=== PATIENT | male | born 1940 | race Caucasian/White ===

== ENCOUNTER 2017-03-09 16:02 | Observation (INO) | payer MEDICARE, BC ==
[2017-03-09] MEDS ORDERED: Aspirin 81 MG Tab.Chew PO ONE (16:15)
[2017-03-09] MEDS ORDERED: Sodium Chloride 0.9% 10 ML Syringe FLUSH PRN ×2 (16:15→19:09)
[2017-03-09] MEDS ORDERED: Nitroglycerin 0.4 MG Tab.SL SL PRN ×2 (16:15→19:09)
[2017-03-09] MEDS ORDERED: Ondansetron 4 MG/2 ML SDV IVPUSH ONE (16:17)
[2017-03-09] MEDS ORDERED: Morphine 4 MG/ML Syringe IVPUSH ONE (16:17)
--- NOTE | 2017-03-09 16:22 | EDM.PDOC ---
ED HISTORY OF PRESENT ILLNESS - General Chief Complaint: Chest Pain Stated Complaint: CHEST PAINS Time Seen by Provider: 03/09/17 16:11 Source: Reports: Patient, Family, RN notes reviewed History Limitations: Reports: No limitations - History of Present Illness INITIAL COMMENTS - FREE TEXT/NARRATIVE: 76-year-old gentleman presents emergency department day complaint of chest pain he states the chest pain has been going on for 2 days it has progressively gotten worse does describe shortness of breath no nausea no diaphoresis does have a past medical history of hypertension dyslipidemia no confirmed history of coronary artery disease, recently has been ill with diarrhea over the last week - Related Data Allergies/ADRs: Allergies Allergy/AdvReac Type Severity Reaction Status Date / Time No Known Allergies Allergy Verified 07/16/15 10:45 Home Meds: Home Meds Lisinopril 20 mg PO DAILY 11/22/13 [History] Metoprolol Succinate 75 mg PO DAILY 11/22/13 [History] Past Medical History Cardiovascular History: Reports: High cholesterol, Hypertension Gastrointestinal History: Reports: Gastritis - Past Surgical History Other HEENT Surgeries/Procedures: Glacoma Social & Family History - Tobacco Use Smoking Status *Q: Former Smoker Years of Tobacco use: 15 Used Tobacco, but Quit: Yes Month Tobacco Last Used: April Second Hand Smoke Exposure: No - Alcohol Use Days Per Week of Alcohol Use: 0 - Recreational Drug Use Recreational Drug Use: No ED ROS GENERAL - Review of Systems Review Of Systems: See Below Constitutional: Reports: weakness HEENT: Reports: No symptoms Respiratory: Reports: Shortness of Breath Cardiovascular: Reports: Chest pain, Dyspnea on exertion GI/Abdominal: Reports: Abdominal pain, Diarrhea : Reports: no symptoms Musculoskeletal: Reports: no symptoms Skin: Reports: no symptoms Neurological: Reports: No Symptoms ED EXAM, GENERAL - Physical Exam Exam: See Below Free Text/Narrative:: General: Elderly male moderate discomfort, alert and oriented x3 HEENT: head is atraumatic normocephalic, eyes pupils equal round reactive to light, sclera clear no conjunctivitis appreciated. Ears tympanic membranes clear and singh landmarks and light reflex are present bilaterally canals are clear. Nose no septal deviation, nares are clear, no blood present. Mouth mucosa is moist and pink no erythema or exudate noted in soft palate, tongue is midline uvula is midline, dentures in place. Neck: Supple no thyromegaly no tracheal deviation. Nodes: Cervical nodes subclavicular nodes nontender no palpable lymphadenopathy noted. Lungs: clear to auscultation bilaterally with symmetrical respirations, no adventitious noise appreciated. CV: Regular rate and rhythm S1 and S2 appreciated no murmurs rubs or gallops noted. Chest wall is tender to palpation in epigastric region but above the xiphoid Abdomen: Soft, nontender, no palpable masses or organomegaly appreciated, no distention no guarding bowel sounds are present,. Neuro: Cranial nerves II through XII grossly intact Skin: Warm and dry, intact Extremities: No lower extremity edema appreciated, Course - Vital Signs Last Recorded V/S: Last Vital Signs Temp 97.6 F 03/09/17 16:08 Pulse 62 03/09/17 16:47 Resp 18 03/09/17 16:47 BP 91/69 03/09/17 16:47 Pulse Ox 94 L 03/09/17 16:47 - Orders/Labs/Meds Orders: Active Orders 24 hr Category Date Time Status Cardiac Monitoring [RC] .As Directed Care 03/09/17 16:15 Active EKG Documentation Completion [RC] ASDIRECTED Care 03/09/17 16:16 Active Peripheral IV Care [RC] . DIRECTED Care 03/09/17 16:16 Active Chest 1V Frontal [CR] Stat Exams 03/09/17 16:16 Taken Nitroglycerin [Nitrostat] Med 03/09/17 16:15 Active 0.4 mg SL Q5M PRN Sodium Chloride 0.9% [Saline Flush] Med 03/09/17 16:15 Active 10 ml FLUSH ASDIRECTED PRN Peripheral IV Insertion Adult [OM.PC] Stat Oth 03/09/17 16:15 Ordered Saline Lock Insert [OM.PC] Stat Oth 03/09/17 16:15 Ordered EKG 12 Lead [EK] Stat Ther 03/09/17 16:16 Ordered Medication Orders Nitroglycerin (Nitrostat) 0.4 mg SL Q5M PRN PRN Reason: Chest Pain Stop: 03/10/17 16:16 Last Admin: 03/09/17 16:23 Dose: 0.4 mg Sodium Chloride (Saline Flush) 10 ml FLUSH ASDIRECTED PRN PRN Reason: Keep Vein Open Last Admin: 03/09/17 16:24 Dose: 10 ml Labs: Laboratory Tests 03/09/17 03/09/17 03/09/17 Range/Units 16:25 16:25 16:25 WBC 10.0 (4.5-11.0) K/uL RBC 4.66 (4.30-5.90) M/uL Hgb 14.6 (12.0-15.0) g/dL Hct 42.8 (40.0-54.0) % MCV 92 (80-98) fL MCH 31 (27-31) pg MCHC 34 (32-36) % Plt Count 217 (150-400) K/uL Neut % (Auto) 45 (36-66) % Lymph % (Auto) 42 (24-44) % [place] % (Auto) 9 H (2-6) % Eos % (Auto) 4 (2-4) % Baso % (Auto) 1 (0-1) % PT 11.0 (9.5-12.0) sec INR 1.04 (0.80-1.20) APTT 26.6 L (27.0-36.0) sec Sodium 140 (140-148) mmol/L Potassium 3.9 (3.6-5.2) mmol/L Chloride 103 (100-108) mmol/L Carbon Dioxide 27 (21-32) mmol/L Anion Gap 9.7 (5.0-14.0) mmol/L BUN 22 H D (7-18) mg/dL Creatinine 1.0 (0.8-1.3) mg/dL Est Cr Clr Drug Dosing 67.90 mL/min Estimated GFR (MDRD) > 60 (>60) Glucose 97 (74-106) mg/dL Lactic Acid (0.4-2.0) mmol/L Calcium 8.8 (8.5-10.1) mg/dL Total Bilirubin 0.8 (0.2-1.0) mg/dL AST 43 H (15-37) U/L ALT 71 D (12-78) U/L Alkaline Phosphatase 52 (46-116) U/L Troponin I < 0.017 (0.000-0.056) ng/mL Total Protein 7.1 (6.4-8.2) g/dL Albumin 3.8 (3.4-5.0) g/dL Globulin 3.3 (2.3-3.5) g/dL Albumin/Globulin Ratio 1.2 (1.2-2.2) Lipase 89 (73-393) U/L 03/09/17 Range/Units 16:25 WBC (4.5-11.0) K/uL RBC (4.30-5.90) M/uL Hgb (12.0-15.0) g/dL Hct (40.0-54.0) % MCV (80-98) fL MCH (27-31) pg MCHC (32-36) % Plt Count (150-400) K/uL Neut % (Auto) (36-66) % Lymph % (Auto) (24-44) % [place] % (Auto) (2-6) % Eos % (Auto) (2-4) % Baso % (Auto) (0-1) % PT (9.5-12.0) sec INR (0.80-1.20) APTT (27.0-36.0) sec Sodium (140-148) mmol/L Potassium (3.6-5.2) mmol/L Chloride (100-108) mmol/L Carbon Dioxide (21-32) mmol/L Anion Gap (5.0-14.0) mmol/L BUN (7-18) mg/dL Creatinine (0.8-1.3) mg/dL Est Cr Clr Drug Dosing mL/min Estimated GFR (MDRD) (>60) Glucose (74-106) mg/dL Lactic Acid 2.0 (0.4-2.0) mmol/L Calcium (8.5-10.1) mg/dL Total Bilirubin (0.2-1.0) mg/dL AST (15-37) U/L ALT (12-78) U/L Alkaline Phosphatase (46-116) U/L Troponin I (0.000-0.056) ng/mL Total Protein (6.4-8.2) g/dL Albumin (3.4-5.0) g/dL Globulin (2.3-3.5) g/dL Albumin/Globulin Ratio (1.2-2.2) Lipase (73-393) U/L Meds: Medications Generic Name Dose Route Start Last Admin Trade Name Freq PRN Reason Stop Dose Admin Nitroglycerin 0.4 mg 03/09/17 16:15 04/17/17 16:23 Nitrostat SL 03/10/17 16:16 0.4 mg Q5M PRN Administration Chest Pain Sodium Chloride 10 ml 03/09/17 16:15 03/09/17 16:24 Saline Flush FLUSH 10 ml ASDIRECTED PRN Administration Keep Vein Open Discontinued Medications Generic Name Dose Route Start Last Admin Trade Name Freq PRN Reason Stop Dose Admin Aspirin 324 mg 03/09/17 16:15 03/09/17 16:22 Aspirin PO 03/09/17 16:16 324 mg ONETIME ONE Administration Morphine Sulfate 4 mg 03/09/17 16:17 03/09/17 16:32 Morphine IVPUSH 03/09/17 16:18 4 mg ONETIME ONE Administration Ondansetron HCl 4 mg 03/09/17 16:17 03/09/17 16:31 Zofran IVPUSH 03/09/17 16:18 4 mg ONETIME ONE Administration Departure - Departure Time of Disposition: 17:15 Disposition: Admitted As Inpatient 65 Condition: good Clinical Impression: Chest pain Qualifiers: Chest pain type: other chest pain Qualified Code(s): R07.89 - Other chest pain ; R07.8 - Other chest pain Forms: ED Department Discharge - My Orders Last 24 Hours: My Active Orders 03/09/17 16:15 Cardiac Monitoring [RC] .As Directed Nitroglycerin [Nitrostat] 0.4 mg SL Q5M PRN Sodium Chloride 0.9% [Saline Flush] 10 ml FLUSH ASDIRECTED PRN Peripheral IV Insertion Adult [OM.PC] Stat Saline Lock Insert [OM.PC] Stat 03/09/17 16:16 EKG Documentation Completion [RC] ASDIRECTED Peripheral IV Care [RC] . DIRECTED Chest 1V Frontal [CR] Stat EKG 12 Lead [EK] Stat - Assessment/Plan Last 24 Hours: My Active Orders 03/09/17 16:15 Cardiac Monitoring [RC] .As Directed Nitroglycerin [Nitrostat] 0.4 mg SL Q5M PRN Sodium Chloride 0.9% [Saline Flush] 10 ml FLUSH ASDIRECTED PRN Peripheral IV Insertion Adult [OM.PC] Stat Saline Lock Insert [OM.PC] Stat 03/09/17 16:16 EKG Documentation Completion [RC] ASDIRECTED Peripheral IV Care [RC] . DIRECTED Chest 1V Frontal [CR] Stat EKG 12 Lead [EK] Stat Plan: Assessment Acuity = acute Site and laterality = chest pain complicated patient with known history of hypertension, dyslipidemia, coronary artery disease mild to moderate 3 vessel disease catheterization in 2009 Etiology = unclear etiology Manifestations = pain and dyspnea Location of injury = home Lab values = CBC, CMP, troponin negative EKG does show an ST elevation in lead 3 only, chest x-ray I did review films myself I cannot appreciate any acute process, the official read from radiology is pending, LAYNE score of 2 heart score of 5 Plan Discussed case with hospitalist nuisance wildlife control operator he agreed to come and evaluate the patient ED for admission Patient was in agreement with the plan all questions were answered, they were instructed to return to the emergency department or call for worsening symptoms. This note was dictated using [employer] voice recognition software please call with any questions.
--- NOTE | 2017-03-09 18:30 | PCM.HP ---
H&P History of Present Illness - General Date of Service: 03/09/17 Admit Problem/Dx: Admission Diagnosis/Problem Admission Diagnosis/Problem Chest pain Source of Information: Patient, Family, Old records, Provider, RN notes reviewed History Limitations: Reports: No limitations - History of Present Illness Initial Comments - Free Text/Narative: This patient is a 76-year-old gentleman who was admitted to observation status through the emergency department for further evaluation and management of chest pain. Over the past few weeks he has noted symptoms of chest pain that seemed to follow eating and will last an hour or 2. Yesterday he experienced some diarrhea and had some cramping lower abdominal pain. When he woke this morning and especially after eating noted central chest pressure described as moderate in nature. The pain did not radiate and there were no associated symptoms. Because the pain was continuous he presented to the emergency department for further evaluation. Initial EKG shows no acute ST segment changes and his initial troponin level is within normal range. He received 2 mg of IV morphine and his pain has resolved. Chest Pain Score (Numeric/FACES): 0 - Related Data Allergies/Adverse Reactions: Allergies Allergy/AdvReac Type Severity Reaction Status Date / Time No Known Allergies Allergy Verified 07/16/15 10:45 Home Medications: Home Meds Lisinopril 20 mg PO DAILY 11/22/13 [History] Metoprolol Succinate 75 mg PO DAILY 11/22/13 [History] Past Medical History HEENT History: Reports: Glaucoma Cardiovascular History: Reports: High cholesterol, Hypertension Respiratory History: Reports: Sleep apnea Gastrointestinal History: Reports: Gastritis Genitourinary History: Reports: Prostate disorder Musculoskeletal History: Reports: Arthritis, Back pain, chronic Psychiatric History: Reports: Other (see below) Other Psychiatric History: past 6 months anger problems Endocrine/Metabolic History: Reports: Obesity/BMI 30+ - Infectious Disease History Infectious Disease History: Reports: Chicken pox, Measles, Mumps - Past Surgical History Other HEENT Surgeries/Procedures: Glacoma Social & Family History - Tobacco Use Smoking Status *Q: Former Smoker Years of Tobacco use: 15 Used Tobacco, but Quit: Yes Month Tobacco Last Used: April Second Hand Smoke Exposure: No - Caffeine Use Caffeine Use: Reports: Coffee Caffeine Use Comment: occ - Alcohol Use Days Per Week of Alcohol Use: 0 - Recreational Drug Use Recreational Drug Use: No H&P Review of Systems - Review of Systems: Review Of Systems: See Below General: Denies: fever, chills, weakness, fatigue, diaphoresis HEENT: Reports: no symptoms Pulmonary: Reports: No Symptoms Cardiovascular: Reports: chest pain. Denies: palpitations, dyspnea on exertion , orthopnea, PND, edema, lightheadedness, syncope Gastrointestinal: Reports: No symptoms Genitourinary: Reports: no symptoms Musculoskeletal: Reports: no symptoms Skin: Reports: no symptoms Psychiatric: Reports: no symptoms Neurological: Reports: No Symptoms Hematologic/Lymphatic: Reports: no symptoms Immunologic: Reports: no symptoms Exam - Exam Exam: See Below - Vital Signs Vital Signs: Last Vital Signs Temp 97.6 F 03/09/17 16:08 Pulse 62 03/09/17 16:47 Resp 18 03/09/17 16:47 BP 91/69 03/09/17 16:47 Pulse Ox 94 L 03/09/17 16:47 Weight: 261 lb - Exam Quality Assessment: supplemental oxygen General: alert, oriented, cooperative HEENT: Conjunctiva clear, Hearing intact, Mucosa moist & pink, Nares patent, Normal nasal septum, Posterior pharynx clear, Pupils equal, Pupils reactive Neck: supple, trachea midline, 2 Lungs: Clear to auscultation, Normal respiratory effort Cardiovascular: regular rate, regular rhythm, normal S1, normal S2. No: systolic murmur, diastolic murmur Abdomen: normal bowel sounds, soft Back Exam: normal inspection, full range of motion, NT Extremities: 3, normal inspection, 10 Skin: warm, dry, intact Neurological: cranial nerves intact, strength equal bilateral, normal speech, normal tone, sensation intact. No: focal deficit Neuro Extensive - Mental Status: alert, oriented x3, normal mood/affect, normal cognition, memory intact - Patient Data Lab Results last 24 hrs: Laboratory Results - last 24 hr 03/09/17 03/09/17 03/09/17 Range/Units 16:25 16:25 16:25 WBC 10.0 (4.5-11.0) K/uL RBC 4.66 (4.30-5.90) M/uL Hgb 14.6 (12.0-15.0) g/dL Hct 42.8 (40.0-54.0) % MCV 92 (80-98) fL MCH 31 (27-31) pg MCHC 34 (32-36) % Plt Count 217 (150-400) K/uL Neut % (Auto) 45 (36-66) % Lymph % (Auto) 42 (24-44) % [place] % (Auto) 9 H (2-6) % Eos % (Auto) 4 (2-4) % Baso % (Auto) 1 (0-1) % PT 11.0 (9.5-12.0) sec INR 1.04 (0.80-1.20) APTT 26.6 L (27.0-36.0) sec Sodium 140 (140-148) mmol/L Potassium 3.9 (3.6-5.2) mmol/L Chloride 103 (100-108) mmol/L Carbon Dioxide 27 (21-32) mmol/L Anion Gap 9.7 (5.0-14.0) mmol/L BUN 22 H D (7-18) mg/dL Creatinine 1.0 (0.8-1.3) mg/dL Est Cr Clr Drug Dosing 67.90 mL/min Estimated GFR (MDRD) > 60 (>60) Glucose 97 (74-106) mg/dL Lactic Acid (0.4-2.0) mmol/L Calcium 8.8 (8.5-10.1) mg/dL Total Bilirubin 0.8 (0.2-1.0) mg/dL AST 43 H (15-37) U/L ALT 71 D (12-78) U/L Alkaline Phosphatase 52 (46-116) U/L Troponin I < 0.017 (0.000-0.056) ng/mL Total Protein 7.1 (6.4-8.2) g/dL Albumin 3.8 (3.4-5.0) g/dL Globulin 3.3 (2.3-3.5) g/dL Albumin/Globulin Ratio 1.2 (1.2-2.2) Lipase 89 (73-393) U/L 03/09/ Range/Units 16:25 WBC (4.5-11.0) K/uL RBC (4.30-5.90) M/uL Hgb (12.0-15.0) g/dL Hct (40.0-54.0) % MCV (80-98) fL MCH (27-31) pg MCHC (32-36) % Plt Count (150-400) K/uL Neut % (Auto) (36-66) % Lymph % (Auto) (24-44) % [place] % (Auto) (2-6) % Eos % (Auto) (2-4) % Baso % (Auto) (0-1) % PT (9.5-12.0) sec INR (0.80-1.20) APTT (27.0-36.0) sec Sodium (140-148) mmol/L Potassium (3.6-5.2) mmol/L Chloride (100-108) mmol/L Carbon Dioxide (21-32) mmol/L Anion Gap (5.0-14.0) mmol/L BUN (7-18) mg/dL Creatinine (0.8-1.3) mg/dL Est Cr Clr Drug Dosing mL/min Estimated GFR (MDRD) (>60) Glucose (74-106) mg/dL Lactic Acid 2.0 (0.4-2.0) mmol/L Calcium (8.5-10.1) mg/dL Total Bilirubin (0.2-1.0) mg/dL AST (15-37) U/L ALT (12-78) U/L Alkaline Phosphatase (46-116) U/L Troponin I (0.000-0.056) ng/mL Total Protein (6.4-8.2) g/dL Albumin (3.4-5.0) g/dL Globulin (2.3-3.5) g/dL Albumin/Globulin Ratio (1.2-2.2) Lipase (73-393) U/L Result Diagrams: 03/09/17 16:25 03/09/17 16:25 *Q Meaningful Use (ADM) - VTE *Q VTE Criteria *Q: - VTE Risk Assess *Q Each Risk Factor Represents 1 Point: Obesity (BMI greater than 30) Total Score 1 Point Risk Factors: 1 Each Risk Factor Represents 2 Points: None Total Score 2 Point Risk Factors: 0 Each Risk Factor Represents 3 Points: Age 75 Years or Greater Total Score 3 Point Risk Factors: 3 Each Risk Factor Represents 5 Points: None Total Score 5 Point Risk Factors: 0 Venous Thromboembolism Risk Factor Score *Q: 4 - Stroke *Q Stroke Criteria *Q: - AMI *Q AMI Criteria *Q: Problem List Initiated/Reviewed/Updated: Yes Orders Last 24hrs: Active Orders 24 hr Category Date Time Status Patient Status Manage Transfer [TRANSFER] Routine ADT 03/09/17 18:17 Ordered Cardiac Monitoring [RC] .As Directed Care 03/09/17 16:15 Active Cardiac Monitoring [RC] .As Directed Care 03/09/17 18:17 Ordered EKG Documentation Completion [RC] ASDIRECTED Care 03/09/17 16:16 Active Peripheral IV Care [RC] . DIRECTED Care 03/09/17 16:16 Active Chest 1V Frontal [CR] Stat Exams 03/09/17 16:16 Taken Nitroglycerin [Nitrostat] Med 03/09/17 16:15 Active 0.4 mg SL Q5M PRN Sodium Chloride 0.9% [Saline Flush] Med 03/09/17 16:15 Active 10 ml FLUSH ASDIRECTED PRN Peripheral IV Insertion Adult [OM.PC] Stat Oth 03/09/17 16:15 Ordered Saline Lock Insert [OM.PC] Stat Oth 03/09/17 16:15 Ordered Resuscitation Status Routine Resus Stat 03/09/17 18:19 Ordered EKG 12 Lead [EK] Stat Ther 03/09/17 16:16 Ordered Medication Orders Nitroglycerin (Nitrostat) 0.4 mg SL Q5M PRN PRN Reason: Chest Pain Stop: 03/10/17 16:16 Last Admin: 03/09/17 16:23 Dose: 0.4 mg Sodium Chloride (Saline Flush) 10 ml FLUSH ASDIRECTED PRN PRN Reason: Keep Vein Open Last Admin: 03/09/17 16:24 Dose: 10 ml Assessment/Plan Comment:: ASSESSMENT AND PLAN CHEST PAIN-occurring in this 76-year-old gentleman, previous angiogram 7 years ago showed mild to moderate coronary artery disease. He has experienced symptoms over the past few weeks that became significantly worse today. By his description these symptoms seem to be more likely ulcer disease or reflux. He does have risk factors for coronary artery disease including family history, hypertension, and hypercholesterolemia. -Observation admission -Serial troponin levels -If stable in a.m. plan to schedule for outpatient Cardiolite study -Protonix 40 mg IV every 12 hours HYPERTENSION -Continue outpatient medical regimen HYPERCHOLESTEROLEMIA -Discuss with patient at the time of discharge concerning resuming statin therapy HISTORY OF ESOPHAGEAL REFLUX MAINTENANCE ISSUES -DVT prophylaxis; Lovenox 40 mg subcutaneous daily -GI prophylaxis; Protonix as above -Aragon catheter; not indicated -Nutrition; regular diet -Nicotinic dependence; not required CODE STATUS-FULL CODE ADMISSION STATUS-this patient will be admitted to observation status, expect no more than a one night hospital stay for evaluation and management of problems as outlined above. DISPOSITION-anticipate discharge to home after the hospital stay. PRIMARY CARE PROVIDER-
[2017-03-09] MEDS ORDERED: Ondansetron 4 MG/2 ML SDV IV PRN (19:09)
[2017-03-09] MEDS ORDERED: Morphine 2 MG/ML Syringe IVPUSH PRN (19:09)
[2017-03-09] MEDS ORDERED: Acetaminophen 325 MG Tab PO PRN (19:09)
[2017-03-09] MEDS ORDERED: oxyCODONE 5 MG Tab PO PRN (19:09)
[2017-03-09] MEDS: Pantoprazole 40 MG Vial IV SCH (19:53)
[2017-03-09] MEDS ORDERED: Enoxaparin 40 MG/0.4 ML Syringe SUBCUT SCH (20:00)
[2017-03-10] MEDS ORDERED: Aluminum Hydroxide/Magnesium Hydroxide/Simethicone Susp 30 ML Cup PO PRN (00:59)
[2017-03-10] MEDS ORDERED: Lisinopril 20 MG Tab PO SCH (09:00)
[2017-03-10] MEDS ORDERED: Aspirin 81 MG Tab.Chew PO SCH (09:00)
[2017-03-10 09:28] VITALS: BP 127/62
[2017-03-10] MEDS ORDERED: Metoprolol Succinate 50 MG Tab.ER PO SCH (09:30)
[2017-03-10] MEDS: Pantoprazole 40 MG Vial IV SCH (09:53)
--- NOTE | 2017-03-10 10:49 | CR ---
Mild cardiomegaly. Pulmonary vasculature within normal limits. No focal consolidation.
--- NOTE | 2017-03-10 10:58 | PCM.DCSUM1 ---
Discharge Summary - Hospital Course Brief History: Mr. Mandujano is a 76-year-old gentleman who was admitted through the emergency department to observation status for further evaluation and management of chest pain. - Discharge Data Discharge Date: 03/10/17 Discharge Disposition: Home, Self-Care 01 Condition: Fair - Discharge Diagnosis/Problem(s) (1) Esophageal reflux SNOMED Code(s): 196516868 ICD Code: K21.9 - GASTRO-ESOPHAGEAL REFLUX DISEASE WITHOUT ESOPHAGITIS Status: Acute Current Visit: Yes (2) Reflux esophagitis SNOMED Code(s): 384913572 ICD Code: K21.0 - GASTRO-ESOPHAGEAL REFLUX DISEASE WITH ESOPHAGITIS Status : Acute Current Visit: Yes (3) Chest pain SNOMED Code(s): 79989727 ICD Code: R07.9 - CHEST PAIN, UNSPECIFIED Status: Acute Current Visit: Yes Qualifiers: Chest pain type: other chest pain Qualified Code(s): R07.89 - Other chest pain; R07.8 - Other chest pain - Patient Summary/Data Hospital Course: Mr. Mandujano is a 76-year-old gentleman who developed persistent chest pain on the day of admission. Pain was described as a pressure sensation in the central chest, pain was of moderate intensity and did not radiate. He's had similar pain over the past several weeks it usually seems to follow eating. He does have a past history of esophageal reflux and had stopped taking his proton pump inhibitor several months ago. Initial EKG and troponin level in the emergency department were unremarkable showing no evidence of acute ischemia or infarct. Serial troponin levels were obtained after admission and remained normal. He was started on Protonix 40 mg IV every 12 hours at the time of admission, by the following morning was already feeling somewhat improved with significant decrease in his previous chest pain. Outpatient exercise Cardiolite study will be scheduled for tomorrow March 11. Followup appointment will be scheduled with Dr. Hanna within one week. He will be discharged home on protonic 40 mg twice daily for 2 weeks, then once daily thereafter. Activity will be as tolerated and he will resume his usual diet. - Patient Instructions Diet: Usual Diet as Tolerated Activity: As Tolerated Other/Special Instructions: Please schedule an exercise Cardiolite study for March 11. Please schedule followup appointment with Dr. Hanna within one week. - Discharge Plan Prescriptions/Med Rec: Alum Hydrox/Mag Hydrox/Simeth [Maalox Advanced] 30 ml PO Q2H PRN #355 ml PRN Reason: Chest Pain Pantoprazole Sodium [Protonix] 40 mg PO BID #30 tablet. Home Medications: Home Meds Lisinopril 20 mg PO DAILY 11/22/13 [History] Metoprolol Succinate 75 mg PO DAILY 11/22/13 [History] Alum Hydrox/Mag Hydrox/Simeth [Maalox Advanced] 30 ml PO Q2H PRN #355 ml [Rx] Pantoprazole Sodium [Protonix] 40 mg PO BID #30 tablet. 03/10/17 [Rx] Referrals: Marcial Hanna MD [Physician] - - Patient Data Vitals - Most Recent: Last Vital Signs Temp 96.8 F 03/10/17 08:00 Pulse 68 03/10/17 09:53 Resp 12 03/10/17 09:27 BP 127/62 03/10/17 09:58 Pulse Ox 98 03/10/17 09:27 Weight - Most Recent: 261 lb I&O - Last 24 hours: Intake & Output 03/09/17 03/10/17 03/10/17 22:59 06:59 14:59 Intake Total 240 480 Balance 240 480 Lab Results - Last 24 hrs: Laboratory Results - last 24 hr 03/09/17 03/10/17 Range/Units 21:58 05:00 Troponin I < 0.017 < 0.017 (0.000-0.056) ng/mL Med Orders - Current: Current Medications Acetaminophen (Tylenol) 650 mg PO Q4H PRN PRN Reason: Pain (Mild 1-3)/fever Al Hydroxide/Mg Hydroxide (Mag-Al Plus) 30 ml PO Q4H PRN PRN Reason: Dyspepsia Last Admin: 03/10/17 01:08 Dose: 30 ml Aspirin (Aspirin) 81 mg PO DAILY [facility] [place] Last Admin: 03/10/17 09:53 Dose: 81 mg Enoxaparin Sodium (Lovenox) 40 mg SUBCUT DAILY@1999 [facility] [place] Last Admin: 03/09/17 19:54 Dose: 40 mg Lisinopril (Prinivil) 20 mg PO DAILY [facility] [place] Last Admin: 03/10/17 09:58 Dose: 20 mg Metoprolol Succinate 50 mg/ (Metoprolol Succinate 25 mg) 75 mg PO DAILY [facility] [place] Last Admin: 03/10/17 09:53 Dose: 75 mg Morphine Sulfate (Morphine) 2 mg IVPUSH Q30M PRN PRN Reason: Pain (severe 7-10) Nitroglycerin (Nitrostat) 0.4 mg SL Q5M PRN PRN Reason: Chest Pain Ondansetron HCl (Zofran) 4 mg IV Q4H PRN PRN Reason: Nausea/Vomiting Oxycodone HCl (Oxycodone) 5 mg PO Q4H PRN PRN Reason: Pain (moderate 4-6) Pantoprazole Sodium (Protonix Iv) 40 mg IV Q12H [facility] [place] Last Admin: 03/10/17 09:53 Dose: 40 mg Sodium Chloride (Saline Flush) 10 ml FLUSH ASDIRECTED PRN PRN Reason: Keep Vein Open Discontinued Medications Aspirin (Aspirin) 324 mg PO ONETIME ONE Stop: 03/09/17 16:16 Last Admin: 03/09/17 16:22 Dose: 324 mg Morphine Sulfate (Morphine) 4 mg IVPUSH ONETIME ONE Stop: 03/09/17 16:18 Last Admin: 03/09/17 16:32 Dose: 4 mg Nitroglycerin (Nitrostat) 0.4 mg SL Q5M PRN PRN Reason: Chest Pain Stop: 03/10/17 16:16 Last Admin: 03/09/17 16:23 Dose: 0.4 mg Ondansetron HCl (Zofran) 4 mg IVPUSH ONETIME ONE Stop: 03/09/17 16:18 Last Admin: 03/09/17 16:31 Dose: 4 mg Sodium Chloride (Saline Flush) 10 ml FLUSH ASDIRECTED PRN PRN Reason: Keep Vein Open Last Admin: 03/09/17 16:24 Dose: 10 ml *Q Meaningful Use (DIS) - VTE *Q VTE Criteria *Q: - Stroke *Q Stroke Criteria *Q: - AMI *Q AMI Criteria *Q:
== END 2017-03-10 11:27 | disposition home or self-care (01) ==
LOC: JP.ED 16:02 → JP.ICU 18:17
PROVIDERS: ADMIT Hospitalist; ATTEND Hospitalist
DX: K21.0 Gastro-esophageal reflux disease with esophagitis (principal); R07.89 Other chest pain; I10 Essential (primary) hypertension; E78.00 Pure hypercholesterolemia, unspecified; E66.9 Obesity, unspecified; Z68.30 Body mass index [BMI] 30.0-30.9, adult; Z98.890 Other specified postprocedural states; Z87.891 Personal history of nicotine dependence; Z79.82 Long term (current) use of aspirin; Z79.899 Other long term (current) drug therapy
CPT/HCPCS: 36415; 71010; 80053; 83605; 83690; 84484; 85025; 85610; 85730; 93005; 96372; 96374; 96375; 99285; A9270; C9113; G0378; J1650; J2270; J2405; J7050; 93010; 99217; 99219

== ENCOUNTER 2017-04-06 06:31 | Day surgery (SDC) | payer MEDICARE, BC ==
[2017-04-06] MEDS ORDERED: Lactated Ringers 1,000 ML IV SCH (07:15)
[2017-04-06] MEDS ORDERED: Sodium Chloride 0.9% 1,000 ML IV SCH ×2 (07:30→15:00)
[2017-04-06] MEDS ORDERED: fentaNYL 100 MCG/2 ML SDV ONE (07:58)
[2017-04-06] MEDS ORDERED: Propofol 200 MG/20 ML SDV ONE (08:12)
[2017-04-06 09:13] VITALS: BP 153/76
[2017-04-06] MEDS ORDERED: Scopolamine 1.5 MG Transdermal Patch ONE (09:24)
--- NOTE | 2017-04-09 00:39 | ANES ---
DATE OF SERVICE: 04/08/2017 ADDENDUM: On recent procedure, 100 mg of propofol was given, but not documented on the anesthesia record. Dale Yan CRNA /[id number]
--- NOTE | 2017-05-06 08:13 | OR ---
DATE OF PROCEDURE: 04/06/2017 PROCEDURE: EGD. FINDINGS: Mild esophageal reflux disease. COMPLICATIONS: None. OIL FIELD CASER: None. PREOPERATIVE DIAGNOSIS: Epigastric pain. POSOPERATIVE DIAGNOSIS: Epigastric pain. RISKS: Risks, benefits, alternatives, and limitations, including, but not limited to infection, bleeding, and perforation were explained to the patient who wished to proceed. PROCEDURE IN DETAIL: The patient was placed in left lateral decubitus position. The EGD scope was introduced and advanced atraumatically to the second part of the duodenum. No evidence of duodenitis. The scope was brought back into the stomach. No evidence of gastritis was noted. No ulcerations. At the GE junction was inflammation consistent with reflux disease. This was biopsied multiple times using cold biopsy forceps. No other abnormalities of the esophagus were noted. The patient tolerated the procedure well. Reggie Mckeon MD /[id number]
== END 2017-04-06 09:25 | disposition home or self-care (01) ==
LOC: JP.SDS 06:31
PROVIDERS: ATTEND Surgery
DX: K21.9 Gastro-esophageal reflux disease without esophagitis (principal); R13.10 Dysphagia, unspecified; G47.33 Obstructive sleep apnea (adult) (pediatric); I10 Essential (primary) hypertension; E66.9 Obesity, unspecified; Z79.899 Other long term (current) drug therapy; Z88.8 Allergy status to other drugs, medicaments and biological substances
CPT/HCPCS: 43239; 88305; A9270; J2704; J3010; J7040

== ENCOUNTER 2017-06-26 09:04 | Inpatient (IN) | payer MEDICARE, BC ==
[2017-06-26] MEDS ORDERED: Sodium Chloride 0.9% 10 ML Syringe FLUSH PRN ×2 (11:23→12:03)
[2017-06-26] MEDS ORDERED: Ondansetron 4 MG/2 ML SDV IVPUSH ONE (11:29)
[2017-06-26] MEDS ORDERED: Sodium Chloride 0.9% 1,000 ML IV SCH (11:30)
--- NOTE | 2017-06-26 11:38 | EDM.PDOC ---
ED HPI GENERAL MEDICAL PROBLEM - General Chief Complaint: Gastrointestinal Problem Stated Complaint: VOMITING Time Seen by Provider: 06/26/17 11:00 Source of Information: Reports: Patient History Limitations: Reports: No Limitations - History of Present Illness INITIAL COMMENTS - FREE TEXT/NARRATIVE: Magdy presents today with complains of acute abdominal pain, nausea and vomiting for two days. He states he is unable to keep anything down, has no appetite, his abdomen is distended and he feels full of gas. He denies fever, chills, blood in urine or stool. No food since yesterday. Water PO this morning at 0700. NPO since that time. Location: Reports: Abdomen Quality: Reports: Ache, Burning Severity: Moderate Improves with: Reports: None Worsens with: Reports: Movement Associated Symptoms: Reports: Loss of Appetite, Nausea/Vomiting, Shortness of Breath. Denies: Cough, Diaphoresis, Fever/Chills, Malaise, Weakness - Related Data Allergies Allergy/AdvReac Type Severity Reaction Status Date / Time No Known Allergies Allergy Verified 04/06/17 06:54 Home Meds: Home Meds Lisinopril 20 mg PO DAILY 11/22/13 [History] Metoprolol Succinate 75 mg PO DAILY 11/22/13 [History] Alum Hydrox/Mag Hydrox/Simeth [Maalox Advanced] 30 ml PO Q2H PRN #355 ml [Rx] Pantoprazole Sodium [Protonix] 40 mg PO BID #30 tablet. 03/10/17 [Rx] Past Medical History HEENT History: Reports: Cataract, Glaucoma, Impaired Vision Cardiovascular History: Reports: Arrhythmia, High Cholesterol, Hypertension, ND Respiratory History: Reports: Sleep Apnea Gastrointestinal History: Reports: Cholelithiasis, Chronic Constipation, Chronic Diarrhea, Colon Polyp, Gastritis, GERD Genitourinary History: Reports: Prostate Disorder Other Genitourinary History: urinary frequency Musculoskeletal History: Reports: Back Pain, Chronic, Osteoarthritis Psychiatric History: Reports: Other (See Below) Other Psychiatric History: past 6 months anger problems Endocrine/Metabolic History: Reports: Obesity/BMI 30+ - Infectious Disease History Infectious Disease History: Reports: Chicken Pox, Measles, Mumps, Pertussis ( Whooping Cough) - Past Surgical History HEENT Surgical History: Reports: None Cardiovascular Surgical History: Reports: None Respiratory Surgical History: Reports: None GI Surgical History: Reports: Cholecystectomy, Colonoscopy, EGD Male Surgical History: Reports: None Endocrine Surgical History: Reports: None Musculoskeletal Surgical History: Reports: Knee Replacement, Other (See Below) Other Musculoskeletal Surgeries/Procedures:: Left ankle surg Social & Family History - Tobacco Use Smoking Status *Q: Never Smoker Years of Tobacco use: 25 Packs/Tins Daily: 4 Used Tobacco, but Quit: Yes Month Tobacco Last Used: 1974 Second Hand Smoke Exposure: No - Caffeine Use Caffeine Use: Reports: Coffee Caffeine Use Comment: occasional 2-3 cups week - Alcohol Use Days Per Week of Alcohol Use: 0 - Recreational Drug Use Recreational Drug Use: No ED ROS GENERAL - Review of Systems Review Of Systems: See Below Constitutional: Reports: Decreased Appetite. Denies: Fever, Chills, Malaise, Weakness, Night Sweats, Diaphoresis HEENT: Reports: No Symptoms Respiratory: Reports: Shortness of Breath. Denies: Wheezing, Cough, Sputum Cardiovascular: Denies: Chest Pain, Dyspnea on Exertion, Edema, Lightheadedness , Orthopnea, Palpitations, PND, Syncope Endocrine: Reports: No Symptoms GI/Abdominal: Reports: Abdominal Pain, Constipation, Diarrhea, Decreased Appetite, Distension, Flatus, Nausea, Vomiting. Denies: Black Stool, Bloody Stool, Difficulty Swallowing, Hematemesis, Hematochezia, Melena : Reports: Frequency, Urinary Retention. Denies: Dysuria, Flank Pain, Hematuria, Incontinence, Pain, Urgency Musculoskeletal: Reports: No Symptoms Skin: Denies: Dryness, Bruising, Pruritis, Rash, Erythema Neurological: Denies: Confusion, Dizziness, Headache, Numbness, Tingling Psychiatric: Reports: No Symptoms Hematologic/Lymphatic: Reports: No Symptoms Immunologic: Reports: No Symptoms ED EXAM, GI/ABD - Physical Exam Exam: See Below Text/Narrative:: Magdy is an alert, oriented and pleasant 76 year old male with acute abdominal pain, distention, nausea, vomiting, diarrhea, feeling full, belching and loss of appetite for two days. He reports past EGD 2 or 3 months ago without abnormalities. past history of acid reflux and silent ND. Dr. Hanna is his regular provider. Exam Limited By: No Limitations General Appearance: Alert, WD/WN, No Apparent Distress Eyes: Bilateral: EOMI Ears: Normal External Exam, Normal Canal, Hearing Grossly Normal, Normal TMs Nose: Normal Inspection, Normal Mucosa, No Blood Throat/Mouth: Normal Inspection, Normal Lips, Normal Teeth, Normal Oropharynx, Normal Voice, No Airway Compromise, Other (Dentures in place, tongue is dry. ) Head: Atraumatic, Normocephalic Neck: Normal Inspection, Supple, Non-Tender, Full Range of Motion Respiratory/Chest: No Respiratory Distress, Lungs Clear, Normal Breath Sounds, No Accessory Muscle Use, Chest Non-Tender Cardiovascular: Normal Peripheral Pulses, Regular Rate, Rhythm, No Edema, No Gallop, No Murmur, No Rub GI/Abdominal Exam: Distended, Guarding, Tender, Abnormal Bowel Sounds, Other ( Hyperactive bowel sounds, large round abdomen. BM in ER toilet, brown liquid with small ribbon like pieces of stool noted, no blood. ). No: Mass Back Exam: Normal Inspection, Full Range of Motion. 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 DIRECTED PRN Lactated Ringers [Ringers, Lactated] 1,000 ml Med 06/26/17 14:45 Active IV ASDIRECTED Sodium Chloride 0.9% [Normal Saline] 1,000 ml Med 06/26/17 11:30 Active IV ASDIRECTED Sodium Chloride 0.9% [Normal Saline] 85 ml Med 06/26/17 12:15 Active IV ASDIRECTED Sodium Chloride 0.9% [Saline Flush] Med 06/26/17 11:23 Active 10 ml FLUSH ASDIRECTED PRN Sodium Chloride 0.9% [Saline Flush] Med 06/26/17 12:03 Active 10 ml FLUSH ONETIME PRN Nasogastric Orogastric Tube Insertion [OM.PC] Routine Oth 06/26/17 13:42 Ordered Saline Lock Insert [OM.PC] Routine Oth 06/26/17 11:23 Ordered Resuscitation Status Routine Resus Stat 06/26/17 15:54 Ordered EKG 12 Lead [EK] Routine Ther 06/26/17 11:22 Ordered Medication Orders Sodium Chloride (Normal Saline) 1,000 mls @ 500 mls/hr IV ASDIRECTED [facility] Last Admin: 06/26/17 11:42 Dose: 500 mls/hr Sodium Chloride (Normal Saline) 85 mls @ 3.5 mls/sec IV ASDIRECTED [facility] Last Admin: 06/26/17 12:04 Dose: 3.5 mls/sec Lactated Ringer's (Ringers, Lactated) 1,000 mls @ 150 mls/hr IV ASDIRECTED [facility] Last Admin: 06/26/17 14:44 Dose: 150 mls/hr Iopamidol (Isovue-300 (61%)) 150 ml IV . DIRECTED PRN PRN Reason: RADIOLOGY EXAM Stop: 06/27/17 12:04 Last Admin: 06/26/17 12:04 Dose: 150 ml Sodium Chloride (Saline Flush) 10 ml FLUSH ASDIRECTED PRN PRN Reason: Keep Vein Open Last Admin: 06/26/17 11:43 Dose: 10 ml Sodium Chloride (Saline Flush) 10 ml FLUSH ONETIME PRN PRN Reason: per radiology protocol Last Admin: 06/26/17 12:04 Dose: 10 ml Labs: Laboratory Tests 06/26/17 06/26/17 06/26/17 Range/Units 09:28 09:28 09:30 WBC 19.8 H (4.5-11.0) K/uL RBC 5.39 (4.30-5.90) M/uL Hgb 17.1 H D (12.0-15.0) g/dL Hct 48.9 (40.0-54.0) % MCV 91 (80-98) fL MCH 32 H (27-31) pg MCHC 35 (32-36) % Plt Count 280 (150-400) K/uL Neut % (Auto) 73 H (36-66) % Lymph % (Auto) 19 L (24-44) % [place] % (Auto) 7 H (2-6) % Eos % (Auto) 0 L (2-4) % Baso % (Auto) 0 (0-1) % Sodium 141 (140-148) mmol/L Potassium 3.8 (3.6-5.2) mmol/L Chloride 102 (100-108) mmol/L Carbon Dioxide 28 (21-32) mmol/L Anion Gap 11.0 (5.0-14.0) mmol/L BUN 19 H (7-18) mg/dL Creatinine 1.1 (0.8-1.3) mg/dL Est Cr Clr Drug Dosing 61.73 mL/min Estimated GFR (MDRD) > 60 (>60) Glucose 164 H (74-106) mg/dL Calcium 10.0 (8.5-10.1) mg/dL Total Bilirubin 1.3 H D (0.2-1.0) mg/dL AST 27 (15-37) U/L ALT 49 (12-78) U/L Alkaline Phosphatase 62 (46-116) U/L Troponin I (0.000-0.056) ng/mL C-Reactive Protein 0.59 H (0.0-0.3) mg/dL Total Protein 8.4 H (6.4-8.2) g/dL Albumin 4.0 (3.4-5.0) g/dL Globulin 4.4 H (2.3-3.5) g/dL Albumin/Globulin Ratio 0.9 L (1.2-2.2) Amylase (25-115) U/L Lipase (73-393) U/L Urine Color Urine Appearance Urine pH (4.5-8.0) Ur Specific [place] (1.008-1.030) Urine Protein (NEGATIVE) mg/dL Urine Glucose (UA) (NEGATIVE) mg/dL Urine Ketones (NEGATIVE) mg/dL Urine Occult Blood (NEGATIVE) Urine Nitrite (NEGAITVE) Urine Bilirubin (NEGATIVE) Urine Urobilinogen (NORMAL) mg/dL Ur Leukocyte Esterase (NEGATIVE) Urine RBC (0-5) Urine WBC (0-5) Ur Epithelial Cells Amorphous Sediment Urine Bacteria Urine Mucus 06/26/17 06/26/17 06/26/17 Range/Units 09:35 10:43 11:32 WBC (4.5-11.0) K/uL RBC (4.30-5.90) M/uL Hgb (12.0-15.0) g/dL Hct (40.0-54.0) % MCV (80-98) fL MCH (27-31) pg MCHC (32-36) % Plt Count (150-400) K/uL Neut % (Auto) (36-66) % Lymph % (Auto) (24-44) % [place] % (Auto) (2-6) % Eos % (Auto) (2-4) % Baso % (Auto) (0-1) % Sodium (140-148) mmol/L Potassium (3.6-5.2) mmol/L Chloride (100-108) mmol/L Carbon Dioxide (21-32) mmol/L Anion Gap (5.0-14.0) mmol/L BUN (7-18) mg/dL Creatinine (0.8-1.3) mg/dL Est Cr Clr Drug Dosing mL/min Estimated GFR (MDRD) (>60) Glucose (74-106) mg/dL Calcium (8.5-10.1) mg/dL Total Bilirubin (0.2-1.0) mg/dL AST (15-37) U/L ALT (12-78) U/L Alkaline Phosphatase (46-116) U/L Troponin I < 0.017 (0.000-0.056) ng/mL C-Reactive Protein (0.0-0.3) mg/dL Total Protein (6.4-8.2) g/dL Albumin (3.4-5.0) g/dL Globulin (2.3-3.5) g/dL Albumin/Globulin Ratio (1.2-2.2) Amylase 22 L (25-115) U/L Lipase 61 L (73-393) U/L Urine Color Yellow Urine Appearance Slightly cloudy Urine pH 5.0 (4.5-8.0) Ur Specific [place] 1.025 (1.008-1.030) Urine Protein Negative (NEGATIVE) mg/dL Urine Glucose (UA) Normal (NEGATIVE) mg/dL Urine Ketones 50 H (NEGATIVE) mg/dL Urine Occult Blood Negative (NEGATIVE) Urine Nitrite Negative (NEGAITVE) Urine Bilirubin Small (NEGATIVE) Urine Urobilinogen 1 (NORMAL) mg/dL Ur Leukocyte Esterase Negative (NEGATIVE) Urine RBC 0-5 (0-5) Urine WBC 0-5 (0-5) Ur Epithelial Cells Rare Amorphous Sediment Rare Urine Bacteria Rare Urine Mucus Many Meds: Medications Generic Name Dose Route Start Last Admin Trade Name Freq PRN Reason Stop Dose Admin Sodium Chloride 1,000 mls @ 500 mls/hr 06/26/17 11:30 06/26/17 11:42 Normal Saline IV 500 mls/hr ASDIRECTED SHIRA Administration Sodium Chloride 85 mls @ 3.5 mls/sec 06/26/17 12:15 06/26/17 12:04 Normal Saline IV 3.5 mls/sec ASDIRECTED SHIRA Administration Lactated Ringer's 1,000 mls @ 150 mls/hr 06/26/17 14:45 06/26/17 14:44 Ringers, Lactated IV 150 mls/hr ASDIRECTED SHIRA Administration Iopamidol 150 ml 06/26/17 12:03 06/26/17 12:04 Isovue-300 (61%) IV 06/27/17 12:04 150 ml . DIRECTED PRN Administration RADIOLOGY EXAM Sodium Chloride 10 ml 06/26/17 11:23 06/26/17 11:43 Saline Flush FLUSH 10 ml ASDIRECTED PRN Administration Keep Vein Open Sodium Chloride 10 ml 06/26/17 12:03 06/26/17 12:04 Saline Flush FLUSH 10 ml ONETIME PRN Administration per radiology protocol Discontinued Medications Generic Name Dose Route Start Last Admin Trade Name Freq PRN Reason Stop Dose Admin Ondansetron HCl 4 mg 06/26/17 11:29 06/26/17 11:43 Zofran IVPUSH 06/26/17 11:30 4 mg ONETIME ONE Administration Pantoprazole Sodium 40 mg 06/26/17 13:32 06/26/17 13:49 Protonix Iv IVPUSH 06/26/17 13:33 40 mg ONETIME ONE Administration - Radiology Interpretation CT Results Date: 06/26/17 (Impression: Dilated small bowel loops. Findings represent small bowel obstruction. Transition point may be within the proximal ileum or distal jejunum in the right mid-abdomen. Extensive diverticulosis within the colon. ) - Re-Assessments/Exams Free Text/Narrative Re-Assessment/Exam: 06/26/17 11:46 Patient will be given IV fluids, zofran and abdominal/pelvis CT completed with contrast. Free Text/Narrative Re-Assessment/Exam: 06/26/17 13:[address] results. He will be provided protonix 40 mg IV, NG tube placed, pain and antiemetic medication as needed with continued with IV hydration. Dr. Funez notified of patient status, he will be down to admit patient when able. Free Text/Narrative Re-Assessment/Exam: 06/26/17 13:51 Dr. Yoel Lima notified of patient status and admission, a flat and upright abdominal X-ray will be ordered to be done at [address] Lima agrees with admission per Dr. Funez. 06/26/17 16:08 Dr. Funez present to admit patient. Departure - Departure Time of Disposition: 15:00 Disposition: Admitted As Inpatient 65 Clinical Impression: Small bowel obstruction, Diverticulosis, Dehydration - Discharge Information Referrals: Marcial Hanna MD [Primary Care Provider] - Forms: ED Department Discharge - My Orders Last 24 Hours: My Active Orders 06/26/17 11:22 EKG 12 Lead [EK] Routine 06/26/17 11:23 EKG Documentation Completion [RC] ASDIRECTED Sodium Chloride 0.9% [Saline Flush] 10 ml FLUSH ASDIRECTED PRN Saline Lock Insert [OM.PC] Routine 06/26/17 11:30 Sodium Chloride 0.9% [Normal Saline] 1,000 ml IV ASDIRECTED 06/26/17 12:03 Iopamidol [Isovue-300 (61%)] 150 ml IV . DIRECTED PRN Sodium Chloride 0.9% [Saline Flush] 10 ml FLUSH ONETIME PRN 06/26/17 12:15 Sodium Chloride 0.9% [Normal Saline] 85 ml IV ASDIRECTED 06/26/17 13:42 Gastrointestinal Tube Mgmt [RC] ASDIRECTED Nasogastric Orogastric Tube Insertion [OM.PC] Routine 06/26/17 14:45 Lactated Ringers [Ringers, Lactated] 1,000 ml IV ASDIRECTED - Assessment/Plan Last 24 Hours: My Active Orders 06/26/17 11:22 EKG 12 Lead [EK] Routine 06/26/17 11:23 EKG Documentation Completion [RC] ASDIRECTED Sodium Chloride 0.9% [Saline Flush] 10 ml FLUSH ASDIRECTED PRN Saline Lock Insert [OM.PC] Routine 06/26/17 11:30 Sodium Chloride 0.9% [Normal Saline] 1,000 ml IV ASDIRECTED 06/26/17 12:03 Iopamidol [Isovue-300 (61%)] 150 ml IV . DIRECTED PRN Sodium Chloride 0.9% [Saline Flush] 10 ml FLUSH ONETIME PRN 06/26/17 12:15 Sodium Chloride 0.9% [Normal Saline] 85 ml IV ASDIRECTED 06/26/17 13:42 Gastrointestinal Tube Mgmt [RC] ASDIRECTED Nasogastric Orogastric Tube Insertion [OM.PC] Routine 06/26/17 14:45 Lactated Ringers [Ringers, Lactated] 1,000 ml IV ASDIRECTED Assessment:: Small bowel obstruction Diverticulosis Dehydration Plan: Patient will be admitted per Dr. Funez for further management.
[2017-06-26] MEDS ORDERED: Iopamidol 612 MG/ML 150 ML Bottle IV PRN (12:03)
--- NOTE | 2017-06-26 12:41 | CT ---
CT abdomen and pelvis. Indication: Abdominal pain. Total DLP 1198. Comparison: 11/24/2013. Findings: Minimal atelectasis or scarring within the lung bases. Fatty infiltration of the liver. Po stcholecystectomy change. Spleen within normal limits. Splenule adjacent to the spleen. Fatty infilt ration of the pancreas. Adrenal glands are within normal limits. No hydronephrosis right kidney. No hydronephrosis left kidney. Renal atrophy. Atherosclerotic nonaneurysmal aorta. Prostatomegaly. Sigm oid diverticulosis. Descending colon diverticulosis. The right-sided colon appears decompressed. Ter [place] ileum within normal limits. The appendix is within normal limits. Distended stomach with air-f luid level. Many ileal loops in the right lower quadrant are nondilated. There is dilatation of all jejunal loops with air-fluid levels dilatation up to 3.1 cm. Some hazy fat stranding about left mid jejunal bowel loops. Transition point is suggested in the right mid abdomen. Intraosseous lipoma lef t proximal hip. Impression: 1. Dilated small bowel loops. Findings represent small bowel obstruction. Transition point may be wi thin the proximal ileum or distal jejunum in the right mid abdomen. 2. Extensive diverticulosis within the colon.
[2017-06-26] MEDS ORDERED: Pantoprazole 40 MG Vial IVPUSH ONE (13:32)
[2017-06-26] MEDS ORDERED: Lactated Ringers 1,000 ML IV SCH (14:45)
--- NOTE | 2017-06-26 16:03 | PCM.HP ---
H&P History of Present Illness - General Date of Service: 06/26/17 Admit Problem/Dx: Admission Diagnosis/Problem Admission Diagnosis/Problem Small bowel obstruction Source of Information: Patient, Provider History Limitations: Reports: No Limitations - History of Present Illness Initial Comments - Free Text/Narative: Magdy presents to the emergency room today with 2 days of progressive pressure- like abdominal pain and increasing distention. Pain initially was relatively mild but has progressed over the past 2 days to moderate or moderately severe. Pain comes and goes in waves and is centered in the right lower abdomen. He hasn 't taken anything to make it feel better. Moving and eating make the pain worse. He has never had pain like this before. He has had nothing to eat since yesterday and what he ate yesterday he vomited up. He has had multiple episodes of vomiting as well as nausea. He does not feel short of breath and has not had chest pain. No bowel movement yesterday but today he has had some watery diarrhea. No fevers. No change in bladder habits. Workup in the emergency room revealed evidence for a small bowel obstruction with probable transition point in the right midabdomen. An NG tube was placed and he was admitted for further management. - Related Data Allergies/Adverse Reactions: Allergies Allergy/AdvReac Type Severity Reaction Status Date / Time No Known Allergies Allergy Verified 04/06/17 06:54 Home Medications: Home Meds Lisinopril 20 mg PO DAILY 11/22/13 [History] Metoprolol Succinate 75 mg PO DAILY 11/22/13 [History] Alum Hydrox/Mag Hydrox/Simeth [Maalox Advanced] 30 ml PO Q2H PRN #355 ml [Rx] Pantoprazole Sodium [Protonix] 40 mg PO BID #30 tablet. 03/10/17 [Rx] Past Medical History HEENT History: Reports: Cataract, Glaucoma, Impaired Vision Cardiovascular History: Reports: Arrhythmia, High Cholesterol, Hypertension, MT Respiratory History: Reports: Sleep Apnea Gastrointestinal History: Reports: Cholelithiasis, Chronic Constipation, Chronic Diarrhea, Colon Polyp, Gastritis, GERD Genitourinary History: Reports: Prostate Disorder Other Genitourinary History: urinary frequency Musculoskeletal History: Reports: Back Pain, Chronic, Osteoarthritis Psychiatric History: Reports: Other (See Below) Other Psychiatric History: past 6 months anger problems Endocrine/Metabolic History: Reports: Obesity/BMI 30+ - Infectious Disease History Infectious Disease History: Reports: Chicken Pox, Measles, Mumps, Pertussis ( Whooping Cough) - Past Surgical History HEENT Surgical History: Reports: None Cardiovascular Surgical History: Reports: None Respiratory Surgical History: Reports: None GI Surgical History: Reports: Cholecystectomy, Colonoscopy, EGD Male Surgical History: Reports: None Endocrine Surgical History: Reports: None Musculoskeletal Surgical History: Reports: Knee Replacement, Other (See Below) Other Musculoskeletal Surgeries/Procedures:: Left ankle surg Social & Family History - Family History Cardiac: Denies: CAD - Tobacco Use Smoking Status *Q: Never Smoker Years of Tobacco use: 25 Packs/Tins Daily: 4 Used Tobacco, but Quit: Yes Month Tobacco Last Used: 1974 Second Hand Smoke Exposure: No - Caffeine Use Caffeine Use: Reports: Coffee Caffeine Use Comment: occasional 2-3 cups week - Alcohol Use Days Per Week of Alcohol Use: 0 - Recreational Drug Use Recreational Drug Use: No H&P Review of Systems - Review of Systems: Review Of Systems: See Below Free Text/Narrative: A complete 12 point review of systems was obtained. Pertinent positives and negatives are noted in the history of present illness. All other systems were reviewed and were negative except as noted. Exam - Exam Exam: See Below - Vital Signs Vital Signs: Last Vital Signs Temp 35.6 C 06/26/17 12:21 Pulse 86 06/26/17 12:21 Resp 16 06/26/17 12:21 BP 148/92 H 06/26/17 12:21 Pulse Ox 95 06/26/17 12:21 Weight: 114.4 kg - Exam Quality Assessment: No: Supplemental Oxygen General: Alert, Oriented, Cooperative. No: Mild Distress HEENT: Conjunctiva Clear, Other (NG tube in right nare). No: Mucosa Moist & [place] (dry), Scleral Icterus Neck: Supple, Trachea Midline. No: Lymphadenopathy Lungs: Clear to Auscultation, Normal Respiratory Effort Cardiovascular: Regular Rate, Regular Rhythm, Systolic Murmur GI/Abdominal Exam: Distended, Tender (right periumbilical area), Abnormal Bowel Sounds (hypoactive). No: Soft, Mass Back Exam: Normal Inspection, Full Range of Motion Extremities: No Pedal Edema. No: Increased Warmth Peripheral Pulses: 2+: Dorsalis Pedis (L), Dorsalis Pedis (R) Skin: Warm, Dry Neuro Extensive - Mental Status: Alert, Oriented x3, Nl Response to Commands Neuro Extensive - Motor, Sensory, Reflexes: CN II-XII Intact. No: Dysarthria, Abnormal Motor, Tremor Psychiatric: Alert, Normal Affect - Patient Data Lab Results Last 24 hrs: Laboratory Results - last 24 hr 06/26/17 06/26/17 06/26/17 Range/Units 09:28 09:28 09:30 WBC 19.8 H (4.5-11.0) K/uL RBC 5.39 (4.30-5.90) M/uL Hgb 17.1 H D (12.0-15.0) g/dL Hct 48.9 (40.0-54.0) % MCV 91 (80-98) fL MCH 32 H (27-31) pg MCHC 35 (32-36) % Plt Count 280 (150-400) K/uL Neut % (Auto) 73 H (36-66) % Lymph % (Auto) 19 L (24-44) % [place] % (Auto) 7 H (2-6) % Eos % (Auto) 0 L (2-4) % Baso % (Auto) 0 (0-1) % Sodium 141 (140-148) mmol/L Potassium 3.8 (3.6-5.2) mmol/L Chloride 102 (100-108) mmol/L Carbon Dioxide 28 (21-32) mmol/L Anion Gap 11.0 (5.0-14.0) mmol/L BUN 19 H (7-18) mg/dL Creatinine 1.1 (0.8-1.3) mg/dL Est Cr Clr Drug Dosing 61.73 mL/min Estimated GFR (MDRD) > 60 (>60) Glucose 164 H (74-106) mg/dL Calcium 10.0 (8.5-10.1) mg/dL Total Bilirubin 1.3 H D (0.2-1.0) mg/dL AST 27 (15-37) U/L ALT 49 (12-78) U/L Alkaline Phosphatase 62 (46-116) U/L Troponin I (0.000-0.056) ng/mL C-Reactive Protein 0.59 H (0.0-0.3) mg/dL Total Protein 8.4 H (6.4-8.2) g/dL Albumin 4.0 (3.4-5.0) g/dL Globulin 4.4 H (2.3-3.5) g/dL Albumin/Globulin Ratio 0.9 L (1.2-2.2) Amylase (25-115) U/L Lipase (73-393) U/L Urine Color Urine Appearance Urine pH (4.5-8.0) Ur Specific [place] (1.008-1.030) Urine Protein (NEGATIVE) mg/dL Urine Glucose (UA) (NEGATIVE) mg/dL Urine Ketones (NEGATIVE) mg/dL Urine Occult Blood (NEGATIVE) Urine Nitrite (NEGAITVE) Urine Bilirubin (NEGATIVE) Urine Urobilinogen (NORMAL) mg/dL Ur Leukocyte Esterase (NEGATIVE) Urine RBC (0-5) Urine WBC (0-5) Ur Epithelial Cells Amorphous Sediment Urine Bacteria Urine Mucus 06/26/17 06/26/17 06/26/17 Range/Units 09:35 10:43 11:32 WBC (4.5-11.0) K/uL RBC (4.30-5.90) M/uL Hgb (12.0-15.0) g/dL Hct (40.0-54.0) % MCV (80-98) fL MCH (27-31) pg MCHC (32-36) % Plt Count (150-400) K/uL Neut % (Auto) (36-66) % Lymph % (Auto) (24-44) % [place] % (Auto) (2-6) % Eos % (Auto) (2-4) % Baso % (Auto) (0-1) % Sodium (140-148) mmol/L Potassium (3.6-5.2) mmol/L Chloride (100-108) mmol/L Carbon Dioxide (21-32) mmol/L Anion Gap (5.0-14.0) mmol/L BUN (7-18) mg/dL Creatinine (0.8-1.3) mg/dL Est Cr Clr Drug Dosing mL/min Estimated GFR (MDRD) (>60) Glucose (74-106) mg/dL Calcium (8.5-10.1) mg/dL Total Bilirubin (0.2-1.0) mg/dL AST (15-37) U/L ALT (12-78) U/L Alkaline Phosphatase (46-116) U/L Troponin I < 0.017 (0.000-0.056) ng/mL C-Reactive Protein (0.0-0.3) mg/dL Total Protein (6.4-8.2) g/dL Albumin (3.4-5.0) g/dL Globulin (2.3-3.5) g/dL Albumin/Globulin Ratio (1.2-2.2) Amylase 22 L (25-115) U/L Lipase 61 L (73-393) U/L Urine Color Yellow Urine Appearance Slightly cloudy Urine pH 5.0 (4.5-8.0) Ur Specific [place] 1.025 (1.008-1.030) Urine Protein Negative (NEGATIVE) mg/dL Urine Glucose (UA) Normal (NEGATIVE) mg/dL Urine Ketones 50 H (NEGATIVE) mg/dL Urine Occult Blood Negative (NEGATIVE) Urine Nitrite Negative (NEGAITVE) Urine Bilirubin Small (NEGATIVE) Urine Urobilinogen 1 (NORMAL) mg/dL Ur Leukocyte Esterase Negative (NEGATIVE) Urine RBC 0-5 (0-5) Urine WBC 0-5 (0-5) Ur Epithelial Cells Rare Amorphous Sediment Rare Urine Bacteria Rare Urine Mucus Many Result Diagrams: 06/26/17 09:28 06/26/17 09:28 Imaging Impressions Last 24 hrs: CT abd/pelvis - images personally reviewed - there are multiple dilated loops of small bowel with fluid filled stomach concerning for small bowel obstruction. Probable transition point in the right mid abdomen. *Q Meaningful Use (ADM) - VTE *Q VTE Criteria *Q: - VTE Risk Assess *Q Each Risk Factor Represents 1 Point: Obesity (BMI greater than 30) Total Score 1 Point Risk Factors: 1 Each Risk Factor Represents 2 Points: None Total Score 2 Point Risk Factors: 0 Each Risk Factor Represents 3 Points: Age 75 Years or Greater Total Score 3 Point Risk Factors: 3 Each Risk Factor Represents 5 Points: None Total Score 5 Point Risk Factors: 0 Venous Thromboembolism Risk Factor Score *Q: 4 - Stroke *Q Stroke Criteria *Q: - AMI *Q AMI Criteria *Q: - Problem List (1) Small bowel obstruction SNOMED Code(s): 918673204 ICD Code: K56.69 - OTHER INTESTINAL OBSTRUCTION Status: Acute Current Visit: Yes Problem List Initiated/Reviewed/Updated: Yes Orders Last 24hrs: Active Orders 24 hr Category Date Time Status Patient Status Manage Transfer [TRANSFER] Routine ADT 06/26/17 15:52 Ordered EKG Documentation Completion [RC] ASDIRECTED Care 06/26/17 11:23 Active Gastrointestinal Tube Mgmt [RC] ASDIRECTED Care 06/26/17 13:42 Active Iopamidol [Isovue-300 (61%)] Med 06/26/17 12:03 Active 150 ml IV . DIRECTED PRN Lactated Ringers [Ringers, Lactated] 1,000 ml Med 06/26/17 14:45 Active IV ASDIRECTED Sodium Chloride 0.9% [Normal Saline] 1,000 ml Med 06/26/17 11:30 Active IV ASDIRECTED Sodium Chloride 0.9% [Normal Saline] 85 ml Med 06/26/17 12:15 Active IV ASDIRECTED Sodium Chloride 0.9% [Saline Flush] Med 06/26/17 11:23 Active 10 ml FLUSH ASDIRECTED PRN Sodium Chloride 0.9% [Saline Flush] Med 06/26/17 12:03 Active 10 ml FLUSH ONETIME PRN Nasogastric Orogastric Tube Insertion [OM.PC] Routine Oth 06/26/17 13:42 Ordered Saline Lock Insert [OM.PC] Routine Oth 06/26/17 11:23 Ordered Resuscitation Status Routine Resus Stat 06/26/17 15:54 Ordered EKG 12 Lead [EK] Routine Ther 06/26/17 11:22 Ordered Medication Orders Sodium Chloride (Normal Saline) 1,000 mls @ 500 mls/hr IV ASDIRECTED [facility] Last Admin: 06/26/17 11:42 Dose: 500 mls/hr Sodium Chloride (Normal Saline) 85 mls @ 3.5 mls/sec IV ASDIRECTED [facility] Last Admin: 06/26/17 12:04 Dose: 3.5 mls/sec Lactated Ringer's (Ringers, Lactated) 1,000 mls @ 150 mls/hr IV ASDIRECTED [facility] Last Admin: 06/26/17 14:44 Dose: 150 mls/hr Iopamidol (Isovue-300 (61%)) 150 ml IV . DIRECTED PRN PRN Reason: RADIOLOGY EXAM Stop: 06/27/17 12:04 Last Admin: 06/26/17 12:04 Dose: 150 ml Sodium Chloride (Saline Flush) 10 ml FLUSH ASDIRECTED PRN PRN Reason: Keep Vein Open Last Admin: 06/26/17 11:43 Dose: 10 ml Sodium Chloride (Saline Flush) 10 ml FLUSH ONETIME PRN PRN Reason: per radiology protocol Last Admin: 06/26/17 12:04 Dose: 10 ml Assessment/Plan Comment:: Assessment and plan - Mechanical small bowel obstruction - likely related to adhesions from his previous gallbladder surgery. No history of similar episodes. Significant leukocytosis but otherwise stable. No evidence for infection. Feeling better with NG tube drainage so far. -continue NG tube -Pain control -Nausea control -Follow-up x-ray in the morning -Surgical consultation if he is not improving essential hypertension - blood pressure acceptable on usual medications will be continued. Maintenance issues - - DVT prophylaxis - mechanical - GI prophylaxis - PPI - Nutrition - nothing by mouth - Aragon catheter - not indicated CODE STATUS - DNR/DNI Admission justification - This patient will be admitted for inpatient services and is medically appropriate meeting medical necessity for inpatient admission as outlined in my documentation. I reasonably expect the patient will require inpatient services that span a period time over 2 midnights. I reasonably expect this patient to be discharged or transferred within 96 hours [facility]. Disposition - anticipate discharge to home after the hospital stay Primary care physician - Dr. Jacques Funez M.D.
[2017-06-26] MEDS ORDERED: Ondansetron 4 MG Tab.DIS PO PRN (16:46)
[2017-06-26] MEDS ORDERED: Acetaminophen 325 MG Tab PO PRN (16:46)
[2017-06-26] MEDS ORDERED: Acetaminophen 650 MG Supp RECTAL PRN (16:46)
[2017-06-26] MEDS: Pantoprazole 40 MG Vial IV SCH (18:34)
[2017-06-26] MEDS: Benzocaine/Cetylpyridinium/Menthol Lozenge MUCMEM PRN ×2 (18:41→22:36)
[2017-06-26] MEDS: Morphine 2 MG/ML Syringe IVPUSH PRN ×2 (19:56→22:48)
[2017-06-26] MEDS: Dextrose 5%-Lactated Ringers 1,000 ML IV SCH (22:28)
[2017-06-27] MEDS: Pantoprazole 40 MG Vial IV SCH ×2 (07:18→19:26)
[2017-06-27] MEDS: Dextrose 5%-Lactated Ringers 1,000 ML IV SCH (08:19)
[2017-06-27] MEDS: Lisinopril 20 MG Tab PO SCH (09:24)
[2017-06-27] MEDS: Metoprolol Succinate 25 MG Tab.ER PO SCH (09:24)
--- NOTE | 2017-06-27 11:36 | PCM.PN ---
- General Info Date of Service: 06/27/17 Functional Status: Reports: Pain Controlled, Ambulating - Review of Systems General: Reports: Weakness Gastrointestinal: Reports: Abdominal Pain Systems Review Comment:: No acute events overnight. No significant pain and he thinks that his distention has improved some. Still having a fair amount of output from his NG tube throughout the night and this morning. No nausea this morning but this afternoon had an episode of heartburn and nausea. Also an episode of dizziness after walking. X-ray this morning shows ongoing dilation of loops of small bowel. - Patient Data Vitals - Most Recent: Last Vital Signs Temp 35.9 C 06/27/17 07:00 Pulse 73 06/27/17 09:24 Resp 18 06/27/17 07:00 BP 139/70 06/27/17 09:24 Pulse Ox 90 L 06/27/17 07:00 Weight - Most Recent: 117.299 kg I&O - Last 24 Hours: Intake & Output 06/26/17 06/27/17 06/27/17 22:59 06:59 14:59 Intake Total 1279 Output Total 700 150 Balance -700 1129 Lab Results Last 24 Hours: Laboratory Results - last 24 hr 06/27/17 06/27/17 Range/Units 05:22 05:22 WBC 11.4 H (4.5-11.0) K/uL RBC 4.92 (4.30-5.90) M/uL Hgb 15.1 H D (12.0-15.0) g/dL Hct 46.1 (40.0-54.0) % MCV 94 (80-98) fL MCH 31 (27-31) pg MCHC 33 (32-36) % Plt Count 238 (150-400) K/uL Sodium 143 (140-148) mmol/L Potassium 3.4 L (3.6-5.2) mmol/L Chloride 105 (100-108) mmol/L Carbon Dioxide 31 (21-32) mmol/L Anion Gap 10.4 (5.0-14.0) mmol/L BUN 19 H (7-18) mg/dL Creatinine 1.0 (0.8-1.3) mg/dL Est Cr Clr Drug Dosing 67.90 mL/min Estimated GFR (MDRD) > 60 (>60) Glucose 140 H (74-106) mg/dL Calcium 9.2 (8.5-10.1) mg/dL Magnesium 1.9 (1.8-2.4) mg/dL Med Orders - Current: Current Medications Acetaminophen (Tylenol) 650 mg PO Q4H PRN PRN Reason: Pain (Mild 1-3)/fever Acetaminophen (Tylenol) 650 mg RECTAL Q4H PRN PRN Reason: Mild pain/fever Benzocaine/Menthol (Cepacol Sore Throat) 1 lozenge MUCMEM Q2H PRN PRN Reason: Sore Throat Last Admin: 06/26/17 22:36 Dose: 1 sobia Lisinopril (Prinivil) 20 mg PO DAILY [facility] Last Admin: 06/27/17 09:24 Dose: 20 mg Metoprolol Succinate (Toprol Xl) 75 mg PO DAILY [facility] Last Admin: 06/27/17 09:24 Dose: 75 mg Morphine Sulfate (Morphine) 2 - 4 mg IVPUSH Q2H PRN PRN Reason: Pain (severe 7-10) Last Admin: 06/26/17 22:48 Dose: 4 mg Ondansetron HCl (Zofran Odt) 4 mg PO Q6H PRN PRN Reason: Nausea able to take PO Ondansetron HCl (Zofran) 4 mg IV Q6H PRN PRN Reason: Nausea/Vomiting Pantoprazole Sodium (Protonix Iv) 40 mg IV Q12H [facility] Last Admin: 06/27/17 07:18 Dose: 40 mg Sodium Chloride (Saline Flush) 10 ml FLUSH ONETIME PRN PRN Reason: per radiology protocol Last Admin: 06/26/17 12:04 Dose: 10 ml Discontinued Medications Sodium Chloride (Normal Saline) 1,000 mls @ 500 mls/hr IV ASDIRECTED [facility] Last Admin: 06/26/17 11:42 Dose: 500 mls/hr Sodium Chloride (Normal Saline) 85 mls @ 3.5 mls/sec IV ASDIRECTED [facility] Last Admin: 06/26/17 12:04 Dose: 3.5 mls/sec Lactated Ringer's (Ringers, Lactated) 1,000 mls @ 150 mls/hr IV ASDIRECTED [facility] Last Admin: 06/26/17 14:44 Dose: 150 mls/hr Dextrose/Lactated Ringer's (Dextrose 5%-Lactated Ringers) 1,000 mls @ 100 mls/ hr IV ASDIRECTED [facility] Last Admin: 06/27/17 08:19 Dose: 100 mls/hr Iopamidol (Isovue-300 (61%)) 150 ml IV . DIRECTED PRN PRN Reason: RADIOLOGY EXAM Stop: 06/27/17 12:04 Last Admin: 06/26/17 12:04 Dose: 150 ml Ondansetron HCl (Zofran) 4 mg IVPUSH ONETIME ONE Stop: 06/26/17 11:30 Last Admin: 06/26/17 11:43 Dose: 4 mg Pantoprazole Sodium (Protonix Iv) 40 mg IVPUSH ONETIME ONE Stop: 06/26/17 13:33 Last Admin: 06/26/17 13:49 Dose: 40 mg Sodium Chloride (Saline Flush) 10 ml FLUSH ASDIRECTED PRN PRN Reason: Keep Vein Open Last Admin: 06/26/17 11:43 Dose: 10 ml - Exam Quality Assessment: No: Supplemental Oxygen General: Alert, Oriented, Cooperative, No Acute Distress Neck: Supple Lungs: Clear to Auscultation, Normal Respiratory Effort Cardiovascular: Regular Rate, Regular Rhythm GI/Abdominal Exam: Soft, Distended (mild), Abnormal Bowel Sounds (hypoactive) Extremities: Normal Inspection, No Pedal Edema Skin: Warm, Dry Psy/Mental Status: Alert, Normal Affect - Problem List & Annotations (1) Small bowel obstruction SNOMED Code(s): 381836453 Code(s): K56.69 - OTHER INTESTINAL OBSTRUCTION Status: Acute Current Visit: Yes - Problem List Review Problem List Initiated/Reviewed/Updated: Yes - My Orders Last 24 Hours: My Active Orders 06/26/17 15:54 Resuscitation Status Routine 06/26/17 16:46 Patient Status [ADT] Routine Intake and Output [RC] QSHIFT Notify Provider Vital Signs [RC] ASDIRECTED Oxygen Therapy [RC] PRN Up ad Miladis [RC] ASDIRECTED VTE/DVT Education [RC] Per Unit Routine Vital Signs [RC] Q4H Acetaminophen [Tylenol] 650 mg PO Q4H PRN Acetaminophen [Tylenol] 650 mg RECTAL Q4H PRN Benzocaine/Cetylpyrd/Menthol [Cepacol Sore Throat] 1 lozenge MUCMEM Q2H PRN Dextrose 5%-Lactated Ringers 1,000 ml IV ASDIRECTED Morphine 2 - 4 mg IVPUSH Q2H PRN Ondansetron [Zofran ODT] 4 mg PO Q6H PRN Ondansetron [Zofran] 4 mg IV Q6H PRN Sequential Compression Device [OM.PC] Per Unit Routine 06/26/17 19:00 Pantoprazole [ProTONIX IV] 40 mg IV Q12H 06/26/17 Dinner Nothing per Oral Now Diet [DIET] 06/27/17 05:00 Abdomen 2V AP Flat Upright [CR] DAILY 06/27/17 11:45 Dextrose 5%-Lactated Ringers with KCl 20 mEq @ 100 mL/Hr (1000 mL) Dextrose 5%- Lact Ringers w/KCl [D5 LR with 20 mEq KCl] 1,000 ml IV ASDIRECTED Potassium Chloride 20 MEQ,Lidocaine 1% 2 ML IN 100ML NS @ 50 MLS/HR Potassium Chloride 20 meq Lidocaine 1% [Xylocaine 1%] 2 ml Sodium Chloride 0.9% [Normal Saline] 100 ml IV Q2H 06/28/17 05:00 Abdomen 2V AP Flat Upright [CR] DAILY BASIC METABOLIC PANEL,BMP [CHEM] Timed CBC W/O DIFF,HEMOGRAM [HEME] Timed (1) 06/29/17 05:00 Abdomen 2V AP Flat Upright [CR] DAILY - Plan Plan:: Assessment and plan - Mechanical small bowel obstruction - likely related to adhesions from his previous gallbladder surgery. No history of similar episodes. X-ray looks unchanged today. Still having a fair amount of NG tube output. Increasing nausea symptoms today. I think he is in optimal achievable condition should he require surgery. -continue NG tube -Pain control -Nausea control -Follow-up x-ray in the morning -Surgical consultation tomorrow if he is not doing better essential hypertension - blood pressure acceptable though mildly elevated on usual medications will be continued. Maintenance issues - - DVT prophylaxis - mechanical - GI prophylaxis - PPI - Nutrition - nothing by mouth Disposition - anticipate discharge to home after the hospital stay Peter Funez M.D.
[2017-06-27] MEDS ORDERED: Sodium Chloride 0.9% 500 ML IV ONE (12:13)
[2017-06-27] MEDS: Potassium Chloride 20 MEQ, Lidocaine 1% 2 ML in Sodium Chloride 0.9% 100 ML IV SCH ×2 (12:33→14:40)
[2017-06-27] MEDS ORDERED: Aluminum Hydroxide/Magnesium Hydroxide/Simethicone Susp 30 ML Cup PO ONE (14:30)
[2017-06-27] MEDS: Morphine 2 MG/ML Syringe IVPUSH PRN (16:18)
[2017-06-27] MEDS: Ondansetron 4 MG/2 ML SDV IV PRN ×2 (16:34→23:06)
[2017-06-27] MEDS: Benzocaine/Cetylpyridinium/Menthol Lozenge MUCMEM PRN (19:17)
[2017-06-27] MEDS: Dextrose 5%-Lact Ringers w/KCl 1,000 ML IV SCH (19:26)
[2017-06-28] MEDS: Dextrose 5%-Lact Ringers w/KCl 1,000 ML IV SCH ×2 (05:08→15:20)
[2017-06-28] MEDS: Pantoprazole 40 MG Vial IV SCH ×2 (07:33→19:20)
--- NOTE | 2017-06-28 11:49 | PCM.PN ---
- General Info Date of Service: 06/28/17 Functional Status: Reports: Pain Controlled, Ambulating - Review of Systems Gastrointestinal: Reports: Abdominal Pain, Nausea. Denies: Flatus Systems Review Comment:: Patient did have an acute episode of epigastric discomfort and nausea last night. This did improve after the NG tube was manipulated and nearly 2 L of fluid was sumped. He feels well this morning and does not have any pain. He thinks his distention has improved. No reports of nausea. He has been up and walking around without any limitations. Blood pressure has been stable. - Patient Data Vitals - Most Recent: Last Vital Signs Temp 36.1 C 06/28/17 11:00 Pulse 61 06/28/17 11:00 Resp 18 06/28/17 11:00 BP 153/78 H 06/28/17 11:00 Pulse Ox 92 L 06/28/17 11:00 Weight - Most Recent: 117.299 kg I&O - Last 24 Hours: Intake & Output 06/27/17 06/28/17 06/28/17 22:59 06:59 14:59 Intake Total 1150 1098 Output Total 750 2575 700 Balance 400 -1477 -700 Lab Results Last 24 Hours: Laboratory Results - last 24 hr 06/28/17 06/28/17 Range/Units 05:00 05:48 WBC 8.9 (4.5-11.0) K/uL RBC 4.80 (4.30-5.90) M/uL Hgb 15.0 (12.0-15.0) g/dL Hct 45.6 (40.0-54.0) % MCV 95 (80-98) fL MCH 31 (27-31) pg MCHC 33 (32-36) % Plt Count 226 (150-400) K/uL Sodium 145 (140-148) mmol/L Potassium 3.9 (3.6-5.2) mmol/L Chloride 106 (100-108) mmol/L Carbon Dioxide 33 H (21-32) mmol/L Anion Gap 9.9 (5.0-14.0) mmol/L BUN 18 (7-18) mg/dL Creatinine 1.0 (0.8-1.3) mg/dL Est Cr Clr Drug Dosing 67.90 mL/min Estimated GFR (MDRD) > 60 (>60) Glucose 117 H (74-106) mg/dL Calcium 9.2 (8.5-10.1) mg/dL Med Orders - Current: Current Medications Acetaminophen (Tylenol) 650 mg PO Q4H PRN PRN Reason: Pain (Mild 1-3)/fever Acetaminophen (Tylenol) 650 mg RECTAL Q4H PRN PRN Reason: Mild pain/fever Benzocaine/Menthol (Cepacol Sore Throat) 1 lozenge MUCMEM Q2H PRN PRN Reason: Sore Throat Last Admin: 06/27/17 19:17 Dose: 1 sobia Potassium Cl/Dextrose/Lact Ringer's (D5 Lr With 20 Meq Kcl) 1,000 mls @ 100 mls /hr IV ASDIRECTED [facility] Last Admin: 06/28/17 05:08 Dose: 100 mls/hr Lisinopril (Prinivil) 20 mg PO DAILY [facility] Last Admin: 06/27/17 09:24 Dose: 20 mg Metoprolol Succinate (Toprol Xl) 75 mg PO DAILY [facility] Last Admin: 06/27/17 09:24 Dose: 75 mg Morphine Sulfate (Morphine) 2 - 4 mg IVPUSH Q2H PRN PRN Reason: Pain (severe 7-10) Last Admin: 06/27/17 16:18 Dose: 2 mg Ondansetron HCl (Zofran Odt) 4 mg PO Q6H PRN PRN Reason: Nausea able to take PO Ondansetron HCl (Zofran) 4 mg IV Q6H PRN PRN Reason: Nausea/Vomiting Last Admin: 06/27/17 23:06 Dose: 4 mg Pantoprazole Sodium (Protonix Iv) 40 mg IV Q12H [facility] Last Admin: 06/28/17 07:33 Dose: 40 mg Sodium Chloride (Saline Flush) 10 ml FLUSH ONETIME PRN PRN Reason: per radiology protocol Last Admin: 06/26/17 12:04 Dose: 10 ml Discontinued Medications Al Hydroxide/Mg Hydroxide (Mag-Al Plus) 30 ml PO ONETIME ONE Stop: 06/27/17 14:31 Last Admin: 06/27/17 14:39 Dose: 30 ml Sodium Chloride (Normal Saline) 1,000 mls @ 500 mls/hr IV ASDIRECTED [facility] Last Admin: 06/26/17 11:42 Dose: 500 mls/hr Sodium Chloride (Normal Saline) 85 mls @ 3.5 mls/sec IV ASDIRECTED [facility] Last Admin: 06/26/17 12:04 Dose: 3.5 mls/sec Lactated Ringer's (Ringers, Lactated) 1,000 mls @ 150 mls/hr IV ASDIRECTED [facility] Last Admin: 06/26/17 14:44 Dose: 150 mls/hr Dextrose/Lactated Ringer's (Dextrose 5%-Lactated Ringers) 1,000 mls @ 100 mls/ hr IV ASDIRECTED [facility] Last Admin: 06/27/17 08:19 Dose: 100 mls/hr Potassium Chloride 20 meq/Lidocaine HCl 2 ml/ Sodium Chloride 112 mls @ 55 mls/ hr IV Q2H [facility] Stop: 06/27/17 16:29 Last Admin: 06/27/17 14:40 Dose: 55 mls/hr Sodium Chloride (Normal Saline) 500 mls @ 500 mls/hr IV .BOLUS ONE Stop: 06/27/17 13:12 Last Admin: 06/27/17 12:34 Dose: 500 mls/hr Iopamidol (Isovue-300 (61%)) 150 ml IV . DIRECTED PRN PRN Reason: RADIOLOGY EXAM Stop: 06/27/17 12:04 Last Admin: 06/26/17 12:04 Dose: 150 ml Ondansetron HCl (Zofran) 4 mg IVPUSH ONETIME ONE Stop: 06/26/17 11:30 Last Admin: 06/26/17 11:43 Dose: 4 mg Pantoprazole Sodium (Protonix Iv) 40 mg IVPUSH ONETIME ONE Stop: 06/26/17 13:33 Last Admin: 06/26/17 13:49 Dose: 40 mg Sodium Chloride (Saline Flush) 10 ml FLUSH ASDIRECTED PRN PRN Reason: Keep Vein Open Last Admin: 06/26/17 11:43 Dose: 10 ml - Exam Quality Assessment: No: Supplemental Oxygen General: Alert, Oriented, Cooperative, No Acute Distress Neck: Supple Lungs: Normal Respiratory Effort GI/Abdominal Exam: Soft, Distended (mild), Tender (moderate diffuse), Abnormal Bowel Sounds (hypoactive) Extremities: Normal Inspection, No Pedal Edema. No: Increased Warmth Skin: Warm, Dry Psy/Mental Status: Alert, Normal Affect - Problem List & Annotations (1) Small bowel obstruction SNOMED Code(s): 724131659 Code(s): K56.69 - OTHER INTESTINAL OBSTRUCTION Status: Acute Current Visit: Yes - Problem List Review Problem List Initiated/Reviewed/Updated: Yes - My Orders Last 24 Hours: My Active Orders 06/27/17 11:45 Dextrose 5%-Lact Ringers w/KCl [D5 LR with 20 mEq KCl] 1,000 ml IV ASDIRECTED 06/27/17 14:30 EKG Documentation Completion [RC] ASDIRECTED EKG 12 Lead [EK] Urgent 06/28/17 05:00 Abdomen 2V AP Flat Upright [CR] DAILY 06/28/17 11:47 Notify Provider Consults [RC] ASDIRECTED Consult to Physician [CONS] Routine 06/29/17 05:00 Abdomen 2V AP Flat Upright [CR] DAILY BASIC METABOLIC PANEL,BMP [CHEM] Timed - Plan Plan:: Assessment and plan - Mechanical small bowel obstruction - patient still has dilated loops of bowel on the x-ray though clinically he looks and feels better today. I have not seen much improvement in the x-ray and I'm concerned this may not resolve with nonsurgical management. -continue NG tube -Pain control -Nausea control -Follow-up x-ray in the morning -Surgical consultation today essential hypertension - blood pressure acceptable though mildly elevated on usual medications will be continued. Maintenance issues - - DVT prophylaxis - mechanical - GI prophylaxis - PPI - Nutrition - nothing by mouth Disposition - anticipate discharge to home after the hospital stay Peter Funez M.D.
[2017-06-28] MEDS: Metoprolol Succinate 25 MG Tab.ER PO SCH (13:03)
[2017-06-28] MEDS: Lisinopril 20 MG Tab PO SCH (13:04)
[2017-06-28] MEDS: Morphine 2 MG/ML Syringe IVPUSH PRN ×2 (15:37→22:39)
[2017-06-29] MEDS: Dextrose 5%-Lact Ringers w/KCl 1,000 ML IV SCH ×3 (01:24→19:18)
[2017-06-29] MEDS: Pantoprazole 40 MG Vial IV SCH (07:03)
--- NOTE | 2017-06-29 08:47 | PN ---
DATE OF SERVICE: 06/29/2017 SUBJECTIVE: Magdy is n.p.o. He has been hospitalized the past 4 days for a partial small bowel obstruction, which is not resolving on its own. He has an NG in, and his NG has put out 30 mL and urine output was 925. He has been n.p.o. Vital signs, he has been afebrile. He has no questions or concerns today. OBJECTIVE: GENERAL: Magdy Mandujano is a 76-year-old male. VITAL SIGNS: Height is 6 feet, weight is 258, BMI 35. TPR is 95.5, 69, 18, blood pressure 152/79. HEENT: Negative. NECK: Supple. HEART: Regular rate and rhythm. LUNGS: Clear. ABDOMEN: Generalized tenderness is noted in all 4 quadrants. Distended, firm abdomen. EXTREMITIES: Without peripheral edema. NEUROLOGIC: Intact. PSYCHIATRIC: Mood and affect appropriate. ASSESSMENT: Partial small bowel obstruction. PLAN: Schedule and have consent signed for exploratory laparotomy with release of small bowel obstruction with possible small bowel resection, general anesthesia. Pranav Lima MD, case to follow today 06/29/2017. Cefoxitin 2 g IV on-call to OR. He is to have incentive spirometer to use 10 times every hour while awake and SCDs. We will evaluate p.r.n. or in a.m. Ara Wang PA-C /[id number]
--- NOTE | 2017-06-29 09:23 | CR ---
Abdomen 2V AP Flat Upright HISTORY: f/u obstruction FINDINGS: Multiple dilated small bowel loops with air-fluid levels consistent with small bowel obstr uction are redemonstrated. No free intraperitoneal air is identified. No soft tissue mass organomega ly is seen. There surgical clips right upper quadrant consistent with prior cholecystectomy. Contras t in the urinary bladder is residual from yesterday's CT study. IMPRESSION: Probable small bowel obstruction similar in appearance to CT abdomen and pelvis exam of one day prior.
--- NOTE | 2017-06-29 09:50 | CR ---
Abdomen 2V AP Flat Upright HISTORY: f/u obstruction FINDINGS: Dilated small bowel loops with air-fluid levels suggesting small bowel obstruction are red emonstrated. There may be slight improvement since yesterday's exam. No free air is identified. Ther e is no mass or organomegaly. NG tube passes into the stomach. There are surgical clips right upper quadrant consistent with prior cholecystectomy. Diffuse degenerative changes can be seen along the l ower thoracic and lumbar spine IMPRESSION: Small bowel obstruction possible mild improvement since yesterday's exam.
--- NOTE | 2017-06-29 10:24 | CR ---
Abdomen 2V AP Flat Upright HISTORY: f/u obstruction FINDINGS: Dilated small bowel loops with air-fluid levels consistent with small bowel obstruction ar e redemonstrated. No distended loops of colon are seen. No free air is identified. No mass organomeg lupe can be seen. NG tube is stable. IMPRESSION: Small bowel obstruction similar to yesterday's exam.
[2017-06-29] MEDS: Lisinopril 20 MG Tab PO SCH (10:48)
[2017-06-29] MEDS: Metoprolol Succinate 25 MG Tab.ER PO SCH (10:48)
[2017-06-29] MEDS: Metoprolol Tartrate 5 MG/5 ML SDV IVPUSH SCH ×4 (10:52→20:04)
--- NOTE | 2017-06-29 11:12 | PCM.PN ---
- General Info Date of Service: 06/29/17 Functional Status: Reports: Pain Controlled, Ambulating - Review of Systems General: Denies: Fever, Chills Pulmonary: Reports: No Symptoms Cardiovascular: Reports: No Symptoms Gastrointestinal: Reports: Abdominal Pain. Denies: Nausea, Vomiting Systems Review Comment:: Mr. Mandujano is admitted with nausea vomiting and abdominal pain secondary to mechanical bowel obstruction, he is failed conservative management. There is been ongoing relatively high output through the NG tube. He's been seen and evaluated by Dr. Lima and plan is to proceed with exploratory laparotomy later this afternoon. - Patient Data Vitals - Most Recent: Last Vital Signs Temp 97.3 F 06/29/17 10:00 Pulse 74 06/29/17 10:52 Resp 18 06/29/17 10:00 BP 164/87 H 06/29/17 10:52 Pulse Ox 92 L 06/29/17 10:00 Weight - Most Recent: 258 lb 9.6 oz I&O - Last 24 Hours: Intake & Output 06/28/17 06/29/17 06/29/17 22:59 06:59 14:59 Intake Total 1237 1284 Output Total 1275 1900 Balance -38 -616 Lab Results Last 24 Hours: Laboratory Results - last 24 hr 06/29/17 Range/Units 05:45 Sodium 146 (140-148) mmol/L Potassium 3.7 (3.6-5.2) mmol/L Chloride 105 (100-108) mmol/L Carbon Dioxide 34 H (21-32) mmol/L Anion Gap 10.7 (5.0-14.0) mmol/L BUN 19 H (7-18) mg/dL Creatinine 1.0 (0.8-1.3) mg/dL Est Cr Clr Drug Dosing 67.90 mL/min Estimated GFR (MDRD) > 60 (>60) Glucose 110 H (74-106) mg/dL Calcium 9.2 (8.5-10.1) mg/dL Med Orders - Current: Current Medications Acetaminophen (Tylenol) 650 mg PO Q4H PRN PRN Reason: Pain (Mild 1-3)/fever Acetaminophen (Tylenol) 650 mg RECTAL Q4H PRN PRN Reason: Mild pain/fever Benzocaine/Menthol (Cepacol Sore Throat) 1 lozenge MUCMEM Q2H PRN PRN Reason: Sore Throat Last Admin: 06/27/17 19:17 Dose: 1 sobia Potassium Cl/Dextrose/Lact Ringer's (D5 Lr With 20 Meq Kcl) 1,000 mls @ 100 mls /hr IV [facility]RECTED [facility] Last Admin: 06/29/17 01:24 Dose: 100 mls/hr Cefoxitin Sodium 2 gm/ Sodium (Chloride) 50 mls @ 100 mls/hr IV ONCALL ONE Stop: 06/29/17 14:59 Lisinopril (Prinivil) 20 mg PO DAILY [facility] Last Admin: 06/29/17 10:48 Dose: 20 mg Metoprolol Succinate (Toprol Xl) 75 mg PO DAILY [facility] Last Admin: 06/29/17 10:48 Dose: 75 mg Metoprolol Tartrate (Lopressor) 2.5 mg IVPUSH Q6H [facility] Last Admin: 06/29/17 10:52 Dose: 2.5 mg Morphine Sulfate (Morphine) 2 - 4 mg IVPUSH Q2H PRN PRN Reason: Pain (severe 7-10) Last Admin: 06/28/17 22:39 Dose: 4 mg Ondansetron HCl (Zofran Odt) 4 mg PO Q6H PRN PRN Reason: Nausea able to take PO Ondansetron HCl (Zofran) 4 mg IV Q6H PRN PRN Reason: Nausea/Vomiting Last Admin: 06/27/17 23:06 Dose: 4 mg Pantoprazole Sodium (Protonix Iv) 40 mg IV Q12H [facility] Last Admin: 06/29/17 07:03 Dose: 40 mg Sodium Chloride (Saline Flush) 10 ml FLUSH ONETIME PRN PRN Reason: per radiology protocol Last Admin: 06/26/17 12:04 Dose: 10 ml Discontinued Medications Al Hydroxide/Mg Hydroxide (Mag-Al Plus) 30 ml PO ONETIME ONE Stop: 06/27/17 14:31 Last Admin: 06/27/17 14:39 Dose: 30 ml Sodium Chloride (Normal Saline) 1,000 mls @ 500 mls/hr IV ASDIRECTED [facility] Last Admin: 06/26/17 11:42 Dose: 500 mls/hr Sodium Chloride (Normal Saline) 85 mls @ 3.5 mls/sec IV [facility]RECT[facility] Last Admin: 06/26/17 12:04 Dose: 3.5 mls/sec Lactated Ringer's (Ringers, Lactated) 1,000 mls @ 150 mls/hr IV ASDIRECTED [facility] Last Admin: 06/26/17 14:44 Dose: 150 mls/hr Dextrose/Lactated Ringer's (Dextrose 5%-Lactated Ringers) 1,000 mls @ 100 mls/ hr IV ASDIRECTED [facility] Last Admin: 06/27/17 08:19 Dose: 100 mls/hr Potassium Chloride 20 meq/Lidocaine HCl 2 ml/ Sodium Chloride 112 mls @ 55 mls/ hr IV Q2H [facility] Stop: 06/27/17 16:29 Last Admin: 06/27/17 14:40 Dose: 55 mls/hr Sodium Chloride (Normal Saline) 500 mls @ 500 mls/hr IV .BOLUS ONE Stop: 06/27/17 13:12 Last Admin: 06/27/17 12:34 Dose: 500 mls/hr Iopamidol (Isovue-300 (61%)) 150 ml IV . DIRECTED PRN PRN Reason: RADIOLOGY EXAM Stop: 06/27/17 12:04 Last Admin: 06/26/17 12:04 Dose: 150 ml Ondansetron HCl (Zofran) 4 mg IVPUSH ONETIME ONE Stop: 06/26/17 11:30 Last Admin: 06/26/17 11:43 Dose: 4 mg Pantoprazole Sodium (Protonix Iv) 40 mg IVPUSH ONETIME ONE Stop: 06/26/17 13:33 Last Admin: 06/26/17 13:49 Dose: 40 mg Sodium Chloride (Saline Flush) 10 ml FLUSH ASDIRECTED PRN PRN Reason: Keep Vein Open Last Admin: 06/26/17 11:43 Dose: 10 ml - Exam Quality Assessment: DVT Prophylaxis General: Alert, Oriented, Cooperative Lungs: Clear to Auscultation, Normal Respiratory Effort Cardiovascular: Regular Rate, Regular Rhythm, No Murmurs GI/Abdominal Exam: Normal Bowel Sounds, Soft, Tender. No: No Organomegaly, Distended, Guarding, Rigid, Rebound Extremities: Normal Inspection, No Pedal Edema Skin: Warm, Dry, Intact - Problem List Review Problem List Initiated/Reviewed/Updated: Yes - Plan Plan:: Assessment and plan - Mechanical small bowel obstruction - he has failed conservative management, persistent high output through NG tube. -continue NG tube -Pain control -Nausea control -Follow-up x-ray in the morning -Exploratory laparotomy later today by Dr. Lima essential hypertension - blood pressure acceptable though mildly elevated on usual medications will be continued. Maintenance issues - - DVT prophylaxis - mechanical - GI prophylaxis - PPI - Nutrition - nothing by mouth Disposition - anticipate discharge to home after the hospital stay
[2017-06-29] MEDS ORDERED: Dexamethasone 4 MG/ML SDV ONE (11:42)
[2017-06-29] MEDS ORDERED: Rocuronium 50 MG/5 ML Vial ONE (11:42)
[2017-06-29] MEDS ORDERED: Glycopyrrolate 0.2 MG/ML 5 ML MDV ONE (11:42)
[2017-06-29] MEDS ORDERED: Propofol 200 MG/20 ML SDV ONE (11:42)
[2017-06-29] MEDS ORDERED: Ondansetron 4 MG/2 ML SDV ONE (11:42)
[2017-06-29] MEDS ORDERED: Neostigmine Methylsulfate 1 MG/ML 5 ML Syringe ONE (11:42)
[2017-06-29] MEDS ORDERED: Succinylcholine 200 MG/10 ML MDV ONE (11:42)
[2017-06-29] MEDS ORDERED: Meropenem 500 MG SDV ONE (12:02)
[2017-06-29] MEDS ORDERED: Naloxone 0.4 MG/ML SDV IVPUSH PRN (13:23)
[2017-06-29] MEDS ORDERED: Naloxone 0.4 MG/ML SDV IV PRN (13:43)
[2017-06-29] MEDS ORDERED: cefOXitin 2 GM in Sodium Chloride 0.9% 50 ML IV ONE (14:30)
[2017-06-29] MEDS: HYDROmorphone/Normal Saline 15 MG/30 ML PCA IV PRN (14:44)
[2017-06-29] MEDS ORDERED: Lactated Ringers 1,000 ML ONE (16:29)
[2017-06-29] MEDS ORDERED: hydrOXYzine HCl 100 MG/2 ML SDV IM ONE ×2 (18:03→18:15)
[2017-06-29] MEDS ORDERED: Labetalol 20 MG/4 ML Syringe IVPUSH PRN (18:04)
[2017-06-29] MEDS: fentaNYL 12 MCG/HR Transdermal Patch TRDERM SCH (18:07)
[2017-06-29] MEDS: cefOXitin 2 GM in Sodium Chloride 0.9% 50 ML IV SCH (23:08)
[2017-06-29] MEDS: VERIFY FENTANYL PATCH TOP SCH (23:13)
[2017-06-30] MEDS: Dextrose 5%-Lact Ringers w/KCl 1,000 ML IV SCH ×5 (01:41→22:44)
[2017-06-30] MEDS: Metoprolol Tartrate 5 MG/5 ML SDV IVPUSH SCH ×4 (01:59→20:15)
[2017-06-30] MEDS: cefOXitin 2 GM in Sodium Chloride 0.9% 50 ML IV SCH ×2 (04:10→10:19)
[2017-06-30] MEDS ORDERED: Dextrose 5%-Lact Ringers w/KCl 1,000 ML ONE ×2 (07:54→07:59)
--- NOTE | 2017-06-30 08:29 | PN ---
DATE OF SERVICE: 06/30/2017 SUBJECTIVE: Magdy is postop day 1. He reports his pain has been controlled. NG put out 350 mL of a tannish-brown drainage. Vital signs have been stable. His urinary output via Aragon catheter was marginal at 480. REVIEW OF SYSTEMS: Remainder of review of systems negative for any pertinent positives and negatives. OBJECTIVE: GENERAL: Magdy Mandujano is a 76-year-old male. VITAL SIGNS: TPR is 97.5, 66, 12, and blood pressure 119/77. HEENT: Negative. NECK: Supple. HEART: Regular rate and rhythm. LUNGS: Clear. ABDOMEN: Dressings dry and intact. Abdominal binder is on. EXTREMITIES: Without peripheral edema. 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 PLAN: 1. Schedule and have consent signed for delayed primary closure, 07/01/2017, IV sedation. Pranav Lima MD, n.p.o. after midnight. 2. Decrease IV to 125 mg/5 mL at 1400 hours. 3. Leave Aragon catheter in for accurate intake and output due to marginal urinary output. 4. Good pulmonary toilet encouraged. 5. We will evaluate p.r.n. or in a.m. Ara Wang PA-C /[id number]
[2017-06-30] MEDS: Pantoprazole 40 MG Vial IV SCH (08:51)
[2017-06-30] MEDS: VERIFY FENTANYL PATCH TOP SCH ×2 (09:19→20:24)
--- NOTE | 2017-06-30 14:57 | PCM.PN ---
- General Info Date of Service: 06/30/17 Functional Status: Reports: Pain Controlled, Ambulating - Review of Systems General: Reports: Weakness. Denies: Fever, Chills Pulmonary: Reports: No Symptoms Cardiovascular: Reports: No Symptoms Gastrointestinal: Reports: Abdominal Pain. Denies: Nausea, Vomiting Systems Review Comment:: Mr. Mandujano has done well since surgery yesterday, NG tube remains in place, delayed primary closure planned for tomorrow. Vital signs have been stable and he has remained afebrile. - Patient Data Vitals - Most Recent: Last Vital Signs Temp 97.1 F 06/30/17 11:15 Pulse 83 06/30/17 11:15 Resp 16 06/30/17 11:15 BP 156/84 H 06/30/17 11:15 Pulse Ox 93 L 06/30/17 13:21 Weight - Most Recent: 258 lb 9.6 oz I&O - Last 24 Hours: Intake & Output 06/29/17 06/30/17 06/30/17 22:59 06:59 14:59 Intake Total 887 1610 Output Total 850 580 264 Balance 37 1030 -264 Lab Results Last 24 Hours: Laboratory Results - last 24 hr 06/30/17 06/30/17 Range/Units 04:20 04:20 WBC 10.8 (4.5-11.0) K/uL RBC 4.93 (4.30-5.90) M/uL Hgb 15.4 H (12.0-15.0) g/dL Hct 46.7 (40.0-54.0) % MCV 95 (80-98) fL MCH 31 (27-31) pg MCHC 33 (32-36) % Plt Count 227 (150-400) K/uL Sodium 146 (140-148) mmol/L Potassium 4.1 (3.6-5.2) mmol/L Chloride 107 (100-108) mmol/L Carbon Dioxide 30 (21-32) mmol/L Anion Gap 9.3 (5.0-14.0) mmol/L BUN 17 (7-18) mg/dL Creatinine 1.1 (0.8-1.3) mg/dL Est Cr Clr Drug Dosing 61.81 mL/min Estimated GFR (MDRD) > 60 (>60) Glucose 140 H (74-106) mg/dL Calcium 8.5 (8.5-10.1) mg/dL Phosphorus 4.3 (2.5-4.9) mg/dL Magnesium 1.8 (1.8-2.4) mg/dL Total Bilirubin 1.1 H (0.2-1.0) mg/dL AST 26 (15-37) U/L ALT 50 (12-78) U/L Alkaline Phosphatase 57 (46-116) U/L [id number] Pept 171 (5-450) pg/mL Total Protein 6.7 (6.4-8.2) g/dL Albumin 3.1 L (3.4-5.0) g/dL Globulin 3.6 H (2.3-3.5) g/dL Albumin/Globulin Ratio 0.9 L (1.2-2.2) Med Orders - Current: Current Medications Benzocaine/Menthol (Cepacol Sore Throat) 1 lozenge MUCMEM Q2H PRN PRN Reason: Sore Throat Last Admin: 06/27/17 19:17 Dose: 1 sobia Fentanyl (Duragesic) 12 mcg TRDERM Q72H [facility] Last Admin: 06/29/17 18:07 Dose: 12 mcg Hydromorphone HCl (Dilaudid Engineer Steam 15 Mg In Ns 30 Ml) 0 mg IV ASDIRECTED PRN; Protocol PRN Reason: Pain Last Admin: 06/29/17 14:44 Dose: 15 mg Potassium Cl/Dextrose/Lact Ringer's (D5 Lr With 20 Meq Kcl) 1,000 mls @ 125 mls /hr IV ASDIRECTED [facility] Last Admin: 06/30/17 14:15 Dose: 125 mls/hr Lisinopril (Prinivil) 20 mg PO DAILY [facility] Metoprolol Succinate (Toprol Xl) 75 mg PO DAILY [facility] Last Admin: 06/29/17 10:48 Dose: 75 mg Metoprolol Tartrate (Lopressor) 2.5 mg IVPUSH Q6H [facility] Last Admin: 06/30/17 08:51 Dose: 2.5 mg Naloxone HCl (Narcan) 0.1 mg IV ASDIRECTED PRN PRN Reason: decreased respiratory rate Verify Fentanyl (Patch) 0 each TOP BID [facility] Last Admin: 06/30/17 09:19 Dose: Not Given Ondansetron HCl (Zofran) 4 mg IV Q4H PRN PRN Reason: Nausea/Vomiting Pantoprazole Sodium (Protonix Iv) 40 mg IV Q24H [facility] Last Admin: 06/30/17 08:51 Dose: 40 mg Sodium Chloride (Saline Flush) 10 ml FLUSH ONETIME PRN PRN Reason: per radiology protocol Last Admin: 06/26/17 12:04 Dose: 10 ml Tamsulosin HCl (Flomax) 0.4 mg PO BEDTIME [facility] Discontinued Medications Acetaminophen (Tylenol) 650 mg PO Q4H PRN PRN Reason: Pain (Mild 1-3)/fever Acetaminophen (Tylenol) 650 mg RECTAL Q4H PRN PRN Reason: Mild pain/fever Al Hydroxide/Mg Hydroxide (Mag-Al Plus) 30 ml PO ONETIME ONE Stop: 06/27/17 14:31 Last Admin: 06/27/17 14:39 Dose: 30 ml Dexamethasone (Dexamethasone) Confirm Administered Dose 4 mg .ROUTE .STK-MED ONE Stop: 06/29/17 11:43 Fentanyl Citrate (Fentanyl) Confirm Administered Dose 500 mcg .ROUTE .STK-MED ONE Stop: 06/29/17 11:43 Glycopyrrolate (Robinul) Confirm Administered Dose 1 mg .ROUTE .STK-MED ONE Stop: 06/29/17 11:43 Hydroxyzine HCl (Vistaril) 100 mg IM ONETIME ONE Stop: 06/29/17 18:16 Last Admin: 06/29/17 18:11 Dose: 100 mg Sodium Chloride (Normal Saline) 1,000 mls @ 500 mls/hr IV ASDIRECTED [facility] Last Admin: 06/26/17 11:42 Dose: 500 mls/hr Sodium Chloride (Normal Saline) 85 mls @ 3.5 mls/sec IV ASDIRECTED [facility] Last Admin: 06/26/17 12:04 Dose: 3.5 mls/sec Lactated Ringer's (Ringers, Lactated) 1,000 mls @ 150 mls/hr IV ASDIRECTED [facility] Last Admin: 06/26/17 14:44 Dose: 150 mls/hr Dextrose/Lactated Ringer's (Dextrose 5%-Lactated Ringers) 1,000 mls @ 100 mls/ hr IV ASDIRECTED [facility] Last Admin: 06/27/17 08:19 Dose: 100 mls/hr Potassium Cl/Dextrose/Lact Ringer's (D5 Lr With 20 Meq Kcl) 1,000 mls @ 100 mls /hr IV ASDIRECTED [facility] Last Infusion: 06/29/17 22:51 Dose: Infused Potassium Chloride 20 meq/Lidocaine HCl 2 ml/ Sodium Chloride 112 mls @ 55 mls/ hr IV Q2H [facility] Stop: 06/27/17 16:29 Last Admin: 06/27/17 14:40 Dose: 55 mls/hr Sodium Chloride (Normal Saline) 500 mls @ 500 mls/hr IV .BOLUS ONE Stop: 06/27/17 13:12 Last Admin: 06/27/17 12:34 Dose: 500 mls/hr Cefoxitin Sodium 2 gm/ Sodium (Chloride) 50 mls @ 100 mls/hr IV ONCALL ONE Stop: 06/29/17 14:59 Last Admin: 06/29/17 15:57 Dose: 100 mls/hr Lactated Ringer's (Ringers, Lactated) Confirm Administered Dose 1,000 mls @ as directed .ROUTE .STK-MED ONE Stop: 06/29/17 16:30 Potassium Cl/Dextrose/Lact Ringer's (D5 Lr With 20 Meq Kcl) 1,000 mls @ 175 mls /hr IV ASDIRECTED [facility] Last Admin: 06/30/17 07:57 Dose: 175 mls/hr Cefoxitin Sodium 2 gm/ Sodium (Chloride) 50 mls @ 100 mls/hr IV Q6H [facility] Stop: 06/30/17 10:29 Last Admin: 06/30/17 10:19 Dose: 100 mls/hr Potassium Cl/Dextrose/Lact Ringer's (D5 Lr With 20 Meq Kcl) Confirm Administered Dose 1,000 mls @ as directed .ROUTE .STK-MED ONE Stop: 06/30/17 07:55 Last Admin: 06/30/17 08:48 Dose: Not Given Potassium Cl/Dextrose/Lact Ringer's (D5 Lr With 20 Meq Kcl) Confirm Administered Dose 1,000 mls @ as directed .ROUTE .STK-MED ONE Stop: 06/30/17 08:00 Last Admin: 06/30/17 08:48 Dose: Not Given Iopamidol (Isovue-300 (61%)) 150 ml IV . DIRECTED PRN PRN Reason: RADIOLOGY EXAM Stop: 06/27/17 12:04 Last Admin: 06/26/17 12:04 Dose: 150 ml Labetalol HCl (Normodyne) 5 - 15 mg IVPUSH Q1H PRN PRN Reason: BLOOD PRESSURE Stop: 06/29/17 19:15 Last Admin: 06/29/17 18:13 Dose: 15 mg Lisinopril (Prinivil) 20 mg PO DAILY [facility] Last Admin: 06/29/17 10:48 Dose: 20 mg Meropenem (Merrem) Confirm Administered Dose 500 mg .ROUTE .STK-MED ONE Stop: 06/29/17 12:03 Last Admin: 06/29/17 17:00 Dose: 500 mg Morphine Sulfate (Morphine) 2 - 4 mg IVPUSH Q2H PRN PRN Reason: Pain (severe 7-10) Last Admin: 06/28/17 22:39 Dose: 4 mg Neostigmine Methylsulfate (Neostigmine) Confirm Administered Dose 5 mg .ROUTE .STK-MED ONE Stop: 06/29/17 11:43 Ondansetron HCl (Zofran) 4 mg IVPUSH ONETIME ONE Stop: 06/26/17 11:30 Last Admin: 06/26/17 11:43 Dose: 4 mg Ondansetron HCl (Zofran Odt) 4 mg PO Q6H PRN PRN Reason: Nausea able to take PO Ondansetron HCl (Zofran) 4 mg IV Q6H PRN PRN Reason: Nausea/Vomiting Last Admin: 06/27/17 23:06 Dose: 4 mg Ondansetron HCl (Zofran) Confirm Administered Dose 4 mg .ROUTE .STK-MED ONE Stop: 06/29/17 11:43 Pantoprazole Sodium (Protonix Iv) 40 mg IVPUSH ONETIME ONE Stop: 06/26/17 13:33 Last Admin: 06/26/17 13:49 Dose: 40 mg Pantoprazole Sodium (Protonix Iv) 40 mg IV Q12H [facility] Last Admin: 06/29/17 07:03 Dose: 40 mg Propofol (Diprivan 20 Ml) Confirm Administered Dose 200 mg .ROUTE .STK-MED ONE Stop: 06/29/17 11:43 Rocuronium [place] (Zemuron) Confirm Administered Dose 50 mg .ROUTE .STK-MED ONE Stop: 06/29/17 11:43 Sodium Chloride (Saline Flush) 10 ml FLUSH ASDIRECTED PRN PRN Reason: Keep Vein Open Last Admin: 06/26/17 11:43 Dose: 10 ml Succinylcholine Chloride (Quelicin) Confirm Administered Dose 200 mg .ROUTE .STK -MED ONE Stop: 06/29/17 11:43 - Exam Quality Assessment: DVT Prophylaxis General: Alert, Oriented, Cooperative, Mild Distress Lungs: Clear to Auscultation, Normal Respiratory Effort Cardiovascular: Regular Rate, Regular Rhythm, No Murmurs GI/Abdominal Exam: Soft, No Organomegaly, No Distention, Tender, Abnormal Bowel Sounds Extremities: Normal Inspection, No Pedal Edema Skin: Warm, Dry, Intact - Problem List Review Problem List Initiated/Reviewed/Updated: Yes - Plan Plan:: Assessment and plan - Mechanical small bowel obstruction - status post surgery yesterday by Dr. Lima -Postop cares per surgical service essential hypertension - blood pressure acceptable though mildly elevated on usual medications will be continued. Maintenance issues - - DVT prophylaxis - mechanical - GI prophylaxis - PPI - Nutrition - nothing by mouth Disposition - anticipate discharge to home after the hospital stay
[2017-07-01] MEDS: Metoprolol Tartrate 5 MG/5 ML SDV IVPUSH SCH ×2 (02:41→10:33)
[2017-07-01] MEDS ORDERED: Bupivacaine 0.5% 50 ML MDV ONE (06:46)
[2017-07-01] MEDS ORDERED: Meropenem 500 MG SDV ONE (06:46)
[2017-07-01] MEDS ORDERED: Lidocaine 1% with EPINEPHrine 1:100,000 50 ML MDV ONE (06:47)
[2017-07-01] MEDS: Dextrose 5%-Lact Ringers w/KCl 1,000 ML IV SCH ×3 (07:08→22:33)
[2017-07-01] MEDS ORDERED: fentaNYL 100 MCG/2 ML SDV ONE (07:50)
[2017-07-01] MEDS ORDERED: Propofol 200 MG/20 ML SDV ONE (07:51)
--- NOTE | 2017-07-01 08:21 | PN ---
DATE OF SERVICE: 07/01/2017 SUBJECTIVE: Magdy is a 76-year-old male. He states his pain is controlled. He is n.p.o. for delayed primary closure. Vital signs have been stable. REVIEW OF SYSTEMS: Remainder of review of systems negative for any pertinent positives and negatives. OBJECTIVE: GENERAL: Magdy Mandujano is a 76-year-old male. VITAL SIGNS: TPR is 97.2, 66, 16, blood pressure is 117/68. HEENT: Negative. NECK: Supple. HEART: Regular rate and rhythm. LUNGS: Clear. ABDOMEN: Dressing is dry and intact. Abdominal binder is on. EXTREMITIES: Without peripheral edema. SCDs are on. 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 Date of surgery, 06/29/2017. PLAN: 1. Delayed primary closure scheduled this morning. 2. We will evaluate p.r.n. or in a.m. Orders to be written after delayed primary closure. Ara Wang PA-C /[id number]
[2017-07-01] MEDS: VERIFY FENTANYL PATCH TOP SCH ×2 (09:13→21:21)
[2017-07-01] MEDS ORDERED: Tamsulosin 0.4 MG Cap.ER PO ONE (10:00)
[2017-07-01] MEDS: Lisinopril 20 MG Tab PO SCH (10:18)
[2017-07-01] MEDS: Pantoprazole 40 MG Vial IV SCH (10:19)
[2017-07-01] MEDS: Metoprolol Succinate 25 MG Tab.ER PO SCH (10:19)
[2017-07-01] MEDS: Docusate Sodium 100 MG Cap PO SCH ×2 (10:20→21:14)
[2017-07-01] MEDS: Bisacodyl 5 MG Tab PO SCH ×2 (10:20→21:13)
--- NOTE | 2017-07-01 17:23 | PCM.PN ---
- General Info Date of Service: 07/01/17 Functional Status: Reports: Pain Controlled, Ambulating - Review of Systems General: Reports: Weakness. Denies: Fever, Chills Pulmonary: Reports: No Symptoms Cardiovascular: Reports: No Symptoms Gastrointestinal: Reports: Abdominal Pain. Denies: Flatus, Nausea, Vomiting Systems Review Comment:: Mr. Mandujano is status post delayed primary closure done earlier today by Dr. Lima. NG tube has been removed and he has been hemodynamically stable as well as afebrile. Denies symptoms of nausea vomiting but has experienced some increased pain in the upper abdomen. - Patient Data Vitals - Most Recent: Last Vital Signs Temp 97.2 F 07/01/17 15:01 Pulse 75 07/01/17 15:01 Resp 16 07/01/17 15:01 BP 122/60 07/01/17 15:01 Pulse Ox 93 L 07/01/17 15:01 Weight - Most Recent: 258 lb 9.6 oz I&O - Last 24 Hours: Intake & Output 07/01/17 07/01/17 07/01/17 06:59 14:59 22:59 Intake Total 9085 950 0885 Output Total 650 300 Balance 713 94 4518 Med Orders - Current: Current Medications Benzocaine/Menthol (Cepacol Sore Throat) 1 lozenge MUCMEM Q2H PRN PRN Reason: Sore Throat Last Admin: 06/27/17 19:17 Dose: 1 sobia Bisacodyl (Dulcolax) 10 mg PO BID [facility] Last Admin: 07/01/17 10:20 Dose: 10 mg Docusate Sodium (Colace) 100 mg PO BID [facility] Last Admin: 07/01/17 10:20 Dose: 100 mg Fentanyl (Duragesic) 12 mcg TRDERM Q72H [facility] Last Admin: 06/29/17 18:07 Dose: 12 mcg Hydromorphone HCl (Dilaudid Punch Press Operator 15 Mg In Ns 30 Ml) 0 mg IV ASDIRECTED PRN; Protocol PRN Reason: Pain Last Admin: 06/29/17 14:44 Dose: 15 mg Potassium Cl/Dextrose/Lact Ringer's (D5 Lr With 20 Meq Kcl) 1,000 mls @ 125 mls /hr IV ASDIRECTED [facility] Last Admin: 07/01/17 14:26 Dose: 125 mls/hr Lisinopril (Prinivil) 20 mg PO DAILY [facility] Last Admin: 07/01/17 10:18 Dose: 20 mg Metoprolol Succinate (Toprol Xl) 75 mg PO DAILY [facility] Last Admin: 07/01/17 10:19 Dose: 75 mg Naloxone HCl (Narcan) 0.1 mg IV ASDIRECTED PRN PRN Reason: decreased respiratory rate Verify Fentanyl (Patch) 0 each TOP BID [facility] Last Admin: 07/01/17 09:13 Dose: Not Given Ondansetron HCl (Zofran) 4 mg IV Q4H PRN PRN Reason: Nausea/Vomiting Pantoprazole Sodium (Protonix Iv) 40 mg IV Q24H [facility] Last Admin: 07/01/17 10:19 Dose: 40 mg Sodium Chloride (Saline Flush) 10 ml FLUSH ONETIME PRN PRN Reason: per radiology protocol Last Admin: 06/26/17 12:04 Dose: 10 ml Tamsulosin HCl (Flomax) 0.4 mg PO BEDTIME [facility] Discontinued Medications Acetaminophen (Tylenol) 650 mg PO Q4H PRN PRN Reason: Pain (Mild 1-3)/fever Acetaminophen (Tylenol) 650 mg RECTAL Q4H PRN PRN Reason: Mild pain/fever Al Hydroxide/Mg Hydroxide (Mag-Al Plus) 30 ml PO ONETIME ONE Stop: 06/27/17 14:31 Last Admin: 06/27/17 14:39 Dose: 30 ml Bupivacaine HCl (Marcaine 0.5%) Confirm Administered Dose 50 ml .ROUTE .STK-MED ONE Stop: 07/01/17 06:47 Last Admin: 07/01/17 07:48 Dose: 10 ml Dexamethasone (Dexamethasone) Confirm Administered Dose 4 mg .ROUTE .STK-MED ONE Stop: 06/29/17 11:43 Fentanyl (Sublimaze) Confirm Administered Dose 100 mcg .ROUTE .STK-MED ONE Stop: 07/01/17 07:51 Fentanyl Citrate (Fentanyl) Confirm Administered Dose 500 mcg .ROUTE .STK-MED ONE Stop: 06/29/17 11:43 Glycopyrrolate (Robinul) Confirm Administered Dose 1 mg .ROUTE .STK-MED ONE Stop: 06/29/17 11:43 Hydroxyzine HCl (Vistaril) 100 mg IM ONETIME ONE Stop: 06/29/17 18:16 Last Admin: 06/29/17 18:11 Dose: 100 mg Sodium Chloride (Normal Saline) 1,000 mls @ 500 mls/hr IV ASDIRECTED [facility] Last Admin: 06/26/17 11:42 Dose: 500 mls/hr Sodium Chloride (Normal Saline) 85 mls @ 3.5 mls/sec IV ASDIRECTED [facility] Last Admin: 06/26/17 12:04 Dose: 3.5 mls/sec Lactated Ringer's (Ringers, Lactated) 1,000 mls @ 150 mls/hr IV ASDIRECTED [facility] Last Admin: 06/26/17 14:44 Dose: 150 mls/hr Dextrose/Lactated Ringer's (Dextrose 5%-Lactated Ringers) 1,000 mls @ 100 mls/ hr IV ASDIRECTED [facility] Last Admin: 06/27/17 08:19 Dose: 100 mls/hr Potassium Cl/Dextrose/Lact Ringer's (D5 Lr With 20 Meq Kcl) 1,000 mls @ 100 mls /hr IV ASDIRECTED [facility] Last Infusion: 06/29/17 22:51 Dose: Infused Potassium Chloride 20 meq/Lidocaine HCl 2 ml/ Sodium Chloride 112 mls @ 55 mls/ hr IV Q2H [facility] Stop: 06/27/17 16:29 Last Admin: 06/27/17 14:40 Dose: 55 mls/hr Sodium Chloride (Normal Saline) 500 mls @ 500 mls/hr IV .BOLUS ONE Stop: 06/27/17 13:12 Last Admin: 06/27/17 12:34 Dose: 500 mls/hr Cefoxitin Sodium 2 gm/ Sodium (Chloride) 50 mls @ 100 mls/hr IV ONCALL ONE Stop: 06/29/17 14:59 Last Admin: 06/29/17 15:57 Dose: 100 mls/hr Lactated Ringer's (Ringers, Lactated) Confirm Administered Dose 1,000 mls @ as directed .ROUTE .STK-MED ONE Stop: 06/29/17 16:30 Potassium Cl/Dextrose/Lact Ringer's (D5 Lr With 20 Meq Kcl) 1,000 mls @ 175 mls /hr IV ASDIRECTED [facility] Last Admin: 06/30/17 07:57 Dose: 175 mls/hr Cefoxitin Sodium 2 gm/ Sodium (Chloride) 50 mls @ 100 mls/hr IV Q6H [facility] Stop: 06/30/17 10:29 Last Admin: 06/30/17 10:19 Dose: 100 mls/hr Potassium Cl/Dextrose/Lact Ringer's (D5 Lr With 20 Meq Kcl) Confirm Administered Dose 1,000 mls @ as directed .ROUTE .STK-MED ONE Stop: 06/30/17 07:55 Last Admin: 06/30/17 08:48 Dose: Not Given Potassium Cl/Dextrose/Lact Ringer's (D5 Lr With 20 Meq Kcl) Confirm Administered Dose 1,000 mls @ as directed .ROUTE .STK-MED ONE Stop: 06/30/17 08:00 Last Admin: 06/30/17 08:48 Dose: Not Given Iopamidol (Isovue-300 (61%)) 150 ml IV . DIRECTED PRN PRN Reason: RADIOLOGY EXAM Stop: 06/27/17 12:04 Last Admin: 06/26/17 12:04 Dose: 150 ml Labetalol HCl (Normodyne) 5 - 15 mg IVPUSH Q1H PRN PRN Reason: BLOOD PRESSURE Stop: 06/29/17 19:15 Last Admin: 06/29/17 18:13 Dose: 15 mg Lidocaine/Epinephrine (Xylocaine 1% With Epinephrine 1:100,000) Confirm Administered Dose 50 ml .ROUTE .STK-MED ONE Stop: 07/01/17 06:48 Last Admin: 07/01/17 07:48 Dose: 10 ml Lisinopril (Prinivil) 20 mg PO DAILY [facility] Last Admin: 06/29/17 10:48 Dose: 20 mg Meropenem (Merrem) Confirm Administered Dose 500 mg .ROUTE .STK-MED ONE Stop: 06/29/17 12:03 Last Admin: 06/29/17 17:00 Dose: 500 mg Meropenem (Merrem) Confirm Administered Dose 500 mg .ROUTE .STK-MED ONE Stop: 07/01/17 06:47 Last Admin: 07/01/17 07:49 Dose: 500 mg Metoprolol Tartrate (Lopressor) 2.5 mg IVPUSH Q6H [facility] Last Admin: 07/01/17 10:33 Dose: Not Given Morphine Sulfate (Morphine) 2 - 4 mg IVPUSH Q2H PRN PRN Reason: Pain (severe 7-10) Last Admin: 06/28/17 22:39 Dose: 4 mg Neostigmine Methylsulfate (Neostigmine) Confirm Administered Dose 5 mg .ROUTE .STK-MED ONE Stop: 06/29/17 11:43 Ondansetron HCl (Zofran) 4 mg IVPUSH ONETIME ONE Stop: 06/26/17 11:30 Last Admin: 06/26/17 11:43 Dose: 4 mg Ondansetron HCl (Zofran Odt) 4 mg PO Q6H PRN PRN Reason: Nausea able to take PO Ondansetron HCl (Zofran) 4 mg IV Q6H PRN PRN Reason: Nausea/Vomiting Last Admin: 06/27/17 23:06 Dose: 4 mg Ondansetron HCl (Zofran) Confirm Administered Dose 4 mg .ROUTE .STK-MED ONE Stop: 06/29/17 11:43 Pantoprazole Sodium (Protonix Iv) 40 mg IVPUSH ONETIME ONE Stop: 06/26/17 13:33 Last Admin: 06/26/17 13:49 Dose: 40 mg Pantoprazole Sodium (Protonix Iv) 40 mg IV Q12H [facility] Last Admin: 06/29/17 07:03 Dose: 40 mg Propofol (Diprivan 20 Ml) Confirm Administered Dose 200 mg .ROUTE .STK-MED ONE Stop: 06/29/17 11:43 Propofol (Diprivan 20 Ml) Confirm Administered Dose 200 mg .ROUTE .STK-MED ONE Stop: 07/01/17 07:52 Rocuronium [place] (Zemuron) Confirm Administered Dose 50 mg .ROUTE .STK-MED ONE Stop: 06/29/17 11:43 Sodium Chloride (Saline Flush) 10 ml FLUSH ASDIRECTED PRN PRN Reason: Keep Vein Open Last Admin: 06/26/17 11:43 Dose: 10 ml Succinylcholine Chloride (Quelicin) Confirm Administered Dose 200 mg .ROUTE .STK -MED ONE Stop: 06/29/17 11:43 Tamsulosin HCl (Flomax) 0.4 mg PO ONETIME ONE Stop: 07/01/17 10:01 Last Admin: 07/01/17 10:20 Dose: 0.4 mg - Exam Quality Assessment: DVT Prophylaxis General: Alert, Oriented, Cooperative, Mild Distress Lungs: Clear to Auscultation, Normal Respiratory Effort Cardiovascular: Regular Rate, Regular Rhythm, No Murmurs GI/Abdominal Exam: Soft, Tender, Abnormal Bowel Sounds. No: Distended, Guarding , Rigid, Rebound Extremities: Normal Inspection, No Pedal Edema Skin: Warm, Dry, Intact - Problem List Review Problem List Initiated/Reviewed/Updated: Yes - Plan Plan:: Assessment and plan - Mechanical small bowel obstruction - status post delayed primary closure done earlier today -Postop cares per surgical service essential hypertension - blood pressure acceptable though mildly elevated on usual medications will be continued. Maintenance issues - - DVT prophylaxis - mechanical - GI prophylaxis - PPI - Nutrition - nothing by mouth Disposition - anticipate discharge to home after the hospital stay
[2017-07-01] MEDS: Tamsulosin 0.4 MG Cap.ER PO SCH (21:14)
[2017-07-02] MEDS: HYDROmorphone/Normal Saline 15 MG/30 ML PCA IV PRN (06:04)
[2017-07-02] MEDS: Dextrose 5%-Lact Ringers w/KCl 1,000 ML IV SCH ×3 (06:55→22:56)
[2017-07-02] MEDS: Pantoprazole 40 MG Vial IV SCH (07:52)
--- NOTE | 2017-07-02 08:06 | PN ---
DATE OF SERVICE: 07/02/2017 SUBJECTIVE: Magdy is passing flatus. He is urinating after his catheter came out following his delayed primary closure. He continues on Colace and Dulcolax tabs orally and is basically waiting to have a bowel movement in order to start oral nutrition. REVIEW OF SYSTEMS: Remainder of review of systems negative for any pertinent positives and negatives. OBJECTIVE: GENERAL: Magdy is a 76-year-old male. He is alert and orientated. VITAL SIGNS: TPR 98, 80, 16, and blood pressure 112/61. HEENT: Negative. NECK: Supple. HEART: Regular rate and rhythm. LUNGS: Clear. ABDOMEN: Dressings dry and intact. Abdominal binder is on. EXTREMITIES: Without peripheral edema. ASSESSMENT: 1. 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 2. 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 Date of surgery, 06/29/2017. PLAN: 1. Dressing off, march shower. 2. Continue Colace and Dulcolax tabs. 3. Notify provider if any bowel movement. 4. We will evaluate p.r.n. or in a.m. Ara Wang PA-C /[id number]
[2017-07-02] MEDS: Docusate Sodium 100 MG Cap PO SCH ×2 (08:54→21:22)
[2017-07-02] MEDS: VERIFY FENTANYL PATCH TOP SCH ×2 (08:55→21:23)
[2017-07-02] MEDS: Bisacodyl 5 MG Tab PO SCH ×2 (08:55→21:22)
[2017-07-02] MEDS: Lisinopril 20 MG Tab PO SCH (08:57)
[2017-07-02] MEDS: Metoprolol Succinate 25 MG Tab.ER PO SCH (08:58)
--- NOTE | 2017-07-02 11:40 | PCM.PN ---
- General Info Date of Service: 07/02/17 Functional Status: Reports: Pain Controlled, Ambulating, Urinating - Review of Systems General: Reports: Weakness. Denies: Fever, Chills Pulmonary: Reports: No Symptoms Cardiovascular: Reports: No Symptoms Gastrointestinal: Reports: Abdominal Pain. Denies: Difficulty Swallowing, Flatus, Nausea, Vomiting Systems Review Comment:: Mr. Mandujano has been stable since yesterday, vital signs have been good and he has remained afebrile. He is not yet had a bowel movement or started passing gas. Ambulation and use of his incentive spirometer have been somewhat limited, he's encouraged to ambulate at least 4 times daily and use the incentive spirometer several times an hour. - Patient Data Vitals - Most Recent: Last Vital Signs Temp 98 F 07/02/17 07:37 Pulse 75 07/02/17 08:58 Resp 16 07/02/17 07:37 BP 137/70 07/02/17 08:58 Pulse Ox 90 L 07/02/17 08:00 Weight - Most Recent: 258 lb 9.6 oz I&O - Last 24 Hours: Intake & Output 07/01/17 07/02/17 07/02/17 22:59 06:59 14:59 Intake Total 1371 1466 Output Total 150 405 275 Balance 1221 1061 -275 Med Orders - Current: Current Medications Benzocaine/Menthol (Cepacol Sore Throat) 1 lozenge MUCMEM Q2H PRN PRN Reason: Sore Throat Last Admin: 06/27/17 19:17 Dose: 1 sobia Bisacodyl (Dulcolax) 10 mg PO BID [facility] Last Admin: 07/02/17 08:55 Dose: 10 mg Docusate Sodium (Colace) 100 mg PO BID [facility] Last Admin: 07/02/17 08:54 Dose: 100 mg Fentanyl (Duragesic) 12 mcg TRDERM Q72H [facility] Last Admin: 06/29/17 18:07 Dose: 12 mcg Hydromorphone HCl (Dilaudid Digitizer 15 Mg In Ns 30 Ml) 0 mg IV ASDIRECTED PRN; Protocol PRN Reason: Pain Last Admin: 07/02/17 06:04 Dose: 15 mg Potassium Cl/Dextrose/Lact Ringer's (D5 Lr With 20 Meq Kcl) 1,000 mls @ 125 mls /hr IV ASDIRECTED [facility] Last Admin: 07/02/17 06:55 Dose: 125 mls/hr Lisinopril (Prinivil) 20 mg PO DAILY [facility] Last Admin: 07/02/17 08:57 Dose: 20 mg Metoprolol Succinate (Toprol Xl) 75 mg PO DAILY [facility] Last Admin: 07/02/17 08:58 Dose: 75 mg Naloxone HCl (Narcan) 0.1 mg IV ASDIRECTED PRN PRN Reason: decreased respiratory rate Verify Fentanyl (Patch) 0 each TOP BID [facility] Last Admin: 07/02/17 08:55 Dose: Not Given Ondansetron HCl (Zofran) 4 mg IV Q4H PRN PRN Reason: Nausea/Vomiting Pantoprazole Sodium (Protonix Iv) 40 mg IV Q24H [facility] Last Admin: 07/02/17 07:52 Dose: 40 mg Sodium Chloride (Saline Flush) 10 ml FLUSH ONETIME PRN PRN Reason: per radiology protocol Last Admin: 06/26/17 12:04 Dose: 10 ml Tamsulosin HCl (Flomax) 0.4 mg PO BEDTIME [facility] Last Admin: 07/01/17 21:14 Dose: 0.4 mg Discontinued Medications Acetaminophen (Tylenol) 650 mg PO Q4H PRN PRN Reason: Pain (Mild 1-3)/fever Acetaminophen (Tylenol) 650 mg RECTAL Q4H PRN PRN Reason: Mild pain/fever Al Hydroxide/Mg Hydroxide (Mag-Al Plus) 30 ml PO ONETIME ONE Stop: 06/27/17 14:31 Last Admin: 06/27/17 14:39 Dose: 30 ml Bupivacaine HCl (Marcaine 0.5%) Confirm Administered Dose 50 ml .ROUTE .STK-MED ONE Stop: 07/01/17 06:47 Last Admin: 07/01/17 07:48 Dose: 10 ml Dexamethasone (Dexamethasone) Confirm Administered Dose 4 mg .ROUTE .STK-MED ONE Stop: 06/29/17 11:43 Fentanyl (Sublimaze) Confirm Administered Dose 100 mcg .ROUTE .STK-MED ONE Stop: 07/01/17 07:51 Fentanyl Citrate (Fentanyl) Confirm Administered Dose 500 mcg .ROUTE .STK-MED ONE Stop: 06/29/17 11:43 Glycopyrrolate (Robinul) Confirm Administered Dose 1 mg .ROUTE .STK-MED ONE Stop: 06/29/17 11:43 Hydroxyzine HCl (Vistaril) 100 mg IM ONETIME ONE Stop: 06/29/17 18:16 Last Admin: 06/29/17 18:11 Dose: 100 mg Sodium Chloride (Normal Saline) 1,000 mls @ 500 mls/hr IV ASDIRECTED [facility] Last Admin: 06/26/17 11:42 Dose: 500 mls/hr Sodium Chloride (Normal Saline) 85 mls @ 3.5 mls/sec IV ASDIRECTED [facility] Last Admin: 06/26/17 12:04 Dose: 3.5 mls/sec Lactated Ringer's (Ringers, Lactated) 1,000 mls @ 150 mls/hr IV ASDIRECTED [facility] Last Admin: 06/26/17 14:44 Dose: 150 mls/hr Dextrose/Lactated Ringer's (Dextrose 5%-Lactated Ringers) 1,000 mls @ 100 mls/ hr IV ASDIRECTED [facility] Last Admin: 06/27/17 08:19 Dose: 100 mls/hr Potassium Cl/Dextrose/Lact Ringer's (D5 Lr With 20 Meq Kcl) 1,000 mls @ 100 mls /hr IV ASDIRECTED [facility] Last Infusion: 06/29/17 22:51 Dose: Infused Potassium Chloride 20 meq/Lidocaine HCl 2 ml/ Sodium Chloride 112 mls @ 55 mls/ hr IV Q2H [facility] Stop: 06/27/17 16:29 Last Admin: 06/27/17 14:40 Dose: 55 mls/hr Sodium Chloride (Normal Saline) 500 mls @ 500 mls/hr IV .BOLUS ONE Stop: 06/27/17 13:12 Last Admin: 06/27/17 12:34 Dose: 500 mls/hr Cefoxitin Sodium 2 gm/ Sodium (Chloride) 50 mls @ 100 mls/hr IV ONCALL ONE Stop: 06/29/17 14:59 Last Admin: 06/29/17 15:57 Dose: 100 mls/hr Lactated Ringer's (Ringers, Lactated) Confirm Administered Dose 1,000 mls @ as directed .ROUTE .STK-MED ONE Stop: 06/29/17 16:30 Potassium Cl/Dextrose/Lact Ringer's (D5 Lr With 20 Meq Kcl) 1,000 mls @ 175 mls /hr IV ASDIRECTED [facility] Last Admin: 06/30/17 07:57 Dose: 175 mls/hr Cefoxitin Sodium 2 gm/ Sodium (Chloride) 50 mls @ 100 mls/hr IV Q6H [facility] Stop: 06/30/17 10:29 Last Admin: 06/30/17 10:19 Dose: 100 mls/hr Potassium Cl/Dextrose/Lact Ringer's (D5 Lr With 20 Meq Kcl) Confirm Administered Dose 1,000 mls @ as directed .ROUTE .STK-MED ONE Stop: 06/30/17 07:55 Last Admin: 06/30/17 08:48 Dose: Not Given Potassium Cl/Dextrose/Lact Ringer's (D5 Lr With 20 Meq Kcl) Confirm Administered Dose 1,000 mls @ as directed .ROUTE .STK-MED ONE Stop: 06/30/17 08:00 Last Admin: 06/30/17 08:48 Dose: Not Given Iopamidol (Isovue-300 (61%)) 150 ml IV . DIRECTED PRN PRN Reason: RADIOLOGY EXAM Stop: 06/27/17 12:04 Last Admin: 06/26/17 12:04 Dose: 150 ml Labetalol HCl (Normodyne) 5 - 15 mg IVPUSH Q1H PRN PRN Reason: BLOOD PRESSURE Stop: 06/29/17 19:15 Last Admin: 06/29/17 18:13 Dose: 15 mg Lidocaine/Epinephrine (Xylocaine 1% With Epinephrine 1:100,000) Confirm Administered Dose 50 ml .ROUTE .STK-MED ONE Stop: 07/01/17 06:48 Last Admin: 07/01/17 07:48 Dose: 10 ml Lisinopril (Prinivil) 20 mg PO DAILY [facility] Last Admin: 06/29/17 10:48 Dose: 20 mg Meropenem (Merrem) Confirm Administered Dose 500 mg .ROUTE .STK-MED ONE Stop: 06/29/17 12:03 Last Admin: 06/29/17 17:00 Dose: 500 mg Meropenem (Merrem) Confirm Administered Dose 500 mg .ROUTE .STK-MED ONE Stop: 07/01/17 06:47 Last Admin: 07/01/17 07:49 Dose: 500 mg Metoprolol Tartrate (Lopressor) 2.5 mg IVPUSH Q6H [facility] Last Admin: 07/01/17 10:33 Dose: Not Given Morphine Sulfate (Morphine) 2 - 4 mg IVPUSH Q2H PRN PRN Reason: Pain (severe 7-10) Last Admin: 06/28/17 22:39 Dose: 4 mg Neostigmine Methylsulfate (Neostigmine) Confirm Administered Dose 5 mg .ROUTE .STK-MED ONE Stop: 06/29/17 11:43 Ondansetron HCl (Zofran) 4 mg IVPUSH ONETIME ONE Stop: 06/26/17 11:30 Last Admin: 06/26/17 11:43 Dose: 4 mg Ondansetron HCl (Zofran Odt) 4 mg PO Q6H PRN PRN Reason: Nausea able to take PO Ondansetron HCl (Zofran) 4 mg IV Q6H PRN PRN Reason: Nausea/Vomiting Last Admin: 06/27/17 23:06 Dose: 4 mg Ondansetron HCl (Zofran) Confirm Administered Dose 4 mg .ROUTE .STK-MED ONE Stop: 06/29/17 11:43 Pantoprazole Sodium (Protonix Iv) 40 mg IVPUSH ONETIME ONE Stop: 06/26/17 13:33 Last Admin: 06/26/17 13:49 Dose: 40 mg Pantoprazole Sodium (Protonix Iv) 40 mg IV Q12H [facility] Last Admin: 06/29/17 07:03 Dose: 40 mg Propofol (Diprivan 20 Ml) Confirm Administered Dose 200 mg .ROUTE .STK-MED ONE Stop: 06/29/17 11:43 Propofol (Diprivan 20 Ml) Confirm Administered Dose 200 mg .ROUTE .STK-MED ONE Stop: 07/01/17 07:52 Rocuronium Spurger (Zemuron) Confirm Administered Dose 50 mg .ROUTE .STK-MED ONE Stop: 06/29/17 11:43 Sodium Chloride (Saline Flush) 10 ml FLUSH ASDIRECTED PRN PRN Reason: Keep Vein Open Last Admin: 06/26/17 11:43 Dose: 10 ml Succinylcholine Chloride (Quelicin) Confirm Administered Dose 200 mg .ROUTE .STK -MED ONE Stop: 06/29/17 11:43 Tamsulosin HCl (Flomax) 0.4 mg PO ONETIME ONE Stop: 07/01/17 10:01 Last Admin: 07/01/17 10:20 Dose: 0.4 mg - Exam Quality Assessment: DVT Prophylaxis General: Alert, Oriented, Cooperative, Mild Distress Lungs: Clear to Auscultation, Normal Respiratory Effort Cardiovascular: Regular Rate, Regular Rhythm, No Murmurs GI/Abdominal Exam: Soft, Tender, Abnormal Bowel Sounds. No: Distended, Guarding , Rigid, Rebound Extremities: Normal Inspection, No Pedal Edema Skin: Warm, Dry, Intact - Problem List Review Problem List Initiated/Reviewed/Updated: Yes - Plan Plan:: Assessment and plan - Mechanical small bowel obstruction - stable but not yet passing stool or flatus. -Postop cares per surgical service -Encourage ambulation 4 times daily and use of incentive spirometer several times in our essential hypertension - blood pressure acceptable though mildly elevated on usual medications will be continued. Maintenance issues - - DVT prophylaxis - mechanical - GI prophylaxis - PPI - Nutrition - nothing by mouth Disposition - anticipate discharge to home after the hospital stay
[2017-07-02] MEDS: fentaNYL 12 MCG/HR Transdermal Patch TRDERM SCH (18:57)
[2017-07-02] MEDS: Tamsulosin 0.4 MG Cap.ER PO SCH (21:22)
[2017-07-03] MEDS: Dextrose 5%-Lact Ringers w/KCl 1,000 ML IV SCH ×2 (07:22→21:04)
[2017-07-03] MEDS: Pantoprazole 40 MG Vial IV SCH (07:49)
--- NOTE | 2017-07-03 08:16 | PN ---
DATE OF SERVICE: 07/03/2017 SUBJECTIVE: Magdy is postop day #4. He is passing flatus, but has not had a bowel movement yet. Oral intake of clear liquids was 240. Urine output 1925. STANLEY drain put out 7 mL of a pink serosanguineous drainage. He reports his pain is controlled. REVIEW OF SYSTEMS: Remainder of review of systems is negative for any pertinent positives and negatives. OBJECTIVE: GENERAL: Magdy Mandujano is a pleasant 76-year-old male alert and oriented. VITAL SIGNS: TPR 97.4, 73, 16. Blood pressure 136/68. HEENT: Negative. NECK: Supple. HEART: Regular rate and rhythm. LUNGS: Clear. ABDOMEN: Dressings dry and intact. Aquasol on and midline STANLEY drain is intact. EXTREMITIES: Revealed trace peripheral edema. ASSESSMENT: 1. 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 2. 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 Date of surgery, 06/29/2017. PLAN: 1. Slow liquid diet. 2. Decrease IV to 80 mL/h. 3. Good pulmonary toilet. 4. We will evaluate p.r.n. or in a.m. Ara Wang PA-C /[id number]
[2017-07-03] MEDS: Acetaminophen/oxyCODONE 325-5 MG Tab PO PRN ×2 (09:25→13:10)
[2017-07-03] MEDS: Bisacodyl 5 MG Tab PO SCH ×2 (09:28→21:00)
[2017-07-03] MEDS: Lisinopril 20 MG Tab PO SCH (09:29)
[2017-07-03] MEDS: Docusate Sodium 100 MG Cap PO SCH ×2 (09:29→21:00)
[2017-07-03] MEDS: VERIFY FENTANYL PATCH TOP SCH ×2 (09:30→21:02)
[2017-07-03] MEDS: Metoprolol Succinate 25 MG Tab.ER PO SCH (09:31)
[2017-07-03] MEDS: Ondansetron 4 MG/2 ML SDV IV PRN ×3 (13:09→21:02)
[2017-07-03] MEDS ORDERED: Metoclopramide 10 MG/2 ML SDV IVPUSH STA (17:01)
[2017-07-03] MEDS ORDERED: HYDROmorphone/Normal Saline 15 MG/30 ML PCA IV SCH (18:30)
[2017-07-03] MEDS: Scopolamine 1.5 MG Transdermal Patch TRDERM PRN (18:32)
[2017-07-03] MEDS ORDERED: Furosemide 20 MG/2 ML VIAL IVPUSH ONE (19:06)
[2017-07-03] MEDS ORDERED: Alum Hydrox/Mag Hydrox/Simeth 15 ML, Lidocaine 2% 15 ML PO ONE ×2 (19:06)
[2017-07-03] MEDS: Tamsulosin 0.4 MG Cap.ER PO SCH (21:01)
[2017-07-03] MEDS: Metoclopramide 10 MG/2 ML SDV IV SCH (21:04)
[2017-07-04] MEDS: Ondansetron 4 MG/2 ML SDV IV PRN (01:44)
[2017-07-04] MEDS: Metoclopramide 10 MG/2 ML SDV IV SCH ×4 (04:47→21:03)
[2017-07-04] MEDS ORDERED: HYDROmorphone/Normal Saline 15 MG/30 ML PCA IV PRN (07:04)
[2017-07-04] MEDS ORDERED: Naloxone 0.4 MG/ML SDV IV PRN (07:04)
[2017-07-04] MEDS: Pantoprazole 40 MG Vial IV SCH (07:46)
[2017-07-04] MEDS ORDERED: CHECK PATCH DAILY SCH (09:00)
[2017-07-04] MEDS ORDERED: Furosemide 20 MG/2 ML VIAL IVPUSH ONE (09:00)
[2017-07-04] MEDS: Bisacodyl 5 MG Tab PO SCH (09:14)
[2017-07-04] MEDS: Docusate Sodium 100 MG Cap PO SCH (09:14)
[2017-07-04] MEDS: Lisinopril 20 MG Tab PO SCH (09:15)
[2017-07-04] MEDS: SCOPOLAMINE PATCH CHECK TOP SCH (09:17)
[2017-07-04] MEDS: Metoprolol Tartrate 5 MG/5 ML SDV IV SCH ×3 (10:24→20:58)
[2017-07-04] MEDS: Dextrose 5%-Lact Ringers w/KCl 1,000 ML IV SCH (10:37)
[2017-07-04] MEDS: VERIFY FENTANYL PATCH TOP SCH ×2 (10:38→20:55)
--- NOTE | 2017-07-04 12:01 | PCM.PN ---
- General Info Date of Service: 07/04/17 Functional Status: Reports: Pain Controlled - Review of Systems General: Reports: Weakness. Denies: Fever, Chills Pulmonary: Reports: No Symptoms Cardiovascular: Reports: No Symptoms Gastrointestinal: Reports: Abdominal Pain, Diarrhea, Flatus. Denies: Difficulty Swallowing, Nausea, Vomiting Systems Review Comment:: Mr. Mandujano has had difficulty with recurrent nausea vomiting and persistent ileus, requiring replacement of his NG tube. He also developed symptoms of shortness of breath and burning sensation in his lower chest. Discomfort was felt secondary to reflux and shortness of breath related to fluid overload. Symptoms improved after he was given GI cocktail and IV Lasix. He is feeling better this morning denies significant shortness of breath or any symptoms of chest pain. Troponin was obtained last night and found to be within normal range. He has been given additional IV Lasix this morning by Dr. Lima. - Patient Data Vitals - Most Recent: Last Vital Signs Temp 96.4 F 07/04/17 07:19 Pulse 79 07/04/17 10:49 Resp 16 07/04/17 07:19 BP 114/68 07/04/17 10:49 Pulse Ox 92 L 07/04/17 07:22 Weight - Most Recent: 259 lb 1.6 oz I&O - Last 24 Hours: Intake & Output 07/03/17 07/04/17 07/04/17 22:59 06:59 14:59 Intake Total 1017 836 100 Output Total 9328 491 4512 Balance -583 258 -1300 Lab Results Last 24 Hours: Laboratory Results - last 24 hr 07/03/17 Range/Units 19:20 Sodium 141 (140-148) mmol/L Potassium 4.1 (3.6-5.2) mmol/L Chloride 104 (100-108) mmol/L Carbon Dioxide 30 (21-32) mmol/L Anion Gap 6.7 (5.0-14.0) mmol/L BUN 10 (7-18) mg/dL Creatinine 0.9 (0.8-1.3) mg/dL Est Cr Clr Drug Dosing 75.55 mL/min Estimated GFR (MDRD) > 60 (>60) Glucose 141 H (74-106) mg/dL Calcium 8.8 (8.5-10.1) mg/dL Troponin I < 0.017 (0.000-0.056) ng/mL Med Orders - Current: Current Medications Benzocaine/Menthol (Cepacol Sore Throat) 1 lozenge MUCMEM Q2H PRN PRN Reason: Sore Throat Last Admin: 06/27/17 19:17 Dose: 1 sobia Bisacodyl (Dulcolax) 10 mg PO BID [facility] Last Admin: 07/04/17 09:14 Dose: Not Given Docusate Sodium (Colace) 100 mg PO BID [facility] Last Admin: 07/04/17 09:14 Dose: Not Given Fentanyl (Duragesic) 12 mcg TRDERM Q72H [facility] Last Admin: 07/02/17 18:57 Dose: 12 mcg Hydromorphone HCl (Dilaudid Hog Cutter 15 Mg In Ns 30 Ml) 0 mg IV ASDIRECTED PRN; Protocol PRN Reason: PAIN Potassium Cl/Dextrose/Lact Ringer's (D5 Lr With 20 Meq Kcl) 1,000 mls @ 75 mls/ hr IV ASDIRECTED [facility] Last Admin: 07/04/17 10:37 Dose: 75 mls/hr Erythromycin Lactobionate 125 (mg/ Sodium Chloride) 100 mls @ 100 mls/hr IV Q6HR [facility] Last Admin: 07/04/17 10:37 Dose: 100 mls/hr Lisinopril (Prinivil) 20 mg PO DAILY [facility] Last Admin: 07/04/17 09:15 Dose: Not Given Metoclopramide HCl (Reglan) 10 mg IV Q6H [facility] Last Admin: 07/04/17 11:33 Dose: 10 mg Metoprolol Succinate (Toprol Xl) 75 mg PO DAILY [facility] Last Admin: 07/03/17 09:31 Dose: 75 mg Metoprolol Tartrate (Lopressor) 2.5 mg IV Q6H [facility] Last Admin: 07/04/17 10:24 Dose: 2.5 mg Naloxone HCl (Narcan) 0.1 mg IV ASDIRECTED PRN PRN Reason: decreased respiratory rate Verify Fentanyl (Patch) 0 each TOP BID [facility] Last Admin: 07/04/17 10:38 Dose: Not Given Scopolamine Patch (Check) 0 each TOP DAILY [facility] Last Admin: 07/04/17 09:17 Dose: 1 each Ondansetron HCl (Zofran) 4 mg IV Q4H PRN PRN Reason: Nausea/Vomiting Last Admin: 07/04/17 01:44 Dose: 4 mg Pantoprazole Sodium (Protonix Iv) 40 mg IV Q24H [facility] Last Admin: 07/04/17 07:46 Dose: 40 mg Scopolamine (Transderm-Scop) 1.5 mg TRDERM Q72H PRN PRN Reason: Nausea Last Admin: 07/03/17 18:32 Dose: 1.5 mg Sodium Chloride (Saline Flush) 10 ml FLUSH ONETIME PRN PRN Reason: per radiology protocol Last Admin: 06/26/17 12:04 Dose: 10 ml Tamsulosin HCl (Flomax) 0.4 mg PO BEDTIME [facility] Last Admin: 07/03/17 21:01 Dose: Not Given Discontinued Medications Acetaminophen (Tylenol) 650 mg PO Q4H PRN PRN Reason: Pain (Mild 1-3)/fever Acetaminophen (Tylenol) 650 mg RECTAL Q4H PRN PRN Reason: Mild pain/fever Al Hydroxide/Mg Hydroxide (Mag-Al Plus) 30 ml PO ONETIME ONE Stop: 06/27/17 14:31 Last Admin: 06/27/17 14:39 Dose: 30 ml Bupivacaine HCl (Marcaine 0.5%) Confirm Administered Dose 50 ml .ROUTE .STK-MED ONE Stop: 07/01/17 06:47 Last Admin: 07/01/17 07:48 Dose: 10 ml Al Hydroxide/Mg Hydroxide 15 (ml/ Lidocaine HCl 15 ml) 0 ml PO ONETIME ONE Stop: 07/03/17 19:07 Last Admin: 07/03/17 19:19 Dose: 30 ml Dexamethasone (Dexamethasone) Confirm Administered Dose 4 mg .ROUTE .STK-MED ONE Stop: 06/29/17 11:43 Fentanyl (Sublimaze) Confirm Administered Dose 100 mcg .ROUTE .STK-MED ONE Stop: 07/01/17 07:51 Fentanyl Citrate (Fentanyl) Confirm Administered Dose 500 mcg .ROUTE .STK-MED ONE Stop: 06/29/17 11:43 Furosemide (Lasix) 20 mg IVPUSH ONETIME ONE Stop: 07/03/17 19:07 Last Admin: 07/03/17 19:19 Dose: 20 mg Furosemide (Lasix) 20 mg IVPUSH ONETIME ONE Stop: 07/04/17 09:01 Last Admin: 07/04/17 09:17 Dose: 20 mg Glycopyrrolate (Robinul) Confirm Administered Dose 1 mg .ROUTE .STK-MED ONE Stop: 06/29/17 11:43 Hydromorphone HCl (Dilaudid Hog Cutter 15 Mg In Ns 30 Ml) 0 mg IV ASDIRECTED PRN; Protocol PRN Reason: Pain Last Admin: 07/02/17 06:04 Dose: 15 mg Hydromorphone HCl (Dilaudid Hog Cutter 15 Mg In Ns 30 Ml) 15 mg IV ASDIRECTED [facility] PRN Reason: Protocol Last Admin: 07/03/17 18:34 Dose: 15 mg Hydroxyzine HCl (Vistaril) 100 mg IM ONETIME ONE Stop: 06/29/17 18:16 Last Admin: 06/29/17 18:11 Dose: 100 mg Sodium Chloride (Normal Saline) 1,000 mls @ 500 mls/hr IV ASDIRECTED [facility] Last Admin: 06/26/17 11:42 Dose: 500 mls/hr Sodium Chloride (Normal Saline) 85 mls @ 3.5 mls/sec IV ASDIRECTED [facility] Last Admin: 06/26/17 12:04 Dose: 3.5 mls/sec Lactated Ringer's (Ringers, Lactated) 1,000 mls @ 150 mls/hr IV ASDIRECTED [facility] Last Admin: 06/26/17 14:44 Dose: 150 mls/hr Dextrose/Lactated Ringer's (Dextrose 5%-Lactated Ringers) 1,000 mls @ 100 mls/ hr IV ASDIRECTED [facility] Last Admin: 06/27/17 08:19 Dose: 100 mls/hr Potassium Cl/Dextrose/Lact Ringer's (D5 Lr With 20 Meq Kcl) 1,000 mls @ 100 mls /hr IV ASDIRECTED [facility] Last Infusion: 06/29/17 22:51 Dose: Infused Potassium Chloride 20 meq/Lidocaine HCl 2 ml/ Sodium Chloride 112 mls @ 55 mls/ hr IV Q2H [facility] Stop: 06/27/17 16:29 Last Admin: 06/27/17 14:40 Dose: 55 mls/hr Sodium Chloride (Normal Saline) 500 mls @ 500 mls/hr IV .BOLUS ONE Stop: 06/27/17 13:12 Last Admin: 06/27/17 12:34 Dose: 500 mls/hr Cefoxitin Sodium 2 gm/ Sodium (Chloride) 50 mls @ 100 mls/hr IV ONCALL ONE Stop: 06/29/17 14:59 Last Admin: 06/29/17 15:57 Dose: 100 mls/hr Lactated Ringer's (Ringers, Lactated) Confirm Administered Dose 1,000 mls @ as directed .ROUTE .STK-MED ONE Stop: 06/29/17 16:30 Potassium Cl/Dextrose/Lact Ringer's (D5 Lr With 20 Meq Kcl) 1,000 mls @ 175 mls /hr IV ASDIRECTED [facility] Last Admin: 06/30/17 07:57 Dose: 175 mls/hr Cefoxitin Sodium 2 gm/ Sodium (Chloride) 50 mls @ 100 mls/hr IV Q6H [facility] Stop: 06/30/17 10:29 Last Admin: 06/30/17 10:19 Dose: 100 mls/hr Potassium Cl/Dextrose/Lact Ringer's (D5 Lr With 20 Meq Kcl) 1,000 mls @ 125 mls /hr IV ASDIRECTED [facility] Last Admin: 07/03/17 07:22 Dose: 75 mls/hr Potassium Cl/Dextrose/Lact Ringer's (D5 Lr With 20 Meq Kcl) Confirm Administered Dose 1,000 mls @ as directed .ROUTE .STK-MED ONE Stop: 06/30/17 07:55 Last Admin: 06/30/17 08:48 Dose: Not Given Potassium Cl/Dextrose/Lact Ringer's (D5 Lr With 20 Meq Kcl) Confirm Administered Dose 1,000 mls @ as directed .ROUTE .STK-MED ONE Stop: 06/30/17 08:00 Last Admin: 06/30/17 08:48 Dose: Not Given Iopamidol (Isovue-300 (61%)) 150 ml IV . DIRECTED PRN PRN Reason: RADIOLOGY EXAM Stop: 06/27/17 12:04 Last Admin: 06/26/17 12:04 Dose: 150 ml Labetalol HCl (Normodyne) 5 - 15 mg IVPUSH Q1H PRN PRN Reason: BLOOD PRESSURE Stop: 06/29/17 19:15 Last Admin: 06/29/17 18:13 Dose: 15 mg Lidocaine/Epinephrine (Xylocaine 1% With Epinephrine 1:100,000) Confirm Administered Dose 50 ml .ROUTE .STK-MED ONE Stop: 07/01/17 06:48 Last Admin: 07/01/17 07:48 Dose: 10 ml Lisinopril (Prinivil) 20 mg PO DAILY [facility] Last Admin: 06/29/17 10:48 Dose: 20 mg Meropenem (Merrem) Confirm Administered Dose 500 mg .ROUTE [email or web address] ONE Stop: 06/29/17 12:03 Last Admin: 06/29/17 17:00 Dose: 500 mg Meropenem (Merrem) Confirm Administered Dose 500 mg .[email or web address] [email or web address] ONE Stop: 07/01/17 06:47 Last Admin: 07/01/17 07:49 Dose: 500 mg Metoclopramide HCl (Reglan) 10 mg IVPUSH NOW STA Stop: 07/03/17 17:02 Last Admin: 07/03/17 17:15 Dose: 10 mg Metoprolol Tartrate (Lopressor) 2.5 mg IVPUSH Q6H [facility] Last Admin: 07/01/17 10:33 Dose: Not Given Morphine Sulfate (Morphine) 2 - 4 mg IVPUSH Q2H PRN PRN Reason: Pain (severe 7-10) Last Admin: 06/28/17 22:39 Dose: 4 mg Naloxone HCl (Narcan) 0.1 mg IV ASDIRECTED PRN PRN Reason: decreased respiratory rate Neostigmine Methylsulfate (Neostigmine) Confirm Administered Dose 5 mg .ROUTE [email or web address] ONE Stop: 06/29/17 11:43 Ondansetron HCl (Zofran) 4 mg IVPUSH ONETIME ONE Stop: 06/26/17 11:30 Last Admin: 06/26/17 11:43 Dose: 4 mg Ondansetron HCl (Zofran Odt) 4 mg PO Q6H PRN PRN Reason: Nausea able to take PO Ondansetron HCl (Zofran) 4 mg IV Q6H PRN PRN Reason: Nausea/Vomiting Last Admin: 06/27/17 23:06 Dose: 4 mg Ondansetron HCl (Zofran) Confirm Administered Dose 4 mg .ROUTE [email or web address] ONE Stop: 06/29/17 11:43 Oxycodone/Acetaminophen (Percocet 325-5 Mg) 1 - 2 tab PO Q4H PRN PRN Reason: Pain Last Admin: 07/03/17 13:10 Dose: 2 tab Pantoprazole Sodium (Protonix Iv) 40 mg IVPUSH ONETIME ONE Stop: 06/26/17 13:33 Last Admin: 06/26/17 13:49 Dose: 40 mg Pantoprazole Sodium (Protonix Iv) 40 mg IV Q12H [facility] Last Admin: 06/29/17 07:03 Dose: 40 mg Propofol (Diprivan 20 Ml) Confirm Administered Dose 200 mg .ROUTE .STK-MED ONE Stop: 06/29/17 11:43 Propofol (Diprivan 20 Ml) Confirm Administered Dose 200 mg .ROUTE .STK-MED ONE Stop: 07/01/17 07:52 Rocuronium Vida (Zemuron) Confirm Administered Dose 50 mg .ROUTE .STK-MED ONE Stop: 06/29/17 11:43 Sodium Chloride (Saline Flush) 10 ml FLUSH ASDIRECTED PRN PRN Reason: Keep Vein Open Last Admin: 06/26/17 11:43 Dose: 10 ml Succinylcholine Chloride (Quelicin) Confirm Administered Dose 200 mg .ROUTE .STK -MED ONE Stop: 06/29/17 11:43 Tamsulosin HCl (Flomax) 0.4 mg PO ONETIME ONE Stop: 07/01/17 10:01 Last Admin: 07/01/17 10:20 Dose: 0.4 mg - Exam Quality Assessment: Urine Catheter, DVT Prophylaxis General: Alert, Oriented, Cooperative Lungs: Clear to Auscultation, Normal Respiratory Effort Cardiovascular: Regular Rate, Regular Rhythm, No Murmurs GI/Abdominal Exam: No Organomegaly, No Distention, Tender, Abnormal Bowel Sounds. No: Guarding, Rigid, Rebound Extremities: Normal Inspection, No Pedal Edema Skin: Warm, Dry, Intact - Problem List Review Problem List Initiated/Reviewed/Updated: Yes - My Orders Last 24 Hours: My Active Orders 07/03/17 19:06 Communication Order [RC] ASDIRECTED 07/04/17 07:04 HYDROmorphone/Normal Saline [Dilaudid [employer]OLS ANALYST 15 MG in NS 30 ML] 0 mg IV ASDIRECTED PRN 07/04/17 09:00 Non-Formulary Medication [NF Drug] 0 each TOP DAILY - Plan Plan:: Assessment and plan - Mechanical small bowel obstruction - persistent ileus requiring replacement of NG tube -Postop cares per surgical service -Encourage ambulation 4 times daily and use of incentive spirometer several times an hour Fluid overload-symptoms of shortness of breath last night -IV Lasix as needed -Decrease IV rate essential hypertension - blood pressure acceptable though mildly elevated on usual medications will be continued. Maintenance issues - - DVT prophylaxis - mechanical - GI prophylaxis - PPI - Nutrition - nothing by mouth Disposition - anticipate discharge to home after the hospital stay
[2017-07-04] MEDS ORDERED: Dextrose 5%-Lact Ringers w/KCl 1,000 ML IV SCH (12:15)
--- NOTE | 2017-07-04 17:21 | OR ---
DATE OF PROCEDURE: 07/01/2017 PREOPERATIVE DIAGNOSIS: Open abdominal incision. POSTOPERATIVE DIAGNOSIS: Open abdominal incision. PROCEDURE: Delayed primary closure of the open abdominal incision. ANESTHESIA: Local plus IV sedation. INDICATION FOR PROCEDURE: This is a 76-year-old status post an open laparotomy in which there was some minor contamination of the subcutaneous tissue. Skin and subcutaneous tissue were left open to avoid a high risk of wound infection. The plan is to proceed with a closure today. Potential risks including bleeding and infection were reviewed, and the patient wishes to proceed. DETAILS OF PROCEDURE: The patient was taken to the operating room and placed in a supine position loosening somewhat to minimize aspiration risk. After IV sedation was administered, the dressing was taken down and the wound was inspected and found to be clean. The incision was then prepped and draped, and anesthetized with 1% lidocaine mixed with Marcaine and irrigated with meropenem-containing saline solution. A 10-[place] round [place] drain was placed inferior to the incision and the incision was then closed with some 3- 0 and 4-0 Vicryl stitch deep and leland for the skin. The drain was affixed with some 3-0 Vicryl stitch as well. This was a long midline incision and an Aquacel dressing was placed over the surface at the conclusion of the procedure. The patient was taken to the recovery room in satisfactory condition. There were no evident complications. Pranav Lima MD /[id number]
--- NOTE | 2017-07-04 17:33 | PN ---
DATE OF SERVICE: 07/04/2017 The patient has been afebrile with stable vital signs. He first felt to have some degree of fluid overload last night and diuresed quite a bit overnight a single dose of Lasix and feels quite a bit better from respiratory standpoint this morning. Otherwise, he did move his bowels more, but his abdominal x-ray shows quite striking small-bowel distention more or less diffusely. There is some air in the rectum. I would suspect that there was some degree of an ileus at this point. We will continue the Reglan and I think we will add some IV erythromycin as well. Also, we will get a postvoid bladder scan to make sure he is not retaining urine as he had done that previously. We will get him back him on IV metoprolol while he has the NG tube in place. Portal views, labs, and x-ray tomorrow. We will switch the Toprol-XL over to IV Lopressor for the time being, and if things do not open up in the next day or two, we will need to think in terms of some nutritional management. Pranav Lima MD /[id number]
[2017-07-04] MEDS: Tamsulosin 0.4 MG Cap.ER PO SCH (20:54)
[2017-07-05] MEDS: Metoprolol Tartrate 5 MG/5 ML SDV IV SCH ×4 (03:54→21:18)
[2017-07-05] MEDS: Metoclopramide 10 MG/2 ML SDV IV SCH ×4 (03:57→21:18)
[2017-07-05] MEDS: Pantoprazole 40 MG Vial IV SCH (08:43)
[2017-07-05] MEDS: Dextrose 5%-Lact Ringers w/KCl 1,000 ML IV SCH ×2 (08:56→23:39)
[2017-07-05] MEDS: Magnesium Sulfate/Water 2 GM in Premix Bag 1 BAG IV SCH ×3 (08:59→19:49)
--- NOTE | 2017-07-05 09:02 | PCM.PN ---
- General Info Date of Service: 07/05/17 Functional Status: Reports: Pain Controlled, Ambulating - Review of Systems General: Reports: Weakness. Denies: Fever, Chills Pulmonary: Reports: No Symptoms Cardiovascular: Reports: No Symptoms Gastrointestinal: Reports: No Symptoms Systems Review Comment:: Mr. Mandujano has felt improved over the past 24 hours, vital signs have been good and he has remained afebrile. NG tube remains in place for management of residual ileus. - Patient Data Vitals - Most Recent: Last Vital Signs Temp 97.6 F 07/05/17 07:55 Pulse 76 07/05/17 08:52 Resp 16 07/05/17 07:55 BP 124/68 07/05/17 08:57 Pulse Ox 94 L 07/05/17 07:55 Weight - Most Recent: 259 lb 1.6 oz I&O - Last 24 Hours: Intake & Output 07/04/17 07/05/17 07/05/17 22:59 06:59 14:59 Intake Total 793 662 Output Total 750 400 450 Balance 43 262 -450 Lab Results Last 24 Hours: Laboratory Results - last 24 hr 07/05/17 07/05/17 Range/Units 05:00 05:05 WBC 10.5 (4.5-11.0) K/uL RBC 4.08 L (4.30-5.90) M/uL Hgb 12.7 D (12.0-15.0) g/dL Hct 38.4 L (40.0-54.0) % MCV 94 (80-98) fL MCH 31 (27-31) pg MCHC 33 (32-36) % Plt Count 227 (150-400) K/uL Sodium 143 (140-148) mmol/L Potassium 3.3 L (3.6-5.2) mmol/L Chloride 106 (100-108) mmol/L Carbon Dioxide 34 H (21-32) mmol/L Anion Gap 6.3 (5.0-14.0) mmol/L BUN 10 (7-18) mg/dL Creatinine 0.9 (0.8-1.3) mg/dL Est Cr Clr Drug Dosing 75.55 mL/min Estimated GFR (MDRD) > 60 (>60) Glucose 97 (74-106) mg/dL Calcium 8.2 L (8.5-10.1) mg/dL Phosphorus 2.6 (2.5-4.9) mg/dL Magnesium 1.6 L (1.8-2.4) mg/dL Total Bilirubin 0.8 (0.2-1.0) mg/dL AST 19 (15-37) U/L ALT 28 (12-78) U/L Alkaline Phosphatase 67 (46-116) U/L [id number] Pept 342 (5-450) pg/mL Total Protein 6.1 L (6.4-8.2) g/dL Albumin 2.4 L (3.4-5.0) g/dL Globulin 3.7 H (2.3-3.5) g/dL Albumin/Globulin Ratio 0.7 L (1.2-2.2) Med Orders - Current: Current Medications Benzocaine/Menthol (Cepacol Sore Throat) 1 lozenge MUCMEM Q2H PRN PRN Reason: Sore Throat Last Admin: 06/27/17 19:17 Dose: 1 sobia Bisacodyl (Dulcolax) 10 mg PO BID [facility] Last Admin: 07/04/17 09:14 Dose: Not Given Docusate Sodium (Colace) 100 mg PO BID [facility] Last Admin: 07/04/17 09:14 Dose: Not Given Fentanyl (Duragesic) 12 mcg TRDERM Q72H [facility] Last Admin: 07/02/17 18:57 Dose: 12 mcg Hydromorphone HCl (Dilaudid Bore Mill Operator 15 Mg In Ns 30 Ml) 0 mg IV ASDIRECTED PRN; Protocol PRN Reason: PAIN Erythromycin Lactobionate 125 (mg/ Sodium Chloride) 100 mls @ 100 mls/hr IV Q6HR [facility] Last Admin: 07/05/17 04:00 Dose: 100 mls/hr Potassium Cl/Dextrose/Lact Ringer's (D5 Lr With 20 Meq Kcl) 1,000 mls @ 100 mls /hr IV ASDIRECTED [facility] Last Admin: 07/05/17 08:56 Dose: 100 mls/hr Magnesium Sulfate 2 gm/ Premix 50 mls @ 25 mls/hr IV Q6H [facility] Stop: 07/07/17 03:59 Last Admin: 07/05/17 08:59 Dose: 25 mls/hr Potassium Chloride 20 meq/Lidocaine HCl 2 ml/ Sodium Chloride 112 mls @ 56 mls/ hr IV Q2H [facility] Stop: 07/05/17 13:59 Lisinopril (Prinivil) 20 mg PO DAILY [facility] Last Admin: 07/04/17 09:15 Dose: Not Given Metoclopramide HCl (Reglan) 10 mg IV Q6H [facility] Last Admin: 07/05/17 03:57 Dose: 10 mg Metoprolol Succinate (Toprol Xl) 75 mg PO DAILY [facility] Last Admin: 07/03/17 09:31 Dose: 75 mg Metoprolol Tartrate (Lopressor) 2.5 mg IV Q6H [facility] Last Admin: 07/05/17 08:49 Dose: 2.5 mg Naloxone HCl (Narcan) 0.1 mg IV ASDIRECTED PRN PRN Reason: decreased respiratory rate Verify Fentanyl (Patch) 0 each TOP BID [facility] Last Admin: 07/04/17 20:55 Dose: Not Given Scopolamine Patch (Check) 0 each TOP DAILY [facility] Last Admin: 07/04/17 09:17 Dose: 1 each Ondansetron HCl (Zofran) 4 mg IV Q4H PRN PRN Reason: Nausea/Vomiting Last Admin: 07/04/17 01:44 Dose: 4 mg Pantoprazole Sodium (Protonix Iv) 40 mg IV Q24H [facility] Last Admin: 07/05/17 08:43 Dose: 40 mg Scopolamine (Transderm-Scop) 1.5 mg TRDERM Q72H PRN PRN Reason: Nausea Last Admin: 07/03/17 18:32 Dose: 1.5 mg Sodium Chloride (Saline Flush) 10 ml FLUSH ONETIME PRN PRN Reason: per radiology protocol Last Admin: 06/26/17 12:04 Dose: 10 ml Tamsulosin HCl (Flomax) 0.4 mg PO BEDTIME [facility] Last Admin: 07/04/17 20:54 Dose: Not Given Discontinued Medications Acetaminophen (Tylenol) 650 mg PO Q4H PRN PRN Reason: Pain (Mild 1-3)/fever Acetaminophen (Tylenol) 650 mg RECTAL Q4H PRN PRN Reason: Mild pain/fever Al Hydroxide/Mg Hydroxide (Mag-Al Plus) 30 ml PO ONETIME ONE Stop: 06/27/17 14:31 Last Admin: 06/27/17 14:39 Dose: 30 ml Bupivacaine HCl (Marcaine 0.5%) Confirm Administered Dose 50 ml .ROUTE .STK-MED ONE Stop: 07/01/17 06:47 Last Admin: 07/01/17 07:48 Dose: 10 ml Al Hydroxide/Mg Hydroxide 15 (ml/ Lidocaine HCl 15 ml) 0 ml PO ONETIME ONE Stop: 07/03/17 19:07 Last Admin: 07/03/17 19:19 Dose: 30 ml Dexamethasone (Dexamethasone) Confirm Administered Dose 4 mg .ROUTE .STK-MED ONE Stop: 06/29/17 11:43 Fentanyl (Sublimaze) Confirm Administered Dose 100 mcg .ROUTE .STK-MED ONE Stop: 07/01/17 07:51 Fentanyl Citrate (Fentanyl) Confirm Administered Dose 500 mcg .ROUTE .STK-MED ONE Stop: 06/29/17 11:43 Furosemide (Lasix) 20 mg IVPUSH ONETIME ONE Stop: 07/03/17 19:07 Last Admin: 07/03/17 19:19 Dose: 20 mg Furosemide (Lasix) 20 mg IVPUSH ONETIME ONE Stop: 07/04/17 09:01 Last Admin: 07/04/17 09:17 Dose: 20 mg Glycopyrrolate (Robinul) Confirm Administered Dose 1 mg .ROUTE .STK-MED ONE Stop: 06/29/17 11:43 Hydromorphone HCl (Dilaudid Bore Mill Operator 15 Mg In Ns 30 Ml) 0 mg IV ASDIRECTED PRN; Protocol PRN Reason: Pain Last Admin: 07/02/17 06:04 Dose: 15 mg Hydromorphone HCl (Dilaudid Bore Mill Operator 15 Mg In Ns 30 Ml) 15 mg IV ASDIRECTED [facility]IRA PRN Reason: Protocol Last Admin: 07/03/17 18:34 Dose: 15 mg Hydroxyzine HCl (Vistaril) 100 mg IM ONETIME ONE Stop: 06/29/17 18:16 Last Admin: 06/29/17 18:11 Dose: 100 mg Sodium Chloride (Normal Saline) 1,000 mls @ 500 mls/hr IV ASDIRECTED [facility] Last Admin: 06/26/17 11:42 Dose: 500 mls/hr Sodium Chloride (Normal Saline) 85 mls @ 3.5 mls/sec IV ASDIRECTED [facility] Last Admin: 06/26/17 12:04 Dose: 3.5 mls/sec Lactated Ringer's (Ringers, Lactated) 1,000 mls @ 150 mls/hr IV ASDIRECTED [facility] Last Admin: 06/26/17 14:44 Dose: 150 mls/hr Dextrose/Lactated Ringer's (Dextrose 5%-Lactated Ringers) 1,000 mls @ 100 mls/ hr IV ASDIRECTED [facility] Last Admin: 06/27/17 08:19 Dose: 100 mls/hr Potassium Cl/Dextrose/Lact Ringer's (D5 Lr With 20 Meq Kcl) 1,000 mls @ 100 mls /hr IV ASDIRECTED SHIRA Last Infusion: 06/29/17 22:51 Dose: Infused Potassium Chloride 20 meq/Lidocaine HCl 2 ml/ Sodium Chloride 112 mls @ 55 mls/ hr IV Q2H [facility] Stop: 06/27/17 16:29 Last Admin: 06/27/17 14:40 Dose: 55 mls/hr Sodium Chloride (Normal Saline) 500 mls @ 500 mls/hr IV .BOLUS ONE Stop: 06/27/17 13:12 Last Admin: 06/27/17 12:34 Dose: 500 mls/hr Cefoxitin Sodium 2 gm/ Sodium (Chloride) 50 mls @ 100 mls/hr IV ONCALL ONE Stop: 06/29/17 14:59 Last Admin: 06/29/17 15:57 Dose: 100 mls/hr Lactated Ringer's (Ringers, Lactated) Confirm Administered Dose 1,000 mls @ as directed .ROUTE .STK-MED ONE Stop: 06/29/17 16:30 Potassium Cl/Dextrose/Lact Ringer's (D5 Lr With 20 Meq Kcl) 1,000 mls @ 175 mls /hr IV ASDIRECTED [facility] Last Admin: 06/30/17 07:57 Dose: 175 mls/hr Cefoxitin Sodium 2 gm/ Sodium (Chloride) 50 mls @ 100 mls/hr IV Q6H [facility] Stop: 06/30/17 10:29 Last Admin: 06/30/17 10:19 Dose: 100 mls/hr Potassium Cl/Dextrose/Lact Ringer's (D5 Lr With 20 Meq Kcl) 1,000 mls @ 125 mls /hr IV ASDIRECTED [facility] Last Admin: 07/03/17 07:22 Dose: 75 mls/hr Potassium Cl/Dextrose/Lact Ringer's (D5 Lr With 20 Meq Kcl) Confirm Administered Dose 1,000 mls @ as directed .ROUTE .STK-MED ONE Stop: 06/30/17 07:55 Last Admin: 06/30/17 08:48 Dose: Not Given Potassium Cl/Dextrose/Lact Ringer's (D5 Lr With 20 Meq Kcl) Confirm Administered Dose 1,000 mls @ as directed .ROUTE .STK-MED ONE Stop: 06/30/17 08:00 Last Admin: 06/30/17 08:48 Dose: Not Given Potassium Cl/Dextrose/Lact Ringer's (D5 Lr With 20 Meq Kcl) 1,000 mls @ 75 mls/ hr IV ASDIRECTED [facility] Last Admin: 07/04/17 10:37 Dose: 75 mls/hr Potassium Cl/Dextrose/Lact Ringer's (D5 Lr With 20 Meq Kcl) 1,000 mls @ 50 mls/ hr IV ASDIRECTED [facility] Iopamidol (Isovue-300 (61%)) 150 ml IV . DIRECTED PRN PRN Reason: RADIOLOGY EXAM Stop: 06/27/17 12:04 Last Admin: 06/26/17 12:04 Dose: 150 ml Labetalol HCl (Normodyne) 5 - 15 mg IVPUSH Q1H PRN PRN Reason: BLOOD PRESSURE Stop: 06/29/17 19:15 Last Admin: 06/29/17 18:13 Dose: 15 mg Lidocaine/Epinephrine (Xylocaine 1% With Epinephrine 1:100,000) Confirm Administered Dose 50 ml .ROUTE .STK-MED ONE Stop: 07/01/17 06:48 Last Admin: 07/01/17 07:48 Dose: 10 ml Lisinopril (Prinivil) 20 mg PO DAILY [facility] Last Admin: 06/29/17 10:48 Dose: 20 mg Meropenem (Merrem) Confirm Administered Dose 500 mg .ROUTE .STK-MED ONE Stop: 06/29/17 12:03 Last Admin: 06/29/17 17:00 Dose: 500 mg Meropenem (Merrem) Confirm Administered Dose 500 mg .ROUTE .STK-MED ONE Stop: 07/01/17 06:47 Last Admin: 07/01/17 07:49 Dose: 500 mg Metoclopramide HCl (Reglan) 10 mg IVPUSH NOW STA Stop: 07/03/17 17:02 Last Admin: 07/03/17 17:15 Dose: 10 mg Metoprolol Tartrate (Lopressor) 2.5 mg IVPUSH Q6H [facility] Last Admin: 07/01/17 10:33 Dose: Not Given Morphine Sulfate (Morphine) 2 - 4 mg IVPUSH Q2H PRN PRN Reason: Pain (severe 7-10) Last Admin: 06/28/17 22:39 Dose: 4 mg Naloxone HCl (Narcan) 0.1 mg IV ASDIRECTED PRN PRN Reason: decreased respiratory rate Neostigmine Methylsulfate (Neostigmine) Confirm Administered Dose 5 mg .ROUTE .STK-MED ONE Stop: 06/29/17 11:43 Ondansetron HCl (Zofran) 4 mg IVPUSH ONETIME ONE Stop: 06/26/17 11:30 Last Admin: 06/26/17 11:43 Dose: 4 mg Ondansetron HCl (Zofran Odt) 4 mg PO Q6H PRN PRN Reason: Nausea able to take PO Ondansetron HCl (Zofran) 4 mg IV Q6H PRN PRN Reason: Nausea/Vomiting Last Admin: 06/27/17 23:06 Dose: 4 mg Ondansetron HCl (Zofran) Confirm Administered Dose 4 mg .ROUTE .STK-MED ONE Stop: 06/29/17 11:43 Oxycodone/Acetaminophen (Percocet 325-5 Mg) 1 - 2 tab PO Q4H PRN PRN Reason: Pain Last Admin: 07/03/17 13:10 Dose: 2 tab Pantoprazole Sodium (Protonix Iv) 40 mg IVPUSH ONETIME ONE Stop: 06/26/17 13:33 Last Admin: 06/26/17 13:49 Dose: 40 mg Pantoprazole Sodium (Protonix Iv) 40 mg IV Q12H [facility] Last Admin: 06/29/17 07:03 Dose: 40 mg Propofol (Diprivan 20 Ml) Confirm Administered Dose 200 mg .ROUTE .STK-MED ONE Stop: 06/29/17 11:43 Propofol (Diprivan 20 Ml) Confirm Administered Dose 200 mg .ROUTE .STK-MED ONE Stop: 07/01/17 07:52 Rocuronium [place] (Zemuron) Confirm Administered Dose 50 mg .ROUTE .STK-MED ONE Stop: 06/29/17 11:43 Sodium Chloride (Saline Flush) 10 ml FLUSH ASDIRECTED PRN PRN Reason: Keep Vein Open Last Admin: 06/26/17 11:43 Dose: 10 ml Succinylcholine Chloride (Quelicin) Confirm Administered Dose 200 mg .ROUTE .STK -MED ONE Stop: 06/29/17 11:43 Tamsulosin HCl (Flomax) 0.4 mg PO ONETIME ONE Stop: 07/01/17 10:01 Last Admin: 07/01/17 10:20 Dose: 0.4 mg - Exam General: Alert, Oriented, Cooperative, No Acute Distress Lungs: Clear to Auscultation, Normal Respiratory Effort Cardiovascular: Regular Rate, Regular Rhythm, No Murmurs GI/Abdominal Exam: Soft, No Organomegaly, No Distention, Tender, Abnormal Bowel Sounds. No: Distended, Guarding, Rigid, Rebound Extremities: Normal Inspection, No Pedal Edema Skin: Warm, Dry, Intact - Problem List Review Problem List Initiated/Reviewed/Updated: Yes - My Orders Last 24 Hours: My Active Orders 07/04/17 09:00 Non-Formulary Medication [NF Drug] 0 each TOP DAILY - Plan Plan:: Assessment and plan - Mechanical small bowel obstruction - persistent ileus requiring replacement of NG tube, stable over the past 24 hours -Postop cares per surgical service -Encourage ambulation 4 times daily and use of incentive spirometer several times an hour Fluid overload-symptoms of shortness of breath last night -IV Lasix as needed -Decrease IV rate essential hypertension - blood pressure acceptable though mildly elevated on usual medications will be continued. Maintenance issues - - DVT prophylaxis - mechanical - GI prophylaxis - PPI - Nutrition - nothing by mouth Disposition - anticipate discharge to home after the hospital stay
[2017-07-05] MEDS: SCOPOLAMINE PATCH CHECK TOP SCH (09:19)
[2017-07-05] MEDS: VERIFY FENTANYL PATCH TOP SCH ×2 (09:20→21:22)
[2017-07-05] MEDS: Potassium Chloride 20 MEQ, Lidocaine 1% 2 ML in Sodium Chloride 0.9% 100 ML IV SCH ×2 (13:16→17:41)
--- NOTE | 2017-07-05 13:40 | OR ---
DATE OF PROCEDURE: 06/29/2017 PREOPERATIVE DIAGNOSIS: Small bowel obstruction. POSTOPERATIVE DIAGNOSES: 1. Adhesive small bowel obstruction with segment of small bowel affected by stricturing and mucosal hemorrhage. 2. Marked distention of proximal small bowel. 3. 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 OPERATIVE PROCEDURES: Exploratory laparotomy with lysis of adhesions: 1. Small bowel resection (63416). 2. Enterotomy for tube decompression of small bowel (85473). 3. Excision of peritoneal mass involving the transverse colon appendix epiploica (58978). ANESTHESIA: General. SHROUDMAN: Ara Wang PA-C and ARCENIO Bah2. INDICATION FOR PROCEDURE: This is a 76-year-old admitted over the weekend with a small bowel obstruction. This has failed to resolve after a period of nasogastric suctioning. The patient is to undergo an exploratory laparotomy. At this time, the small bowel loops on today's x-rays are too dilated to safely proceed with a laparoscopic approach. Therefore, a midline incision will be used. Potential risks of the procedure including bleeding, infection, need for bowel resection, possible leaks from any bowel closures as well as possibility of cardiopulmonary, septic, or hemorrhagic complications leading to were discussed, and the patient wishes to proceed. DETAILS OF PROCEDURE: The patient was taken to the operating room and placed in a supine position. After general endotracheal anesthesia was induced, a Aragon catheter was inserted. Nasogastric tube was already placed and the abdomen was then prepped and draped. A midline incision which eventually extended from roughly long term between the xiphoid and the umbilicus to somewhat below the umbilicus was made and carried down through the full- thickness abdominal wall. Upon entering the abdomen, the patient was noted to have a markedly dilated proximal small bowel as well as quite a bit in the way of distal small bowel was completely decompressed. As one palpated the area, there was an adhesive band of omentum up to the abdominal wall in the left midabdomen. As this was freed up there had been a closed loop obstruction with the band being across that area. As that bowel was brought up, the two ends were densely strictured and the bowel end between those 2 points had quite a bit in the way of mucosal hemorrhage. This was felt to be best resected and the bowel proximal and distal to the infected area was then divided with the GEETHA staplers as was the underlying mesentery and that specimen delivered from the field. The proximal small bowel was noted to be strikingly dilated and given this, a small enterotomy was made in the proximal side of the divided small bowel and a [place] sump tube placed, a large volume of air and fluid was then removed completing decompressing the bowel from the ligament of Treitz to that point of division which would be in the mid ileum. At that point, the tube was removed. The GI tract continuity was then accomplished with a side- to-side enteroenterostomy between the 2 ends of the remaining small bowel. This was done with 2 internal firings of the 60-mm perales loads, and the common opening then closed with purple and blue load. The angles were anastomosed and the mesenteric defect was then approximated with some 3-0 Vicryl stitch. General exploration was undertaken to rule out any other additional abnormalities. The patient was noted to have a white hard mass involving one of the transverse colon appendix epiploica. This measured around 3 cm and to confirm pathologic status, this was excised using electrocautery and delivered from the field as a separate specimen. The abdomen was then irrigated with antibiotic-containing saline solution. No drains were felt to be necessary. The omentum was then draped underneath the incision and the incision then closed at the fascial level with #2 Vicryl stitch. The skin and subcutaneous tissue were felt to be high risk for a wound infection if primary closure was undertaken. Given this, a delayed primary closure was planned in 48 hours and the wound packed open with iodoform gauze. The patient was taken to the recovery room in satisfactory condition. Physician financial planning assistant, Ara Wang played an essential role in assisting in this case, helping to position the patient, retract structures as needed, as well as suturing and cutting sutures when indicated. Her presence improved the patient's safety and decreased the operative time. Pranav Lima MD /[id number]
[2017-07-05] MEDS: fentaNYL 12 MCG/HR Transdermal Patch TRDERM SCH (17:55)
[2017-07-05] MEDS: Benzocaine/Cetylpyridinium/Menthol Lozenge MUCMEM PRN (19:58)
[2017-07-05] MEDS: Tamsulosin 0.4 MG Cap.ER PO SCH (21:17)
[2017-07-06] MEDS: Magnesium Sulfate/Water 2 GM in Premix Bag 1 BAG IV SCH ×4 (01:56→21:17)
[2017-07-06] MEDS: Metoprolol Tartrate 5 MG/5 ML SDV IV SCH ×4 (03:48→21:33)
[2017-07-06] MEDS: Metoclopramide 10 MG/2 ML SDV IV SCH ×4 (05:27→21:49)
[2017-07-06] MEDS: Pantoprazole 40 MG Vial IV SCH (07:53)
--- NOTE | 2017-07-06 08:25 | CR ---
Abdomen 2V AP Flat Upright INDICATION: abd. pain COMPARISON: 06/29/2017 FINDINGS: 6 views. NG tube remains in place. Small amount of free air under the right hemidiaphragm . Dilated small bowel and associated air-fluid levels throughout the abdomen, increased. Skin staple s midline. Surgical clips right upper quadrant. Safety pin projected over the right abdomen. Cathete r tubing projected over the right lower quadrant. IMPRESSION: Pneumoperitoneum, presumed postoperative in nature. Ileus versus small bowel obstructio n.
--- NOTE | 2017-07-06 09:40 | PN ---
DATE OF SERVICE: 07/01/2017 The patient has been afebrile with stable vital signs. The plan will be to remove the Aragon catheter and NG tube today, along with closing the abdominal incision. We will keep him n.p.o., except some ice chips and clear liquids for today, but otherwise resume his medications. We will give him some Flomax to see if we can make sure that the bladder is emptying satisfactorily. We will continue the AUDIO VISUAL TECH today and otherwise maximize activity and work with pulmonary toilet. Pranav Lima MD /[id number]
--- NOTE | 2017-07-06 09:49 | PCM.PN ---
- General Info Date of Service: 07/06/17 Functional Status: Reports: Pain Controlled, Ambulating - Review of Systems Gastrointestinal: Reports: Abdominal Pain. Denies: Nausea Systems Review Comment:: no acute events overnight. No significant pain issues today and patient reports no abdominal pain currently but does intermittently have some waves of pain as well as pain around his incision when he is moving. He does feel mildly distended. He does not have any nausea. he has not had any fevers. Last bowel movement was yesterday and he has been passing gas. He has not been hypoxic other than occasionally while he sleeps. - Patient Data Vitals - Most Recent: Last Vital Signs Temp 35.2 C 07/06/17 08:00 Pulse 62 07/06/17 08:00 Resp 18 07/06/17 08:00 BP 137/72 07/06/17 08:00 Pulse Ox 94 L 07/06/17 08:00 Weight - Most Recent: 117.526 kg I&O - Last 24 Hours: Intake & Output 07/05/17 07/06/17 07/06/17 22:59 06:59 14:59 Intake Total 1258 1121 50 Output Total 810 1200 Balance 448 -79 50 Lab Results Last 24 Hours: Laboratory Results - last 24 hr 07/06/17 07/06/17 Range/Units 04:38 04:38 WBC 9.8 (4.5-11.0) K/uL RBC 4.20 L (4.30-5.90) M/uL Hgb 13.2 (12.0-15.0) g/dL Hct 39.3 L (40.0-54.0) % MCV 94 (80-98) fL MCH 31 (27-31) pg MCHC 34 (32-36) % Plt Count 246 (150-400) K/uL Sodium 142 (140-148) mmol/L Potassium 3.6 (3.6-5.2) mmol/L Chloride 103 (100-108) mmol/L Carbon Dioxide 33 H (21-32) mmol/L Anion Gap 9.6 (5.0-14.0) mmol/L BUN 7 (7-18) mg/dL Creatinine 0.9 (0.8-1.3) mg/dL Est Cr Clr Drug Dosing 75.55 mL/min Estimated GFR (MDRD) > 60 (>60) Glucose 109 H (74-106) mg/dL Calcium 8.2 L (8.5-10.1) mg/dL Phosphorus 2.5 (2.5-4.9) mg/dL Jlc-G-[id number] Pept 331 (5-450) pg/mL Med Orders - Current: Current Medications Benzocaine/Menthol (Cepacol Sore Throat) 1 lozenge MUCMEM Q2H PRN PRN Reason: Sore Throat Last Admin: 07/05/17 19:58 Dose: 1 sobia Bisacodyl (Dulcolax) 10 mg PO BID [facility] Last Admin: 07/04/17 09:14 Dose: Not Given Docusate Sodium (Colace) 100 mg PO BID [facility] Last Admin: 07/04/17 09:14 Dose: Not Given Fentanyl (Duragesic) 12 mcg TRDERM Q72H [facility] Last Admin: 07/05/17 17:55 Dose: 12 mcg Hydromorphone HCl (Dilaudid Engagement Manager 15 Mg In Ns 30 Ml) 0 mg IV ASDIRECTED PRN; Protocol PRN Reason: PAIN Erythromycin Lactobionate 125 (mg/ Sodium Chloride) 100 mls @ 100 mls/hr IV Q6HR [facility] Last Admin: 07/06/17 05:26 Dose: 100 mls/hr Magnesium Sulfate 2 gm/ Premix 50 mls @ 25 mls/hr IV Q6H [facility] Stop: 07/07/17 03:59 Last Admin: 07/06/17 07:53 Dose: 25 mls/hr Sodium Chloride (Normal Saline) 1,000 mls @ 50 mls/hr IV ASDIRECTED [facility] Lisinopril (Prinivil) 20 mg PO DAILY [facility] Last Admin: 07/04/17 09:15 Dose: Not Given Metoclopramide HCl (Reglan) 10 mg IV Q6H [facility] Last Admin: 07/06/17 05:27 Dose: 10 mg Metoprolol Succinate (Toprol Xl) 75 mg PO DAILY [facility] Last Admin: 07/03/17 09:31 Dose: 75 mg Metoprolol Tartrate (Lopressor) 2.5 mg IV Q6H [facility] Last Admin: 07/06/17 03:48 Dose: 2.5 mg Naloxone HCl (Narcan) 0.1 mg IV ASDIRECTED PRN PRN Reason: decreased respiratory rate Verify Fentanyl (Patch) 0 each TOP BID [facility] Last Admin: 07/05/17 21:22 Dose: Not Given Scopolamine Patch (Check) 0 each TOP DAILY [facility] Last Admin: 07/05/17 09:19 Dose: Not Given Ondansetron HCl (Zofran) 4 mg IV Q4H PRN PRN Reason: Nausea/Vomiting Last Admin: 07/04/17 01:44 Dose: 4 mg Pantoprazole Sodium (Protonix Iv) 40 mg IV Q24H [facility] Last Admin: 07/06/17 07:53 Dose: 40 mg Scopolamine (Transderm-Scop) 1.5 mg TRDERM Q72H PRN PRN Reason: Nausea Last Admin: 07/03/17 18:32 Dose: 1.5 mg Sodium Chloride (Saline Flush) 10 ml FLUSH ONETIME PRN PRN Reason: per radiology protocol Last Admin: 06/26/17 12:04 Dose: 10 ml Tamsulosin HCl (Flomax) 0.4 mg PO BEDTIME [facility] Last Admin: 07/05/17 21:17 Dose: Not Given Discontinued Medications Acetaminophen (Tylenol) 650 mg PO Q4H PRN PRN Reason: Pain (Mild 1-3)/fever Acetaminophen (Tylenol) 650 mg RECTAL Q4H PRN PRN Reason: Mild pain/fever Al Hydroxide/Mg Hydroxide (Mag-Al Plus) 30 ml PO ONETIME ONE Stop: 06/27/17 14:31 Last Admin: 06/27/17 14:39 Dose: 30 ml Bupivacaine HCl (Marcaine 0.5%) Confirm Administered Dose 50 ml .ROUTE .STK-MED ONE Stop: 07/01/17 06:47 Last Admin: 07/01/17 07:48 Dose: 10 ml Al Hydroxide/Mg Hydroxide 15 (ml/ Lidocaine HCl 15 ml) 0 ml PO ONETIME ONE Stop: 07/03/17 19:07 Last Admin: 07/03/17 19:19 Dose: 30 ml Dexamethasone (Dexamethasone) Confirm Administered Dose 4 mg .ROUTE .STK-MED ONE Stop: 06/29/17 11:43 Fentanyl (Sublimaze) Confirm Administered Dose 100 mcg .ROUTE .STK-MED ONE Stop: 07/01/17 07:51 Fentanyl Citrate (Fentanyl) Confirm Administered Dose 500 mcg .ROUTE .STK-MED ONE Stop: 06/29/17 11:43 Furosemide (Lasix) 20 mg IVPUSH ONETIME ONE Stop: 07/03/17 19:07 Last Admin: 07/03/17 19:19 Dose: 20 mg Furosemide (Lasix) 20 mg IVPUSH ONETIME ONE Stop: 07/04/17 09:01 Last Admin: 07/04/17 09:17 Dose: 20 mg Glycopyrrolate (Robinul) Confirm Administered Dose 1 mg .ROUTE .STK-MED ONE Stop: 06/29/17 11:43 Hydromorphone HCl (Dilaudid Engagement Manager 15 Mg In Ns 30 Ml) 0 mg IV ASDIRECTED PRN; Protocol PRN Reason: Pain Last Admin: 07/02/17 06:04 Dose: 15 mg Hydromorphone HCl (Dilaudid Engagement Manager 15 Mg In Ns 30 Ml) 15 mg IV ASDIRECTED [facility]A PRN Reason: Protocol Last Admin: 07/03/17 18:34 Dose: 15 mg Hydroxyzine HCl (Vistaril) 100 mg IM ONETIME ONE Stop: 06/29/17 18:16 Last Admin: 06/29/17 18:11 Dose: 100 mg Sodium Chloride (Normal Saline) 1,000 mls @ 500 mls/hr IV ASDIRECTED [facility] Last Admin: 06/26/17 11:42 Dose: 500 mls/hr Sodium Chloride (Normal Saline) 85 mls @ 3.5 mls/sec IV ASDIRECTED [facility] Last Admin: 06/26/17 12:04 Dose: 3.5 mls/sec Lactated Ringer's (Ringers, Lactated) 1,000 mls @ 150 mls/hr IV ASDIRECTED [facility] Last Admin: 06/26/17 14:44 Dose: 150 mls/hr Dextrose/Lactated Ringer's (Dextrose 5%-Lactated Ringers) 1,000 mls @ 100 mls/ hr IV ASDIRECTED [facility] Last Admin: 06/27/17 08:19 Dose: 100 mls/hr Potassium Cl/Dextrose/Lact Ringer's (D5 Lr With 20 Meq Kcl) 1,000 mls @ 100 mls /hr IV ASDIRECTED [facility] Last Infusion: 06/29/17 22:51 Dose: Infused Potassium Chloride 20 meq/Lidocaine HCl 2 ml/ Sodium Chloride 112 mls @ 55 mls/ hr IV Q2H [facility] Stop: 06/27/17 16:29 Last Admin: 06/27/17 14:40 Dose: 55 mls/hr Sodium Chloride (Normal Saline) 500 mls @ 500 mls/hr IV .BOLUS ONE Stop: 06/27/17 13:12 Last Admin: 06/27/17 12:34 Dose: 500 mls/hr Cefoxitin Sodium 2 gm/ Sodium (Chloride) 50 mls @ 100 mls/hr IV ONCALL ONE Stop: 06/29/17 14:59 Last Admin: 06/29/17 15:57 Dose: 100 mls/hr Lactated Ringer's (Ringers, Lactated) Confirm Administered Dose 1,000 mls @ as directed .ROUTE .[facility] ONE Stop: 06/29/17 16:30 Potassium Cl/Dextrose/Lact Ringer's (D5 Lr With 20 Meq Kcl) 1,000 mls @ 175 mls /hr IV ASDIRECTED [facility] Last Admin: 06/30/17 07:57 Dose: 175 mls/hr Cefoxitin Sodium 2 gm/ Sodium (Chloride) 50 mls @ 100 mls/hr IV Q6H [facility] Stop: 06/30/17 10:29 Last Admin: 06/30/17 10:19 Dose: 100 mls/hr Potassium Cl/Dextrose/Lact Ringer's (D5 Lr With 20 Meq Kcl) 1,000 mls @ 125 mls /hr IV ASDIRECTED [facility] Last Admin: 07/03/17 07:22 Dose: 75 mls/hr Potassium Cl/Dextrose/Lact Ringer's (D5 Lr With 20 Meq Kcl) Confirm Administered Dose 1,000 mls @ as directed .ROUTE .[facility] ONE Stop: 06/30/17 07:55 Last Admin: 06/30/17 08:48 Dose: Not Given Potassium Cl/Dextrose/Lact Ringer's (D5 Lr With 20 Meq Kcl) Confirm Administered Dose 1,000 mls @ as directed .ROUTE .[facility] ONE Stop: 06/30/17 08:00 Last Admin: 06/30/17 08:48 Dose: Not Given Potassium Cl/Dextrose/Lact Ringer's (D5 Lr With 20 Meq Kcl) 1,000 mls @ 75 mls/ hr IV ASDIRECTED [facility] Last Admin: 07/04/17 10:37 Dose: 75 mls/hr Potassium Cl/Dextrose/Lact Ringer's (D5 Lr With 20 Meq Kcl) 1,000 mls @ 50 mls/ hr IV ASDIRECTED [facility] Potassium Cl/Dextrose/Lact Ringer's (D5 Lr With 20 Meq Kcl) 1,000 mls @ 100 mls /hr IV ASDIRECTED [facility] Last Admin: 07/05/17 23:39 Dose: 100 mls/hr Potassium Chloride 20 meq/Lidocaine HCl 2 ml/ Sodium Chloride 112 mls @ 56 mls/ hr IV Q2H [facility] Stop: 07/05/17 13:59 Last Admin: 07/05/17 17:41 Dose: 56 mls/hr Iopamidol (Isovue-300 (61%)) 150 ml IV . DIRECTED PRN PRN Reason: RADIOLOGY EXAM Stop: 06/27/17 12:04 Last Admin: 06/26/17 12:04 Dose: 150 ml Labetalol HCl (Normodyne) 5 - 15 mg IVPUSH Q1H PRN PRN Reason: BLOOD PRESSURE Stop: 06/29/17 19:15 Last Admin: 06/29/17 18:13 Dose: 15 mg Lidocaine/Epinephrine (Xylocaine 1% With Epinephrine 1:100,000) Confirm Administered Dose 50 ml .ROUTE .STK-MED ONE Stop: 07/01/17 06:48 Last Admin: 07/01/17 07:48 Dose: 10 ml Lisinopril (Prinivil) 20 mg PO DAILY [facility] Last Admin: 06/29/17 10:48 Dose: 20 mg Meropenem (Merrem) Confirm Administered Dose 500 mg .ROUTE .STK-MED ONE Stop: 06/29/17 12:03 Last Admin: 06/29/17 17:00 Dose: 500 mg Meropenem (Merrem) Confirm Administered Dose 500 mg .ROUTE .STK-MED ONE Stop: 07/01/17 06:47 Last Admin: 07/01/17 07:49 Dose: 500 mg Metoclopramide HCl (Reglan) 10 mg IVPUSH NOW STA Stop: 07/03/17 17:02 Last Admin: 07/03/17 17:15 Dose: 10 mg Metoprolol Tartrate (Lopressor) 2.5 mg IVPUSH Q6H [facility] Last Admin: 07/01/17 10:33 Dose: Not Given Morphine Sulfate (Morphine) 2 - 4 mg IVPUSH Q2H PRN PRN Reason: Pain (severe 7-10) Last Admin: 06/28/17 22:39 Dose: 4 mg Naloxone HCl (Narcan) 0.1 mg IV ASDIRECTED PRN PRN Reason: decreased respiratory rate Neostigmine Methylsulfate (Neostigmine) Confirm Administered Dose 5 mg .ROUTE .STK-MED ONE Stop: 06/29/17 11:43 Ondansetron HCl (Zofran) 4 mg IVPUSH ONETIME ONE Stop: 06/26/17 11:30 Last Admin: 06/26/17 11:43 Dose: 4 mg Ondansetron HCl (Zofran Odt) 4 mg PO Q6H PRN PRN Reason: Nausea able to take PO Ondansetron HCl (Zofran) 4 mg IV Q6H PRN PRN Reason: Nausea/Vomiting Last Admin: 06/27/17 23:06 Dose: 4 mg Ondansetron HCl (Zofran) Confirm Administered Dose 4 mg .ROUTE .STK-MED ONE Stop: 06/29/17 11:43 Oxycodone/Acetaminophen (Percocet 325-5 Mg) 1 - 2 tab PO Q4H PRN PRN Reason: Pain Last Admin: 07/03/17 13:10 Dose: 2 tab Pantoprazole Sodium (Protonix Iv) 40 mg IVPUSH ONETIME ONE Stop: 06/26/17 13:33 Last Admin: 06/26/17 13:49 Dose: 40 mg Pantoprazole Sodium (Protonix Iv) 40 mg IV Q12H [facility] Last Admin: 06/29/17 07:03 Dose: 40 mg Propofol (Diprivan 20 Ml) Confirm Administered Dose 200 mg .ROUTE .STK-MED ONE Stop: 06/29/17 11:43 Propofol (Diprivan 20 Ml) Confirm Administered Dose 200 mg .ROUTE .STK-MED ONE Stop: 07/01/17 07:52 Rocuronium Hawley (Zemuron) Confirm Administered Dose 50 mg .ROUTE .STK-MED ONE Stop: 06/29/17 11:43 Sodium Chloride (Saline Flush) 10 ml FLUSH ASDIRECTED PRN PRN Reason: Keep Vein Open Last Admin: 06/26/17 11:43 Dose: 10 ml Succinylcholine Chloride (Quelicin) Confirm Administered Dose 200 mg .ROUTE .STK -MED ONE Stop: 06/29/17 11:43 Tamsulosin HCl (Flomax) 0.4 mg PO ONETIME ONE Stop: 07/01/17 10:01 Last Admin: 07/01/17 10:20 Dose: 0.4 mg - Exam Quality Assessment: No: Supplemental Oxygen General: Alert, Oriented, Cooperative, No Acute Distress HEENT: Other (NG in right nare) Neck: Supple Lungs: Normal Respiratory Effort GI/Abdominal Exam: Soft, Distended (mild), Tender (mild diffuse, moderate RLQ), Abnormal Bowel Sounds (hypoactive) Extremities: Normal Inspection, Pedal Edema (mild bilateral ankle edema) Skin: Warm, Dry Psy/Mental Status: Alert, Normal Affect - Problem List & Annotations (1) Small bowel obstruction SNOMED Code(s): 807253134 Code(s): K56.69 - OTHER INTESTINAL OBSTRUCTION Status: Acute Current Visit: Yes - Problem List Review Problem List Initiated/Reviewed/Updated: Yes - My Orders Last 24 Hours: My Active Orders 07/06/17 08:26 Height and Weight [RC] DAILY - Plan Plan:: Assessment and plan - Mechanical small bowel obstruction - complicated by post-op ileus requiring replacement of NG tube. he is passing gas but x-ray continues to show evidence for ileus. -Postop cares per surgical service -Encourage ambulation 4 times daily and use of incentive spirometer several times an hour Fluid overload - mild edema at this time. No crackles or hypoxia. -Daily weight -reassess volume status daily -Decrease IV rate Essential hypertension - blood pressure acceptable. -continue home medications Maintenance issues - - DVT prophylaxis - mechanical - GI prophylaxis - PPI - Nutrition - nothing by mouth Disposition - anticipate discharge to home after the hospital stay Peter Funez MD
--- NOTE | 2017-07-06 09:55 | PN ---
DATE OF SERVICE: 07/06/2017 SUBJECTIVE: Magdy developed a postoperative ileus over the weekend. He has been afebrile. NG tube put out 300 mL over the past 24 hours. STANLEY drain has put out 10. He reports his pain is controlled. Lab values hemoglobin 13.2, glucose 109, calcium is 8.2. REVIEW OF SYSTEMS: Remainder of review of systems negative for any pertinent positives and negatives. OBJECTIVE: GENERAL: Magdy Mandujano is a pleasant 76-year-old male. VITAL SIGNS: TPR is 95.4, 62, 18, blood pressure 137/72. HEENT: Negative. NECK: Supple. HEART: Regular rate and rhythm. LUNGS: Clear. ABDOMEN: Incision looks good. Seymour in place. Abdominal binder is on. EXTREMITIES: Without peripheral edema. ASSESSMENT: 1. Postoperative ileus. 2. 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 3. 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 Date of surgery 06/29/2017. PLAN: 1. Check CBC, CMP, phos, and BNP in a.m. 2. Aquacel dressing off, may shower. 3. Insertion of central PICC line. 4. Discontinue D-5-LR. Change to normal saline and to keep open 50 mL per hour after the PICC line is placed and changed to normal saline IV solution, which is more compatible with his medication. TPN orders to be faxed to Pharmacy, written by Dr. Pranav Lima. 5. Good pulmonary toilet encouraged. 6. We will evaluate p.r.n. or in a.m. Ara Wang PA-C /[id number]
--- NOTE | 2017-07-06 10:09 | CR ---
Abdomen 2V AP Flat Upright INDICATION: f/u ileus COMPARISON: 07/05/2017 FINDINGS: No free air seen on today's study. Small bowel distention unchanged. Scattered air-fluid levels. Skin leland midline. Catheter tubing over the abdomen. NG tube remains in place. IMPRESSION: No free air. Small bowel distention unchanged concerning for at least partial small bow el obstruction.
--- NOTE | 2017-07-06 10:18 | CR ---
Abdomen 2V AP Flat Upright INDICATION: f/u ileus COMPARISON: 07/04/2017 FINDINGS: Free air under the right hemidiaphragm again noted, presumably postoperative in nature th ough clinical correlation recommended. Degree of small bowel distention unchanged. Air present in th e mildly distended large bowel as well. IMPRESSION: Findings concerning for at least partial small bowel obstruction.
[2017-07-06] MEDS: SCOPOLAMINE PATCH CHECK TOP SCH (10:24)
[2017-07-06] MEDS: VERIFY FENTANYL PATCH TOP SCH ×2 (10:25→21:25)
--- NOTE | 2017-07-06 11:30 | CR ---
Chest 1V Frontal INDICATION: check picc line placement COMPARISON: 03/09/2017 FINDINGS: Single portable view of the chest. Right upper cavity PICC line is in the upper SVC in good position. Catheter tubing projected over th e left lung. Mild cardiomegaly. No focal consolidations or pleural effusions. NG tube in place. IMPRESSION: Right upper extremity PICC line in the upper SVC.
--- NOTE | 2017-07-06 12:55 | PN ---
DATE OF SERVICE: 07/05/2017 The patient has been afebrile with stable vital signs. He moved his bowels several times. Abdominal x-rays are improved, but there is still quite a bit of distention of several small bowel loops getting into the colon. The abdomen clinically is less distended. NG output over the last night has slowed down as well, so I think that things will probably resolve in terms of ileus. We will continue the nasogastric suctioning today. Maximize activity and work with pulmonary toilet. He does desaturate somewhat with walking, but has been doing quite a bit of walking as well as doing well with the incentive spirometer and will need to simply continue that. His potassium and magnesium are marginally low and we will supplement those. I think at this point, he is pretty well diuresed and we will get an IV rate going a little bit faster today. Pranav Lima MD /[id number]
[2017-07-06] MEDS: 1: AA 5%/Calcium/D15W/Lytes 1,000 ML with MVI, Adult with Vitamin K 10 ML, Chromium/Copp IV SCH ×3 (18:11)
[2017-07-06] MEDS: Sodium Chloride 0.9% 1,000 ML IV SCH (21:19)
[2017-07-06] MEDS: Tamsulosin 0.4 MG Cap.ER PO SCH (21:48)
[2017-07-07] MEDS: Magnesium Sulfate/Water 2 GM in Premix Bag 1 BAG IV SCH (03:59)
[2017-07-07] MEDS: Metoprolol Tartrate 5 MG/5 ML SDV IV SCH ×4 (04:05→21:13)
[2017-07-07] MEDS: Metoclopramide 10 MG/2 ML SDV IV SCH (04:38)
[2017-07-07] MEDS: 1: AA 5%/Calcium/D15W/Lytes 1,000 ML with MVI, Adult with Vitamin K 10 ML, Chromium/Copp IV SCH ×6 (06:40→18:30)
--- NOTE | 2017-07-07 08:41 | CR ---
Chest 1V Frontal INDICATION: eval PICC placement COMPARISON: 11/24/2012 FINDINGS: Single view of the chest. Extremity PICC line is curled and extends laterally along along the right lateral chest wall. NG tub e is in place. Heart size normal. Minimal linear atelectasis in the left lung. IMPRESSION: Malpositioned PICC line, as above.
[2017-07-07] MEDS: Pantoprazole 40 MG Vial IV SCH (08:44)
[2017-07-07] MEDS ORDERED: Tamsulosin 0.4 MG Cap.ER PO ONE (09:00)
--- NOTE | 2017-07-07 09:03 | CR ---
OR PCXR-No Charge-PICC/Central INDICATION: check PICC line placement, line repositioned COMPARISON: Exam earlier same day. FINDINGS: Single AP chest. Right upper extremity PICC line has been repositioned, now with tip in the region of the right atrium. Linear atelectasis at the right lung base and in the left midlung. H eart size normal. IMPRESSION: Right upper extremity PICC line repositioned now with tip in the right atrium.
[2017-07-07] MEDS: SCOPOLAMINE PATCH CHECK TOP SCH (09:35)
[2017-07-07] MEDS: VERIFY FENTANYL PATCH TOP SCH ×2 (09:36→23:40)
--- NOTE | 2017-07-07 10:16 | PCM.PN ---
- General Info Date of Service: 07/07/17 Functional Status: Reports: Pain Controlled - Review of Systems Pulmonary: Denies: Shortness of Breath Gastrointestinal: Reports: Abdominal Pain (mild) Neurological: Reports: Confusion Systems Review Comment:: NG tube came out by accident last night. Patient had some mild difficulty with confusion but seems to be normal this morning. Minimal abdominal pain at this time. No nausea. He did have a bowel movement this morning. - Patient Data Vitals - Most Recent: Last Vital Signs Temp 35.6 C 07/07/17 08:00 Pulse 80 07/07/17 10:12 Resp 16 07/07/17 08:00 BP 138/78 07/07/17 10:12 Pulse Ox 94 L 07/07/17 08:00 Weight - Most Recent: 114.447 kg I&O - Last 24 Hours: Intake & Output 07/06/17 07/07/17 07/07/17 22:59 06:59 14:59 Intake Total 250 1463 Output Total 1625 1890 500 Balance -8275 -427 -500 Lab Results Last 24 Hours: Laboratory Results - last 24 hr 07/07/17 07/07/17 Range/Units 04:00 04:00 WBC 9.7 (4.5-11.0) K/uL RBC 4.08 L (4.30-5.90) M/uL Hgb 12.6 (12.0-15.0) g/dL Hct 37.8 L (40.0-54.0) % MCV 93 (80-98) fL MCH 31 (27-31) pg MCHC 33 (32-36) % Plt Count 235 (150-400) K/uL Sodium 139 L (140-148) mmol/L Potassium 3.7 (3.6-5.2) mmol/L Chloride 104 (100-108) mmol/L Carbon Dioxide 28 (21-32) mmol/L Anion Gap 10.7 (5.0-14.0) mmol/L BUN 7 (7-18) mg/dL Creatinine 0.8 (0.8-1.3) mg/dL Est Cr Clr Drug Dosing 84.99 mL/min Estimated GFR (MDRD) > 60 (>60) Glucose 118 H (74-106) mg/dL Calcium 8.0 L (8.5-10.1) mg/dL Phosphorus 2.8 (2.5-4.9) mg/dL Total Bilirubin 0.6 (0.2-1.0) mg/dL AST 18 (15-37) U/L ALT 29 (12-78) U/L Alkaline Phosphatase 54 (46-116) U/L [id number] Pept 122 (5-450) pg/mL Total Protein 6.2 L (6.4-8.2) g/dL Albumin 2.7 L (3.4-5.0) g/dL Globulin 3.5 (2.3-3.5) g/dL Albumin/Globulin Ratio 0.8 L (1.2-2.2) Med Orders - Current: Current Medications Benzocaine/Menthol (Cepacol Sore Throat) 1 lozenge MUCMEM Q2H PRN PRN Reason: Sore Throat Last Admin: 07/05/17 19:58 Dose: 1 sobia Bisacodyl (Dulcolax) 10 mg PO BID COUNT INCLUDES THE [facility] Last Admin: 07/04/17 09:14 Dose: Not Given Docusate Sodium (Colace) 100 mg PO BID COUNT INCLUDES THE [facility] Last Admin: 07/04/17 09:14 Dose: Not Given Fentanyl (Duragesic) 12 mcg TRDERM Q72H COUNT INCLUDES THE [facility] Last Admin: 07/05/17 17:55 Dose: 12 mcg Hydromorphone HCl (Dilaudid Make Up Girl 15 Mg In Ns 30 Ml) 0 mg IV ASDIRECTED PRN; Protocol PRN Reason: PAIN Erythromycin Lactobionate 125 (mg/ Sodium Chloride) 100 mls @ 100 mls/hr IV Q6HR COUNT INCLUDES THE [facility] Last Admin: 07/07/17 04:41 Dose: 100 mls/hr Sodium Chloride (Normal Saline) 1,000 mls @ 50 mls/hr IV ASDIRECTED COUNT INCLUDES THE [facility] Last Admin: 07/06/17 21:19 Dose: 50 mls/hr Multivitamins/Minerals 10 ml/Chromium/Copper/Manganese/Seleni/Zn 1 ml/ Amino Ac/ Electrol/Dextrose/Calcium 1,011 mls @ 82 mls/hr IV .BY DURATION COUNT INCLUDES THE [facility] Stop: 07/07/17 14:30 Last Admin: 07/06/17 18:11 Dose: 82 mls/hr Amino Ac/Electrol/Dextrose/Calcium (Clinimix E 04/06) 1,000 mls @ 82 mls/hr IV .BY DURATION COUNT INCLUDES THE [facility] Stop: 07/07/17 14:30 Last Admin: 07/07/17 06:40 Dose: 82 mls/hr Multivitamins/Minerals 10 ml/Chromium/Copper/Manganese/Seleni/Zn 1 ml/ Amino Ac/ Electrol/Dextrose/Calcium 1,011 mls @ 82 mls/hr IV .BY DURATION COUNT INCLUDES THE [facility] Amino Ac/Electrol/Dextrose/Calcium (Clinimix E 04/06) 1,000 mls @ 82 mls/hr IV .BY DURATION COUNT INCLUDES THE [facility] Lisinopril (Prinivil) 20 mg PO DAILY COUNT INCLUDES THE [facility] Last Admin: 07/04/17 09:15 Dose: Not Given Melatonin (Melatonin) 9 mg PO BEDTIME COUNT INCLUDES THE [facility] Metoprolol Succinate (Toprol Xl) 75 mg PO DAILY COUNT INCLUDES THE [facility] Last Admin: 07/03/17 09:31 Dose: 75 mg Metoprolol Tartrate (Lopressor) 2.5 mg IV Q6H COUNT INCLUDES THE [facility] Last Admin: 07/07/17 10:12 Dose: 2.5 mg Naloxone HCl (Narcan) 0.1 mg IV ASDIRECTED PRN PRN Reason: decreased respiratory rate Verify Fentanyl (Patch) 0 each TOP BID COUNT INCLUDES THE [facility] Last Admin: 07/07/17 09:36 Dose: Not Given Scopolamine Patch (Check) 0 each TOP DAILY COUNT INCLUDES THE [facility] Last Admin: 07/07/17 09:35 Dose: Not Given Ondansetron HCl (Zofran) 4 mg IV Q4H PRN PRN Reason: Nausea/Vomiting Last Admin: 07/04/17 01:44 Dose: 4 mg Pantoprazole Sodium (Protonix Iv) 40 mg IV Q24H COUNT INCLUDES THE [facility] Last Admin: 07/07/17 08:44 Dose: 40 mg Scopolamine (Transderm-Scop) 1.5 mg TRDERM Q72H PRN PRN Reason: Nausea Last Admin: 07/03/17 18:32 Dose: 1.5 mg Sodium Chloride (Saline Flush) 10 ml FLUSH ONETIME PRN PRN Reason: per radiology protocol Last Admin: 06/26/17 12:04 Dose: 10 ml Tamsulosin HCl (Flomax) 0.4 mg PO BEDTIME COUNT INCLUDES THE [facility] Last Admin: 07/06/17 21:48 Dose: 0.4 mg Tamsulosin HCl (Flomax) 0.4 mg PO BEDTIME SHIRA Discontinued Medications Acetaminophen (Tylenol) 650 mg PO Q4H PRN PRN Reason: Pain (Mild 1-3)/fever Acetaminophen (Tylenol) 650 mg RECTAL Q4H PRN PRN Reason: Mild pain/fever Al Hydroxide/Mg Hydroxide (Mag-Al Plus) 30 ml PO ONETIME ONE Stop: 06/27/17 14:31 Last Admin: 06/27/17 14:39 Dose: 30 ml Bupivacaine HCl (Marcaine 0.5%) Confirm Administered Dose 50 ml .ROUTE .STK-MED ONE Stop: 07/01/17 06:47 Last Admin: 07/01/17 07:48 Dose: 10 ml Al Hydroxide/Mg Hydroxide 15 (ml/ Lidocaine HCl 15 ml) 0 ml PO ONETIME ONE Stop: 07/03/17 19:07 Last Admin: 07/03/17 19:19 Dose: 30 ml Dexamethasone (Dexamethasone) Confirm Administered Dose 4 mg .ROUTE .STK-MED ONE Stop: 06/29/17 11:43 Fentanyl (Sublimaze) Confirm Administered Dose 100 mcg .ROUTE .STK-MED ONE Stop: 07/01/17 07:51 Fentanyl Citrate (Fentanyl) Confirm Administered Dose 500 mcg .ROUTE .STK-MED ONE Stop: 06/29/17 11:43 Furosemide (Lasix) 20 mg IVPUSH ONETIME ONE Stop: 07/03/17 19:07 Last Admin: 07/03/17 19:19 Dose: 20 mg Furosemide (Lasix) 20 mg IVPUSH ONETIME ONE Stop: 07/04/17 09:01 Last Admin: 07/04/17 09:17 Dose: 20 mg Glycopyrrolate (Robinul) Confirm Administered Dose 1 mg .ROUTE .STK-MED ONE Stop: 06/29/17 11:43 Hydromorphone HCl (Dilaudid Make Up Girl 15 Mg In Ns 30 Ml) 0 mg IV ASDIRECTED PRN; Protocol PRN Reason: Pain Last Admin: 07/02/17 06:04 Dose: 15 mg Hydromorphone HCl (Dilaudid Make Up Girl 15 Mg In Ns 30 Ml) 15 mg IV ASDIRECTED SHIRA PRN Reason: Protocol Last Admin: 07/03/17 18:34 Dose: 15 mg Hydroxyzine HCl (Vistaril) 100 mg IM ONETIME ONE Stop: 06/29/17 18:16 Last Admin: 06/29/17 18:11 Dose: 100 mg Sodium Chloride (Normal Saline) 1,000 mls @ 500 mls/hr IV ASDIRECTED SHIRA Last Admin: 06/26/17 11:42 Dose: 500 mls/hr Sodium Chloride (Normal Saline) 85 mls @ 3.5 mls/sec IV ASDIRECTED SHIRA Last Admin: 06/26/17 12:04 Dose: 3.5 mls/sec Lactated Ringer's (Ringers, Lactated) 1,000 mls @ 150 mls/hr IV ASDIRECTED SHIRA Last Admin: 06/26/17 14:44 Dose: 150 mls/hr Dextrose/Lactated Ringer's (Dextrose 5%-Lactated Ringers) 1,000 mls @ 100 mls/ hr IV ASDIRECTED SHIRA Last Admin: 06/27/17 08:19 Dose: 100 mls/hr Potassium Cl/Dextrose/Lact Ringer's (D5 Lr With 20 Meq Kcl) 1,000 mls @ 100 mls /hr IV ASDIRECTED SHIRA Last Infusion: 06/29/17 22:51 Dose: Infused Potassium Chloride 20 meq/Lidocaine HCl 2 ml/ Sodium Chloride 112 mls @ 55 mls/ hr IV Q2H SHIRA Stop: 06/27/17 16:29 Last Admin: 06/27/17 14:40 Dose: 55 mls/hr Sodium Chloride (Normal Saline) 500 mls @ 500 mls/hr IV .BOLUS ONE Stop: 06/27/17 13:12 Last Admin: 06/27/17 12:34 Dose: 500 mls/hr Cefoxitin Sodium 2 gm/ Sodium (Chloride) 50 mls @ 100 mls/hr IV ONCALL ONE Stop: 06/29/17 14:59 Last Admin: 06/29/17 15:57 Dose: 100 mls/hr Lactated Ringer's (Ringers, Lactated) Confirm Administered Dose 1,000 mls @ as directed .ROUTE .STK-MED ONE Stop: 06/29/17 16:30 Potassium Cl/Dextrose/Lact Ringer's (D5 Lr With 20 Meq Kcl) 1,000 mls @ 175 mls /hr IV ASDIRECTED SHIRA Last Admin: 06/30/17 07:57 Dose: 175 mls/hr Cefoxitin Sodium 2 gm/ Sodium (Chloride) 50 mls @ 100 mls/hr IV Q6H SHIRA Stop: 06/30/17 10:29 Last Admin: 06/30/17 10:19 Dose: 100 mls/hr Potassium Cl/Dextrose/Lact Ringer's (D5 Lr With 20 Meq Kcl) 1,000 mls @ 125 mls /hr IV ASDIRECTED COUNT INCLUDES THE [facility] Last Admin: 07/03/17 07:22 Dose: 75 mls/hr Potassium Cl/Dextrose/Lact Ringer's (D5 Lr With 20 Meq Kcl) Confirm Administered Dose 1,000 mls @ as directed .ROUTE .STK-[facility] ONE Stop: 06/30/17 07:55 Last Admin: 06/30/17 08:48 Dose: Not Given Potassium Cl/Dextrose/Lact Ringer's (D5 Lr With 20 Meq Kcl) Confirm Administered Dose 1,000 mls @ as directed .ROUTE .K-[facility] ONE Stop: 06/30/17 08:00 Last Admin: 06/30/17 08:48 Dose: Not Given Potassium Cl/Dextrose/Lact Ringer's (D5 Lr With 20 Meq Kcl) 1,000 mls @ 75 mls/ hr IV ASDIRECTED COUNT INCLUDES THE [facility] Last Admin: 07/04/17 10:37 Dose: 75 mls/hr Potassium Cl/Dextrose/Lact Ringer's (D5 Lr With 20 Meq Kcl) 1,000 mls @ 50 mls/ hr IV ASDIRECTED SHIRA Potassium Cl/Dextrose/Lact Ringer's (D5 Lr With 20 Meq Kcl) 1,000 mls @ 100 mls /hr IV ASDIRECTED COUNT INCLUDES THE [facility] Last Admin: 07/05/17 23:39 Dose: 100 mls/hr Magnesium Sulfate 2 gm/ Premix 50 mls @ 25 mls/hr IV Q6H SHIRA Stop: 07/07/17 03:59 Last Admin: 07/07/17 03:59 Dose: 25 mls/hr Potassium Chloride 20 meq/Lidocaine HCl 2 ml/ Sodium Chloride 112 mls @ 56 mls/ hr IV Q2H COUNT INCLUDES THE [facility] Stop: 07/05/17 13:59 Last Admin: 07/05/17 17:41 Dose: 56 mls/hr Iopamidol (Isovue-300 (61%)) 150 ml IV . DIRECTED PRN PRN Reason: RADIOLOGY EXAM Stop: 06/27/17 12:04 Last Admin: 06/26/17 12:04 Dose: 150 ml Labetalol HCl (Normodyne) 5 - 15 mg IVPUSH Q1H PRN PRN Reason: BLOOD PRESSURE Stop: 06/29/17 19:15 Last Admin: 06/29/17 18:13 Dose: 15 mg Lidocaine/Epinephrine (Xylocaine 1% With Epinephrine 1:100,000) Confirm Administered Dose 50 ml .ROUTE .STK-MED ONE Stop: 07/01/17 06:48 Last Admin: 07/01/17 07:48 Dose: 10 ml Lisinopril (Prinivil) 20 mg PO DAILY COUNT INCLUDES THE [facility] Last Admin: 06/29/17 10:48 Dose: 20 mg Meropenem (Merrem) Confirm Administered Dose 500 mg .ROUTE .STK-MED ONE Stop: 06/29/17 12:03 Last Admin: 06/29/17 17:00 Dose: 500 mg Meropenem (Merrem) Confirm Administered Dose 500 mg .ROUTE .STK-MED ONE Stop: 07/01/17 06:47 Last Admin: 07/01/17 07:49 Dose: 500 mg Metoclopramide HCl (Reglan) 10 mg IVPUSH NOW STA Stop: 07/03/17 17:02 Last Admin: 07/03/17 17:15 Dose: 10 mg Metoclopramide HCl (Reglan) 10 mg IV Q6H COUNT INCLUDES THE [facility] Last Admin: 07/07/17 04:38 Dose: 10 mg Metoprolol Tartrate (Lopressor) 2.5 mg IVPUSH Q6H COUNT INCLUDES THE [facility] Last Admin: 07/01/17 10:33 Dose: Not Given Morphine Sulfate (Morphine) 2 - 4 mg IVPUSH Q2H PRN PRN Reason: Pain (severe 7-10) Last Admin: 06/28/17 22:39 Dose: 4 mg Naloxone HCl (Narcan) 0.1 mg IV ASDIRECTED PRN PRN Reason: decreased respiratory rate Neostigmine Methylsulfate (Neostigmine) Confirm Administered Dose 5 mg .ROUTE .STK-MED ONE Stop: 06/29/17 11:43 Ondansetron HCl (Zofran) 4 mg IVPUSH ONETIME ONE Stop: 06/26/17 11:30 Last Admin: 06/26/17 11:43 Dose: 4 mg Ondansetron HCl (Zofran Odt) 4 mg PO Q6H PRN PRN Reason: Nausea able to take PO Ondansetron HCl (Zofran) 4 mg IV Q6H PRN PRN Reason: Nausea/Vomiting Last Admin: 06/27/17 23:06 Dose: 4 mg Ondansetron HCl (Zofran) Confirm Administered Dose 4 mg .ROUTE .STK-MED ONE Stop: 06/29/17 11:43 Oxycodone/Acetaminophen (Percocet 325-5 Mg) 1 - 2 tab PO Q4H PRN PRN Reason: Pain Last Admin: 07/03/17 13:10 Dose: 2 tab Pantoprazole Sodium (Protonix Iv) 40 mg IVPUSH ONETIME ONE Stop: 06/26/17 13:33 Last Admin: 06/26/17 13:49 Dose: 40 mg Pantoprazole Sodium (Protonix Iv) 40 mg IV Q12H SHIRA Last Admin: 06/29/17 07:03 Dose: 40 mg Propofol (Diprivan 20 Ml) Confirm Administered Dose 200 mg .ROUTE .STK-MED ONE Stop: 06/29/17 11:43 Propofol (Diprivan 20 Ml) Confirm Administered Dose 200 mg .ROUTE .STK-MED ONE Stop: 07/01/17 07:52 Rocuronium Powell (Zemuron) Confirm Administered Dose 50 mg .ROUTE .STK-MED ONE Stop: 06/29/17 11:43 Sodium Chloride (Saline Flush) 10 ml FLUSH ASDIRECTED PRN PRN Reason: Keep Vein Open Last Admin: 06/26/17 11:43 Dose: 10 ml Succinylcholine Chloride (Quelicin) Confirm Administered Dose 200 mg .ROUTE .STK -MED ONE Stop: 06/29/17 11:43 Tamsulosin HCl (Flomax) 0.4 mg PO ONETIME ONE Stop: 07/01/17 10:01 Last Admin: 07/01/17 10:20 Dose: 0.4 mg Tamsulosin HCl (Flomax) 0.4 mg PO ONETIME ONE Stop: 07/07/17 09:01 Last Admin: 07/07/17 09:35 Dose: 0.4 mg - Exam Quality Assessment: No: Supplemental Oxygen General: Alert, Oriented, Cooperative, No Acute Distress Neck: Supple Lungs: Normal Respiratory Effort GI/Abdominal Exam: Soft, No Distention, Tender (mild around incision ) Extremities: No Pedal Edema. No: Increased Warmth Skin: Warm, Dry Psy/Mental Status: Alert, Normal Affect - Problem List & Annotations (1) Small bowel obstruction SNOMED Code(s): 058500202 Code(s): K56.69 - OTHER INTESTINAL OBSTRUCTION Status: Acute Current Visit: Yes - Problem List Review Problem List Initiated/Reviewed/Updated: Yes - My Orders Last 24 Hours: My Active Orders 07/07/17 21:00 Melatonin 9 mg PO BEDTIME - Plan Plan:: Assessment and plan - Mechanical small bowel obstruction - complicated by post-op ileus requiring replacement of NG tube. His NG tube came out overnight. Abdominal pain is better. No nausea. -Postop cares per surgical service -Encourage ambulation 4 times daily and use of incentive spirometer several times an hour Fluid overload - mild edema at this time. No crackles or hypoxia. -Daily weight -reassess volume status daily -Minimize IV fluids as able Essential hypertension - blood pressure acceptable. -Restart home medications as indicated Maintenance issues - - DVT prophylaxis - mechanical - GI prophylaxis - PPI - Nutrition - nothing by mouth, TPN started 07/06 Disposition - anticipate discharge to home after the hospital stay Peter Fuenz MD
[2017-07-07] MEDS ORDERED: Lidocaine 2% Jelly 10 ML Urojet MUCMEM ONE (10:48)
[2017-07-07] MEDS ORDERED: Lidocaine 2% Jelly 10 ML Urojet ONE (10:57)
[2017-07-07] MEDS ORDERED: Tamsulosin 0.4 MG Cap.ER PO SCH (21:00)
[2017-07-07] MEDS: Melatonin 3 MG Tab PO SCH (21:10)
[2017-07-07] MEDS: Tamsulosin 0.4 MG Cap.ER PO SCH (21:10)
[2017-07-07] MEDS: Sodium Chloride 0.9% 1,000 ML IV SCH (21:11)
[2017-07-08] MEDS: Metoprolol Tartrate 5 MG/5 ML SDV IV SCH ×2 (03:18→16:11)
[2017-07-08] MEDS: 1: AA 5%/Calcium/D15W/Lytes 1,000 ML with MVI, Adult with Vitamin K 10 ML, Chromium/Copp IV SCH ×6 (07:24→20:18)
[2017-07-08] MEDS ORDERED: Hydrocortisone 1% Oint 28 GM Tube TOP PRN (07:38)
[2017-07-08] MEDS ORDERED: Central Total Parenteral Nutrition Bag SCH (07:45)
--- NOTE | 2017-07-08 08:36 | PN ---
DATE OF SERVICE: 07/07/2017 The patient has been afebrile with stable vital signs. He was a little bit confused overnight and was having some funny dreams. This was probably related to the Reglan, and we will discontinue that. He is also showing a pattern of urinary retention with frequent small voids. We will obtain a postvoid bladder scan, and if he is retaining, we will place the Aragon catheter back in and will be able to restart his Flomax again today. Otherwise, continue his TPN. The NG tube came out, we will leave that out, and we will recheck some abdominal x-rays tomorrow morning. Pranav Lima MD /[id number]
[2017-07-08] MEDS: Pantoprazole 40 MG Vial IV SCH (08:39)
--- NOTE | 2017-07-08 09:11 | CR ---
Abdomen 2V AP Flat Upright INDICATION: follow up ileus COMPARISON: 07/06/2017 FINDINGS: 4 views. Improvement in small and large bowel distention. No free air. Postoperative changes. Scattered air-fluid levels. Drain remains in place. IMPRESSION: Improvement in ileus. Recommend continued follow-up to confirm resolution.
[2017-07-08] MEDS: Docusate Sodium 100 MG Cap PO SCH ×2 (09:29→21:49)
[2017-07-08] MEDS: Bisacodyl 5 MG Tab PO SCH ×2 (09:29→21:50)
[2017-07-08] MEDS: Lisinopril 20 MG Tab PO SCH (09:31)
[2017-07-08] MEDS: Hydrocortisone 1% Crm 30 GM Tube TOP PRN (09:40)
[2017-07-08] MEDS: VERIFY FENTANYL PATCH TOP SCH ×2 (09:41→21:53)
[2017-07-08] MEDS: SCOPOLAMINE PATCH CHECK TOP SCH (09:41)
--- NOTE | 2017-07-08 09:48 | PN ---
DATE OF SERVICE: 07/08/2017 SUBJECTIVE: Magdy is having bowel movements. He is feeling better. He states that he feels hungry this morning. He has been on sips of clear liquids. NG is out. REVIEW OF SYSTEMS: Remainder of review of systems negative for any pertinent positives and negatives. OBJECTIVE: GENERAL: Magdy Mandujano is a 76-year-old male. VITAL SIGNS: TPR is 96.9, 67, 16, and blood pressure 133/83. HEENT: Negative. NECK: Supple. HEART: Regular rate and rhythm. LUNGS: Clear. ABDOMEN: Evert in place. His Aragon catheter is draining a clear nancy urine. STANLEY drain has put out 2 mL of a light pink drainage. EXTREMITIES: SCDs are on, and there is no peripheral edema. SKIN: Magdy is reporting an itchy bumpy rash on his lower back. ASSESSMENT: 1. Postoperative ileus, resolved. 2. 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 3. 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 Date of surgery, 06/29/2017. PLAN: 1. Continue same TPN rate and content. 2. Discontinue Aragon catheter in a.m., , July 09, 2017 at 0500 hours. 3. Full liquid diet. 4. Check CBC, CMP, mag, and phos in a.m. 5. Hydrocortisone 1% cream use to lower back p.r.n. needed for pruritic rash. 6. Lisinopril 20 mg p.o. daily and to leave Lopressor IV. 7. We will evaluate p.r.n. or in a.m. Ara Wang PA-C /[id number]
[2017-07-08] MEDS: Metoprolol Tartrate 25 MG Tab PO SCH ×2 (11:21→21:52)
[2017-07-08] MEDS: Ondansetron 4 MG/2 ML SDV IV PRN (15:20)
--- NOTE | 2017-07-08 16:09 | PCM.PN ---
- General Info Date of Service: 07/08/17 Functional Status: Reports: Pain Controlled, Tolerating Diet, Ambulating - Review of Systems Gastrointestinal: Reports: Abdominal Pain, Nausea Systems Review Comment:: No acute events overnight. Had full liquids for breakfast and did okay but had some nausea and distention after lunch. No complaints of shortness of breath. He has been up and walking around. Did have a bowel movement today. - Patient Data Vitals - Most Recent: Last Vital Signs Temp 35.7 C 07/08/17 15:03 Pulse 96 07/08/17 15:03 Resp 16 07/08/17 15:03 BP 146/88 H 07/08/17 15:03 Pulse Ox 98 07/08/17 15:03 Weight - Most Recent: 114.033 kg I&O - Last 24 Hours: Intake & Output 07/08/17 07/08/17 07/08/17 06:59 14:59 22:59 Intake Total 1847 700 Output Total 1402 1100 200 Balance 445 -400 -200 Med Orders - Current: Current Medications Benzocaine/Menthol (Cepacol Sore Throat) 1 lozenge MUCMEM Q2H PRN PRN Reason: Sore Throat Last Admin: 07/05/17 19:58 Dose: 1 sobia Bisacodyl (Dulcolax) 10 mg PO BID [facility] Last Admin: 07/08/17 09:29 Dose: 10 mg Docusate Sodium (Colace) 100 mg PO BID [facility] Last Admin: 07/08/17 09:29 Dose: 100 mg Fentanyl (Duragesic) 12 mcg TRDERM Q72H [facility] Last Admin: 07/05/17 17:55 Dose: 12 mcg Hydrocortisone (Hydrocortisone 1% Crm) 0 gm TOP Q1H PRN PRN Reason: pruritic rash on lower back Last Admin: 07/08/17 09:40 Dose: 1 applic Hydromorphone HCl (Dilaudid Sleever 15 Mg In Ns 30 Ml) 0 mg IV ASDIRECTED PRN; Protocol PRN Reason: PAIN Sodium Chloride (Normal Saline) 1,000 mls @ 50 mls/hr IV ASDIRECTED [facility] Last Admin: 07/07/17 21:11 Dose: 50 mls/hr Multivitamins/Minerals 10 ml/Chromium/Copper/Manganese/Seleni/Zn 1 ml/ Amino Ac/ Electrol/Dextrose/Calcium 1,011 mls @ 82 mls/hr IV .BY DURATION [facility] Last Admin: 07/07/17 18:30 Dose: 82 mls/hr Amino Ac/Electrol/Dextrose/Calcium (Clinimix E 04/06) 1,000 mls @ 82 mls/hr IV .BY DURATION [facility] Last Admin: 07/08/17 07:24 Dose: 82 mls/hr Lisinopril (Prinivil) 20 mg PO DAILY [facility] Last Admin: 07/08/17 09:31 Dose: 20 mg Melatonin (Melatonin) 9 mg PO BEDTIME [facility] Last Admin: 07/07/17 21:10 Dose: 9 mg Metoprolol Tartrate (Lopressor) 37.5 mg PO BID [facility] Last Admin: 07/08/17 11:21 Dose: 37.5 mg Naloxone HCl (Narcan) 0.1 mg IV ASDIRECTED PRN PRN Reason: decreased respiratory rate Verify Fentanyl (Patch) 0 each TOP BID [facility] Last Admin: 07/08/17 09:41 Dose: Not Given Scopolamine Patch (Check) 0 each TOP DAILY [facility] Last Admin: 07/08/17 09:41 Dose: Not Given Ondansetron HCl (Zofran) 4 mg IV Q4H PRN PRN Reason: Nausea/Vomiting Last Admin: 07/08/17 15:20 Dose: 4 mg Pantoprazole Sodium (Protonix Iv) 40 mg IV Q24H [facility] Last Admin: 07/08/17 08:39 Dose: 40 mg Scopolamine (Transderm-Scop) 1.5 mg TRDERM Q72H PRN PRN Reason: Nausea Last Admin: 07/03/17 18:32 Dose: 1.5 mg Sodium Chloride (Saline Flush) 10 ml FLUSH ONETIME PRN PRN Reason: per radiology protocol Last Admin: 06/26/17 12:04 Dose: 10 ml Tamsulosin HCl (Flomax) 0.4 mg PO BEDTIME [facility] Last Admin: 07/07/17 21:10 Dose: 0.4 mg Discontinued Medications Acetaminophen (Tylenol) 650 mg PO Q4H PRN PRN Reason: Pain (Mild 1-3)/fever Acetaminophen (Tylenol) 650 mg RECTAL Q4H PRN PRN Reason: Mild pain/fever Al Hydroxide/Mg Hydroxide (Mag-Al Plus) 30 ml PO ONETIME ONE Stop: 08/05/17 14:31 Last Admin: 06/27/17 14:39 Dose: 30 ml Bupivacaine HCl (Marcaine 0.5%) Confirm Administered Dose 50 ml .ROUTE .STK-MED ONE Stop: 07/01/17 06:47 Last Admin: 07/01/17 07:48 Dose: 10 ml Al Hydroxide/Mg Hydroxide 15 (ml/ Lidocaine HCl 15 ml) 0 ml PO ONETIME ONE Stop: 07/03/17 19:07 Last Admin: 07/03/17 19:19 Dose: 30 ml Dexamethasone (Dexamethasone) Confirm Administered Dose 4 mg .ROUTE .STK-MED ONE Stop: 06/29/17 11:43 Fentanyl (Sublimaze) Confirm Administered Dose 100 mcg .ROUTE .STK-MED ONE Stop: 07/01/17 07:51 Fentanyl Citrate (Fentanyl) Confirm Administered Dose 500 mcg .ROUTE .STK-MED ONE Stop: 06/29/17 11:43 Furosemide (Lasix) 20 mg IVPUSH ONETIME ONE Stop: 07/03/17 19:07 Last Admin: 07/03/17 19:19 Dose: 20 mg Furosemide (Lasix) 20 mg IVPUSH ONETIME ONE Stop: 07/04/17 09:01 Last Admin: 07/04/17 09:17 Dose: 20 mg Glycopyrrolate (Robinul) Confirm Administered Dose 1 mg .ROUTE .STK-MED ONE Stop: 06/29/17 11:43 Hydromorphone HCl (Dilaudid Sleever 15 Mg In Ns 30 Ml) 0 mg IV ASDIRECTED PRN; Protocol PRN Reason: Pain Last Admin: 07/02/17 06:04 Dose: 15 mg Hydromorphone HCl (Dilaudid Sleever 15 Mg In Ns 30 Ml) 15 mg IV ASDIRECTED [facility] PRN Reason: Protocol Last Admin: 07/03/17 18:34 Dose: 15 mg Hydroxyzine HCl (Vistaril) 100 mg IM ONETIME ONE Stop: 06/29/17 18:16 Last Admin: 06/29/17 18:11 Dose: 100 mg Sodium Chloride (Normal Saline) 1,000 mls @ 500 mls/hr IV ASDIRECTED [facility] Last Admin: 06/26/17 11:42 Dose: 500 mls/hr Sodium Chloride (Normal Saline) 85 mls @ 3.5 mls/sec IV ASDIRECTED [facility] Last Admin: 06/26/17 12:04 Dose: 3.5 mls/sec Lactated Ringer's (Ringers, Lactated) 1,000 mls @ 150 mls/hr IV ASDIRECTED [facility] Last Admin: 06/26/17 14:44 Dose: 150 mls/hr Dextrose/Lactated Ringer's (Dextrose 5%-Lactated Ringers) 1,000 mls @ 100 mls/ hr IV ASDIRECTED [facility] Last Admin: 06/27/17 08:19 Dose: 100 mls/hr Potassium Cl/Dextrose/Lact Ringer's (D5 Lr With 20 Meq Kcl) 1,000 mls @ 100 mls /hr IV ASDIRECTED [facility] Last Infusion: 06/29/17 22:51 Dose: Infused Potassium Chloride 20 meq/Lidocaine HCl 2 ml/ Sodium Chloride 112 mls @ 55 mls/ hr IV Q2H [facility] Stop: 06/27/17 16:29 Last Admin: 06/27/17 14:40 Dose: 55 mls/hr Sodium Chloride (Normal Saline) 500 mls @ 500 mls/hr IV .BOLUS ONE Stop: 06/27/17 13:12 Last Admin: 06/27/17 12:34 Dose: 500 mls/hr Cefoxitin Sodium 2 gm/ Sodium (Chloride) 50 mls @ 100 mls/hr IV ONCALL ONE Stop: 06/29/17 14:59 Last Admin: 06/29/17 15:57 Dose: 100 mls/hr Lactated Ringer's (Ringers, Lactated) Confirm Administered Dose 1,000 mls @ as directed .ROUTE .STK-MED ONE Stop: 06/29/17 16:30 Potassium Cl/Dextrose/Lact Ringer's (D5 Lr With 20 Meq Kcl) 1,000 mls @ 175 mls /hr IV ASDIRECTED [facility] Last Admin: 06/30/17 07:57 Dose: 175 mls/hr Cefoxitin Sodium 2 gm/ Sodium (Chloride) 50 mls @ 100 mls/hr IV Q6H [facility] Stop: 06/30/17 10:29 Last Admin: 06/30/17 10:19 Dose: 100 mls/hr Potassium Cl/Dextrose/Lact Ringer's (D5 Lr With 20 Meq Kcl) 1,000 mls @ 125 mls /hr IV ASDIRECTED [facility] Last Admin: 07/03/17 07:22 Dose: 75 mls/hr Potassium Cl/Dextrose/Lact Ringer's (D5 Lr With 20 Meq Kcl) Confirm Administered Dose 1,000 mls @ as directed .ROUTE .[facility] ONE Stop: 06/30/17 07:55 Last Admin: 06/30/17 08:48 Dose: Not Given Potassium Cl/Dextrose/Lact Ringer's (D5 Lr With 20 Meq Kcl) Confirm Administered Dose 1,000 mls @ as directed .ROUTE .[facility] ONE Stop: 06/30/17 08:00 Last Admin: 06/30/17 08:48 Dose: Not Given Potassium Cl/Dextrose/Lact Ringer's (D5 Lr With 20 Meq Kcl) 1,000 mls @ 75 mls/ hr IV ASDIRECTED [facility] Last Admin: 07/04/17 10:37 Dose: 75 mls/hr Erythromycin Lactobionate 125 (mg/ Sodium Chloride) 100 mls @ 100 mls/hr IV Q6HR [facility] Last Admin: 07/08/17 09:36 Dose: 100 mls/hr Potassium Cl/Dextrose/Lact Ringer's (D5 Lr With 20 Meq Kcl) 1,000 mls @ 50 mls/ hr IV ASDIRECTED [facility] Potassium Cl/Dextrose/Lact Ringer's (D5 Lr With 20 Meq Kcl) 1,000 mls @ 100 mls /hr IV ASDIRECTED [facility] Last Admin: 07/05/17 23:39 Dose: 100 mls/hr Magnesium Sulfate 2 gm/ Premix 50 mls @ 25 mls/hr IV Q6H [facility] Stop: 07/07/17 03:59 Last Admin: 07/07/17 03:59 Dose: 25 mls/hr Potassium Chloride 20 meq/Lidocaine HCl 2 ml/ Sodium Chloride 112 mls @ 56 mls/ hr IV Q2H [facility] Stop: 07/05/17 13:59 Last Admin: 07/05/17 17:41 Dose: 56 mls/hr Multivitamins/Minerals 10 ml/Chromium/Copper/Manganese/Seleni/Zn 1 ml/ Amino Ac/ Electrol/Dextrose/Calcium 1,011 mls @ 82 mls/hr IV .BY DURATION [facility] Stop: 07/07/17 14:30 Last Admin: 07/06/17 18:11 Dose: 82 mls/hr Amino Ac/Electrol/Dextrose/Calcium (Clinimix E /15) 1,000 mls @ 82 mls/hr IV .BY DURATION [facility] Stop: 07/07/17 14:30 Last Admin: 07/07/17 06:40 Dose: 82 mls/hr Iopamidol (Isovue-300 (61%)) 150 ml IV . DIRECTED PRN PRN Reason: RADIOLOGY EXAM Stop: 06/27/17 12:04 Last Admin: 06/26/17 12:04 Dose: 150 ml Labetalol HCl (Normodyne) 5 - 15 mg IVPUSH Q1H PRN PRN Reason: BLOOD PRESSURE Stop: 06/29/17 19:15 Last Admin: 06/29/17 18:13 Dose: 15 mg Lidocaine HCl (Xylocaine 2% Jelly) Confirm Administered Dose 10 ml .ROUTE .STK- MED ONE Stop: 07/07/17 10:58 Last Admin: 07/07/17 11:32 Dose: Not Given Lidocaine HCl (Xylocaine 2% Jelly) 10 ml MUCMEM ONETIME ONE Stop: 07/07/17 10:49 Last Admin: 07/07/17 10:30 Dose: 10 ml Lidocaine/Epinephrine (Xylocaine 1% With Epinephrine 1:100,000) Confirm Administered Dose 50 ml .ROUTE .STK-MED ONE Stop: 07/01/17 06:48 Last Admin: 07/01/17 07:48 Dose: 10 ml Lisinopril (Prinivil) 20 mg PO DAILY [facility] Last Admin: 06/29/17 10:48 Dose: 20 mg Lisinopril (Prinivil) 20 mg PO DAILY [facility] Last Admin: 07/04/17 09:15 Dose: Not Given Meropenem (Merrem) Confirm Administered Dose 500 mg .ROUTE .STK-MED ONE Stop: 06/29/17 12:03 Last Admin: 06/29/17 17:00 Dose: 500 mg Meropenem (Merrem) Confirm Administered Dose 500 mg .ROUTE .STK-MED ONE Stop: 07/01/17 06:47 Last Admin: 07/01/17 07:49 Dose: 500 mg Metoclopramide HCl (Reglan) 10 mg IVPUSH NOW STA Stop: 07/03/17 17:02 Last Admin: 07/03/17 17:15 Dose: 10 mg Metoclopramide HCl (Reglan) 10 mg IV Q6H [facility] Last Admin: 07/07/17 04:38 Dose: 10 mg Metoprolol Succinate (Toprol Xl) 75 mg PO DAILY [facility] Last Admin: 07/03/17 09:31 Dose: 75 mg Metoprolol Tartrate (Lopressor) 2.5 mg IVPUSH Q6H [facility] Last Admin: 07/01/17 10:33 Dose: Not Given Metoprolol Tartrate (Lopressor) 2.5 mg IV Q6H [facility] Last Admin: 07/08/17 03:18 Dose: 2.5 mg Morphine Sulfate (Morphine) 2 - 4 mg IVPUSH Q2H PRN PRN Reason: Pain (severe 7-10) Last Admin: 06/28/17 22:39 Dose: 4 mg Naloxone HCl (Narcan) 0.1 mg IV ASDIRECTED PRN PRN Reason: decreased respiratory rate Neostigmine Methylsulfate (Neostigmine) Confirm Administered Dose 5 mg .ROUTE .STK-MED ONE Stop: 06/29/17 11:43 Non-Formulary Medication (Total Parenteral Nutrition, Central) 1,000 ml .XX .Continue Order [facility] Stop: 07/08/17 16:00 Ondansetron HCl (Zofran) 4 mg IVPUSH ONETIME ONE Stop: 06/26/17 11:30 Last Admin: 06/26/17 11:43 Dose: 4 mg Ondansetron HCl (Zofran Odt) 4 mg PO Q6H PRN PRN Reason: Nausea able to take PO Ondansetron HCl (Zofran) 4 mg IV Q6H PRN PRN Reason: Nausea/Vomiting Last Admin: 06/27/17 23:06 Dose: 4 mg Ondansetron HCl (Zofran) Confirm Administered Dose 4 mg .ROUTE .STK-MED ONE Stop: 06/29/17 11:43 Oxycodone/Acetaminophen (Percocet 325-5 Mg) 1 - 2 tab PO Q4H PRN PRN Reason: Pain Last Admin: 07/03/17 13:10 Dose: 2 tab Pantoprazole Sodium (Protonix Iv) 40 mg IVPUSH ONETIME ONE Stop: 06/26/17 13:33 Last Admin: 06/26/17 13:49 Dose: 40 mg Pantoprazole Sodium (Protonix Iv) 40 mg IV Q12H [facility] Last Admin: 06/29/17 07:03 Dose: 40 mg Propofol (Diprivan 20 Ml) Confirm Administered Dose 200 mg .ROUTE .STK-MED ONE Stop: 06/29/17 11:43 Propofol (Diprivan 20 Ml) Confirm Administered Dose 200 mg .ROUTE .STK-MED ONE Stop: 07/01/17 07:52 Rocuronium [place] (Zemuron) Confirm Administered Dose 50 mg .ROUTE .STK-MED ONE Stop: 06/29/17 11:43 Sodium Chloride (Saline Flush) 10 ml FLUSH ASDIRECTED PRN PRN Reason: Keep Vein Open Last Admin: 06/26/17 11:43 Dose: 10 ml Succinylcholine Chloride (Quelicin) Confirm Administered Dose 200 mg .ROUTE .STK -MED ONE Stop: 06/29/17 11:43 Tamsulosin HCl (Flomax) 0.4 mg PO ONETIME ONE Stop: 07/01/17 10:01 Last Admin: 07/01/17 10:20 Dose: 0.4 mg Tamsulosin HCl (Flomax) 0.4 mg PO ONETIME ONE Stop: 07/07/17 09:01 Last Admin: 07/07/17 09:35 Dose: 0.4 mg - Exam Quality Assessment: No: Supplemental Oxygen General: Alert, Oriented, Cooperative Neck: Supple Lungs: Normal Respiratory Effort GI/Abdominal Exam: Normal Bowel Sounds, Soft, Distended, Tender Extremities: No Pedal Edema Skin: Warm, Dry Psy/Mental Status: Alert, Normal Affect - Problem List & Annotations (1) Small bowel obstruction SNOMED Code(s): 887411348 Code(s): K56.69 - OTHER INTESTINAL OBSTRUCTION Status: Acute Current Visit: Yes - Problem List Review Problem List Initiated/Reviewed/Updated: Yes - My Orders Last 24 Hours: My Active Orders 07/07/17 21:00 Melatonin 9 mg PO BEDTIME 07/08/17 10:00 Metoprolol Tartrate [Lopressor] 37.5 mg PO BID - Plan Plan:: Assessment and plan - Mechanical small bowel obstruction - complicated by post-op ileus requiring replacement of NG tube. X-ray looks better today. Tolerated breakfast but some nausea after lunch. -Postop cares per surgical service -Encourage ambulation 4 times daily and use of incentive spirometer several times an hour Fluid overload - mild edema at this time. No crackles or hypoxia. -Daily weight -reassess volume status daily -Minimize IV fluids as able Essential hypertension - blood pressure acceptable. -Restart home medications as indicated Maintenance issues - - DVT prophylaxis - mechanical - GI prophylaxis - PPI - Nutrition - full liquids started this morning, TPN started 07/06 Disposition - anticipate discharge to home after the hospital stay Peter Funez MD
[2017-07-08] MEDS ORDERED: Calcium Carbonate 500 MG Tab.Chew PO PRN (18:04)
[2017-07-08] MEDS: fentaNYL 12 MCG/HR Transdermal Patch TRDERM SCH (18:33)
[2017-07-08] MEDS: Sodium Chloride 0.9% 1,000 ML IV SCH (20:20)
[2017-07-08] MEDS: Melatonin 3 MG Tab PO SCH (21:47)
[2017-07-08] MEDS: Tamsulosin 0.4 MG Cap.ER PO SCH (21:49)
[2017-07-09] MEDS: Ondansetron 4 MG/2 ML SDV IV PRN (02:49)
[2017-07-09] MEDS ORDERED: Central Total Parenteral Nutrition Bag SCH (07:30)
[2017-07-09] MEDS: Pantoprazole 40 MG Vial IV SCH (07:34)
[2017-07-09] MEDS: Lisinopril 20 MG Tab PO SCH (08:17)
[2017-07-09] MEDS: Metoclopramide 10 MG/2 ML SDV IVPUSH SCH ×3 (08:17→23:34)
[2017-07-09] MEDS: 1: AA 5%/Calcium/D15W/Lytes 1,000 ML with MVI, Adult with Vitamin K 10 ML, Chromium/Copp IV SCH ×6 (08:17→20:27)
[2017-07-09] MEDS: Docusate Sodium 100 MG Cap PO SCH ×2 (08:17→20:18)
[2017-07-09] MEDS: SCOPOLAMINE PATCH CHECK TOP SCH (08:18)
[2017-07-09] MEDS: Metoprolol Tartrate 25 MG Tab PO SCH ×2 (08:18→20:16)
--- NOTE | 2017-07-09 08:59 | CR ---
Abdomen 2V AP Flat Upright INDICATION: nausea and vomiting COMPARISON: 07/08/2017 FINDINGS: 4 views of the abdomen. Mild gastric distention is now seen. No change in mildly dilated air-filled loops of small bowel wit h associated air-fluid levels. Skin leland and surgical drain remain in place. No free air is seen. IMPRESSION: Mild gastric distention new since the prior study. Otherwise no change in ileus versus partial small bowel obstruction. Recommend continued follow-up.
--- NOTE | 2017-07-09 10:54 | PN ---
DATE OF SERVICE: 07/09/2017 SUBJECTIVE: Magdy developed dry heaves yesterday after eating a full-liquid diet. He did have his Aragon out and he has been urinating. He reports that he is feeling better this morning than he did yesterday after eating. He has been up ambulating. REVIEW OF SYSTEMS: Remainder of review of systems negative for any pertinent positives and negatives. OBJECTIVE: GENERAL: Magdy Mandujano is a 76-year-old male. He is alert and orientated. Color pale. VITAL SIGNS: TPR 97.1, 83, 24, blood pressure 118/69. HEENT: Negative. NECK: Supple. HEART: Regular rate and rhythm. LUNGS: Clear. ABDOMEN: Dressings dry and intact. Abdominal binder is on. EXTREMITIES: Within peripheral edema. ASSESSMENT: 1. Postoperative ileus. 2. 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 3. 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 Date of surgery 06/29/2017. PLAN: 1. Continue same TPN rate and content. 2. Reglan 10 mg IV q.8 hours scheduled. 3. Tramadol 50 mg q.4 hours p.r.n. pain. 4. Abdominal flat and upright abdominal films daily x7 days to start on Thursday07/10/2017 at 0400 hours. 5. Discontinue [employer]. 6. Discontinue continuous pulse ox. 7. Good pulmonary toilet encouraged. 8. We will evaluate p.r.n. or in a.m. and tramadol 50 mg q.4 hours p.r.n. pain. Ara Wang PA-C /[id number]
[2017-07-09] MEDS: VERIFY FENTANYL PATCH TOP SCH ×2 (13:35→20:29)
--- NOTE | 2017-07-09 14:25 | PCM.PN ---
- General Info Date of Service: 07/09/17 Functional Status: Reports: Pain Controlled, Ambulating - Review of Systems Gastrointestinal: Reports: Abdominal Pain, Diarrhea Systems Review Comment:: difficulty with heartburn and increasing abdominal distention overnight. Feels better this morning and has had several loose bowel movements. X-ray this morning revealed distention of the stomach concerning for buildup of fluid due to ileus or partial obstruction. No complaints of heartburn this morning. He is currently nothing by mouth. Tolerating TPN. - Patient Data Vitals - Most Recent: Last Vital Signs Temp 35.6 C 07/09/17 11:52 Pulse 67 07/09/17 11:52 Resp 16 07/09/17 11:52 BP 108/65 07/09/17 11:52 Pulse Ox 96 07/09/17 11:52 Weight - Most Recent: 114.215 kg I&O - Last 24 Hours: Intake & Output 07/08/17 07/09/17 07/09/17 22:59 06:59 14:59 Intake Total 1578 70 Output Total 1535 375 Balance 43 70 -375 Lab Results Last 24 Hours: Laboratory Results - last 24 hr 07/09/17 07/09/17 Range/Units 04:20 04:20 WBC 12.5 H (4.5-11.0) K/uL RBC 4.22 L (4.30-5.90) M/uL Hgb 13.1 (12.0-15.0) g/dL Hct 39.4 L (40.0-54.0) % MCV 93 (80-98) fL MCH 31 (27-31) pg MCHC 33 (32-36) % Plt Count 271 (150-400) K/uL Sodium 137 L (140-148) mmol/L Potassium 4.3 (3.6-5.2) mmol/L Chloride 103 (100-108) mmol/L Carbon Dioxide 28 (21-32) mmol/L Anion Gap 10.3 (5.0-14.0) mmol/L BUN 15 D (7-18) mg/dL Creatinine 0.8 (0.8-1.3) mg/dL Est Cr Clr Drug Dosing 84.99 mL/min Estimated GFR (MDRD) > 60 (>60) Glucose 132 H (74-106) mg/dL Calcium 8.5 (8.5-10.1) mg/dL Phosphorus 4.3 (2.5-4.9) mg/dL Magnesium 1.9 (1.8-2.4) mg/dL Total Bilirubin 0.5 (0.2-1.0) mg/dL AST 14 L (15-37) U/L ALT 25 (12-78) U/L Alkaline Phosphatase 52 (46-116) U/L Total Protein 6.4 (6.4-8.2) g/dL Albumin 2.7 L (3.4-5.0) g/dL Globulin 3.7 H (2.3-3.5) g/dL Albumin/Globulin Ratio 0.7 L (1.2-2.2) Med Orders - Current: Current Medications Benzocaine/Menthol (Cepacol Sore Throat) 1 lozenge MUCMEM Q2H PRN PRN Reason: Sore Throat Last Admin: 07/05/17 19:58 Dose: 1 sobia Calcium Carbonate/Glycine (Tums) 500 mg PO Q4H PRN PRN Reason: Indigestion Last Admin: 07/08/17 18:33 Dose: 500 mg Docusate Sodium (Colace) 100 mg PO BID [facility] Last Admin: 07/09/17 08:17 Dose: 100 mg Fentanyl (Duragesic) 12 mcg TRDERM Q72H [facility] Last Admin: 07/08/17 18:33 Dose: 12 mcg Hydrocortisone (Hydrocortisone 1% Crm) 0 gm TOP Q1H PRN PRN Reason: pruritic rash on lower back Last Admin: 07/08/17 09:40 Dose: 1 applic Sodium Chloride (Normal Saline) 1,000 mls @ 50 mls/hr IV ASDIRECTED [facility] Last Admin: 07/08/17 20:20 Dose: 50 mls/hr Multivitamins/Minerals 10 ml/Chromium/Copper/Manganese/Seleni/Zn 1 ml/ Amino Ac/ Electrol/Dextrose/Calcium 1,011 mls @ 82 mls/hr IV .BY DURATION [facility] Stop: 07/09/17 18:00 Last Admin: 07/08/17 20:18 Dose: 82 mls/hr Amino Ac/Electrol/Dextrose/Calcium (Clinimix E 15) 1,000 mls @ 82 mls/hr IV .BY DURATION [facility] Stop: 07/09/17 18:00 Last Admin: 07/09/17 08:17 Dose: 82 mls/hr Multivitamins/Minerals 10 ml/Chromium/Copper/Manganese/Seleni/Zn 1 ml/ Amino Ac/ Electrol/Dextrose/Calcium 1,011 mls @ 82 mls/hr IV .BY DURATION [facility] Amino Ac/Electrol/Dextrose/Calcium (Clinimix E 5/15) 1,000 mls @ 82 mls/hr IV .BY DURATION [facility] Lisinopril (Prinivil) 20 mg PO DAILY [facility] Last Admin: 07/09/17 08:17 Dose: 20 mg Melatonin (Melatonin) 9 mg PO BEDTIME [facility] Last Admin: 07/08/17 21:47 Dose: 9 mg Metoclopramide HCl (Reglan) 10 mg IVPUSH Q8H [facility] Last Admin: 07/09/17 08:17 Dose: 10 mg Metoprolol Tartrate (Lopressor) 37.5 mg PO BID [facility] Last Admin: 07/09/17 08:18 Dose: 37.5 mg Naloxone HCl (Narcan) 0.1 mg IV ASDIRECTED PRN PRN Reason: decreased respiratory rate Verify Fentanyl (Patch) 0 each TOP BID [facility] Last Admin: 07/09/17 13:35 Dose: Not Given Scopolamine Patch (Check) 0 each TOP DAILY [facility] Last Admin: 07/09/17 08:18 Dose: Not Given Ondansetron HCl (Zofran) 4 mg IV Q4H PRN PRN Reason: Nausea/Vomiting Last Admin: 07/09/17 02:49 Dose: 4 mg Pantoprazole Sodium (Protonix Iv) 40 mg IV Q24H [facility] Last Admin: 07/09/17 07:34 Dose: 40 mg Scopolamine (Transderm-Scop) 1.5 mg TRDERM Q72H PRN PRN Reason: Nausea Last Admin: 07/03/17 18:32 Dose: 1.5 mg Sodium Chloride (Saline Flush) 10 ml FLUSH ONETIME PRN PRN Reason: per radiology protocol Last Admin: 06/26/17 12:04 Dose: 10 ml Tamsulosin HCl (Flomax) 0.4 mg PO BEDTIME [facility] Last Admin: 07/08/17 21:49 Dose: 0.4 mg Tramadol HCl (Ultram) 50 mg PO Q4H PRN PRN Reason: Pain Discontinued Medications Acetaminophen (Tylenol) 650 mg PO Q4H PRN PRN Reason: Pain (Mild 1-3)/fever Acetaminophen (Tylenol) 650 mg RECTAL Q4H PRN PRN Reason: Mild pain/fever Al Hydroxide/Mg Hydroxide (Mag-Al Plus) 30 ml PO ONETIME ONE Stop: 06/27/17 14:31 Last Admin: 06/27/17 14:39 Dose: 30 ml Bisacodyl (Dulcolax) 10 mg PO BID [facility] Last Admin: 07/08/17 21:50 Dose: 10 mg Bupivacaine HCl (Marcaine 0.5%) Confirm Administered Dose 50 ml .ROUTE .STK-MED ONE Stop: 07/01/17 06:47 Last Admin: 07/01/17 07:48 Dose: 10 ml Al Hydroxide/Mg Hydroxide 15 (ml/ Lidocaine HCl 15 ml) 0 ml PO ONETIME ONE Stop: 07/03/17 19:07 Last Admin: 07/03/17 19:19 Dose: 30 ml Dexamethasone (Dexamethasone) Confirm Administered Dose 4 mg .ROUTE .STK-MED ONE Stop: 06/29/17 11:43 Fentanyl (Sublimaze) Confirm Administered Dose 100 mcg .ROUTE .STK-MED ONE Stop: 07/01/17 07:51 Fentanyl Citrate (Fentanyl) Confirm Administered Dose 500 mcg .ROUTE .STK-MED ONE Stop: 06/29/17 11:43 Furosemide (Lasix) 20 mg IVPUSH ONETIME ONE Stop: 07/03/17 19:07 Last Admin: 07/03/17 19:19 Dose: 20 mg Furosemide (Lasix) 20 mg IVPUSH ONETIME ONE Stop: 07/04/17 09:01 Last Admin: 07/04/17 09:17 Dose: 20 mg Glycopyrrolate (Robinul) Confirm Administered Dose 1 mg .ROUTE .STK-MED ONE Stop: 06/29/17 11:43 Hydromorphone HCl (Dilaudid Cylinder Machine Operator 15 Mg In Ns 30 Ml) 0 mg IV ASDIRECTED PRN; Protocol PRN Reason: Pain Last Admin: 07/02/17 06:04 Dose: 15 mg Hydromorphone HCl (Dilaudid Cylinder Machine Operator 15 Mg In Ns 30 Ml) 15 mg IV ASDIRECTED [facility] PRN Reason: Protocol Last Admin: 07/03/17 18:34 Dose: 15 mg Hydromorphone HCl (Dilaudid Cylinder Machine Operator 15 Mg In Ns 30 Ml) 0 mg IV ASDIRECTED PRN; Protocol PRN Reason: PAIN Last Admin: 07/07/17 01:15 Dose: 15 mg Hydroxyzine HCl (Vistaril) 100 mg IM ONETIME ONE Stop: 06/29/17 18:16 Last Admin: 06/29/17 18:11 Dose: 100 mg Sodium Chloride (Normal Saline) 1,000 mls @ 500 mls/hr IV ASDIRECTED [facility] Last Admin: 06/26/17 11:42 Dose: 500 mls/hr Sodium Chloride (Normal Saline) 85 mls @ 3.5 mls/sec IV ASDIRECTED [facility] Last Admin: 06/26/17 12:04 Dose: 3.5 mls/sec Lactated Ringer's (Ringers, Lactated) 1,000 mls @ 150 mls/hr IV ASDIRECTED [facility] Last Admin: 06/26/17 14:44 Dose: 150 mls/hr Dextrose/Lactated Ringer's (Dextrose 5%-Lactated Ringers) 1,000 mls @ 100 mls/ hr IV ASDIRECTED [facility] Last Admin: 06/27/17 08:19 Dose: 100 mls/hr Potassium Cl/Dextrose/Lact Ringer's (D5 Lr With 20 Meq Kcl) 1,000 mls @ 100 mls /hr IV ASDIRECTED [facility] Last Infusion: 06/29/17 22:51 Dose: Infused Potassium Chloride 20 meq/Lidocaine HCl 2 ml/ Sodium Chloride 112 mls @ 55 mls/ hr IV Q2H [facility] Stop: 06/27/17 16:29 Last Admin: 06/27/17 14:40 Dose: 55 mls/hr Sodium Chloride (Normal Saline) 500 mls @ 500 mls/hr IV .BOLUS ONE Stop: 06/27/17 13:12 Last Admin: 06/27/17 12:34 Dose: 500 mls/hr Cefoxitin Sodium 2 gm/ Sodium (Chloride) 50 mls @ 100 mls/hr IV ONCALL ONE Stop: 06/29/17 14:59 Last Admin: 06/29/17 15:57 Dose: 100 mls/hr Lactated Ringer's (Ringers, Lactated) Confirm Administered Dose 1,000 mls @ as directed .ROUTE .STK-MED ONE Stop: 06/29/17 16:30 Potassium Cl/Dextrose/Lact Ringer's (D5 Lr With 20 Meq Kcl) 1,000 mls @ 175 mls /hr IV ASDIRECTED [facility] Last Admin: 06/30/17 07:57 Dose: 175 mls/hr Cefoxitin Sodium 2 gm/ Sodium (Chloride) 50 mls @ 100 mls/hr IV Q6H [facility] Stop: 06/30/17 10:29 Last Admin: 06/30/17 10:19 Dose: 100 mls/hr Potassium Cl/Dextrose/Lact Ringer's (D5 Lr With 20 Meq Kcl) 1,000 mls @ 125 mls /hr IV ASDIRECTED [facility] Last Admin: 07/03/17 07:22 Dose: 75 mls/hr Potassium Cl/Dextrose/Lact Ringer's (D5 Lr With 20 Meq Kcl) Confirm Administered Dose 1,000 mls @ as directed .ROUTE .[facility] ONE Stop: 06/30/17 07:55 Last Admin: 06/30/17 08:48 Dose: Not Given Potassium Cl/Dextrose/Lact Ringer's (D5 Lr With 20 Meq Kcl) Confirm Administered Dose 1,000 mls @ as directed .ROUTE .[facility] ONE Stop: 06/30/17 08:00 Last Admin: 06/30/17 08:48 Dose: Not Given Potassium Cl/Dextrose/Lact Ringer's (D5 Lr With 20 Meq Kcl) 1,000 mls @ 75 mls/ hr IV ASDIRECTED [facility] Last Admin: 07/04/17 10:37 Dose: 75 mls/hr Erythromycin Lactobionate 125 (mg/ Sodium Chloride) 100 mls @ 100 mls/hr IV Q6HR [facility] Last Admin: 07/08/17 09:36 Dose: 100 mls/hr Potassium Cl/Dextrose/Lact Ringer's (D5 Lr With 20 Meq Kcl) 1,000 mls @ 50 mls/ hr IV ASDIRECTED [facility] Potassium Cl/Dextrose/Lact Ringer's (D5 Lr With 20 Meq Kcl) 1,000 mls @ 100 mls /hr IV ASDIRECTED [facility] Last Admin: 07/05/17 23:39 Dose: 100 mls/hr Magnesium Sulfate 2 gm/ Premix 50 mls @ 25 mls/hr IV Q6H [facility] Stop: 07/07/17 03:59 Last Admin: 07/07/17 03:59 Dose: 25 mls/hr Potassium Chloride 20 meq/Lidocaine HCl 2 ml/ Sodium Chloride 112 mls @ 56 mls/ hr IV Q2H [facility] Stop: 07/05/17 13:59 Last Admin: 07/05/17 17:41 Dose: 56 mls/hr Multivitamins/Minerals 10 ml/Chromium/Copper/Manganese/Seleni/Zn 1 ml/ Amino Ac/ Electrol/Dextrose/Calcium 1,011 mls @ 82 mls/hr IV .BY DURATION [facility] Stop: 07/07/17 14:30 Last Admin: 07/06/17 18:11 Dose: 82 mls/hr Amino Ac/Electrol/Dextrose/Calcium (Clinimix E 04/06) 1,000 mls @ 82 mls/hr IV .BY DURATION [facility] Stop: 07/07/17 14:30 Last Admin: 07/07/17 06:40 Dose: 82 mls/hr Iopamidol (Isovue-300 (61%)) 150 ml IV . DIRECTED PRN PRN Reason: RADIOLOGY EXAM Stop: 06/27/17 12:04 Last Admin: 06/26/17 12:04 Dose: 150 ml Labetalol HCl (Normodyne) 5 - 15 mg IVPUSH Q1H PRN PRN Reason: BLOOD PRESSURE Stop: 06/29/17 19:15 Last Admin: 06/29/17 18:13 Dose: 15 mg Lidocaine HCl (Xylocaine 2% Jelly) Confirm Administered Dose 10 ml .ROUTE .STK- MED ONE Stop: 07/07/17 10:58 Last Admin: 07/07/17 11:32 Dose: Not Given Lidocaine HCl (Xylocaine 2% Jelly) 10 ml MUCMEM ONETIME ONE Stop: 07/07/17 10:49 Last Admin: 07/07/17 10:30 Dose: 10 ml Lidocaine/Epinephrine (Xylocaine 1% With Epinephrine 1:100,000) Confirm Administered Dose 50 ml .ROUTE .STK-MED ONE Stop: 07/01/17 06:48 Last Admin: 07/01/17 07:48 Dose: 10 ml Lisinopril (Prinivil) 20 mg PO DAILY [facility] Last Admin: 06/29/17 10:48 Dose: 20 mg Lisinopril (Prinivil) 20 mg PO DAILY [facility] Last Admin: 07/04/17 09:15 Dose: Not Given Meropenem (Merrem) Confirm Administered Dose 500 mg .ROUTE .STK-MED ONE Stop: 06/29/17 12:03 Last Admin: 06/29/17 17:00 Dose: 500 mg Meropenem (Merrem) Confirm Administered Dose 500 mg .ROUTE .STK-MED ONE Stop: 07/01/17 06:47 Last Admin: 07/01/17 07:49 Dose: 500 mg Metoclopramide HCl (Reglan) 10 mg IVPUSH NOW STA Stop: 07/03/17 17:02 Last Admin: 07/03/17 17:15 Dose: 10 mg Metoclopramide HCl (Reglan) 10 mg IV Q6H [facility] Last Admin: 07/07/17 04:38 Dose: 10 mg Metoprolol Succinate (Toprol Xl) 75 mg PO DAILY [facility] Last Admin: 07/03/17 09:31 Dose: 75 mg Metoprolol Tartrate (Lopressor) 2.5 mg IVPUSH Q6H [facility] Last Admin: 07/01/17 10:33 Dose: Not Given Metoprolol Tartrate (Lopressor) 2.5 mg IV Q6H [facility] Last Admin: 07/08/17 16:11 Dose: Not Given Morphine Sulfate (Morphine) 2 - 4 mg IVPUSH Q2H PRN PRN Reason: Pain (severe 7-10) Last Admin: 06/28/17 22:39 Dose: 4 mg Naloxone HCl (Narcan) 0.1 mg IV ASDIRECTED PRN PRN Reason: decreased respiratory rate Neostigmine Methylsulfate (Neostigmine) Confirm Administered Dose 5 mg .ROUTE .STK-MED ONE Stop: 06/29/17 11:43 Non-Formulary Medication (Total Parenteral Nutrition, Central) 1,000 ml .XX .Continue Order [facility] Stop: 07/08/17 16:00 Non-Formulary Medication (Total Parenteral Nutrition, Central) 1,000 ml .XX .Continue Order [facility] Stop: 07/09/17 13:00 Ondansetron HCl (Zofran) 4 mg IVPUSH ONETIME ONE Stop: 06/26/17 11:30 Last Admin: 06/26/17 11:43 Dose: 4 mg Ondansetron HCl (Zofran Odt) 4 mg PO Q6H PRN PRN Reason: Nausea able to take PO Ondansetron HCl (Zofran) 4 mg IV Q6H PRN PRN Reason: Nausea/Vomiting Last Admin: 06/27/17 23:06 Dose: 4 mg Ondansetron HCl (Zofran) Confirm Administered Dose 4 mg .ROUTE .STK-MED ONE Stop: 06/29/17 11:43 Oxycodone/Acetaminophen (Percocet 325-5 Mg) 1 - 2 tab PO Q4H PRN PRN Reason: Pain Last Admin: 07/03/17 13:10 Dose: 2 tab Pantoprazole Sodium (Protonix Iv) 40 mg IVPUSH ONETIME ONE Stop: 06/26/17 13:33 Last Admin: 06/26/17 13:49 Dose: 40 mg Pantoprazole Sodium (Protonix Iv) 40 mg IV Q12H [facility] Last Admin: 06/29/17 07:03 Dose: 40 mg Propofol (Diprivan 20 Ml) Confirm Administered Dose 200 mg .ROUTE .STK-MED ONE Stop: 06/29/17 11:43 Propofol (Diprivan 20 Ml) Confirm Administered Dose 200 mg .ROUTE .STK-MED ONE Stop: 07/01/17 07:52 Rocuronium [place] (Zemuron) Confirm Administered Dose 50 mg .ROUTE .STK-MED ONE Stop: 06/29/17 11:43 Sodium Chloride (Saline Flush) 10 ml FLUSH ASDIRECTED PRN PRN Reason: Keep Vein Open Last Admin: 06/26/17 11:43 Dose: 10 ml Succinylcholine Chloride (Quelicin) Confirm Administered Dose 200 mg .ROUTE .STK -MED ONE Stop: 06/29/17 11:43 Tamsulosin HCl (Flomax) 0.4 mg PO ONETIME ONE Stop: 07/01/17 10:01 Last Admin: 07/01/17 10:20 Dose: 0.4 mg Tamsulosin HCl (Flomax) 0.4 mg PO ONETIME ONE Stop: 07/07/17 09:01 Last Admin: 07/07/17 09:35 Dose: 0.4 mg - Exam Quality Assessment: No: Supplemental Oxygen General: Alert, Oriented, Cooperative, No Acute Distress Neck: Supple Lungs: Normal Respiratory Effort GI/Abdominal Exam: Soft, Non-Tender, Distended (mild), Abnormal Bowel Sounds ( hypoactive) Extremities: No Pedal Edema Skin: Warm, Dry Psy/Mental Status: Alert, Normal Affect - Problem List & Annotations (1) Small bowel obstruction SNOMED Code(s): 527342562 Code(s): K56.69 - OTHER INTESTINAL OBSTRUCTION Status: Acute Current Visit: Yes - Problem List Review Problem List Initiated/Reviewed/Updated: Yes - Plan Plan:: Assessment and plan - Mechanical small bowel obstruction - complicated by post-op ileus requiring replacement of NG tube. x-ray this morning revealed increasing abdominal distention and stomach distention. He is having bowel movements. Currently nothing by mouth. -Postop cares per surgical service -Encourage ambulation 4 times daily and use of incentive spirometer several times an hour Fluid overload - volume status appropriate at this time. -Daily weight -reassess volume status daily -Minimize IV fluids as able Essential hypertension - blood pressure acceptable. -continue home medications Maintenance issues - - DVT prophylaxis - mechanical - GI prophylaxis - PPI - Nutrition - currently nothing by mouth, TPN started 07/06 Disposition - anticipate discharge to home after the hospital stay Peter Funez MD
[2017-07-09] MEDS: Sodium Chloride 0.9% 1,000 ML IV SCH (16:30)
[2017-07-09] MEDS: Melatonin 3 MG Tab PO SCH (20:17)
[2017-07-09] MEDS: Tamsulosin 0.4 MG Cap.ER PO SCH (20:17)
[2017-07-10] MEDS: Hydrocortisone 1% Crm 30 GM Tube TOP PRN (00:19)
[2017-07-10] MEDS: Scopolamine 1.5 MG Transdermal Patch TRDERM PRN (05:18)
[2017-07-10] MEDS ORDERED: Central Total Parenteral Nutrition Bag SCH (07:15)
[2017-07-10] MEDS: Pantoprazole 40 MG Vial IV SCH (07:31)
[2017-07-10] MEDS: Metoclopramide 10 MG/2 ML SDV IVPUSH SCH ×2 (07:38→16:55)
--- NOTE | 2017-07-10 08:45 | CR ---
Abdomen 2V AP Flat Upright INDICATION: Post Op ileus COMPARISON: 07/09/2017 FINDINGS: 4 views. There is less gastric distention. No significant change in mildly dilated small bowel loops and air-fluid levels. No free air. Postoperative change and surgical drain remain in place.
[2017-07-10] MEDS: 1: AA 5%/Calcium/D15W/Lytes 1,000 ML with MVI, Adult with Vitamin K 10 ML, Chromium/Copp IV SCH ×6 (08:48→21:25)
[2017-07-10] MEDS: Lisinopril 20 MG Tab PO SCH (08:50)
[2017-07-10] MEDS: traMADol 50 MG Tab PO PRN (08:50)
[2017-07-10] MEDS: Metoprolol Tartrate 25 MG Tab PO SCH ×2 (08:53→21:41)
[2017-07-10] MEDS: Docusate Sodium 100 MG Cap PO SCH ×2 (08:53→21:40)
[2017-07-10] MEDS: Ondansetron 4 MG/2 ML SDV IV PRN (09:04)
[2017-07-10] MEDS: SCOPOLAMINE PATCH CHECK TOP SCH (09:43)
[2017-07-10] MEDS: VERIFY FENTANYL PATCH TOP SCH ×2 (09:43→21:42)
--- NOTE | 2017-07-10 10:03 | PN ---
DATE OF SERVICE: 07/10/2017 SUBJECTIVE: Magdy has had no nausea. He has had one bowel movement. Voiding without any difficulty after his Aragon catheter was out. Oral intake was 670 yesterday, and urine output 2450. REVIEW OF SYSTEMS: Remainder of review of systems negative for any pertinent positives and negatives. OBJECTIVE: GENERAL: Magdy Mandujano is a 76-year-old male. He is alert and orientated. Color pale. VITAL SIGNS: TPR 96.1, 68, 17 and blood pressure 115/66. HEENT: Negative. NECK: Supple. HEART: Regular rate and rhythm. LUNGS: Clear. ABDOMEN: Dressings dry and intact. Abdominal binder is on. EXTREMITIES: Without peripheral edema. ASSESSMENT: 1. Postoperative ileus. 2. 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 3. 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 Date of surgery, 06/29/2017. PLAN: 1. Discontinue fentanyl patch. 2. Full liquid diet. 3. Continue TPN, same rate and content. 4. We will evaluate p.r.n. or in a.m. Ara Wang PA-C /[id number]
--- NOTE | 2017-07-10 11:02 | PCM.PN ---
- General Info Date of Service: 07/10/17 Functional Status: Reports: Pain Controlled, Ambulating. Denies: Tolerating Diet - Review of Systems Gastrointestinal: Reports: Abdominal Pain, Diarrhea, Nausea Systems Review Comment:: Increasing abdominal distention and pain early in the day after waking up feeling pretty good. No acute events overnight. Still has some crampy upper abdominal pain and heartburn. No nausea at this point. He has been having small watery bowel movements area and he has not had any fevers. - Patient Data Vitals - Most Recent: Last Vital Signs Temp 35.6 C 07/10/17 07:33 Pulse 72 07/10/17 08:53 Resp 17 07/10/17 07:33 BP 115/66 07/10/17 08:53 Pulse Ox 93 L 07/10/17 07:33 Weight - Most Recent: 114.215 kg I&O - Last 24 Hours: Intake & Output 07/09/17 07/10/17 07/10/17 22:59 06:59 14:59 Intake Total 1910 948 200 Output Total 900 1185 550 Balance 1010 -237 -350 Armond Results Last 24 Hours: Microbiology 07/09/17 18:55 Clostridium difficile (PCR) - Final Stool / Feces NEGATIVE CDIFF TOXIN Med Orders - Current: Current Medications Benzocaine/Menthol (Cepacol Sore Throat) 1 lozenge MUCMEM Q2H PRN PRN Reason: Sore Throat Last Admin: 07/05/17 19:58 Dose: 1 sobia Calcium Carbonate/Glycine (Tums) 500 mg PO Q4H PRN PRN Reason: Indigestion Last Admin: 07/08/17 18:33 Dose: 500 mg Docusate Sodium (Colace) 100 mg PO BID [facility] Last Admin: 07/10/17 08:53 Dose: 100 mg Hydrocortisone (Hydrocortisone 1% Crm) 0 gm TOP Q1H PRN PRN Reason: pruritic rash on lower back Last Admin: 07/10/17 00:19 Dose: 1 applic Sodium Chloride (Normal Saline) 1,000 mls @ 50 mls/hr IV ASDIRECTED [facility] Last Admin: 07/09/17 16:30 Dose: 50 mls/hr Multivitamins/Minerals 10 ml/Chromium/Copper/Manganese/Seleni/Zn 1 ml/ Amino Ac/ Electrol/Dextrose/Calcium 1,011 mls @ 82 mls/hr IV .BY DURATION [facility] Last Admin: 07/09/17 20:27 Dose: 82 mls/hr Amino Ac/Electrol/Dextrose/Calcium (Clinimix E 5/15) 1,000 mls @ 82 mls/hr IV .BY DURATION [facility] Last Admin: 07/10/17 08:48 Dose: 82 mls/hr Lisinopril (Prinivil) 20 mg PO DAILY [facility] Last Admin: 07/10/17 08:50 Dose: 20 mg Melatonin (Melatonin) 9 mg PO BEDTIME [facility] Last Admin: 07/09/17 20:17 Dose: 9 mg Metoclopramide HCl (Reglan) 10 mg IVPUSH Q8H [facility] Last Admin: 07/10/17 07:38 Dose: 10 mg Metoprolol Tartrate (Lopressor) 37.5 mg PO BID [facility] Last Admin: 07/10/17 08:53 Dose: 37.5 mg Naloxone HCl (Narcan) 0.1 mg IV ASDIRECTED PRN PRN Reason: decreased respiratory rate Verify Fentanyl (Patch) 0 each TOP BID [facility] Last Admin: 07/10/17 09:43 Dose: Not Given Scopolamine Patch (Check) 0 each TOP DAILY [facility] Last Admin: 07/10/17 09:43 Dose: Not Given Non-Formulary Medication (Total Parenteral Nutrition, Central) 1,000 ml .XX .Continue Order [facility] Stop: 07/10/17 16:00 Ondansetron HCl (Zofran) 4 mg IV Q4H PRN PRN Reason: Nausea/Vomiting Last Admin: 07/10/17 09:04 Dose: 4 mg Pantoprazole Sodium (Protonix Iv) 40 mg IV Q24H [facility] Last Admin: 07/10/17 07:31 Dose: 40 mg Scopolamine (Transderm-Scop) 1.5 mg TRDERM Q72H PRN PRN Reason: Nausea Last Admin: 07/10/17 05:18 Dose: 1.5 mg Sodium Chloride (Saline Flush) 10 ml FLUSH ONETIME PRN PRN Reason: per radiology protocol Last Admin: 06/26/17 12:04 Dose: 10 ml Tamsulosin HCl (Flomax) 0.4 mg PO BEDTIME [facility] Last Admin: 07/09/17 20:17 Dose: 0.4 mg Tramadol HCl (Ultram) 50 mg PO Q4H PRN PRN Reason: Pain Last Admin: 07/10/17 08:50 Dose: 50 mg Discontinued Medications Acetaminophen (Tylenol) 650 mg PO Q4H PRN PRN Reason: Pain (Mild 1-3)/fever Acetaminophen (Tylenol) 650 mg RECTAL Q4H PRN PRN Reason: Mild pain/fever Al Hydroxide/Mg Hydroxide (Mag-Al Plus) 30 ml PO ONETIME ONE Stop: 06/27/17 14:31 Last Admin: 06/27/17 14:39 Dose: 30 ml Bisacodyl (Dulcolax) 10 mg PO BID [facility] Last Admin: 07/08/17 21:50 Dose: 10 mg Bupivacaine HCl (Marcaine 0.5%) Confirm Administered Dose 50 ml .ROUTE .STK-MED ONE Stop: 07/01/17 06:47 Last Admin: 07/01/17 07:48 Dose: 10 ml Al Hydroxide/Mg Hydroxide 15 (ml/ Lidocaine HCl 15 ml) 0 ml PO ONETIME ONE Stop: 07/03/17 19:07 Last Admin: 07/03/17 19:19 Dose: 30 ml Dexamethasone (Dexamethasone) Confirm Administered Dose 4 mg .ROUTE .STK-MED ONE Stop: 06/29/17 11:43 Fentanyl (Duragesic) 12 mcg TRDERM Q72H [facility] Last Admin: 07/08/17 18:33 Dose: 12 mcg Fentanyl (Sublimaze) Confirm Administered Dose 100 mcg .ROUTE .STK-MED ONE Stop: 07/01/17 07:51 Fentanyl Citrate (Fentanyl) Confirm Administered Dose 500 mcg .ROUTE .STK-MED ONE Stop: 06/29/17 11:43 Furosemide (Lasix) 20 mg IVPUSH ONETIME ONE Stop: 07/03/17 19:07 Last Admin: 07/03/17 19:19 Dose: 20 mg Furosemide (Lasix) 20 mg IVPUSH ONETIME ONE Stop: 07/04/17 09:01 Last Admin: 07/04/17 09:17 Dose: 20 mg Glycopyrrolate (Robinul) Confirm Administered Dose 1 mg .ROUTE .STK-MED ONE Stop: 06/29/17 11:43 Hydromorphone HCl (Dilaudid In Store Demonstrator 15 Mg In Ns 30 Ml) 0 mg IV ASDIRECTED PRN; Protocol PRN Reason: Pain Last Admin: 07/02/17 06:04 Dose: 15 mg Hydromorphone HCl (Dilaudid In Store Demonstrator 15 Mg In Ns 30 Ml) 15 mg IV ASDIRECTED [facility] PRN Reason: Protocol Last Admin: 07/03/17 18:34 Dose: 15 mg Hydromorphone HCl (Dilaudid In Store Demonstrator 15 Mg In Ns 30 Ml) 0 mg IV ASDIRECTED PRN; Protocol PRN Reason: PAIN Last Admin: 07/07/17 01:15 Dose: 15 mg Hydroxyzine HCl (Vistaril) 100 mg IM ONETIME ONE Stop: 06/29/17 18:16 Last Admin: 06/29/17 18:11 Dose: 100 mg Sodium Chloride (Normal Saline) 1,000 mls @ 500 mls/hr IV ASDIRECTED [facility] Last Admin: 06/26/17 11:42 Dose: 500 mls/hr Sodium Chloride (Normal Saline) 85 mls @ 3.5 mls/sec IV ASDIRECTED [facility] Last Admin: 06/26/17 12:04 Dose: 3.5 mls/sec Lactated Ringer's (Ringers, Lactated) 1,000 mls @ 150 mls/hr IV ASDIRECTED [facility] Last Admin: 06/26/17 14:44 Dose: 150 mls/hr Dextrose/Lactated Ringer's (Dextrose 5%-Lactated Ringers) 1,000 mls @ 100 mls/ hr IV ASDIRECTED [facility] Last Admin: 06/27/17 08:19 Dose: 100 mls/hr Potassium Cl/Dextrose/Lact Ringer's (D5 Lr With 20 Meq Kcl) 1,000 mls @ 100 mls /hr IV ASDIRECTED [facility] Last Infusion: 06/29/17 22:51 Dose: Infused Potassium Chloride 20 meq/Lidocaine HCl 2 ml/ Sodium Chloride 112 mls @ 55 mls/ hr IV Q2H [facility] Stop: 06/27/17 16:29 Last Admin: 06/27/17 14:40 Dose: 55 mls/hr Sodium Chloride (Normal Saline) 500 mls @ 500 mls/hr IV .BOLUS ONE Stop: 06/27/17 13:12 Last Admin: 06/27/17 12:34 Dose: 500 mls/hr Cefoxitin Sodium 2 gm/ Sodium (Chloride) 50 mls @ 100 mls/hr IV ONCALL ONE Stop: 06/29/17 14:59 Last Admin: 06/29/17 15:57 Dose: 100 mls/hr Lactated Ringer's (Ringers, Lactated) Confirm Administered Dose 1,000 mls @ as directed .ROUTE .[facility] ONE Stop: 06/29/17 16:30 Potassium Cl/Dextrose/Lact Ringer's (D5 Lr With 20 Meq Kcl) 1,000 mls @ 175 mls /hr IV ASDIRECTED [facility] Last Admin: 06/30/17 07:57 Dose: 175 mls/hr Cefoxitin Sodium 2 gm/ Sodium (Chloride) 50 mls @ 100 mls/hr IV Q6H [facility] Stop: 06/30/17 10:29 Last Admin: 06/30/17 10:19 Dose: 100 mls/hr Potassium Cl/Dextrose/Lact Ringer's (D5 Lr With 20 Meq Kcl) 1,000 mls @ 125 mls /hr IV ASDIRECTED [facility] Last Admin: 07/03/17 07:22 Dose: 75 mls/hr Potassium Cl/Dextrose/Lact Ringer's (D5 Lr With 20 Meq Kcl) Confirm Administered Dose 1,000 mls @ as directed .ROUTE .[facility] ONE Stop: 06/30/17 07:55 Last Admin: 06/30/17 08:48 Dose: Not Given Potassium Cl/Dextrose/Lact Ringer's (D5 Lr With 20 Meq Kcl) Confirm Administered Dose 1,000 mls @ as directed .ROUTE .[facility] ONE Stop: 06/30/17 08:00 Last Admin: 06/30/17 08:48 Dose: Not Given Potassium Cl/Dextrose/Lact Ringer's (D5 Lr With 20 Meq Kcl) 1,000 mls @ 75 mls/ hr IV ASDIRECTED [facility] Last Admin: 07/04/17 10:37 Dose: 75 mls/hr Erythromycin Lactobionate 125 (mg/ Sodium Chloride) 100 mls @ 100 mls/hr IV Q6HR [facility] Last Admin: 07/08/17 09:36 Dose: 100 mls/hr Potassium Cl/Dextrose/Lact Ringer's (D5 Lr With 20 Meq Kcl) 1,000 mls @ 50 mls/ hr IV ASDIRECTED [facility] Potassium Cl/Dextrose/Lact Ringer's (D5 Lr With 20 Meq Kcl) 1,000 mls @ 100 mls /hr IV ASDIRECTED [facility] Last Admin: 07/05/17 23:39 Dose: 100 mls/hr Magnesium Sulfate 2 gm/ Premix 50 mls @ 25 mls/hr IV Q6H [facility] Stop: 07/07/17 03:59 Last Admin: 07/07/17 03:59 Dose: 25 mls/hr Potassium Chloride 20 meq/Lidocaine HCl 2 ml/ Sodium Chloride 112 mls @ 56 mls/ hr IV Q2H [facility] Stop: 07/05/17 13:59 Last Admin: 07/05/17 17:41 Dose: 56 mls/hr Multivitamins/Minerals 10 ml/Chromium/Copper/Manganese/Seleni/Zn 1 ml/ Amino Ac/ Electrol/Dextrose/Calcium 1,011 mls @ 82 mls/hr IV .BY DURATION [facility] Stop: 07/07/17 14:30 Last Admin: 07/06/17 18:11 Dose: 82 mls/hr Amino Ac/Electrol/Dextrose/Calcium (Clinimix E 5/15) 1,000 mls @ 82 mls/hr IV .BY DURATION [facility] Stop: 07/07/17 14:30 Last Admin: 07/07/17 06:40 Dose: 82 mls/hr Multivitamins/Minerals 10 ml/Chromium/Copper/Manganese/Seleni/Zn 1 ml/ Amino Ac/ Electrol/Dextrose/Calcium 1,011 mls @ 82 mls/hr IV .BY DURATION [facility] Stop: 07/09/17 18:00 Last Admin: 07/08/17 20:18 Dose: 82 mls/hr Amino Ac/Electrol/Dextrose/Calcium (Clinimix E 5/15) 1,000 mls @ 82 mls/hr IV .BY DURATION [facility] Stop: 07/09/17 18:00 Last Admin: 07/09/17 08:17 Dose: 82 mls/hr Iopamidol (Isovue-300 (61%)) 150 ml IV . DIRECTED PRN PRN Reason: RADIOLOGY EXAM Stop: 06/27/17 12:04 Last Admin: 06/26/17 12:04 Dose: 150 ml Labetalol HCl (Normodyne) 5 - 15 mg IVPUSH Q1H PRN PRN Reason: BLOOD PRESSURE Stop: 06/29/17 19:15 Last Admin: 06/29/17 18:13 Dose: 15 mg Lidocaine HCl (Xylocaine 2% Jelly) Confirm Administered Dose 10 ml .ROUTE .STK- MED ONE Stop: 07/07/17 10:58 Last Admin: 07/07/17 11:32 Dose: Not Given Lidocaine HCl (Xylocaine 2% Jelly) 10 ml MUCMEM ONETIME ONE Stop: 07/07/17 10:49 Last Admin: 07/07/17 10:30 Dose: 10 ml Lidocaine/Epinephrine (Xylocaine 1% With Epinephrine 1:100,000) Confirm Administered Dose 50 ml .ROUTE .STK-MED ONE Stop: 07/01/17 06:48 Last Admin: 07/01/17 07:48 Dose: 10 ml Lisinopril (Prinivil) 20 mg PO DAILY [facility] Last Admin: 06/29/17 10:48 Dose: 20 mg Lisinopril (Prinivil) 20 mg PO DAILY [facility] Last Admin: 07/04/17 09:15 Dose: Not Given Meropenem (Merrem) Confirm Administered Dose 500 mg .ROUTE .STK-MED ONE Stop: 06/29/17 12:03 Last Admin: 06/29/17 17:00 Dose: 500 mg Meropenem (Merrem) Confirm Administered Dose 500 mg .ROUTE .STK-MED ONE Stop: 07/01/17 06:47 Last Admin: 07/01/17 07:49 Dose: 500 mg Metoclopramide HCl (Reglan) 10 mg IVPUSH [facility] Stop: 07/03/17 17:02 Last Admin: 07/03/17 17:15 Dose: 10 mg Metoclopramide HCl (Reglan) 10 mg IV Q6H [facility] Last Admin: 07/07/17 04:38 Dose: 10 mg Metoprolol Succinate (Toprol Xl) 75 mg PO DAILY [facility] Last Admin: 07/03/17 09:31 Dose: 75 mg Metoprolol Tartrate (Lopressor) 2.5 mg IVPUSH Q6H [facility] Last Admin: 07/01/17 10:33 Dose: Not Given Metoprolol Tartrate (Lopressor) 2.5 mg IV Q6H [facility] Last Admin: 07/08/17 16:11 Dose: Not Given Morphine Sulfate (Morphine) 2 - 4 mg IVPUSH Q2H PRN PRN Reason: Pain (severe 7-10) Last Admin: 06/28/17 22:39 Dose: 4 mg Naloxone HCl (Narcan) 0.1 mg IV ASDIRECTED PRN PRN Reason: decreased respiratory rate Neostigmine Methylsulfate (Neostigmine) Confirm Administered Dose 5 mg .ROUTE .STK-MED ONE Stop: 06/29/17 11:43 Non-Formulary Medication (Total Parenteral Nutrition, Central) 1,000 ml .XX .Continue Order [facility] Stop: 07/08/17 16:00 Non-Formulary Medication (Total Parenteral Nutrition, Central) 1,000 ml .XX .Continue Order [facility] Stop: 07/09/17 13:00 Ondansetron HCl (Zofran) 4 mg IVPUSH ONETIME ONE Stop: 06/26/17 11:30 Last Admin: 06/26/17 11:43 Dose: 4 mg Ondansetron HCl (Zofran Odt) 4 mg PO Q6H PRN PRN Reason: Nausea able to take PO Ondansetron HCl (Zofran) 4 mg IV Q6H PRN PRN Reason: Nausea/Vomiting Last Admin: 06/27/17 23:06 Dose: 4 mg Ondansetron HCl (Zofran) Confirm Administered Dose 4 mg .ROUTE .STK-MED ONE Stop: 06/29/17 11:43 Oxycodone/Acetaminophen (Percocet 325-5 Mg) 1 - 2 tab PO Q4H PRN PRN Reason: Pain Last Admin: 07/03/17 13:10 Dose: 2 tab Pantoprazole Sodium (Protonix Iv) 40 mg IVPUSH ONETIME ONE Stop: 06/26/17 13:33 Last Admin: 06/26/17 13:49 Dose: 40 mg Pantoprazole Sodium (Protonix Iv) 40 mg IV Q12H [facility] Last Admin: 06/29/17 07:03 Dose: 40 mg Propofol (Diprivan 20 Ml) Confirm Administered Dose 200 mg .ROUTE .STK-MED ONE Stop: 06/29/17 11:43 Propofol (Diprivan 20 Ml) Confirm Administered Dose 200 mg .ROUTE .STK-MED ONE Stop: 07/01/17 07:52 Rocuronium [place] (Zemuron) Confirm Administered Dose 50 mg .ROUTE .STK-MED ONE Stop: 06/29/17 11:43 Sodium Chloride (Saline Flush) 10 ml FLUSH ASDIRECTED PRN PRN Reason: Keep Vein Open Last Admin: 06/26/17 11:43 Dose: 10 ml Succinylcholine Chloride (Quelicin) Confirm Administered Dose 200 mg .ROUTE .STK -MED ONE Stop: 06/29/17 11:43 Tamsulosin HCl (Flomax) 0.4 mg PO ONETIME ONE Stop: 07/01/17 10:01 Last Admin: 07/01/17 10:20 Dose: 0.4 mg Tamsulosin HCl (Flomax) 0.4 mg PO ONETIME ONE Stop: 07/07/17 09:01 Last Admin: 07/07/17 09:35 Dose: 0.4 mg - Exam Quality Assessment: No: Supplemental Oxygen General: Alert, Oriented, Cooperative, No Acute Distress Neck: Supple Lungs: Clear to Auscultation, Normal Respiratory Effort Cardiovascular: Regular Rate, Regular Rhythm GI/Abdominal Exam: Soft, Distended, Tender, Abnormal Bowel Sounds (hypoactive) Extremities: No Pedal Edema. No: Increased Warmth Skin: Warm, Dry, Rash (multiple small pustules scattered across his back ) Psy/Mental Status: Alert, Normal Affect - Problem List & Annotations (1) Small bowel obstruction SNOMED Code(s): 952522717 Code(s): K56.69 - OTHER INTESTINAL OBSTRUCTION Status: Acute Current Visit: Yes - Problem List Review Problem List Initiated/Reviewed/Updated: Yes - My Orders Last 24 Hours: My Active Orders 07/11/17 05:00 BASIC METABOLIC PANEL,BMP [CHEM] Timed CBC W/O DIFF,HEMOGRAM [HEME] Timed (1) - Plan Plan:: Assessment and plan - Mechanical small bowel obstruction - complicated by post-op ileus requiring replacement of NG tube. x-ray stable with ongoing ileus. Symptoms wax and wane and he's not feeling well at this point. -Postop cares per surgical service -Encourage ambulation 4 times daily and use of incentive spirometer several times an hour Fluid overload - volume status appropriate at this time. -Daily weight -reassess volume status daily -Minimize IV fluids as able Essential hypertension - blood pressure acceptable. -continue home medications Maintenance issues - - DVT prophylaxis - mechanical - GI prophylaxis - PPI - Nutrition - currently nothing by mouth, TPN started 07/06 Disposition - anticipate discharge to home after the hospital stay Peter Funez MD
[2017-07-10] MEDS: Sodium Chloride 0.9% 1,000 ML IV SCH (12:48)
[2017-07-10] MEDS: Tamsulosin 0.4 MG Cap.ER PO SCH (21:40)
[2017-07-10] MEDS: Melatonin 3 MG Tab PO SCH (21:40)
[2017-07-11] MEDS: Metoclopramide 10 MG/2 ML SDV IVPUSH SCH (01:20)
[2017-07-11] MEDS: Ondansetron 4 MG/2 ML SDV IV PRN (02:28)
[2017-07-11] MEDS: traMADol 50 MG Tab PO PRN (07:30)
[2017-07-11] MEDS: Pantoprazole 40 MG Vial IV SCH (07:33)
[2017-07-11] MEDS ORDERED: Metoclopramide 10 MG Tab PO PRN (07:34)
[2017-07-11] MEDS: SCOPOLAMINE PATCH CHECK TOP SCH (08:46)
[2017-07-11] MEDS: Docusate Sodium 100 MG Cap PO SCH ×2 (08:46→20:45)
[2017-07-11] MEDS: Lisinopril 20 MG Tab PO SCH (08:46)
[2017-07-11] MEDS: Metoprolol Succinate 25 MG Tab.ER PO SCH (08:47)
[2017-07-11] MEDS: Sodium Chloride 0.9% 1,000 ML IV SCH (08:57)
--- NOTE | 2017-07-11 12:35 | PCM.PN ---
- General Info Date of Service: 07/11/17 Functional Status: Reports: Pain Controlled, Tolerating Diet, Ambulating - Review of Systems Gastrointestinal: Denies: Abdominal Pain, Nausea Systems Review Comment:: No acute events overnight. Feeling much better today. No significant nausea or vomiting. He has been up and walking around area no heartburn at this time. Tolerating diet. - Patient Data Vitals - Most Recent: Last Vital Signs Temp 35.2 C L 07/11/17 11:17 Pulse 68 07/11/17 11:17 Resp 18 07/11/17 11:17 BP 108/58 L 07/11/17 11:17 Pulse Ox 92 L 07/11/17 11:17 Weight - Most Recent: 112.854 kg I&O - Last 24 Hours: Intake & Output 07/10/17 07/11/17 07/11/17 22:59 06:59 14:59 Intake Total 2133 1411 480 Output Total 600 1125 375 Balance 1533 286 105 Lab Results Last 24 Hours: Laboratory Results - last 24 hr 07/11/17 07/11/17 Range/Units 05:59 05:59 WBC 10.0 (4.5-11.0) K/uL RBC 4.11 L (4.30-5.90) M/uL Hgb 12.8 (12.0-15.0) g/dL Hct 38.6 L (40.0-54.0) % MCV 94 (80-98) fL MCH 31 (27-31) pg MCHC 33 (32-36) % Plt Count 244 (150-400) K/uL Sodium 140 (140-148) mmol/L Potassium 4.5 (3.6-5.2) mmol/L Chloride 104 (100-108) mmol/L Carbon Dioxide 30 (21-32) mmol/L Anion Gap 5.6 (5.0-14.0) mmol/L BUN 14 (7-18) mg/dL Creatinine 0.9 (0.8-1.3) mg/dL Est Cr Clr Drug Dosing 75.55 mL/min Estimated GFR (MDRD) > 60 (>60) Glucose 123 H (74-106) mg/dL Calcium 8.6 (8.5-10.1) mg/dL Med Orders - Current: Current Medications Benzocaine/Menthol (Cepacol Sore Throat) 1 lozenge MUCMEM Q2H PRN PRN Reason: Sore Throat Last Admin: 07/05/17 19:58 Dose: 1 sobia Calcium Carbonate/Glycine (Tums) 500 mg PO Q4H PRN PRN Reason: Indigestion Last Admin: 07/08/17 18:33 Dose: 500 mg Docusate Sodium (Colace) 100 mg PO BID [facility] Last Admin: 07/11/17 08:46 Dose: 100 mg Hydrocortisone (Hydrocortisone 1% Crm) 0 gm TOP Q1H PRN PRN Reason: pruritic rash on lower back Last Admin: 07/10/17 00:19 Dose: 1 applic Sodium Chloride (Normal Saline) 1,000 mls @ 50 mls/hr IV ASDIRECTED [facility] Last Admin: 07/11/17 08:57 Dose: 50 mls/hr Lisinopril (Prinivil) 20 mg PO DAILY [facility] Last Admin: 07/11/17 08:46 Dose: 20 mg Melatonin (Melatonin) 9 mg PO BEDTIME [facility] Last Admin: 07/10/17 21:40 Dose: 9 mg Metoclopramide HCl (Reglan) 10 mg PO Q8H PRN PRN Reason: NAUSEA Metoprolol Succinate (Toprol Xl) 75 mg PO DAILY [facility] Last Admin: 07/11/17 08:47 Dose: 75 mg Naloxone HCl (Narcan) 0.1 mg IV ASDIRECTED PRN PRN Reason: decreased respiratory rate Scopolamine Patch (Check) 0 each TOP DAILY [facility] Last Admin: 07/11/17 08:46 Dose: Not Given Ondansetron HCl (Zofran) 4 mg IV Q4H PRN PRN Reason: Nausea/Vomiting Last Admin: 07/11/17 02:28 Dose: 4 mg Pantoprazole Sodium (Protonix Iv) 40 mg IV Q24H [facility] Last Admin: 07/11/17 07:33 Dose: 40 mg Scopolamine (Transderm-Scop) 1.5 mg TRDERM Q72H PRN PRN Reason: Nausea Last Admin: 07/10/17 05:18 Dose: 1.5 mg Sodium Chloride (Saline Flush) 10 ml FLUSH ONETIME PRN PRN Reason: per radiology protocol Last Admin: 06/26/17 12:04 Dose: 10 ml Tamsulosin HCl (Flomax) 0.4 mg PO BEDTIME [facility] Last Admin: 07/10/17 21:40 Dose: 0.4 mg Tramadol HCl (Ultram) 50 mg PO Q4H PRN PRN Reason: Pain Last Admin: 07/11/17 07:30 Dose: 50 mg Discontinued Medications Acetaminophen (Tylenol) 650 mg PO Q4H PRN PRN Reason: Pain (Mild 1-3)/fever Acetaminophen (Tylenol) 650 mg RECTAL Q4H PRN PRN Reason: Mild pain/fever Al Hydroxide/Mg Hydroxide (Mag-Al Plus) 30 ml PO ONETIME ONE Stop: 06/27/17 14:31 Last Admin: 06/27/17 14:39 Dose: 30 ml Bisacodyl (Dulcolax) 10 mg PO BID [facility] Last Admin: 07/08/17 21:50 Dose: 10 mg Bupivacaine HCl (Marcaine 0.5%) Confirm Administered Dose 50 ml .ROUTE .STK-MED ONE Stop: 07/01/17 06:47 Last Admin: 07/01/17 07:48 Dose: 10 ml Al Hydroxide/Mg Hydroxide 15 (ml/ Lidocaine HCl 15 ml) 0 ml PO ONETIME ONE Stop: 07/03/17 19:07 Last Admin: 07/03/17 19:19 Dose: 30 ml Dexamethasone (Dexamethasone) Confirm Administered Dose 4 mg .ROUTE .STK-MED ONE Stop: 06/29/17 11:43 Fentanyl (Duragesic) 12 mcg TRDERM Q72H [facility] Last Admin: 07/08/17 18:33 Dose: 12 mcg Fentanyl (Sublimaze) Confirm Administered Dose 100 mcg .ROUTE .STK-MED ONE Stop: 07/01/17 07:51 Fentanyl Citrate (Fentanyl) Confirm Administered Dose 500 mcg .ROUTE .STK-MED ONE Stop: 06/29/17 11:43 Furosemide (Lasix) 20 mg IVPUSH ONETIME ONE Stop: 07/03/17 19:07 Last Admin: 07/03/17 19:19 Dose: 20 mg Furosemide (Lasix) 20 mg IVPUSH ONETIME ONE Stop: 07/04/17 09:01 Last Admin: 07/04/17 09:17 Dose: 20 mg Glycopyrrolate (Robinul) Confirm Administered Dose 1 mg .ROUTE .STK-MED ONE Stop: 06/29/17 11:43 Hydromorphone HCl (Dilaudid Ghost Writer 15 Mg In Ns 30 Ml) 0 mg IV ASDIRECTED PRN; Protocol PRN Reason: Pain Last Admin: 07/02/17 06:04 Dose: 15 mg Hydromorphone HCl (Dilaudid Ghost Writer 15 Mg In Ns 30 Ml) 15 mg IV ASDIRECTED [facility] PRN Reason: Protocol Last Admin: 07/03/17 18:34 Dose: 15 mg Hydromorphone HCl (Dilaudid Ghost Writer 15 Mg In Ns 30 Ml) 0 mg IV ASDIRECTED PRN; Protocol PRN Reason: PAIN Last Admin: 07/07/17 01:15 Dose: 15 mg Hydroxyzine HCl (Vistaril) 100 mg IM ONETIME ONE Stop: 06/29/17 18:16 Last Admin: 06/29/17 18:11 Dose: 100 mg Sodium Chloride (Normal Saline) 1,000 mls @ 500 mls/hr IV ASDIRECTED [facility] Last Admin: 06/26/17 11:42 Dose: 500 mls/hr Sodium Chloride (Normal Saline) 85 mls @ 3.5 mls/sec IV ASDIRECTED [facility] Last Admin: 06/26/17 12:04 Dose: 3.5 mls/sec Lactated Ringer's (Ringers, Lactated) 1,000 mls @ 150 mls/hr IV ASDIRECTED [facility] Last Admin: 06/26/17 14:44 Dose: 150 mls/hr Dextrose/Lactated Ringer's (Dextrose 5%-Lactated Ringers) 1,000 mls @ 100 mls/ hr IV ASDIRECTED [facility] Last Admin: 06/27/17 08:19 Dose: 100 mls/hr Potassium Cl/Dextrose/Lact Ringer's (D5 Lr With 20 Meq Kcl) 1,000 mls @ 100 mls /hr IV ASDIRECTED [facility] Last Infusion: 06/29/17 22:51 Dose: Infused Potassium Chloride 20 meq/Lidocaine HCl 2 ml/ Sodium Chloride 112 mls @ 55 mls/ hr IV Q2H [facility] Stop: 06/27/17 16:29 Last Admin: 06/27/17 14:40 Dose: 55 mls/hr Sodium Chloride (Normal Saline) 500 mls @ 500 mls/hr IV .BOLUS ONE Stop: 06/27/17 13:12 Last Admin: 06/27/17 12:34 Dose: 500 mls/hr Cefoxitin Sodium 2 gm/ Sodium (Chloride) 50 mls @ 100 mls/hr IV ONCALL ONE Stop: 06/29/17 14:59 Last Admin: 06/29/17 15:57 Dose: 100 mls/hr Lactated Ringer's (Ringers, Lactated) Confirm Administered Dose 1,000 mls @ as directed .ROUTE .[facility] ONE Stop: 06/29/17 16:30 Potassium Cl/Dextrose/Lact Ringer's (D5 Lr With 20 Meq Kcl) 1,000 mls @ 175 mls /hr IV ASDIRECTED [facility] Last Admin: 06/30/17 07:57 Dose: 175 mls/hr Cefoxitin Sodium 2 gm/ Sodium (Chloride) 50 mls @ 100 mls/hr IV Q6H [facility] Stop: 06/30/17 10:29 Last Admin: 06/30/17 10:19 Dose: 100 mls/hr Potassium Cl/Dextrose/Lact Ringer's (D5 Lr With 20 Meq Kcl) 1,000 mls @ 125 mls /hr IV ASDIRECTED [facility] Last Admin: 07/03/17 07:22 Dose: 75 mls/hr Potassium Cl/Dextrose/Lact Ringer's (D5 Lr With 20 Meq Kcl) Confirm Administered Dose 1,000 mls @ as directed .ROUTE .[facility] ONE Stop: 06/30/17 07:55 Last Admin: 06/30/17 08:48 Dose: Not Given Potassium Cl/Dextrose/Lact Ringer's (D5 Lr With 20 Meq Kcl) Confirm Administered Dose 1,000 mls @ as directed .ROUTE .[facility] ONE Stop: 06/30/17 08:00 Last Admin: 06/30/17 08:48 Dose: Not Given Potassium Cl/Dextrose/Lact Ringer's (D5 Lr With 20 Meq Kcl) 1,000 mls @ 75 mls/ hr IV ASDIRECTED [facility] Last Admin: 07/04/17 10:37 Dose: 75 mls/hr Erythromycin Lactobionate 125 (mg/ Sodium Chloride) 100 mls @ 100 mls/hr IV Q6HR [facility] Last Admin: 07/08/17 09:36 Dose: 100 mls/hr Potassium Cl/Dextrose/Lact Ringer's (D5 Lr With 20 Meq Kcl) 1,000 mls @ 50 mls/ hr IV ASDIRECTED [facility] Potassium Cl/Dextrose/Lact Ringer's (D5 Lr With 20 Meq Kcl) 1,000 mls @ 100 mls /hr IV ASDIRECTED [facility] Last Admin: 07/05/17 23:39 Dose: 100 mls/hr Magnesium Sulfate 2 gm/ Premix 50 mls @ 25 mls/hr IV Q6H [facility] Stop: 07/07/17 03:59 Last Admin: 07/07/17 03:59 Dose: 25 mls/hr Potassium Chloride 20 meq/Lidocaine HCl 2 ml/ Sodium Chloride 112 mls @ 56 mls/ hr IV Q2H [facility] Stop: 07/05/17 13:59 Last Admin: 07/05/17 17:41 Dose: 56 mls/hr Multivitamins/Minerals 10 ml/Chromium/Copper/Manganese/Seleni/Zn 1 ml/ Amino Ac/ Electrol/Dextrose/Calcium 1,011 mls @ 82 mls/hr IV .BY DURATION [facility] Stop: 07/07/17 14:30 Last Admin: 07/06/17 18:11 Dose: 82 mls/hr Amino Ac/Electrol/Dextrose/Calcium (Clinimix E 5/15) 1,000 mls @ 82 mls/hr IV .BY DURATION [facility] Stop: 07/07/17 14:30 Last Admin: 07/07/17 06:40 Dose: 82 mls/hr Multivitamins/Minerals 10 ml/Chromium/Copper/Manganese/Seleni/Zn 1 ml/ Amino Ac/ Electrol/Dextrose/Calcium 1,011 mls @ 82 mls/hr IV .BY DURATION [facility] Stop: 07/09/17 18:00 Last Admin: 07/08/17 20:18 Dose: 82 mls/hr Amino Ac/Electrol/Dextrose/Calcium (Clinimix E 5/15) 1,000 mls @ 82 mls/hr IV .BY DURATION [facility] Stop: 07/09/17 18:00 Last Admin: 07/09/17 08:17 Dose: 82 mls/hr Multivitamins/Minerals 10 ml/Chromium/Copper/Manganese/Seleni/Zn 1 ml/ Amino Ac/ Electrol/Dextrose/Calcium 1,011 mls @ 82 mls/hr IV .BY DURATION [facility] Last Admin: 07/10/17 21:25 Dose: 82 mls/hr Amino Ac/Electrol/Dextrose/Calcium (Clinimix E 5/15) 1,000 mls @ 82 mls/hr IV .BY DURATION [facility] Last Admin: 07/10/17 08:48 Dose: 82 mls/hr Iopamidol (Isovue-300 (61%)) 150 ml IV . DIRECTED PRN PRN Reason: RADIOLOGY EXAM Stop: 06/27/17 12:04 Last Admin: 06/26/17 12:04 Dose: 150 ml Labetalol HCl (Normodyne) 5 - 15 mg IVPUSH Q1H PRN PRN Reason: BLOOD PRESSURE Stop: 06/29/17 19:15 Last Admin: 06/29/17 18:13 Dose: 15 mg Lidocaine HCl (Xylocaine 2% Jelly) Confirm Administered Dose 10 ml .ROUTE .STK- MED ONE Stop: 07/07/17 10:58 Last Admin: 07/07/17 11:32 Dose: Not Given Lidocaine HCl (Xylocaine 2% Jelly) 10 ml MUCMEM ONETIME ONE Stop: 07/07/17 10:49 Last Admin: 07/07/17 10:30 Dose: 10 ml Lidocaine/Epinephrine (Xylocaine 1% With Epinephrine 1:100,000) Confirm Administered Dose 50 ml .ROUTE .STK-MED ONE Stop: 07/01/17 06:48 Last Admin: 07/01/17 07:48 Dose: 10 ml Lisinopril (Prinivil) 20 mg PO DAILY [facility] Last Admin: 06/29/17 10:48 Dose: 20 mg Lisinopril (Prinivil) 20 mg PO DAILY [facility] Last Admin: 07/04/17 09:15 Dose: Not Given Meropenem (Merrem) Confirm Administered Dose 500 mg .ROUTE .STK-MED ONE Stop: 06/29/17 12:03 Last Admin: 06/29/17 17:00 Dose: 500 mg Meropenem (Merrem) Confirm Administered Dose 500 mg .ROUTE .STK-MED ONE Stop: 07/01/17 06:47 Last Admin: 07/01/17 07:49 Dose: 500 mg Metoclopramide HCl (Reglan) 10 mg IVPUSH NOW STA Stop: 07/03/17 17:02 Last Admin: 07/03/17 17:15 Dose: 10 mg Metoclopramide HCl (Reglan) 10 mg IV Q6H [facility] Last Admin: 07/07/17 04:38 Dose: 10 mg Metoclopramide HCl (Reglan) 10 mg IVPUSH Q8H [facility] Last Admin: 07/11/17 01:20 Dose: 10 mg Metoprolol Succinate (Toprol Xl) 75 mg PO DAILY [facility] Last Admin: 07/03/17 09:31 Dose: 75 mg Metoprolol Tartrate (Lopressor) 2.5 mg IVPUSH Q6H [facility] Last Admin: 07/01/17 10:33 Dose: Not Given Metoprolol Tartrate (Lopressor) 2.5 mg IV Q6H [facility] Last Admin: 07/08/17 16:11 Dose: Not Given Metoprolol Tartrate (Lopressor) 37.5 mg PO BID [facility] Last Admin: 07/10/17 21:41 Dose: 37.5 mg Morphine Sulfate (Morphine) 2 - 4 mg IVPUSH Q2H PRN PRN Reason: Pain (severe 7-10) Last Admin: 06/28/17 22:39 Dose: 4 mg Naloxone HCl (Narcan) 0.1 mg IV ASDIRECTED PRN PRN Reason: decreased respiratory rate Neostigmine Methylsulfate (Neostigmine) Confirm Administered Dose 5 mg .ROUTE .STK-MED ONE Stop: 06/29/17 11:43 Verify Fentanyl (Patch) 0 each TOP BID [facility] Last Admin: 07/10/17 21:42 Dose: Not Given Non-Formulary Medication (Total Parenteral Nutrition, Central) 1,000 ml .XX .Continue Order [facility] Stop: 07/08/17 16:00 Non-Formulary Medication (Total Parenteral Nutrition, Central) 1,000 ml .XX .Continue Order [facility] Stop: 07/09/17 13:00 Non-Formulary Medication (Total Parenteral Nutrition, Central) 1,000 ml .XX .Continue Order [facility] Stop: 07/10/17 16:00 Ondansetron HCl (Zofran) 4 mg IVPUSH ONETIME ONE Stop: 06/26/17 11:30 Last Admin: 06/26/17 11:43 Dose: 4 mg Ondansetron HCl (Zofran Odt) 4 mg PO Q6H PRN PRN Reason: Nausea able to take PO Ondansetron HCl (Zofran) 4 mg IV Q6H PRN PRN Reason: Nausea/Vomiting Last Admin: 06/27/17 23:06 Dose: 4 mg Ondansetron HCl (Zofran) Confirm Administered Dose 4 mg .ROUTE .STK-MED ONE Stop: 06/29/17 11:43 Oxycodone/Acetaminophen (Percocet 325-5 Mg) 1 - 2 tab PO Q4H PRN PRN Reason: Pain Last Admin: 07/03/17 13:10 Dose: 2 tab Pantoprazole Sodium (Protonix Iv) 40 mg IVPUSH ONETIME ONE Stop: 06/26/17 13:33 Last Admin: 06/26/17 13:49 Dose: 40 mg Pantoprazole Sodium (Protonix Iv) 40 mg IV Q12H [facility] Last Admin: 06/29/17 07:03 Dose: 40 mg Propofol (Diprivan 20 Ml) Confirm Administered Dose 200 mg .ROUTE .STK-MED ONE Stop: 06/29/17 11:43 Propofol (Diprivan 20 Ml) Confirm Administered Dose 200 mg .ROUTE .STK-MED ONE Stop: 07/01/17 07:52 Rocuronium Natalia (Zemuron) Confirm Administered Dose 50 mg .ROUTE .STK-MED ONE Stop: 06/29/17 11:43 Sodium Chloride (Saline Flush) 10 ml FLUSH ASDIRECTED PRN PRN Reason: Keep Vein Open Last Admin: 06/26/17 11:43 Dose: 10 ml Succinylcholine Chloride (Quelicin) Confirm Administered Dose 200 mg .ROUTE .STK -MED ONE Stop: 06/29/17 11:43 Tamsulosin HCl (Flomax) 0.4 mg PO ONETIME ONE Stop: 07/01/17 10:01 Last Admin: 07/01/17 10:20 Dose: 0.4 mg Tamsulosin HCl (Flomax) 0.4 mg PO ONETIME ONE Stop: 07/07/17 09:01 Last Admin: 07/07/17 09:35 Dose: 0.4 mg - Exam Quality Assessment: No: Supplemental Oxygen General: Alert, Oriented, Cooperative, No Acute Distress Neck: Supple Lungs: Normal Respiratory Effort GI/Abdominal Exam: Soft, Non-Tender, No Distention Extremities: No Pedal Edema Skin: Warm, Dry Psy/Mental Status: Alert, Normal Affect - Problem List & Annotations (1) Small bowel obstruction SNOMED Code(s): 579934877 Code(s): K56.69 - OTHER INTESTINAL OBSTRUCTION Status: Acute Current Visit: Yes - Problem List Review Problem List Initiated/Reviewed/Updated: Yes - My Orders Last 24 Hours: My Active Orders 07/11/17 12:34 Convert IV to Saline Lock [OM.PC] Routine - Plan Plan:: Assessment and plan - Mechanical small bowel obstruction - complicated by post-op ileus requiring replacement of NG tube. Doing very well today with no pain or heartburn. He is having bowel movements. Tolerating his current diet. -Postop cares per surgical service -Encourage ambulation 4 times daily and use of incentive spirometer several times an hour Fluid overload - volume status appropriate at this time. -Daily weight -reassess volume status daily -Saline lock IV Essential hypertension - blood pressure acceptable. -continue home medications Maintenance issues - - DVT prophylaxis - mechanical - GI prophylaxis - PPI - Nutrition - full liquids Disposition - anticipate discharge to home after the hospital stay, hopefully tomorrow if stable overnight Peter Funez MD
--- NOTE | 2017-07-11 14:54 | PN ---
DATE OF SERVICE: 07/11/2017 The patient has been afebrile with stable vital signs. Complained of some nausea in the middle of the night, otherwise, his oral intake has been satisfactory. He is urinating well. We will switch to Reglan orally on a p.r.n. basis and back down on the TPN, and remove the leland and drains. We will switch him over to oral metoprolol once again and then he may be ready for discharge home tomorrow. Pranav Lima MD /[id number]
[2017-07-11] MEDS: Hydrocortisone 1% Crm 30 GM Tube TOP PRN (18:19)
[2017-07-11] MEDS: Tamsulosin 0.4 MG Cap.ER PO SCH (20:46)
[2017-07-11] MEDS: Melatonin 3 MG Tab PO SCH (20:46)
--- NOTE | 2017-07-12 09:00 | PN ---
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 They are liquid, explosive with urgency. Normal color without blood or mucus. He reports an increased amount of cramping. Oral intake 1080. Urine output 2575. Vital signs, temp max of 97.8. REVIEW OF SYSTEMS: Remainder of review of systems negative for any pertinent positives and negatives. OBJECTIVE: GENERAL: Magdy Mandujano is a 76-year-old male. He is alert and oriented, appears weak. Color pale. VITAL SIGNS: TPR 97.1, 84, 18. Blood pressure 121/71. HEENT: Negative. NECK: Supple. HEART: Regular rate and rhythm. LUNGS: Clear. ABDOMEN: Soft. Increased bowel sounds. Minimally tender. Incision looks good. EXTREMITIES: Without peripheral edema. ASSESSMENT: 1. SP postop ileus. 2. 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 3. 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 Date of surgery 06/29/2017. PLAN: 1. Check stools for C diff. 2. Discontinue IV Protonix. 3. Rx probiotic 2 b.i.d. 4. We will evaluate p.r.n. or in a.m. Ara Wang PA-C /[id number]
[2017-07-12] MEDS: SCOPOLAMINE PATCH CHECK TOP SCH (09:37)
[2017-07-12] MEDS: Lactobacillus Rhamnosus GG (Probiotic) Cap PO SCH ×2 (09:37→20:28)
[2017-07-12] MEDS: Lisinopril 20 MG Tab PO SCH (09:38)
[2017-07-12] MEDS: Metoprolol Succinate 25 MG Tab.ER PO SCH (09:39)
[2017-07-12] MEDS: Pantoprazole 40 MG Vial IV SCH (09:41)
--- NOTE | 2017-07-12 12:56 | PCM.PN ---
- General Info Date of Service: 07/12/17 Functional Status: Reports: Pain Controlled, Tolerating Diet, Ambulating - Review of Systems Gastrointestinal: Reports: Abdominal Pain, Diarrhea Systems Review Comment:: Patient had multiple loose and watery bowel movements overnight with more than 15 trips to the bathroom. He has not had any fevers. This morning he reports mild to moderate generalized abdominal pain and some nausea but no heartburn. Abdominal pain seemed a little worse after breakfast but not too bad after lunch. Diarrhea seems to have slowed down some as the day has progressed. Patient is very nervous about going home with this level of diarrhea and his increasing pain. - Patient Data Vitals - Most Recent: Last Vital Signs Temp 35.8 C 07/12/17 11:15 Pulse 84 07/12/17 11:15 Resp 18 07/12/17 11:15 BP 122/74 07/12/17 11:15 Pulse Ox 96 07/12/17 11:15 Weight - Most Recent: 109.089 kg I&O - Last 24 Hours: Intake & Output 07/11/17 07/12/17 07/12/17 22:59 06:59 14:59 Intake Total 260 100 490 Balance 260 100 490 Lab Results Last 24 Hours: Laboratory Results - last 24 hr 07/12/17 07/12/17 07/12/17 Range/Units 08:13 08:13 08:13 WBC 11.0 (4.5-11.0) K/uL RBC 4.44 (4.30-5.90) M/uL Hgb 13.8 (12.0-15.0) g/dL Hct 40.9 (40.0-54.0) % MCV 92 (80-98) fL MCH 31 (27-31) pg MCHC 34 (32-36) % Plt Count 277 (150-400) K/uL Sodium 138 L (140-148) mmol/L Potassium 4.3 (3.6-5.2) mmol/L Chloride 102 (100-108) mmol/L Carbon Dioxide 29 (21-32) mmol/L Anion Gap 11.3 (5.0-14.0) mmol/L BUN 16 (7-18) mg/dL Creatinine 0.9 (0.8-1.3) mg/dL Est Cr Clr Drug Dosing 75.55 mL/min Estimated GFR (MDRD) > 60 (>60) Glucose 102 (74-106) mg/dL Calcium 8.7 (8.5-10.1) mg/dL Phosphorus 3.4 (2.5-4.9) mg/dL Magnesium 1.8 (1.8-2.4) mg/dL Total Bilirubin 0.7 (0.2-1.0) mg/dL AST 33 D (15-37) U/L ALT 48 D (12-78) U/L Alkaline Phosphatase 69 (46-116) U/L Total Protein 7.1 (6.4-8.2) g/dL Albumin 3.0 L (3.4-5.0) g/dL Globulin 4.1 H (2.3-3.5) g/dL Albumin/Globulin Ratio 0.7 L (1.2-2.2) Armond Results Last 24 Hours: Microbiology 07/12/17 07:22 Clostridium difficile (PCR) - Final Stool / Feces NEGATIVE CDIFF TOXIN Med Orders - Current: Current Medications Benzocaine/Menthol (Cepacol Sore Throat) 1 lozenge MUCMEM Q2H PRN PRN Reason: Sore Throat Last Admin: 07/05/17 19:58 Dose: 1 sobia Calcium Carbonate/Glycine (Tums) 500 mg PO Q4H PRN PRN Reason: Indigestion Last Admin: 07/08/17 18:33 Dose: 500 mg Hydrocortisone (Hydrocortisone 1% Crm) 0 gm TOP Q1H PRN PRN Reason: pruritic rash on lower back Last Admin: 07/11/17 18:19 Dose: 1 applic Lactobacillus Rhamnosus (Culturelle) 2 cap PO BID [facility] Last Admin: 07/12/17 09:37 Dose: 2 cap Lisinopril (Prinivil) 20 mg PO DAILY [facility] Last Admin: 07/12/17 09:38 Dose: 20 mg Melatonin (Melatonin) 9 mg PO BEDTIME [facility] Last Admin: 07/11/17 20:46 Dose: 9 mg Metoclopramide HCl (Reglan) 10 mg PO Q8H PRN PRN Reason: NAUSEA Metoprolol Succinate (Toprol Xl) 75 mg PO DAILY [facility] Last Admin: 07/12/17 09:39 Dose: 75 mg Naloxone HCl (Narcan) 0.1 mg IV ASDIRECTED PRN PRN Reason: decreased respiratory rate Scopolamine Patch (Check) 0 each TOP DAILY [facility] Last Admin: 07/12/17 09:37 Dose: Not Given Ondansetron HCl (Zofran) 4 mg IV Q4H PRN PRN Reason: Nausea/Vomiting Last Admin: 07/11/17 02:28 Dose: 4 mg Scopolamine (Transderm-Scop) 1.5 mg TRDERM Q72H PRN PRN Reason: Nausea Last Admin: 07/10/17 05:18 Dose: 1.5 mg Sodium Chloride (Saline Flush) 10 ml FLUSH ONETIME PRN PRN Reason: per radiology protocol Last Admin: 06/26/17 12:04 Dose: 10 ml Tamsulosin HCl (Flomax) 0.4 mg PO BEDTIME [facility] Last Admin: 07/11/17 20:46 Dose: 0.4 mg Tramadol HCl (Ultram) 50 mg PO Q4H PRN PRN Reason: Pain Last Admin: 07/11/17 07:30 Dose: 50 mg Discontinued Medications Acetaminophen (Tylenol) 650 mg PO Q4H PRN PRN Reason: Pain (Mild 1-3)/fever Acetaminophen (Tylenol) 650 mg RECTAL Q4H PRN PRN Reason: Mild pain/fever Al Hydroxide/Mg Hydroxide (Mag-Al Plus) 30 ml PO ONETIME ONE Stop: 06/27/17 14:31 Last Admin: 06/27/17 14:39 Dose: 30 ml Bisacodyl (Dulcolax) 10 mg PO BID [facility] Last Admin: 07/08/17 21:50 Dose: 10 mg Bupivacaine HCl (Marcaine 0.5%) Confirm Administered Dose 50 ml .ROUTE .STK-MED ONE Stop: 07/01/17 06:47 Last Admin: 07/01/17 07:48 Dose: 10 ml Al Hydroxide/Mg Hydroxide 15 (ml/ Lidocaine HCl 15 ml) 0 ml PO ONETIME ONE Stop: 07/03/17 19:07 Last Admin: 07/03/17 19:19 Dose: 30 ml Dexamethasone (Dexamethasone) Confirm Administered Dose 4 mg .ROUTE .STK-MED ONE Stop: 06/29/17 11:43 Docusate Sodium (Colace) 100 mg PO BID [facility] Last Admin: 07/11/17 20:45 Dose: Not Given Fentanyl (Duragesic) 12 mcg TRDERM Q72H [facility] Last Admin: 07/08/17 18:33 Dose: 12 mcg Fentanyl (Sublimaze) Confirm Administered Dose 100 mcg .ROUTE .STK-MED ONE Stop: 07/01/17 07:51 Fentanyl Citrate (Fentanyl) Confirm Administered Dose 500 mcg .ROUTE .STK-MED ONE Stop: 06/29/17 11:43 Furosemide (Lasix) 20 mg IVPUSH ONETIME ONE Stop: 07/03/17 19:07 Last Admin: 07/03/17 19:19 Dose: 20 mg Furosemide (Lasix) 20 mg IVPUSH ONETIME ONE Stop: 07/04/17 09:01 Last Admin: 07/04/17 09:17 Dose: 20 mg Glycopyrrolate (Robinul) Confirm Administered Dose 1 mg .ROUTE .STK-MED ONE Stop: 06/29/17 11:43 Hydromorphone HCl (Dilaudid Contracts Law Professor 15 Mg In Ns 30 Ml) 0 mg IV ASDIRECTED PRN; Protocol PRN Reason: Pain Last Admin: 07/02/17 06:04 Dose: 15 mg Hydromorphone HCl (Dilaudid Contracts Law Professor 15 Mg In Ns 30 Ml) 15 mg IV ASDIRECTED [facility] PRN Reason: Protocol Last Admin: 07/03/17 18:34 Dose: 15 mg Hydromorphone HCl (Dilaudid Contracts Law Professor 15 Mg In Ns 30 Ml) 0 mg IV ASDIRECTED PRN; Protocol PRN Reason: PAIN Last Admin: 07/07/17 01:15 Dose: 15 mg Hydroxyzine HCl (Vistaril) 100 mg IM ONETIME ONE Stop: 06/29/17 18:16 Last Admin: 06/29/17 18:11 Dose: 100 mg Sodium Chloride (Normal Saline) 1,000 mls @ 500 mls/hr IV ASDIRECTED [facility] Last Admin: 06/26/17 11:42 Dose: 500 mls/hr Sodium Chloride (Normal Saline) 85 mls @ 3.5 mls/sec IV ASDIRECTED [facility] Last Admin: 06/26/17 12:04 Dose: 3.5 mls/sec Lactated Ringer's (Ringers, Lactated) 1,000 mls @ 150 mls/hr IV ASDIRECTED [facility] Last Admin: 06/26/17 14:44 Dose: 150 mls/hr Dextrose/Lactated Ringer's (Dextrose 5%-Lactated Ringers) 1,000 mls @ 100 mls/ hr IV ASDIRECTED [facility] Last Admin: 06/27/17 08:19 Dose: 100 mls/hr Potassium Cl/Dextrose/Lact Ringer's (D5 Lr With 20 Meq Kcl) 1,000 mls @ 100 mls /hr IV ASDIRECTED [facility] Last Infusion: 06/29/17 22:51 Dose: Infused Potassium Chloride 20 meq/Lidocaine HCl 2 ml/ Sodium Chloride 112 mls @ 55 mls/ hr IV Q2H [facility] Stop: 06/27/17 16:29 Last Admin: 06/27/17 14:40 Dose: 55 mls/hr Sodium Chloride (Normal Saline) 500 mls @ 500 mls/hr IV .BOLUS ONE Stop: 06/27/17 13:12 Last Admin: 06/27/17 12:34 Dose: 500 mls/hr Cefoxitin Sodium 2 gm/ Sodium (Chloride) 50 mls @ 100 mls/hr IV ONCALL ONE Stop: 06/29/17 14:59 Last Admin: 06/29/17 15:57 Dose: 100 mls/hr Lactated Ringer's (Ringers, Lactated) Confirm Administered Dose 1,000 mls @ as directed .ROUTE .STK-MED ONE Stop: 06/29/17 16:30 Potassium Cl/Dextrose/Lact Ringer's (D5 Lr With 20 Meq Kcl) 1,000 mls @ 175 mls /hr IV ASDIRECTED [facility] Last Admin: 06/30/17 07:57 Dose: 175 mls/hr Cefoxitin Sodium 2 gm/ Sodium (Chloride) 50 mls @ 100 mls/hr IV Q6H [facility] Stop: 06/30/17 10:29 Last Admin: 06/30/17 10:19 Dose: 100 mls/hr Potassium Cl/Dextrose/Lact Ringer's (D5 Lr With 20 Meq Kcl) 1,000 mls @ 125 mls /hr IV ASDIRECTED [facility] Last Admin: 07/03/17 07:22 Dose: 75 mls/hr Potassium Cl/Dextrose/Lact Ringer's (D5 Lr With 20 Meq Kcl) Confirm Administered Dose 1,000 mls @ as directed .ROUTE .STK-MED ONE Stop: 06/30/17 07:55 Last Admin: 06/30/17 08:48 Dose: Not Given Potassium Cl/Dextrose/Lact Ringer's (D5 Lr With 20 Meq Kcl) Confirm Administered Dose 1,000 mls @ as directed .ROUTE .STK-MED ONE Stop: 06/30/17 08:00 Last Admin: 06/30/17 08:48 Dose: Not Given Potassium Cl/Dextrose/Lact Ringer's (D5 Lr With 20 Meq Kcl) 1,000 mls @ 75 mls/ hr IV ASDIRECTED [facility] Last Admin: 07/04/17 10:37 Dose: 75 mls/hr Erythromycin Lactobionate 125 (mg/ Sodium Chloride) 100 mls @ 100 mls/hr IV Q6HR [facility] Last Admin: 07/08/17 09:36 Dose: 100 mls/hr Potassium Cl/Dextrose/Lact Ringer's (D5 Lr With 20 Meq Kcl) 1,000 mls @ 50 mls/ hr IV ASDIRECTED [facility] Potassium Cl/Dextrose/Lact Ringer's (D5 Lr With 20 Meq Kcl) 1,000 mls @ 100 mls /hr IV ASDIRECTED [facility] Last Admin: 07/05/17 23:39 Dose: 100 mls/hr Magnesium Sulfate 2 gm/ Premix 50 mls @ 25 mls/hr IV Q6H [facility] Stop: 07/07/17 03:59 Last Admin: 07/07/17 03:59 Dose: 25 mls/hr Potassium Chloride 20 meq/Lidocaine HCl 2 ml/ Sodium Chloride 112 mls @ 56 mls/ hr IV Q2H [facility] Stop: 07/05/17 13:59 Last Admin: 07/05/17 17:41 Dose: 56 mls/hr Sodium Chloride (Normal Saline) 1,000 mls @ 50 mls/hr IV ASDIRECTED [facility] Last Admin: 07/11/17 08:57 Dose: 50 mls/hr Multivitamins/Minerals 10 ml/Chromium/Copper/Manganese/Seleni/Zn 1 ml/ Amino Ac/ Electrol/Dextrose/Calcium 1,011 mls @ 82 mls/hr IV .BY DURATION [facility] Stop: 07/07/17 14:30 Last Admin: 07/06/17 18:11 Dose: 82 mls/hr Amino Ac/Electrol/Dextrose/Calcium (Clinimix E 04/06) 1,000 mls @ 82 mls/hr IV .BY DURATION [facility] Stop: 07/07/17 14:30 Last Admin: 07/07/17 06:40 Dose: 82 mls/hr Multivitamins/Minerals 10 ml/Chromium/Copper/Manganese/Seleni/Zn 1 ml/ Amino Ac/ Electrol/Dextrose/Calcium 1,011 mls @ 82 mls/hr IV .BY DURATION [facility] Stop: 07/09/17 18:00 Last Admin: 07/08/17 20:18 Dose: 82 mls/hr Amino Ac/Electrol/Dextrose/Calcium (Clinimix E 5/15) 1,000 mls @ 82 mls/hr IV .BY DURATION [facility] Stop: 07/09/17 18:00 Last Admin: 07/09/17 08:17 Dose: 82 mls/hr Multivitamins/Minerals 10 ml/Chromium/Copper/Manganese/Seleni/Zn 1 ml/ Amino Ac/ Electrol/Dextrose/Calcium 1,011 mls @ 82 mls/hr IV .BY DURATION [facility] Last Admin: 07/10/17 21:25 Dose: 82 mls/hr Amino Ac/Electrol/Dextrose/Calcium (Clinimix E 5/15) 1,000 mls @ 82 mls/hr IV .BY DURATION [facility] Last Admin: 07/10/17 08:48 Dose: 82 mls/hr Iopamidol (Isovue-300 (61%)) 150 ml IV . DIRECTED PRN PRN Reason: RADIOLOGY EXAM Stop: 06/27/17 12:04 Last Admin: 06/26/17 12:04 Dose: 150 ml Labetalol HCl (Normodyne) 5 - 15 mg IVPUSH Q1H PRN PRN Reason: BLOOD PRESSURE Stop: 06/29/17 19:15 Last Admin: 06/29/17 18:13 Dose: 15 mg Lidocaine HCl (Xylocaine 2% Jelly) Confirm Administered Dose 10 ml .ROUTE .STK- MED ONE Stop: 07/07/17 10:58 Last Admin: 07/07/17 11:32 Dose: Not Given Lidocaine HCl (Xylocaine 2% Jelly) 10 ml MUCMEM ONETIME ONE Stop: 07/07/17 10:49 Last Admin: 07/07/17 10:30 Dose: 10 ml Lidocaine/Epinephrine (Xylocaine 1% With Epinephrine 1:100,000) Confirm Administered Dose 50 ml .ROUTE .STK-MED ONE Stop: 07/01/17 06:48 Last Admin: 07/01/17 07:48 Dose: 10 ml Lisinopril (Prinivil) 20 mg PO DAILY [facility] Last Admin: 06/29/17 10:48 Dose: 20 mg Lisinopril (Prinivil) 20 mg PO DAILY [facility] Last Admin: 07/04/17 09:15 Dose: Not Given Meropenem (Merrem) Confirm Administered Dose 500 mg .ROUTE .STK-MED ONE Stop: 06/29/17 12:03 Last Admin: 06/29/17 17:00 Dose: 500 mg Meropenem (Merrem) Confirm Administered Dose 500 mg .ROUTE .STK-MED ONE Stop: 07/01/17 06:47 Last Admin: 07/01/17 07:49 Dose: 500 mg Metoclopramide HCl (Reglan) 10 mg IVPUSH [facility] Stop: 07/03/17 17:02 Last Admin: 07/03/17 17:15 Dose: 10 mg Metoclopramide HCl (Reglan) 10 mg IV Q6H [facility] Last Admin: 07/07/17 04:38 Dose: 10 mg Metoclopramide HCl (Reglan) 10 mg IVPUSH Q8H [facility] Last Admin: 07/11/17 01:20 Dose: 10 mg Metoprolol Succinate (Toprol Xl) 75 mg PO DAILY [facility] Last Admin: 07/03/17 09:31 Dose: 75 mg Metoprolol Tartrate (Lopressor) 2.5 mg IVPUSH Q6H [facility] Last Admin: 07/01/17 10:33 Dose: Not Given Metoprolol Tartrate (Lopressor) 2.5 mg IV Q6H [facility] Last Admin: 07/08/17 16:11 Dose: Not Given Metoprolol Tartrate (Lopressor) 37.5 mg PO BID [facility] Last Admin: 07/10/17 21:41 Dose: 37.5 mg Morphine Sulfate (Morphine) 2 - 4 mg IVPUSH Q2H PRN PRN Reason: Pain (severe 7-10) Last Admin: 06/28/17 22:39 Dose: 4 mg Naloxone HCl (Narcan) 0.1 mg IV ASDIRECTED PRN PRN Reason: decreased respiratory rate Neostigmine Methylsulfate (Neostigmine) Confirm Administered Dose 5 mg .ROUTE .STK-MED ONE Stop: 06/29/17 11:43 Verify Fentanyl (Patch) 0 each TOP BID [facility] Last Admin: 07/10/17 21:42 Dose: Not Given Non-Formulary Medication (Total Parenteral Nutrition, Central) 1,000 ml .XX .Continue Order [facility] Stop: 07/08/17 16:00 Non-Formulary Medication (Total Parenteral Nutrition, Central) 1,000 ml .XX .Continue Order [facility] Stop: 07/09/17 13:00 Non-Formulary Medication (Total Parenteral Nutrition, Central) 1,000 ml .XX .Continue Order [facility] Stop: 07/10/17 16:00 Ondansetron HCl (Zofran) 4 mg IVPUSH ONETIME ONE Stop: 06/26/17 11:30 Last Admin: 06/26/17 11:43 Dose: 4 mg Ondansetron HCl (Zofran Odt) 4 mg PO Q6H PRN PRN Reason: Nausea able to take PO Ondansetron HCl (Zofran) 4 mg IV Q6H PRN PRN Reason: Nausea/Vomiting Last Admin: 06/27/17 23:06 Dose: 4 mg Ondansetron HCl (Zofran) Confirm Administered Dose 4 mg .ROUTE .STK-MED ONE Stop: 06/29/17 11:43 Oxycodone/Acetaminophen (Percocet 325-5 Mg) 1 - 2 tab PO Q4H PRN PRN Reason: Pain Last Admin: 07/03/17 13:10 Dose: 2 tab Pantoprazole Sodium (Protonix Iv) 40 mg IVPUSH ONETIME ONE Stop: 06/26/17 13:33 Last Admin: 06/26/17 13:49 Dose: 40 mg Pantoprazole Sodium (Protonix Iv) 40 mg IV Q12H [facility] Last Admin: 06/29/17 07:03 Dose: 40 mg Pantoprazole Sodium (Protonix Iv) 40 mg IV Q24H [facility] Last Admin: 07/12/17 09:41 Dose: Not Given Propofol (Diprivan 20 Ml) Confirm Administered Dose 200 mg .ROUTE .STK-MED ONE Stop: 06/29/17 11:43 Propofol (Diprivan 20 Ml) Confirm Administered Dose 200 mg .ROUTE .STK-MED ONE Stop: 07/01/17 07:52 Rocuronium [place] (Zemuron) Confirm Administered Dose 50 mg .ROUTE .STK-MED ONE Stop: 06/29/17 11:43 Sodium Chloride (Saline Flush) 10 ml FLUSH ASDIRECTED PRN PRN Reason: Keep Vein Open Last Admin: 06/26/17 11:43 Dose: 10 ml Succinylcholine Chloride (Quelicin) Confirm Administered Dose 200 mg .ROUTE .STK -MED ONE Stop: 06/29/17 11:43 Tamsulosin HCl (Flomax) 0.4 mg PO ONETIME ONE Stop: 07/01/17 10:01 Last Admin: 07/01/17 10:20 Dose: 0.4 mg Tamsulosin HCl (Flomax) 0.4 mg PO ONETIME ONE Stop: 07/07/17 09:01 Last Admin: 07/07/17 09:35 Dose: 0.4 mg - Exam Quality Assessment: No: Supplemental Oxygen General: Alert, Oriented, Cooperative, No Acute Distress Neck: Supple Lungs: Normal Respiratory Effort GI/Abdominal Exam: Soft, Distended (mild), Tender (mild diffuse) Extremities: No Pedal Edema. No: Increased Warmth Skin: Warm, Dry Psy/Mental Status: Alert, Normal Affect - Problem List & Annotations (1) Small bowel obstruction SNOMED Code(s): 853592884 Code(s): K56.69 - OTHER INTESTINAL OBSTRUCTION Status: Acute Current Visit: Yes - Problem List Review Problem List Initiated/Reviewed/Updated: Yes - My Orders Last 24 Hours: My Active Orders 07/11/17 12:34 Convert IV to Saline Lock [OM.PC] Routine - Plan Plan:: Assessment and plan - Mechanical small bowel obstruction - complicated by post-op ileus requiring replacement of NG tube. Had been doing better but now had significant diarrhea overnight and increased pain this morning. Looks a little better as the day is going on. I don't believe he is safe for discharge today with significant diarrhea and increasing pain. -Postop cares per surgical service -Encourage ambulation 4 times daily and use of incentive spirometer several times an hour Fluid overload - volume status appropriate at this time. -Daily weight -reassess volume status daily -Saline lock IV Essential hypertension - blood pressure acceptable. -continue home medications Maintenance issues - - DVT prophylaxis - mechanical - GI prophylaxis - PPI - Nutrition - full liquids Disposition - anticipate discharge to home after the hospital stay, hopefully in the next day or 2 if his diarrhea settles down and pain resolves. Peter Funez MD
[2017-07-12] MEDS ORDERED: Loperamide 2 MG Cap PO PRN (15:05)
[2017-07-12] MEDS: Hydrocortisone 1% Crm 30 GM Tube TOP PRN (19:27)
[2017-07-12] MEDS: Tamsulosin 0.4 MG Cap.ER PO SCH (20:29)
[2017-07-12] MEDS: Melatonin 3 MG Tab PO SCH (20:29)
[2017-07-13 07:05] VITALS: BP 118/79
[2017-07-13] MEDS: Lactobacillus Rhamnosus GG (Probiotic) Cap PO SCH (08:11)
[2017-07-13] MEDS: Lisinopril 20 MG Tab PO SCH (08:12)
[2017-07-13] MEDS: Metoprolol Succinate 25 MG Tab.ER PO SCH (08:43)
--- NOTE | 2017-07-13 09:06 | CR ---
Abdomen 2V AP Flat Upright INDICATION: Post Op ileus FINDINGS: Comparison 07/10/2017. Again demonstrated are loops of mildly dilated small bowel in the ce ntral abdomen that are stable to slightly worsened since prior exam. Surgical clips right upper quad rant. Surgical skin leland in place. Paucity of gas in the colon. Findings suggest ileus versus ear ly partial small bowel obstruction.
--- NOTE | 2017-07-13 09:07 | CR ---
Abdomen 2V AP Flat Upright INDICATION: Post Op ileus FINDINGS: Comparison 07/12/2017. Interval improvement of dilated small bowel loops in the central abd omen. Scattered gas in the colon. Surgical clips right upper quadrant. Findings suggest improving po stoperative ileus.
--- NOTE | 2017-07-13 09:51 | CR ---
Abdomen 2V AP Flat Upright INDICATION: Post Op ileus FINDINGS: Comparison 07/11/2017. Mild interval worsening of dilated loops of small bowel in the centr al abdomen. Paucity of gas in the colon. Surgical clips right upper quadrant.
[2017-07-13] MEDS: Scopolamine 1.5 MG Transdermal Patch TRDERM PRN ×2 (10:36→11:31)
[2017-07-13] MEDS: SCOPOLAMINE PATCH CHECK TOP SCH (11:33)
--- NOTE | 2017-07-14 02:06 | DISCH ---
ADMISSION DIAGNOSIS: Small bowel obstruction. DISCHARGE DIAGNOSES: 1. Exploratory laparotomy with lysis of adhesions, small bowel resection, enterotomy for tube decompression of small bowel, and excision of peritoneal mass involving the transverse colon, appendix, epiploica for adhesive small bowel obstruction with segment of small bowel affected by stricturing and mucosal hemorrhage, marked distention of proximal small bowel and peritoneal mass associated with transverse colon, appendix, and epiploica. Date of surgery 06/26/2017. 2. Delayed primary closure for open abdominal incision on 07/01/2017. HISTORY: Magdy Mandujano is a 76-year-old male, who was admitted with a small bowel obstruction. He was admitted on 06/26/2017. This failed to resolve after a period of nasogastric suctioning. After preoperative evaluation and discussion of possible risks and possible complications, he wished to proceed with surgical procedure. HOSPITAL COURSE: Surgery was on 06/29/2017 with delayed primary closure on 07/01/2017. He had no operative complications. On 07/02/2017, he was started on bowel stimulation. On 07/03/2017, he was started on a clear liquid diet. IV was decreased. On 07/04/2017, he remained afebrile. He did receive a dose of IV Lasix for some fluid overload. He did have increased abdominal distention and he did develop a postop ileus, was started on Reglan and IV erythromycin. He also was started on IV metoprolol with NG in place. On 07/05/2017, he had several bowel movements. Abdominal x-rays improved. He continued to have the NG suctioning and potassium and magnesium were low and these were replaced. On 07/06/2017, PICC line was placed and he was started on TPN. On 08/07/2017, he was stable. He started to retain urine, which was noted on a postvoid bladder scan. Aragon catheter was put back in. He was restarted on Flomax. NG was discontinued. On 08/08/2017, he continued on the TPN therapy. Aragon catheter was discontinued and started on a full liquid diet. He continued to progress. On 07/09, he was changed to oral pain medication. 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 Appetite was still decreased. On 07/10, he did have one bowel movement and voiding without difficulty. Vital signs were stable. TPN continued for additional nutrition. On 07/11, he did have some nausea during the night. Reglan was changed to p.r.n. TPN was decreased and discontinued. On 07/12/2017, he had greater than 15 bowel movements within 12 hours. C. diff was negative. He was started on probiotics. Diet remained the same. On 07/13/2017, he was ready to be discharged to home. Vital signs were stable. Bowel movements have improved in number and his appetite has been stable and remainder of review of systems negative for any pertinent positives and negatives. OBJECTIVE: GENERAL: Magdy Mandujano is a 76-year-old male. VITAL SIGNS: Height is 6 feet. Weight is 238 pounds. TPR 96, 77, 17, and blood pressure 118/79. HEENT: Negative. NECK: Supple. HEART: Regular rate and rhythm. ABDOMEN: Soft and nontender. STANLEY has put small amount. EXTREMITIES: Without peripheral edema. DISPOSITION: Discharged to home. CONDITION: Stable and improving. FOLLOWUP APPOINTMENT: With Pranav Lima MD on 07/22/2017 at 10 a.m. HOME PRESCRIPTIONS: 1. Culturelle probiotic 2 tablets oral twice daily for 1 month. 2. Flomax 0.4 mg at bedtime, #30. 3. Tramadol 50 mg as needed every 6 hours p.r.n. pain, #30. 4. Maalox advanced 30 mL p.r.n. 5. Lisinopril 20 mg oral daily. 6. Metoprolol succinate 75 mg oral daily. 7. Protonix 40 mg oral twice daily. DIET: After discharge, drink 8 to 10 glasses of water a day. GI soft low residue diet. ACTIVITY: No lifting greater than 10 pounds for 6 weeks[address] Driving, do not drive on pain medication. May shower. Notify provider if any fever, increased pain, swelling, redness, nausea, or vomiting. Wound incision care, keep site clean and dry. Wear abdominal binder for 2 weeks and then as tolerated. SPECIAL INSTRUCTION: Use incentive spirometer 10 times every hour while awake for 1 week and take off scopolamine patch on , 07/16/2017.
== END 2017-07-13 11:05 | disposition home health service (06) | DRG 345 ==
LOC: JP.ED 09:04 → JP.MS 15:52
PROVIDERS: ADMIT Internal Medicine; ATTEND Hospitalist
PROC: 0DB80ZX Excision of Small Intestine, Open Approach, Diagnostic (ICD-10-PCS; principal; 2017-06-29)
PROC: 0D980ZZ Drainage of Small Intestine, Open Approach (ICD-10-PCS; principal; 2017-06-29)
PROC: 0DBL0ZX Excision of Transverse Colon, Open Approach, Diagnostic (ICD-10-PCS; principal; 2017-06-29)
PROC: 0WQF0ZZ Repair Abdominal Wall, Open Approach (ICD-10-PCS; 2017-07-01)
PROC: 02H633Z Insertion of Infusion Device into Right Atrium, Percutaneous Approach (ICD-10-PCS; 2017-07-06)
DX: K56.69 Other intestinal obstruction (principal); K57.30 Diverticulosis of large intestine without perforation or abscess without bleeding; K55.1 Chronic vascular disorders of intestine; K56.7 Ileus, unspecified; K63.89 Other specified diseases of intestine; R19.09 Other intra-abdominal and pelvic swelling, mass and lump; R10.31 Right lower quadrant pain; R14.0 Abdominal distension (gaseous); R11.2 Nausea with vomiting, unspecified; Z48.1 Encounter for planned postprocedural wound closure; E87.70 Fluid overload, unspecified; E87.6 Hypokalemia; E83.42 Hypomagnesemia; R19.7 Diarrhea, unspecified; R33.9 Retention of urine, unspecified; M19.90 Unspecified osteoarthritis, unspecified site; M54.9 Dorsalgia, unspecified; G89.29 Other chronic pain; K21.9 Gastro-esophageal reflux disease without esophagitis; I25.2 Old myocardial infarction; H54.7 Unspecified visual loss; E86.0 Dehydration; I10 Essential (primary) hypertension; Z66 Do not resuscitate; Z87.891 Personal history of nicotine dependence; Z96.659 Presence of unspecified artificial knee joint
CPT/HCPCS: 36415; 74177 ×2; 80053; 81001; 82150; 83690; 84484; 85025; 86140; 93005; 93010; 96361; 96374; 96375; 99285 ×2; C9113; J2405; J7030; J7040; J7050 ×2; J7120; 51798; 71010; 71010-26; 74020; 74020-26; 80048; 83735; 83880; 84100; 85027; 87493; 88305; 88307; 94762; 97110-GP; 97116-GP; 97162-GP; 97530-GP; A9270-GY; J0330; J0694; J1100; J1170; J1364; J1940; J2185; J2270; J2704; J2710; J2765; J3010; J3410; J3475; J3480; J3490; J7042

== ENCOUNTER 2019-09-05 11:19 | Day surgery (SDC) | payer MEDICARE, BC ==
[~2019-09-05 11:19] MED LIST: Bupivacaine 0.5% 30 ML SDV ONE; Lidocaine 2% 20 ML MDV ONE
[2019-09-05] MEDS ORDERED: Lactated Ringers 1,000 ML IV SCH (11:45)
[2019-09-05] MEDS ORDERED: Midazolam 1 MG/ML 2 ML SDV ONE (12:00)
[2019-09-05] MEDS ORDERED: fentaNYL 100 MCG/2 ML SDV ONE (12:00)
[2019-09-05] MEDS ORDERED: Propofol 200 MG/20 ML SDV ONE (12:00)
[2019-09-05] MEDS ORDERED: ceFAZolin 2 GM in Premix Bag 1 BAG IV ONE (12:15)
[2019-09-05 14:14] VITALS: BP 167/92; PULSE 62
--- NOTE | 2019-09-05 17:42 | OR ---
DATE OF PROCEDURE: 09/05/2019 SURGEON: Alec Uribe DPM PMO BUSINESS ANALYST: None. 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 POSTOPERATIVE DIAGNOSIS: Osteomyelitis of distal phalanx, right 3rd toe. ANESTHESIA: Local with IV sedation. HEMOSTASIS: Obtained with an ankle tourniquet on the right ankle at 250 mmHg. ESTIMATED BLOOD LOSS: 5 mL. MATERIALS: None. INJECTABLES: 10 mL of Marcaine, 0.5% plain were injected preoperatively. PATHOLOGY: Distal right 3rd toe sent. CONDITION: Stable. INDICATIONS FOR SURGERY: Osteomyelitis, right distal 3rd toe. DESCRIPTION OF PROCEDURE: The patient was brought to the operating room and placed on the operating table in supine position. Following IV sedation, anesthesia was obtained with a total of 10 mL of Marcaine, 0.5% plain. The right foot was then scrubbed, prepped, and draped in the usual aseptic manner, raised to 60 degrees for hemostasis. Tourniquet was inflated. Esmarch was not used. Foot was lowered to table. Skin incision was made in a fishmouth-type incision, slightly distal to the proximal interphalangeal joint on the right 3rd toe and carried straight to bone. The right 3rd toe was then disarticulated at the proximal interphalangeal joint and then the incision was flushed out with copious amounts of sterile saline. The distal aspect of the proximal phalanx was healthy and strong, and the soft tissue around the bone was healthy, and there was no purulence. No malodor. No signs of infection. So, the incision was then closed with 3-0 nylon in a simple interrupted configuration. The right foot was then dressed with Xeroform, 4x4s, Kerlix, and Coban. The patient was returned to the recovery room with vital signs stable and vascular status intact to both feet. The patient was told to rest and elevate the right leg and to keep dressings clean, dry, and intact; to ambulate with partial weightbearing on the heel only of the right foot in postop shoe and to use walker when walking. The patient was agreeable to this. The patient will return to clinic in one week at which time he will be re-evaluated. Alec Uribe DPM /[id number]
== END 2019-09-05 14:40 | disposition home or self-care (01) ==
LOC: JP.SDS 11:19
PROVIDERS: ATTEND Podiatrist Foot & Ankle Surgery
DX: M86.9 Osteomyelitis, unspecified (principal); I10 Essential (primary) hypertension; K21.9 Gastro-esophageal reflux disease without esophagitis; Z79.899 Other long term (current) drug therapy
CPT/HCPCS: 28825; J0690; J2250; J2704; J3010; J3490; J7120; 88305; 88311; J2001

== ENCOUNTER 2019-10-10 19:34 | Observation (INO) | payer MEDICARE, BC ==
--- NOTE | 2019-10-10 19:52 | EDM.PDOC ---
ED HPI GENERAL MEDICAL PROBLEM - General Chief Complaint: Neurological Problem Stated Complaint: medical Time Seen by Provider: 10/10/19 19:51 Source of Information: Reports: Patient History Limitations: Reports: No Limitations - History of Present Illness INITIAL COMMENTS - FREE TEXT/NARRATIVE: pt arrived at the [facility] and he did not know how he got here. He was not sure where he was. 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 He has no relatives in town. His daughter lives in [place] and will be coming tomorrow. Onset: Unknown/Unsure Duration: Hour(s):, Other (pt was seen a few days ago and he was complaining of abdomanal pain. He was worked up and found to have normal labs and a normal cat scan of the abdoman. he was sent home on prilosec and there is uncertainty whether he filled it. 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 ) Location: Reports: Head, Abdomen, Generalized, Other (pt was confused as to what was going on in the present. ) Associated Symptoms: Reports: Loss of Appetite - Related Data Allergies Allergy/AdvReac Type Severity Reaction Status Date / Time No Known Allergies Allergy Verified 10/10/19 19:47 Home Meds: Home Meds Lisinopril 20 mg PO DAILY 11/22/13 [History] Metoprolol Succinate 75 mg PO DAILY 11/22/13 [History] Naproxen Sodium [Aleve] 220 mg PO TID PRN 09/05/19 [History] Past Medical History HEENT History: Reports: Cataract, Glaucoma, Impaired Vision Cardiovascular History: Reports: Arrhythmia, High Cholesterol, Hypertension, [place] Respiratory History: Reports: Sleep Apnea Gastrointestinal History: Reports: Cholelithiasis, Chronic Constipation, Chronic Diarrhea, Colon Polyp, Gastritis, GERD Genitourinary History: Reports: Prostate Disorder Other Genitourinary History: urinary frequency Musculoskeletal History: Reports: Back Pain, Chronic, Osteoarthritis Psychiatric History: Reports: Depression, Other (See Below) Other Psychiatric History: past 6 months anger problems, caregiver for his is exhausting him Endocrine/Metabolic History: Reports: Obesity/BMI 30+ - Infectious Disease History Infectious Disease History: Reports: Chicken Pox, Measles, Mumps - Past Surgical History HEENT Surgical History: Reports: None Cardiovascular Surgical History: Reports: None Respiratory Surgical History: Reports: None GI Surgical History: Reports: Cholecystectomy, Colonoscopy, EGD, Other (See Below) Other GI Surgeries/Procedures: partial bowel obstruction Male Surgical History: Reports: None Endocrine Surgical History: Reports: None Musculoskeletal Surgical History: Reports: Knee Replacement, Other (See Below) Other Musculoskeletal Surgeries/Procedures:: Left ankle surg, left toe surgery Social & Family History - Family History Family Medical History: Noncontributory Oncologic: Reports: Breast Other Oncologic Family History: daughter has recent breast ca diagnosis - Caffeine Use Caffeine Use: Reports: Coffee Caffeine Use Comment: occasional 2-3 cups week ED ROS GENERAL - Review of Systems Review Of Systems: See Below Constitutional: Reports: No Symptoms HEENT: Reports: No Symptoms Respiratory: Reports: No Symptoms Cardiovascular: Reports: No Symptoms Endocrine: Reports: No Symptoms GI/Abdominal: Reports: Abdominal Pain, Other (pt talks about all of the bloating. ) : Reports: No Symptoms Musculoskeletal: Reports: No Symptoms Skin: Reports: No Symptoms - Physical Exam Exam: See Below Text/Narrative:: pt arrived with his . He was completely confused as to where he was and what he was doing. Exam Limited By: No Limitations General Appearance: Alert, Anxious, Mild Distress Ears: Normal TMs Nose: Normal Inspection Throat/Mouth: Normal Inspection Head Exam: Atraumatic Neck: Normal Inspection Respiratory/Chest: No Respiratory Distress Cardiovascular: Regular Rate, Rhythm GI/Abdominal: Other (mild tenderness in the upper abdoman. ) (Male) Exam: Deferred Rectal (Males) Exam: Deferred Neuro Exam (Abbreviated): Alert, Confused, Disoriented Back Exam: Normal Inspection Extremities: Normal Inspection Psychiatric: Anxious Course - Vital Signs Last Recorded V/S: Last Vital Signs Temp 36.2 C 10/10/19 19:55 Pulse 70 10/11/19 03:16 Resp 13 10/11/19 03:16 BP 122/77 10/11/19 03:16 Pulse Ox 95 10/10/19 23:16 - Orders/Labs/Meds Orders: Active Orders 24 hr Category Date Time Status CULTURE URINE [RM] Stat Lab 10/10/19 21:54 Received Sodium Chloride 0.9% [Normal Saline] 1,000 ml Med 10/10/19 20:30 Active IV ASDIRECTED Sodium Chloride 0.9% [Normal Saline] 1,000 ml Med 10/10/19 22:00 Active IV ASDIRECTED Medication Orders Sodium Chloride (Normal Saline) 1,000 mls @ 999 mls/hr IV ASDIRECTED SHIRA Last Admin: 10/10/19 20:43 Dose: 999 mls/hr Sodium Chloride (Normal Saline) 1,000 mls @ 500 mls/hr IV ASDIRECTED SHIRA Last Admin: 10/10/19 23:17 Dose: 500 mls/hr Labs: Laboratory Tests 10/10/19 10/10/19 10/10/19 Range/Units 19:57 19:57 21:33 WBC 8.0 (4.5-11.0) K/uL RBC 5.08 (4.30-5.90) M/uL Hgb 15.1 H (12.0-15.0) g/dL Hct 45.5 (40.0-54.0) % MCV 90 (80-98) fL MCH 30 (27-31) pg MCHC 33 (32-36) % Plt Count 300 (150-400) K/uL Neut % (Auto) 60 (36-66) % Lymph % (Auto) 28 (24-44) % [place] % (Auto) 11 H (2-6) % Eos % (Auto) 0 L (2-4) % Baso % (Auto) 1 (0-1) % Sodium 142 (140-148) mmol/L Potassium 3.7 (3.6-5.2) mmol/L Chloride 104 (100-108) mmol/L Carbon Dioxide 24 (21-32) mmol/L Anion Gap 13.7 (5.0-14.0) mmol/L BUN 18 (7-18) mg/dL Creatinine 1.0 (0.8-1.3) mg/dL Est Cr Clr Drug Dosing 64.67 mL/min Estimated GFR (MDRD) > 60 (>60) Glucose 104 (74-106) mg/dL Calcium 9.5 (8.5-10.1) mg/dL Total Bilirubin 1.0 (0.2-1.0) mg/dL AST 33 (15-37) U/L ALT 54 (12-78) U/L Alkaline Phosphatase 79 (46-116) U/L Total Protein 7.4 (6.4-8.2) g/dL Albumin 4.0 (3.4-5.0) g/dL Globulin 3.4 (2.3-3.5) g/dL Albumin/Globulin Ratio 1.2 (1.2-2.2) Urine Color Yellow (YELLOW) Urine Appearance Cloudy A (CLEAR) Urine pH 5.5 (5.0-8.0) Ur Specific [place] >= 1.030 (1.008-1.030) Urine Protein Trace H (NEGATIVE) mg/dL Urine Glucose (UA) Negative (NEGATIVE) mg/dL Urine Ketones Negative (NEGATIVE) mg/dL Urine Occult Blood Moderate H (NEGATIVE) Urine Nitrite Negative (NEGATIVE) Urine Bilirubin Small H (NEGATIVE) Urine Urobilinogen 0.2 (0.2-1.0) EU/dL Ur Leukocyte Esterase Negative (NEGATIVE) Urine RBC 40-50 H (0-5) Urine WBC 5-10 H (0-5) Ur Epithelial Cells Few Amorphous Sediment Not seen Urine Bacteria Few Urine Mucus Many Acetaminophen (10.0-30.0) ug/mL 10/11/19 Range/Units 00:50 WBC (4.5-11.0) K/uL RBC (4.30-5.90) M/uL Hgb (12.0-15.0) g/dL Hct (40.0-54.0) % MCV (80-98) fL MCH (27-31) pg MCHC (32-36) % Plt Count (150-400) K/uL Neut % (Auto) (36-66) % Lymph % (Auto) (24-44) % [place] % (Auto) (2-6) % Eos % (Auto) (2-4) % Baso % (Auto) (0-1) % Sodium (140-148) mmol/L Potassium (3.6-5.2) mmol/L Chloride (100-108) mmol/L Carbon Dioxide (21-32) mmol/L Anion Gap (5.0-14.0) mmol/L BUN (7-18) mg/dL Creatinine (0.8-1.3) mg/dL Est Cr Clr Drug Dosing mL/min Estimated GFR (MDRD) (>60) Glucose (74-106) mg/dL Calcium (8.5-10.1) mg/dL Total Bilirubin (0.2-1.0) mg/dL AST (15-37) U/L ALT (12-78) U/L Alkaline Phosphatase (46-116) U/L Total Protein (6.4-8.2) g/dL Albumin (3.4-5.0) g/dL Globulin (2.3-3.5) g/dL Albumin/Globulin Ratio (1.2-2.2) Urine Color (YELLOW) Urine Appearance (CLEAR) Urine pH (5.0-8.0) Ur Specific [place] (1.008-1.030) Urine Protein (NEGATIVE) mg/dL Urine Glucose (UA) (NEGATIVE) mg/dL Urine Ketones (NEGATIVE) mg/dL Urine Occult Blood (NEGATIVE) Urine Nitrite (NEGATIVE) Urine Bilirubin (NEGATIVE) Urine Urobilinogen (0.2-1.0) EU/dL Ur Leukocyte Esterase (NEGATIVE) Urine RBC (0-5) Urine WBC (0-5) Ur Epithelial Cells Amorphous Sediment Urine Bacteria Urine Mucus Acetaminophen 0.0 L (10.0-30.0) ug/mL Meds: Medications Generic Name Dose Route Start Last Admin Trade Name Freq PRN Reason Stop Dose Admin Sodium Chloride 1,000 mls @ 999 mls/hr 10/10/19 20:30 10/10/19 20:43 Normal Saline IV 999 mls/hr ASDIRECTED SHIRA Administration Sodium Chloride 1,000 mls @ 500 mls/hr 10/10/19 22:00 10/10/19 23:17 Normal Saline IV 500 mls/hr ASDIRECTED SHIRA Administration Discontinued Medications Generic Name Dose Route Start Last Admin Trade Name Freq PRN Reason Stop Dose Admin Al Hydroxide/Mg Hydroxide 15 0 ml 10/10/19 23:19 10/10/19 23:25 ml/ Lidocaine HCl 15 ml PO 10/10/19 23:20 15 ml ONETIME ONE Administration Famotidine 20 mg 10/10/19 23:19 10/10/19 23:24 Pepcid PO 10/10/19 23:20 20 mg ONETIME ONE Administration Ceftriaxone Sodium 1 gm/ 50 mls @ 100 mls/hr 10/11/19 01:37 10/11/19 02:35 Sodium Chloride IV 10/11/19 02:06 100 mls/hr ONETIME ONE Administration - Re-Assessments/Exams Free Text/Narrative Re-Assessment/Exam: 10/11/19 05:56 pt did tell his daughter that he was tasking 4 or 5 advil at a time for his abdomanal pain. He was seen a few days ago and put on prilosec an we are not sure whether this was filled or not. Departure - Departure Time of Disposition: 05:58 Disposition: Admitted As Inpatient 65 Condition: Fair Clinical Impression: Confusion, Abdominal pain - Discharge Information Referrals: Marcial Hanna MD [Primary Care Provider] - Forms: ED Department Discharge Care Plan Goals: pt should be admitted for observation and consideration for a different living arragement. - My Orders Last 24 Hours: My Active Orders 10/10/19 20:30 Sodium Chloride 0.9% [Normal Saline] 1,000 ml IV ASDIRECTED 10/10/19 21:54 CULTURE URINE [RM] Stat 10/10/19 22:00 Sodium Chloride 0.9% [Normal Saline] 1,000 ml IV ASDIRECTED - Assessment/Plan Last 24 Hours: My Active Orders 10/10/19 20:30 Sodium Chloride 0.9% [Normal Saline] 1,000 ml IV ASDIRECTED 10/10/19 21:54 CULTURE URINE [RM] Stat 10/10/19 22:00 Sodium Chloride 0.9% [Normal Saline] 1,000 ml IV ASDIRECTED
[2019-10-10] MEDS ORDERED: Sodium Chloride 0.9% 1,000 ML IV SCH ×2 (20:30→22:00)
--- NOTE | 2019-10-10 20:38 | CRLCT ---
INDICATION: confusion CT HEAD WITHOUT CONTRAST TECHNIQUE: Multiple axial CT images were performed through the head without intravenous contrast administration. COMPARISON: No previous studies are currently available for comparison. FINDINGS: No acute intracranial hemorrhage is identified. No extra-axial collections are evident and there is no mass effect or midline shift. There is mild diffuse age-related brain atrophy. Ventricular size and configuration are within normal limits for the patient`s age. Martinez-white differentiation is within normal limits. There is patchy hypodensity in the periventricular white matter, a nonspecific finding which most likely reflects chronic small vessel ischemic change. Intracranial atherosclerotic vascular calcifications are noted. Osseous structures are within normal limits and no fractures are seen. Included portions of the paranasal sinuses and mastoid air cells are normally aerated aside from mild mucosal thickening in the ethmoid air cells. IMPRESSION: 1. No acute intracranial abnormality identified. 2. Mild age-related brain atrophy, white matter hypodensity consistent with chronic small vessel ischemic change, and intracranial atherosclerotic vascular calcifications. RADHA CASTAÑEDA MD [facility] Dictated by: Quinn Castañeda MD @ 10/10/2019 20:37:26 (Electronically Signed)
--- NOTE | 2019-10-10 20:56 | CRLCR ---
Indication: Shortness of breath. Technique: Single AP portable view of the chest was obtained. Comparison: None Findings: The heart is normal in size. The lungs are clear. No infiltrate, pleural effusion, or pneumothorax is identified. Impression: No acute cardiopulmonary process. Dictated by Angie Hummel MD @ Oct 10 2019 8:53PM Signed by Dr. Angie Hummel @ Oct 10 2019 8:53PM
[2019-10-10] MEDS ORDERED: Famotidine 20 MG Tab PO ONE (23:19)
[2019-10-10] MEDS ORDERED: Alum Hydrox/Mag Hydrox/Simeth 15 ML, Lidocaine 2% 15 ML PO ONE ×2 (23:19)
[2019-10-11] MEDS ORDERED: cefTRIAXone 1 GM in Sodium Chloride 0.9% 50 ML IV ONE (01:37)
[2019-10-11] MEDS ORDERED: Ondansetron 4 MG/2 ML SDV IV PRN (06:48)
[2019-10-11] MEDS ORDERED: Sodium Chloride 0.9% 1,000 ML IV SCH (07:00)
[2019-10-11] MEDS ORDERED: Propofol 200 MG/20 ML SDV ONE (07:56)
[2019-10-11] MEDS ORDERED: fentaNYL 100 MCG/2 ML SDV ONE (07:56)
--- NOTE | 2019-10-11 07:59 | HP ---
CHIEF COMPLAINT: Abdominal pain. HISTORY OF PRESENT ILLNESS: An 79-year-old who drove himself in with his handicapped but he did the driving because of abdominal pain. He has been dealing with intermittent abdominal pain that has been coming and going. He was in on the and had a negative CAT scan, normal blood work without any findings. They recommended taking omeprazole, but it does not sound like he was and apparently he was supposed to see me, but his pain was better. I had seen him recently for abdominal pain and wanted him to get upper endoscopy, but his pain improved and he ended up cancelling the upper endoscopy. He states that his pain is not real severe, but he feels bloated, just some pressure. He has had a history of twisted bowel in the past with bowel obstruction. He has been having loose stools, but only a small amount comes out. No blood or black color to the stools. No dysuria. They did attempt to put a Aragon catheter in but it was traumatic and they were unsuccessful, and then afterwards urinalysis did show some blood, but it did also show some white cells, so he was started on Rocephin in the emergency room. He was noted to be quite confused. They did a CT scan of his head which was unremarkable. Apparently, per their ER, doctors report that he was taking a lot of naproxen, which he takes for his hip because that has been giving him quite a bit of pain lately and he was taking up to 9 a day, but the patient states that he had stopped that about a week ago. PAST MEDICAL HISTORY: Cataract, glaucoma, he has had a history of arrhythmia, hyperlipidemia, essential hypertension. He has had an [place] in the past. He does have a history of obstructive sleep apnea. He has had history of cholelithiasis. Chronic constipation with chronic diarrhea, gastroesophageal reflux disease with history of gastritis. He has a history of BPH, osteoarthritis. He has had a cholecystectomy, partial bowel obstruction, knee replacement, left ankle surgery. 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 CURRENT MEDICATIONS: Naproxen p.r.n., but it sounds like he has been taking a lot of that, although he states he has not for a week. He does take lisinopril 20 mg daily and metoprolol 75 mg daily. ALLERGIES: NO KNOWN DRUG ALLERGIES. SOCIAL HISTORY: He is a nonsmoker. . He has a handicapped whom he needs to take care of. FAMILY HISTORY: Some breast cancer, but otherwise unknown. REVIEW OF SYSTEMS: Denies headaches, vision changes, upper respiratory symptoms, chest pain, shortness of breath, cough. Does have a little bit of nausea but has not really thrown up. No dysphagia. Does have the epigastric discomfort, more of a pressure and bloating with the nausea. He has had loose stools. No blood or black color to the stools. He does have nocturia but no dysuria until they attempted to put a Aragon catheter in. He denies any swelling in his legs. He does have some right leg bandaged because of recent toe amputation. He is supposed to follow up, I believe, next Thursday with Dr. Hawley in the clinic. PHYSICAL EXAMINATION: VITAL SIGNS: Pulse is 72, blood pressure initially was 164/74 but now 122/77, respiratory rate 13. LABORATORY AND IMAGING DATA: CT scan of his head was unremarkable. White count was 8.0, hemoglobin 15.1, platelets 300,000. Sodium 142, potassium 3.7, chloride 104. Renal function was normal. Liver function was normal. Urinalysis showed 40 to 50 red cells, 5 to 10 white cells, but it was after the traumatic Aragon catheter attempt. Acetaminophen level was zero. ASSESSMENT: 1. Abdominal pain, seems to be somewhat in the epigastric area and in the past we wanted to do upper endoscopy recently, but his pain was better, so we did cancel it. We will talk to Surgery to see if we can get upper endoscopy today. We will keep him n.p.o. for now. 2. Confusion, etiology uncertain, possibly urinary tract infection, although I think the abnormal urine may be from the traumatic Aragon catheter attempt. Culture is pending. The patient has been started on Rocephin, which we will continue until we get the culture results back. Otherwise, etiology for his confusion is difficult to say at this time. Question if he has been overtaking medications, although he states he has not taken anything for the last week. It does not sound like that he took the omeprazole that was prescribed last week. The patient was given Pepcid here. 3. Hypertension, which is stable. Other medical problems as listed above. We will admit him for observation. Anticipate less than 2 midnight stays. We will transfer his care to the hospitalist service also. Marcial Hanna MD /[id number]
[2019-10-11] MEDS ORDERED: Metoprolol Succinate 25 MG Tab.ER PO SCH (09:00)
[2019-10-11] MEDS ORDERED: Lisinopril 20 MG Tab PO SCH (09:00)
[2019-10-11] MEDS ORDERED: Lactated Ringers 1,000 ML ONE (11:04)
[2019-10-11] MEDS ORDERED: Pantoprazole 40 MG Vial IVPUSH ONE (11:25)
[2019-10-11 13:10] VITALS: BP 170/69; PULSE 58
--- NOTE | 2019-10-11 15:20 | PCM.DCSUM1 ---
Discharge Summary - Hospital Course Brief History: 79-year-old male with history of chronic arthritis issues and hypertension who presented with upper epigastric discomfort and bloating. He was admitted for expedited workup with concern for peptic ulcer disease. Diagnosis: Stroke: No - Discharge Data Discharge Date: 10/11/19 Discharge Disposition: Home, Self-Care 01 Condition: Good - Referral to Home Health Primary Care Physician: Marcial Hanna MD - Discharge Diagnosis/Problem(s) (1) Gastric ulcer SNOMED Code(s): 195684987 ICD Code: K25.9 - GASTRIC ULCER, UNSP ACUTE OR CHRONIC, W/O HEMOR OR PERF Status: Acute Current Visit: Yes Qualifiers: Gastric ulcer chronicity: acute Gastric ulcer complication status: without hemorrhage or perforation Qualified Code(s): K25.3 - Acute gastric ulcer without hemorrhage or perforation (2) Gastritis and gastroduodenitis SNOMED Code(s): 3813227 ICD Code: K29.70 - GASTRITIS, UNSPECIFIED, WITHOUT BLEEDING; K29.90 - GASTRODUODENITIS, UNSPECIFIED, WITHOUT BLEEDING Status: Acute Current Visit : Yes - Patient Summary/Data Operative Procedure(s) Performed: EGD performed by Dr. Lima revealed antral gastritis, duodenitis as well as an ulcer in the antrum and a duodenal ulcer. No evidence for active bleeding. Consults: Consultations 10/11/19 06:48 Consult to Physician [CONS] Routine Consulting Provider: Pranav Lima Courtesy Call Completed to Consulting Physician: Yes Hospital Course: Magdy presented to the emergency room with upper abdominal discomfort as well as bloating. He had been taking fairly large quantities of Aleve to help with his arthritis pains. There was concern for ulcer disease. Labs are fairly unremarkable in the emergency room but there was some concern about possible infection after a urine sample revealed a few white blood cells and moderate hematuria. It was noted that this sample was contained after a failed attempt to place a Aragon catheter for the sample. During the emergency room stay the patient did have an episode of confusion. The decision was made to admit him to the hospital for observation with the confusion and to expedite the workup for his abdominal discomfort. By the morning after admission his mental status had returned to baseline. His vital signs were stable overnight. His hemoglobin was stable with no evidence for significant bleeding. He did have an EGD performed the morning after admission which revealed gastritis as well as duodenitis and a small ulcer in the stomach as well as one in the duodenum. Postoperatively he was feeling well and better than he had in some time. He had reported some lightheadedness prior to presentation but this resolved after receiving some fluids overnight. Patient feels well and would like to go home. He does have 2 family members will be staying with him tonight to ensure that he does well. We have started him on sucralfate as well as a proton pump inhibitor. He will be taking the sucralfate 4 times a day for a week and the proton pump inhibitor twice daily for a month and then once daily thereafter. We recommended a transition to acetaminophen for his arthritis pains. He'll be following up with Dr. Hanna in the near future. - Patient Instructions Diet: Regular Diet as Tolerated Activity: As Tolerated Driving: May Drive Today Showering/Bathing: May Shower Notify Provider of: Fever, Increased Pain, Nausea and/or Vomiting Other/Special Instructions: 1. You were in the hospital for management of epigastric abdominal pain caused by gastritis and duodenitis as well as small ulcers in the lower part of your stomach and first part of your small intestine. Your condition has been improving with treatment initiated in the hospital. I do recommend some new medications to help complete the healing after your hospital discharge. Please take sucralfate 1 g four times daily ( with meals and at bedtime). You should do this for 1 week. I also recommend that you take pantoprazole 40 mg to help reduce stomach acid and aid in healing. You should take one tablet twice daily for 1 month and then 1 tablet once daily for the next 2 months. You may stop at this medication at that time. 2. Stop taking the Aleve (naproxen). I suspect this medication led to the inflammation in your stomach as well as the ulcers. To replace this medication and reduce your pain I would recommend that you take acetaminophen 1000 mg 3 times daily. If you have pain that persists despite this medication please talk to Dr. Hanna at your follow-up appointment. - Discharge Plan *PRESCRIPTION DRUG MONITORING PROGRAM REVIEWED*: Not Applicable *COPY OF PRESCRIPTION DRUG MONITORING REPORT IN PATIENT MONSE: Not Applicable Prescriptions/Med Rec: Acetaminophen [Acetaminophen Extra Strength] 1,000 mg PO TID #200 tablet Pantoprazole Sodium 40 mg PO BID #60 tablet.dr Sucralfate 1 gm PO QIDACANDBED #28 tablet Home Medications: Home Meds Lisinopril 20 mg PO DAILY 11/22/13 [History] Metoprolol Succinate 75 mg PO DAILY 11/22/13 [History] Acetaminophen [Acetaminophen Extra Strength] 1,000 mg PO TID #200 tablet [Rx] Pantoprazole Sodium 40 mg PO BID #60 tablet. 10/11/19 [Rx] Sucralfate 1 gm PO QIDACANDBED #28 tablet 10/11/19 [Rx] Oxygen Therapy Mode: Room Air Patient Handouts: Peptic Ulcer, Sucralfate tablets, Pantoprazole tablets Referrals: Marcial Hanna MD [Primary Care Provider] - 10/19/19 1:30 pm (follow up hospital stay for gastritis and gastic ulcer) - Discharge Summary/Plan Comment DC Time >30 min.: No - Patient Data Vitals - Most Recent: Last Vital Signs Temp 36.1 C 10/11/19 11:50 Pulse 58 L 10/11/19 13:05 Resp 18 10/11/19 13:05 BP 170/69 H 10/11/19 13:05 Pulse Ox 93 L 10/11/19 13:05 Weight - Most Recent: 118.841 kg I&O - Last 24 hours: Intake & Output 10/11/19 10/11/19 10/11/19 06:59 14:59 22:59 Intake Total 435 Balance 435 Lab Results - Last 24 hrs: Laboratory Results - last 24 hr 10/10/19 10/10/19 10/10/19 Range/Units 19:57 19:57 21:33 WBC 8.0 (4.5-11.0) K/uL RBC 5.08 (4.30-5.90) M/uL Hgb 15.1 H (12.0-15.0) g/dL Hct 45.5 (40.0-54.0) % MCV 90 (80-98) fL MCH 30 (27-31) pg MCHC 33 (32-36) % Plt Count 300 (150-400) K/uL Neut % (Auto) 60 (36-66) % Lymph % (Auto) 28 (24-44) % [place] % (Auto) 11 H (2-6) % Eos % (Auto) 0 L (2-4) % Baso % (Auto) 1 (0-1) % Sodium 142 (140-148) mmol/L Potassium 3.7 (3.6-5.2) mmol/L Chloride 104 (100-108) mmol/L Carbon Dioxide 24 (21-32) mmol/L Anion Gap 13.7 (5.0-14.0) mmol/L BUN 18 (7-18) mg/dL Creatinine 1.0 (0.8-1.3) mg/dL Est Cr Clr Drug Dosing 64.67 mL/min Estimated GFR (MDRD) > 60 (>60) Glucose 104 (74-106) mg/dL Calcium 9.5 (8.5-10.1) mg/dL Total Bilirubin 1.0 (0.2-1.0) mg/dL AST 33 (15-37) U/L ALT 54 (12-78) U/L Alkaline Phosphatase 79 (46-116) U/L Total Protein 7.4 (6.4-8.2) g/dL Albumin 4.0 (3.4-5.0) g/dL Globulin 3.4 (2.3-3.5) g/dL Albumin/Globulin Ratio 1.2 (1.2-2.2) Urine Color Yellow (YELLOW) Urine Appearance Cloudy A (CLEAR) Urine pH 5.5 (5.0-8.0) Ur Specific [place] >= 1.030 (1.008-1.030) Urine Protein Trace H (NEGATIVE) mg/dL Urine Glucose (UA) Negative (NEGATIVE) mg/dL Urine Ketones Negative (NEGATIVE) mg/dL Urine Occult Blood Moderate H (NEGATIVE) Urine Nitrite Negative (NEGATIVE) Urine Bilirubin Small H (NEGATIVE) Urine Urobilinogen 0.2 (0.2-1.0) EU/dL Ur Leukocyte Esterase Negative (NEGATIVE) Urine RBC 40-50 H (0-5) Urine WBC 5-10 H (0-5) Ur Epithelial Cells Few Amorphous Sediment Not seen Urine Bacteria Few Urine Mucus Many Acetaminophen (10.0-30.0) ug/mL 10/11/19 Range/Units 00:50 WBC (4.5-11.0) K/uL RBC (4.30-5.90) M/uL Hgb (12.0-15.0) g/dL Hct (40.0-54.0) % MCV (80-98) fL MCH (27-31) pg MCHC (32-36) % Plt Count (150-400) K/uL Neut % (Auto) (36-66) % Lymph % (Auto) (24-44) % [place] % (Auto) (2-6) % Eos % (Auto) (2-4) % Baso % (Auto) (0-1) % Sodium (140-148) mmol/L Potassium (3.6-5.2) mmol/L Chloride (100-108) mmol/L Carbon Dioxide (21-32) mmol/L Anion Gap (5.0-14.0) mmol/L BUN (7-18) mg/dL Creatinine (0.8-1.3) mg/dL Est Cr Clr Drug Dosing mL/min Estimated GFR (MDRD) (>60) Glucose (74-106) mg/dL Calcium (8.5-10.1) mg/dL Total Bilirubin (0.2-1.0) mg/dL AST (15-37) U/L ALT (12-78) U/L Alkaline Phosphatase (46-116) U/L Total Protein (6.4-8.2) g/dL Albumin (3.4-5.0) g/dL Globulin (2.3-3.5) g/dL Albumin/Globulin Ratio (1.2-2.2) Urine Color (YELLOW) Urine Appearance (CLEAR) Urine pH (5.0-8.0) Ur Specific [place] (1.008-1.030) Urine Protein (NEGATIVE) mg/dL Urine Glucose (UA) (NEGATIVE) mg/dL Urine Ketones (NEGATIVE) mg/dL Urine Occult Blood (NEGATIVE) Urine Nitrite (NEGATIVE) Urine Bilirubin (NEGATIVE) Urine Urobilinogen (0.2-1.0) EU/dL Ur Leukocyte Esterase (NEGATIVE) Urine RBC (0-5) Urine WBC (0-5) Ur Epithelial Cells Amorphous Sediment Urine Bacteria Urine Mucus Acetaminophen 0.0 L (10.0-30.0) ug/mL Med Orders - Current: Current Medications Lidocaine HCl 60 ml/ Al (Hydroxide/Mg Hydroxide 360 ml) 0 ml PO TIDAC SHIRA Last Admin: 10/11/19 13:00 Dose: 30 ml Sodium Chloride (Normal Saline) 1,000 mls @ 125 mls/hr IV ASDIRECTED [facility] Ceftriaxone Sodium 1 gm/ (Sodium Chloride) 50 mls @ 100 mls/hr IV Q24H [facility] Lisinopril (Prinivil) 20 mg PO DAILY [facility] Last Admin: 10/11/19 09:20 Dose: Not Given Metoprolol Succinate (Toprol Xl) 75 mg PO DAILY [facility] Last Admin: 10/11/19 09:19 Dose: 75 mg Ondansetron HCl (Zofran) 4 mg IV Q4H PRN PRN Reason: Nausea/Vomiting Pantoprazole Sodium (Protonix Iv) 40 mg IV Q12H [facility] Sucralfate (Carafate) 1 gm PO QIDACANDBED [facility] Discontinued Medications Al Hydroxide/Mg Hydroxide 15 (ml/ Lidocaine HCl 15 ml) 0 ml PO ONETIME ONE Stop: 10/10/19 23:20 Last Admin: 10/10/19 23:25 Dose: 15 ml Famotidine (Pepcid) 20 mg PO ONETIME ONE Stop: 10/10/19 23:20 Last Admin: 10/10/19 23:24 Dose: 20 mg Fentanyl (Sublimaze) Confirm Administered Dose 100 mcg .ROUTE .STK-MED ONE Stop: 10/11/19 07:57 Sodium Chloride (Normal Saline) 1,000 mls @ 999 mls/hr IV ASDIRECTED [facility] Last Admin: 10/10/19 20:43 Dose: 999 mls/hr Sodium Chloride (Normal Saline) 1,000 mls @ 500 mls/hr IV ASDIRECTED [facility] Last Admin: 10/10/19 23:17 Dose: 500 mls/hr Ceftriaxone Sodium 1 gm/ (Sodium Chloride) 50 mls @ 100 mls/hr IV ONETIME ONE Stop: 10/11/19 02:06 Last Admin: 10/11/19 02:35 Dose: 100 mls/hr Lactated Ringer's (Ringers, Lactated) Confirm Administered Dose 1,000 mls @ as directed .ROUTE .STK-MED ONE Stop: 10/11/19 11:05 Pantoprazole Sodium (Protonix Iv) 40 mg IVPUSH ONETIME ONE Stop: 10/11/19 11:26 Last Admin: 10/11/19 11:24 Dose: 40 mg Propofol (Diprivan 20 Ml) Confirm Administered Dose 200 mg .ROUTE .STK-MED ONE Stop: 10/11/19 07:57 - Exam Quality Assessment: Denies: Supplemental Oxygen General: Reports: Alert, Oriented, Cooperative, No Acute Distress Lungs: Reports: Normal Respiratory Effort GI/Abdominal Exam: Soft, No Distention Extremities: No Pedal Edema Psy/Mental Status: Reports: Alert, Normal Affect
[2019-10-11] MEDS ORDERED: Lidocaine 2% 60 ML, Alum Hydrox/Mag Hydrox/Simeth 360 ML PO SCH ×2 (16:00)
[2019-10-11] MEDS ORDERED: Sucralfate 1 GM Tab PO SCH (17:00)
[2019-10-11] MEDS ORDERED: Pantoprazole 40 MG Vial IV SCH (20:00)
[2019-10-11] MEDS ORDERED: cefTRIAXone 1 GM in Sodium Chloride 0.9% 50 ML IV SCH (22:00)
--- NOTE | 2019-10-21 15:34 | OR ---
DATE OF PROCEDURE: 10/11/2019 SURGEON: Pranav Lima MD PREOPERATIVE DIAGNOSIS: Upper abdominal pain. POSTOPERATIVE DIAGNOSIS: Severe antral gastritis and duodenitis with small pre-pyloric gastric ulcer and small duodenal ulcer. OPERATIVE PROCEDURES: Esophagogastroduodenoscopy with antral biopsies for CLOtest. ANESTHESIA: IV sedation. INDICATION FOR PROCEDURE: This 79-year-old male presenting with some epigastric discomfort and nausea. He does take a fair bit of Naprosyn and has not been on an acid blockade-type medications. Plan is to proceed with upper GI endoscopy with biopsies as indicated. Potential risks including bleeding and perforation were discussed, and the patient wishes to proceed. DETAILS OF THE PROCEDURE: The patient was taken to the operating room and placed in a left lateral decubitus position. IV sedation was administered, after which the upper GI endoscope was passed orally through the length of the esophagus into the stomach with retroflexion view of the fundus and thereafter through the pyloric channel and into the proximal duodenum. FINDINGS: Included normal hypopharynx, larynx, upper esophageal sphincter, and esophageal body was otherwise unremarkable. There was minimal inflammation at the EG junction and a small hiatal hernia within the stomach. The proximal esophagus was fairly unremarkable, although when I entered the antrum, there was quite severe gastritis which included a small pre-pyloric ulcer covered with fibrinous exudate and the duodenal bulb and just beyond that was also quite severely inflamed and a small duodenal ulcer also noted. Fibrinous exudate was present. Just beyond that, the junction of third and fourth portions of the duodenum were unremarkable. At this point, biopsies were obtained from the antrum, sent for CLOtest for H pylori. Minimal bleeding from the biopsy sites was seen and the procedure concluded. The patient was taken to the recovery room in satisfactory condition. The plan will be to give the patient Protonix 40 mg IV in the recovery room and then will be started q.12 hours from that point forward. Pranav Lima MD Job #: [id number]
== END 2019-10-11 16:05 | disposition home or self-care (01) ==
LOC: JP.ED 19:34 → JP.MS 10-11 06:48
PROVIDERS: ADMIT Family Medicine; ATTEND Internal Medicine
DX: K25.3 Acute gastric ulcer without hemorrhage or perforation (principal); K29.90 Gastroduodenitis, unspecified, without bleeding; K26.9 Duodenal ulcer, unspecified as acute or chronic, without hemorrhage or perforation; K21.9 Gastro-esophageal reflux disease without esophagitis; R41.0 Disorientation, unspecified; I10 Essential (primary) hypertension; E78.5 Hyperlipidemia, unspecified; M19.90 Unspecified osteoarthritis, unspecified site; Z90.49 Acquired absence of other specified parts of digestive tract; Z79.899 Other long term (current) drug therapy
CPT/HCPCS: 36415; 70450; 71045; 80053; 81001; 82962; 85025; 87081; 87086; 96361; 96365; 96375; 99234; 99283; 99285-25; A9270-GY; C9113; G0480; J0696; J2704; J3010; J7030; J7050; J7120

== ENCOUNTER 2020-07-12 08:43 | Emergency (ER) | payer MEDICARE, BC ==
[2020-07-12 09:11] VITALS: BP 173/67; PULSE 70
[2020-07-12] MEDS: Simethicone 80 MG Tab.Chew PO ONE (09:18)
--- NOTE | 2020-07-12 09:23 | EDM.PDOC ---
ED HPI GENERAL MEDICAL PROBLEM - General Chief Complaint: Gastrointestinal Problem Stated Complaint: feeling weak, bowl issues Time Seen by Provider: 07/12/20 09:05 Source of Information: Reports: Patient, Old Records, RN History Limitations: Reports: No Limitations - History of Present Illness INITIAL COMMENTS - FREE TEXT/NARRATIVE: 79 yo male presents with anorexia, abdominal distention, and increased belching. He has not had formed stool for several days and now passing liquid stool only. Is on [place] for left hip pain. No vomiting. No pain or fever. No bleeding in stool. Has not been to his primary for this. Has an appt re: hip with Dr. Florez on 07/24/2020. Had 3-4 stools through the night. Has been using a walker to help him get around. The [place] he has at home has not been controlling his pain. Onset: Gradual Duration: Day(s):, Getting Worse Location: Reports: Abdomen Quality: Reports: Other (denies pain) Severity: Moderate Improves with: Reports: None Worsens with: Reports: Other (time) Context: Reports: Other (see HPI) Associated Symptoms: Reports: No Other Symptoms. 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: Reports: Other (see below) (none) Left Hip Pain Score (Numeric/FACES): 6 - Related Data Allergies Allergy/AdvReac Type Severity Reaction Status Date / Time No Known Allergies Allergy Verified 10/10/19 19:47 Home Meds: Home Meds Acetaminophen/HYDROcodone [[place] 325-5 MG] 1 tab PO Q4H PRN 07/02/20 [History] Acetaminophen/oxyCODONE [Percocet 325-7.5 MG] 1 tab PO Q4H PRN #24 tab 07/12/20 [Rx] Past Medical History HEENT History: Reports: Cataract, Glaucoma, Impaired Vision Cardiovascular History: Reports: Arrhythmia, High Cholesterol, Hypertension, [place] Respiratory History: Reports: Sleep Apnea Gastrointestinal History: Reports: Cholelithiasis, Chronic Constipation, Chronic Diarrhea, Colon Polyp, Gastritis, GERD Genitourinary History: Reports: Prostate Disorder Other Genitourinary History: urinary frequency Musculoskeletal History: Reports: Back Pain, Chronic, Osteoarthritis Psychiatric History: Reports: Depression, Other (See Below) Other Psychiatric History: past 6 months anger problems, caregiver for his is exhausting him Endocrine/Metabolic History: Reports: Obesity/BMI 30+ - Infectious Disease History Infectious Disease History: Reports: Chicken Pox, Measles, Mumps - Past Surgical History Head Surgeries/Procedures: Reports: None HEENT Surgical History: Reports: None Cardiovascular Surgical History: Reports: None Respiratory Surgical History: Reports: None GI Surgical History: Reports: Cholecystectomy, Colonoscopy, EGD, Other (See Below) Other GI Surgeries/Procedures: partial bowel obstruction Male Surgical History: Reports: None Endocrine Surgical History: Reports: None Musculoskeletal Surgical History: Reports: Knee Replacement, Other (See Below) Other Musculoskeletal Surgeries/Procedures:: Left ankle surg, left toe surgery, right middle toe amputated. Social & Family History - Family History Family Medical History: Noncontributory Oncologic: Reports: Breast Other Oncologic Family History: daughter has recent breast ca diagnosis - Tobacco Use Smoking Status *Q: Never Smoker - Caffeine Use Caffeine Use: Reports: None Caffeine Use Comment: occasional 2-3 cups week - Recreational Drug Use Recreational Drug Use: No ED ROS GENERAL - Review of Systems Review Of Systems: See Below Constitutional: Reports: No Symptoms HEENT: Reports: No Symptoms Respiratory: Reports: No Symptoms Cardiovascular: Reports: No Symptoms Endocrine: Reports: No Symptoms GI/Abdominal: Reports: Constipation (before the onset of the diarrhea), Diarrhea, Decreased Appetite, Distension. Denies: Abdominal Pain, Black Stool, Bloody Stool, Flatus, Hematemesis, Hematochezia, Melena, Nausea, Vomiting : Reports: No Symptoms Musculoskeletal: Reports: No Symptoms Skin: Reports: No Symptoms Neurological: Reports: No Symptoms ED EXAM, GI/ABD - Physical Exam Exam: See Below Exam Limited By: No Limitations General Appearance: Alert, WD/WN, No Apparent Distress Eyes: Bilateral: Normal Appearance Ears: Normal External Exam, Normal Canal, Hearing Grossly Normal Nose: Normal Inspection, No Blood Throat/Mouth: Normal Inspection, Normal Lips, Normal Oropharynx, Normal Voice, No Airway Compromise Head: Atraumatic Neck: Normal Inspection Respiratory/Chest: No Respiratory Distress, Lungs Clear, Normal Breath Sounds, No Accessory Muscle Use Cardiovascular: Regular Rate, Rhythm, No Edema GI/Abdominal Exam: Distended, Abnormal Bowel Sounds (increased). No: Normal Bowel Sounds, Soft, Non-Tender, No Distention, Guarding, Rigid, Rebound, Tender Extremities: Pedal Edema (trace pitting to both lower legs). No: No Pedal Edema, Chriss's Sign, Increased Warmth, Redness Neurological: Alert, Oriented, CN II-XII Intact, Normal Cognition, No Motor/Sensory Deficits Psychiatric: Normal Affect, Normal Mood Skin Exam: Warm, Dry, Intact, Normal Color, No Rash Course - Vital Signs Text/Narrative:: Called Dr. Florez, can move his surgery up to this coming Thursday. Will discuss with a social media marketing analyst regarding home health issues between now and his recovery. Last Recorded V/S: Last Vital Signs Temp 36.6 C 07/12/20 09:11 Pulse 70 07/12/20 09:11 Resp 18 07/12/20 09:11 BP 173/67 H 07/12/20 09:11 Pulse Ox 97 07/12/20 09:11 - Orders/Labs/Meds Orders: Active Orders 24 hr Category Date Time Status CLOS DIFFICILE PCR W/REFLEX [RM] Stat Lab 07/12/20 10:11 Ordered Labs: Laboratory Tests 07/12/20 07/12/20 Range/Units 10:24 10:24 WBC 10.4 (4.5-11.0) K/uL RBC 4.63 (4.30-5.90) M/uL Hgb 13.7 (12.0-15.0) g/dL Hct 41.5 (40.0-54.0) % MCV 90 (80-98) fL MCH 30 (27-31) pg MCHC 33 (32-36) % Plt Count 239 (150-400) K/uL Sodium 142 (140-148) mmol/L Potassium 3.9 (3.6-5.2) mmol/L Chloride 106 (100-108) mmol/L Carbon Dioxide 26 (21-32) mmol/L Anion Gap 10.5 (5.0-14.0) mmol/L BUN 19 H (7-18) mg/dL Creatinine 0.8 (0.8-1.3) mg/dL Est Cr Clr Drug Dosing 80.83 mL/min Estimated GFR (MDRD) > 60 (>60) Glucose 100 (74-106) mg/dL Calcium 9.0 (8.5-10.1) mg/dL Total Bilirubin 0.6 (0.2-1.0) mg/dL AST 17 (15-37) U/L ALT 23 (12-78) U/L Alkaline Phosphatase 70 (46-116) U/L C-Reactive Protein 0.20 (0.0-0.3) mg/dL Total Protein 6.8 (6.4-8.2) g/dL Albumin 3.7 (3.4-5.0) g/dL Globulin 3.1 (2.3-3.5) g/dL Albumin/Globulin Ratio 1.2 (1.2-2.2) Meds: Medications Discontinued Medications Generic Name Dose Route Start Last Admin Trade Name Freq PRN Reason Stop Dose Admin Hydrocodone Bitart/Acetaminophen 2 tab 07/12/20 10:10 07/12/20 10:20 [place] 325-5 Mg PO 07/12/20 10:11 2 tab ONETIME ONE Administration Ketorolac Tromethamine 30 mg 07/12/20 11:11 07/12/20 11:33 Toradol IM 07/12/20 11:12 30 mg ONETIME ONE Administration Oxycodone HCl 5 mg 07/12/20 12:22 07/12/20 12:28 Oxycodone PO 07/12/20 12:23 5 mg ONETIME ONE Administration Simethicone 160 mg 07/12/20 09:12 07/12/20 09:18 Simethicone PO 07/12/20 09:13 160 mg ONETIME ONE Administration - Radiology Interpretation Free Text/Narrative:: Abdominal [id number] air, not a lot of stool. No obstruction pattern. CT Results Date: 07/12/20 Departure - Departure Time of Disposition: 14:05 Disposition: Home, Self-Care 01 Condition: Fair Clinical Impression: Loose stools Osteoarthritis, hip, bilateral Qualifiers: Osteoarthritis type: primary Qualified Code(s): M16.0 - Bilateral primary osteoarthritis of hip - Discharge Information *PRESCRIPTION DRUG MONITORING PROGRAM REVIEWED*: No *COPY OF PRESCRIPTION DRUG MONITORING REPORT IN PATIENT MONSE: No Prescriptions: Acetaminophen/oxyCODONE [Percocet 325-7.5 MG] 1 tab PO Q4H PRN #24 tab PRN Reason: Pain Referrals: Marcial Hanna MD [Primary Care Provider] - Forms: ED Department Discharge Additional Instructions: Take ibuprofen 400 mg every 6 hrs with food for pain relief. Add Percocet as directed for hip pain, hold your hydrocodone when on the Percocet(oxycodone with acetaminophen). Follow up with Dr. Florez to get your hip issue resolved. Consider use of simethicone per package instructions to reduce your gas pain. The oxycodone may slow down your loose stools as this med is constipating. Drink ample amounts of fluids so that your urine is light yellow as a marker of adequate hydration. Return if worse. Sepsis Event Note (ED) - Evaluation Sepsis Screening Result: No Definite Risk - Focused Exam Vital Signs: Vital Signs Temp Pulse Resp BP Pulse Ox 07/12/20 09:11 36.6 C 70 18 173/67 H 97 07/12/20 09:10 36.6 C 70 18 173/67 H 97 - My Orders Last 24 Hours: My Active Orders 07/12/20 10:11 CLOS DIFFICILE PCR W/REFLEX [RM] Stat - Assessment/Plan Last 24 Hours: My Active Orders 07/12/20 10:11 CLOS DIFFICILE PCR W/REFLEX [RM] Stat
--- NOTE | 2020-07-12 10:13 | CR ---
Abdomen 2V AP Flat Upright CLINICAL HISTORY: Abdominal distention, constipation FINDINGS: There are scattered air-filled loops of small bowel nonspecific pattern. There is also moderate stool in the right colon. There is some mild gaseous distention of transverse colon. The there is an area of colonic narrowing in the splenic flexure. This may simply be peristalsis. There are surgical clips in the right upper quadrant IMPRESSION: Nonacute small intestinal gas pattern There is some fecal retention and liquid stool in the right colon Possible narrowing near the splenic flexure versus peristalsis. If clinically relevant CT is a consideration
[2020-07-12] MEDS: Acetaminophen/HYDROcodone 325-5 MG Tab PO ONE (10:20)
[2020-07-12] MEDS: Ketorolac 30 MG/ML SDV IM ONE (11:33)
[2020-07-12] MEDS: oxyCODONE 5 MG Tab PO ONE (12:28)
--- NOTE | 2020-07-15 21:23 | PCM.CONS ---
H&P History of Present Illness - General Date of Service: 07/12/20 Admit Problem/Dx: Osteoarthritis bilateral hips Source of Information: Patient History Limitations: Reports: No Limitations - History of Present Illness Initial Comments - Free Text/Narative: 79 year old male with severe left hip pain. Has had progressive bilateral hip pain for the past couple of years. The left hip has always been worse, but has gotten much more severe over the last several weeks. Having increasing difficulty with ambulation and ADLs. Presented to ED with some abdominal complaints but evaluation by ED staff revealed that his left hip was the source of significant pain. Has been using a walker at home and taking [place] which has not been helping. Onset of Symptoms: Reports: Gradual Quality: Reports: Sharp, Stabbing Severity: Severe Improves with: Reports: Rest Worsens with: Reports: Movement Associated Symptoms: Reports: No Other Symptoms Left Hip Pain Score (Numeric/FACES): 6 - Related Data Allergies/Adverse Reactions: Allergies Allergy/AdvReac Type Severity Reaction Status Date / Time No Known Allergies Allergy Verified 10/10/19 19:47 Home Medications: Home Meds Acetaminophen/HYDROcodone [[place] 325-5 MG] 1 tab PO Q4H PRN 07/02/20 [History] Acetaminophen/oxyCODONE [Percocet 325-7.5 MG] 1 tab PO Q4H PRN #24 tab 07/12/20 [Rx] Past Medical History HEENT History: Reports: Cataract, Glaucoma, Impaired Vision Cardiovascular History: Reports: Arrhythmia, High Cholesterol, Hypertension, [place] Respiratory History: Reports: Sleep Apnea Gastrointestinal History: Reports: Cholelithiasis, Chronic Constipation, Chronic Diarrhea, Colon Polyp, Gastritis, GERD Genitourinary History: Reports: Prostate Disorder Other Genitourinary History: urinary frequency Musculoskeletal History: Reports: Back Pain, Chronic, Osteoarthritis Psychiatric History: Reports: Depression, Other (See Below) Other Psychiatric History: past 6 months anger problems, caregiver for his is exhausting him Endocrine/Metabolic History: Reports: Obesity/BMI 30+ - Infectious Disease History Infectious Disease History: Reports: Chicken Pox, Measles, Mumps - Past Surgical History Head Surgeries/Procedures: Reports: None HEENT Surgical History: Reports: None Cardiovascular Surgical History: Reports: None Respiratory Surgical History: Reports: None GI Surgical History: Reports: Cholecystectomy, Colonoscopy, EGD, Other (See Be low) Other GI Surgeries/Procedures: partial bowel obstruction Male Surgical History: Reports: None Endocrine Surgical History: Reports: None Musculoskeletal Surgical History: Reports: Knee Replacement, Other (See Below) Other Musculoskeletal Surgeries/Procedures:: Left ankle surg, left toe surgery, right middle toe amputated. Social & Family History - Family History Family Medical History: Noncontributory Oncologic: Reports: Breast Other Oncologic Family History: daughter has recent breast ca diagnosis - Tobacco Use Smoking Status *Q: Never Smoker - Caffeine Use Caffeine Use: Reports: None Caffeine Use Comment: occasional 2-3 cups week - Recreational Drug Use Recreational Drug Use: No H&P Review of Systems - Review of Systems: Review Of Systems: See Below Musculoskeletal: Reports: Joint Pain Skin: Reports: No Symptoms Neurological: Reports: No Symptoms Exam - Exam Exam: See Below - Vital Signs Vital Signs: Last Vital Signs Temp 36.6 C 07/12/20 09:11 Pulse 70 07/12/20 09:11 Resp 18 07/12/20 09:11 BP 173/67 H 07/12/20 09:11 Pulse Ox 97 07/12/20 09:11 Weight: 116.573 kg - Exam General: Alert, Oriented, 4 Extremities: Limited Range of Motion, Other (right hip ROM mildly limited, left hip severely limited) Skin: Warm, Dry, Intact Psychiatric: Alert, Normal Affect, Normal Mood - Patient Data Result Diagrams: 07/12/20 10:24 07/12/20 10:24 Sepsis Event Note - Evaluation Sepsis Screening Result: No Definite Risk Consult PN Assessment/Plan Procedures: Procedures ASSAY OF AMYLASE (06/26/17) ASSAY OF CK (CPK) (07/16/15) ASSAY OF CREATININE (04/07/18) ASSAY OF LACTIC ACID (03/09/17) ASSAY OF LIPASE (10/06/19) ASSAY OF MAGNESIUM (06/26/17) ASSAY OF NATRIURETIC PEPTIDE (06/26/17) ASSAY OF PHOSPHORUS (06/26/17) ASSAY OF TROPONIN QUANT (06/26/17) BLOOD CULTURE FOR BACTERIA (11/23/13) C DIFF AMPLIFIED PROBE (06/26/17) C-REACTIVE PROTEIN (10/06/19) CARDIOVASCULAR STRESS TEST (03/11/17) CARDIOVASCULAR STRESS TEST (03/11/17) CHEST X-RAY 1 VIEW FRONTAL (06/26/17) CHEST X-RAY 2VW FRONTAL&LATL (07/16/15) COMPLETE CBC AUTOMATED (06/26/17) COMPLETE CBC W/AUTO DIFF WBC (10/11/19) COMPREHEN METABOLIC PANEL (10/11/19) CT ABD & PELV W/CONTRAST (10/06/19) CT HEAD/BRAIN W/O DYE (10/11/19) CT THORAX W/DYE (12/02/13) CULTURE AEROBIC IDENTIFY (11/23/13) CULTURE SCREEN ONLY (10/11/19) DIAGNOSTIC COLONOSCOPY (11/29/13) DRAIN/INJ JOINT/BURSA W/O US (10/13/17) EGD BIOPSY SINGLE/MULTIPLE (10/11/19) ELECTRICAL STIMULATION (03/22/15) ELECTROCARDIOGRAM REPORT (06/26/17) ELECTROCARDIOGRAM TRACING (06/26/17) EMERGENCY DEPT VISIT (10/11/19) EMERGENCY DEPT VISIT (10/11/19) EMERGENCY DEPT VISIT (10/06/19) EMERGENCY DEPT VISIT (06/26/17) EMERGENCY DEPT VISIT (07/16/15) EMERGENCY DEPT VISIT (07/16/15) EMERGENCY DEPT VISIT (11/23/13) EMERGENCY DEPT VISIT (09/27/13) EMERGENCY DEPT VISIT (09/27/13) GAIT TRAINING THERAPY (06/26/17) GLUCOSE BLOOD TEST (10/11/19) GLYCOSYLATED HEMOGLOBIN TEST (11/23/13) HOT OR COLD PACKS THERAPY (04/11/15) HT MUSCLE IMAGE SPECT MULT (03/11/17) HYDRATE IV INFUSION ADD-ON (10/11/19) LIPID PANEL (11/23/13) MANUAL THERAPY 1/> REGIONS (04/11/15) MEASURE BLOOD OXYGEN LEVEL (06/26/17) METABOLIC PANEL TOTAL CA (06/26/17) MICROBE SUSCEPTIBLE AMBROSIO (11/23/13) MRI JNT OF LWR EXTRE W/O DYE (03/20/14) MRI JOINT LWR EXTR W/O&W/DYE (04/14/18) NEEDLE LOCALIZATION BY XRAY (10/13/17) OBSERV/HOSP SAME DATE (10/11/19) OCCULT BLD FECES 1-3 TESTS (11/23/13) PARTIAL AMPUTATION OF TOE (09/05/19) PROTHROMBIN TIME (03/09/17) PT EVAL MOD COMPLEX 30 MIN (06/26/17) PT EVALUATION (01/19/15) RBC SED RATE NONAUTOMATED (07/16/15) REAGENT STRIP/BLOOD GLUCOSE (11/23/13) ROUTINE VENIPUNCTURE (10/11/19) THER/PROPH/DIAG INJ IV PUSH (10/06/19) THER/PROPH/DIAG INJ SC/IM (03/09/17) THER/PROPH/DIAG IV INF INIT (10/11/19) THERAPEUTIC ACTIVITIES (06/26/17) THERAPEUTIC EXERCISES (06/26/17) THROMBOPLASTIN TIME PARTIAL (03/09/17) TISSUE EXAM BY PATHOLOGIST (06/26/17) TISSUE EXAM BY PATHOLOGIST (06/26/17) TISSUE EXAM BY PATHOLOGIST (04/06/17) TTE W/DOPPLER COMPLETE (12/21/14) TX/PRO/DX INJ NEW DRUG ADDON (06/26/17) ULTRASOUND THERAPY (06/02/14) URINALYSIS AUTO W/SCOPE (10/11/19) URINE BACTERIA CULTURE (11/23/13) URINE CULTURE/COLONY COUNT (10/11/19) US URINE CAPACITY MEASURE (06/26/17) X-RAY EXAM CHEST 1 VIEW (10/11/19) X-RAY EXAM NECK SPINE 4/5VWS (07/16/15) X-RAY EXAM OF ABDOMEN (06/26/17) (1) Hip pain SNOMED Code(s): 40563663 Code(s): M25.559 - PAIN IN UNSPECIFIED HIP (2) Osteoarthritis, hip, bilateral SNOMED Code(s): 361261248192888 Code(s): M16.0 - BILATERAL PRIMARY OSTEOARTHRITIS OF HIP Qualifiers: Osteoarthritis type: primary Qualified Code(s): M16.0 - Bilateral primary osteoarthritis of hip Problem List Initiated/Reviewed/Updated: Yes My Orders Last 24 Hours: X-rays show severe DJD bilaterally with left hip much worse. Significant cystic changes in left hip. Plan: Recommend left total hip. His ambulation and ADLs are very impaired. Recommend this be done on a semi-urgent basis. Discussed procedure and recovery. All questions answered. Arranging preop evaluation and social sevices for post op.
== END 2020-07-12 15:16 | disposition home or self-care (01) ==
LOC: JP.ED 08:43
DX: M16.0 Bilateral primary osteoarthritis of hip (principal); R19.7 Diarrhea, unspecified; E78.00 Pure hypercholesterolemia, unspecified; I10 Essential (primary) hypertension; I25.2 Old myocardial infarction; E66.9 Obesity, unspecified; Z68.34 Body mass index [BMI] 34.0-34.9, adult; Z90.89 Acquired absence of other organs
CPT/HCPCS: 36415; 74019; 80053; 85027; 86140; 96372; 99284; A9270; J1885

== ENCOUNTER 2020-07-16 05:22 | Inpatient (IN) | payer MEDICARE, BC ==
[2020-07-16] MEDS ORDERED: Lactated Ringers 1,000 ML IV SCH (06:00)
[2020-07-16] MEDS: Nozin Nasal Sanitizer NASBOTH SCH ×3 (06:00→20:33)
[2020-07-16] MEDS ORDERED: ceFAZolin 2 GM in Premix Bag 1 BAG IV ONE (06:00)
[2020-07-16] MEDS ORDERED: Povidone-Iodine 10% Soln 118.25 ML Bottle ONE (06:39)
[2020-07-16] MEDS ORDERED: Propofol 200 MG/20 ML SDV ONE ×2 (07:24→09:04)
[2020-07-16] MEDS ORDERED: Midazolam 1 MG/ML 2 ML SDV ONE (07:25)
[2020-07-16] MEDS ORDERED: fentaNYL 100 MCG/2 ML SDV ONE (07:25)
[2020-07-16] MEDS: Tranexamic Acid 1,000 MG in Sodium Chloride 0.9% 50 ML IV ONE ×2 (08:25→12:33)
[2020-07-16] MEDS ORDERED: Lactated Ringers 1,000 ML ONE (09:04)
[2020-07-16] MEDS ORDERED: Acetaminophen 325 MG Tab PO PRN (09:40)
[2020-07-16] MEDS ORDERED: Acetaminophen/HYDROcodone 325-5 MG Tab PO PRN (09:40)
[2020-07-16] MEDS ORDERED: Ondansetron 4 MG/2 ML SDV IVPUSH PRN (09:40)
[2020-07-16] MEDS ORDERED: ceFAZolin 1 GM in Sodium Chloride 0.9% 50 ML IV SCH ×2 (09:45→10:45)
[2020-07-16] MEDS ORDERED: Sodium Chloride 0.9% 1,000 ML IV SCH (09:45)
[2020-07-16] MEDS ORDERED: Acetaminophen/oxyCODONE 325-5 MG Tab PO PRN (09:46)
--- NOTE | 2020-07-16 11:13 | CR ---
Pelvis 1V or 2V CLINICAL HISTORY: Left total hip arthroplasty FINDINGS: Patient is status post total left hip arthroplasty. Components appear well seated. Acetabular screw does extend through the pelvic sidewall. IMPRESSION: Status post total left hip arthroplasty
[2020-07-16] MEDS: Sodium Chloride 0.9% 1,000 ML IV SCH ×2 (11:16→22:21)
[2020-07-16] MEDS: Acetaminophen/oxyCODONE 325-5 MG Tab PO PRN ×3 (11:17→20:37)
[2020-07-16] MEDS: Ketorolac 30 MG/ML SDV IVPUSH SCH ×2 (11:18→19:22)
[2020-07-16] MEDS ORDERED: Ketorolac 30 MG/ML SDV IVPUSH SCH (12:00)
[2020-07-16] MEDS: Morphine 2 MG/ML SYRINGE IVPUSH PRN ×2 (13:23→18:25)
[2020-07-16] MEDS: ceFAZolin 1 GM in Premix Bag 1 BAG IV SCH (16:21)
[2020-07-16] MEDS ORDERED: Nozin Nasal Sanitizer NASBOTH SCH (21:00)
[2020-07-17] MEDS: ceFAZolin 1 GM in Premix Bag 1 BAG IV SCH ×2 (00:08→08:02)
[2020-07-17] MEDS: Acetaminophen/oxyCODONE 325-5 MG Tab PO PRN ×5 (01:02→21:11)
[2020-07-17] MEDS: Ketorolac 30 MG/ML SDV IVPUSH SCH (03:36)
[2020-07-17] MEDS: Magnesium Hydroxide 400 MG/5 ML Susp 30 ML Cup PO PRN ×2 (05:52→19:14)
[2020-07-17] MEDS: Morphine 2 MG/ML SYRINGE IVPUSH PRN ×3 (07:54→21:51)
[2020-07-17] MEDS: Sodium Chloride 0.9% 1,000 ML IV SCH (08:02)
[2020-07-17] MEDS ORDERED: Docusate Sodium 100 MG Cap PO SCH (09:00)
[2020-07-17] MEDS ORDERED: Enoxaparin 30 MG/0.3 ML Syringe SUBCUT SCH (09:00)
[2020-07-17] MEDS: Enoxaparin 30 MG/0.3 ML Syringe SUBCUT SCH (10:08)
[2020-07-17] MEDS: Docusate Sodium 100 MG Cap PO SCH (10:08)
[2020-07-17] MEDS: Nozin Nasal Sanitizer NASBOTH SCH ×2 (10:09→21:06)
[2020-07-18] MEDS: Acetaminophen/oxyCODONE 325-5 MG Tab PO PRN ×5 (02:12→20:57)
[2020-07-18] MEDS: Nozin Nasal Sanitizer NASBOTH SCH ×2 (08:30→20:55)
[2020-07-18] MEDS: Docusate Sodium 100 MG Cap PO SCH (08:31)
[2020-07-18] MEDS: Enoxaparin 30 MG/0.3 ML Syringe SUBCUT SCH (08:32)
[2020-07-18] MEDS: Magnesium Hydroxide 400 MG/5 ML Susp 30 ML Cup PO PRN (08:33)
[2020-07-18] MEDS ORDERED: Bisacodyl 10 MG Supp RECTAL ONE (13:37)
--- NOTE | 2020-07-18 13:51 | PCM.SURGPN ---
- General Info Date of Service: 07/17/20 Date of Surgery/Procedure: 07/16/20 POD#: 1 Post-Op Diagnosis: Osteoarthritis left hip Functional Status: Reports: Pain Controlled, Tolerating Diet, Ambulating - Review of Systems General: Reports: No Symptoms HEENT: Reports: No Symptoms Pulmonary: Reports: No Symptoms Cardiovascular: Reports: No Symptoms Gastrointestinal: Reports: Constipation, Other (epigastric pain and belching) Genitourinary: Reports: No Symptoms Musculoskeletal: Reports: Leg Pain Skin: Reports: No Symptoms Neurological: Reports: No Symptoms Psychiatric: Reports: No Symptoms - Patient Data Vitals - Most Recent: Last Vital Signs Temp 35.6 C L 07/18/20 11:00 Pulse 72 07/18/20 11:00 Resp 16 07/18/20 11:00 BP 128/54 L 07/18/20 11:00 Pulse Ox 96 07/18/20 11:00 Weight - Most Recent: 111.584 kg I&O - Last 24 Hours: Intake & Output 07/17/20 07/18/20 07/18/20 22:59 06:59 14:59 Intake Total 1682 480 Output Total 350 100 Balance 1332 -100 480 Med Orders - Current: Current Medications Acetaminophen (Tylenol) 650 mg PO Q4H PRN PRN Reason: Pain/Fever Hydrocodone Bitart/Acetaminophen (Sun 325-5 Mg) 2 tab PO Q4H PRN PRN Reason: Pain (mild 1-3) Bandage/Support Products ( Nasal Pump House Engineer) 1 applic NASBOTH BID [facility] Stop: 07/23/20 21:01 Last Admin: 07/18/20 08:30 Dose: 1 applic Documented by: Docusate Sodium (Colace) 100 mg PO DAILY [facility] Last Admin: 07/18/20 08:31 Dose: 100 mg Documented by: Enoxaparin Sodium (Lovenox) 30 mg SUBCUT DAILY [facility] Last Admin: 07/18/20 08:32 Dose: 30 mg Documented by: Magnesium Hydroxide (Milk Of Magnesia) 30 ml PO Q6H PRN PRN Reason: Stool Softener Last Admin: 07/18/20 08:33 Dose: 30 ml Documented by: Morphine Sulfate (Morphine) 2 mg IVPUSH Q4H PRN PRN Reason: Breakthrough Pain Last Admin: 07/17/20 21:51 Dose: 2 mg Documented by: Ondansetron HCl (Zofran) 4 mg IVPUSH Q6H PRN PRN Reason: Nausea/Vomiting Oxycodone/Acetaminophen (Percocet 325-5 Mg) 0 tab PO Q4H PRN PRN Reason: Pain (severe 7-10) Last Admin: 07/18/20 11:24 Dose: 2 tab Documented by: Discontinued Medications Bisacodyl (Dulcolax) 10 mg RECTAL ONETIME ONE Stop: 07/18/20 13:38 Docusate Sodium (Colace) 100 mg PO DAILY [facility] Enoxaparin Sodium (Lovenox) 30 mg SUBCUT DAILY [facility] Fentanyl (Sublimaze) Confirm Administered Dose 100 mcg .ROUTE .[facility] ONE Stop: 07/16/20 07:26 Lactated Ringer's (Ringers, Lactated) 1,000 mls @ 75 mls/hr IV ASDIRECTED [facility] Last Admin: 07/16/20 07:00 Dose: 75 mls/hr Documented by: Cefazolin Sodium/Dextrose 2 gm (/ Premix) 50 mls @ 100 mls/hr IV ONETIME ONE Stop: 07/16/20 06:29 Last Admin: 07/16/20 07:47 Dose: 100 mls/hr Documented by: Tranexamic Acid 1,000 mg/ (Sodium Chloride) 60 mls @ 240 mls/hr IV ONETIME ONE Stop: 07/16/20 07:59 Last Admin: 07/16/20 12:33 Dose: Not Given Documented by: Lactated Ringer's (Ringers, Lactated) Confirm Administered Dose 1,000 mls @ as directed .ROUTE .[facility] ONE Stop: 07/16/20 09:05 Sodium Chloride (Normal Saline) 1,000 mls @ 100 mls/hr IV ASDIRECTED [facility] Cefazolin Sodium 1 gm/ Sodium (Chloride) 50 mls @ 200 mls/hr IV Q8H [facility] Stop: 07/17/20 01:59 Last Admin: 07/16/20 11:19 Dose: Not Given Documented by: Sodium Chloride (Normal Saline) 1,000 mls @ 100 mls/hr IV ASDIRECTED [facility] Last Admin: 07/17/20 08:02 Dose: 100 mls/hr Documented by: Cefazolin Sodium/Dextrose 1 gm (/ Premix) 50 mls @ 100 mls/hr IV Q8H [facility] Stop: 07/17/20 08:29 Last Admin: 07/17/20 08:02 Dose: 100 mls/hr Documented by: Ketorolac Tromethamine (Toradol) 30 mg IVPUSH Q8H [facility] Stop: 07/17/20 04:01 Ketorolac Tromethamine (Toradol) 30 mg IVPUSH Q8H [facility] Stop: 07/17/20 04:01 Last Admin: 07/17/20 03:36 Dose: 30 mg Documented by: Midazolam HCl (Versed 1 Mg/Ml) Confirm Administered Dose 2 mg .ROUTE .STK-[facility] ONE Stop: 07/16/20 07:26 Oxycodone/Acetaminophen (Percocet 325-5 Mg) 0 tab PO Q4H PRN PRN Reason: Pain (severe 7-10) Povidone Iodine (Betadine 10% Soln) Confirm Administered Dose 1 ml .ROUTE .STK- [facility] ONE Stop: 07/16/20 06:40 Last Admin: 07/16/20 08:30 Dose: 40 ml Documented by: Propofol (Diprivan 20 Ml) Confirm Administered Dose 200 mg .ROUTE .[facility]K-[facility] ONE Stop: 07/16/20 07:25 Propofol (Diprivan 20 Ml) Confirm Administered Dose 200 mg .ROUTE .STK-[facility] ONE Stop: 07/16/20 09:05 - Exam Wound/Incisions: Dressing Dry and Intact General: Alert, Oriented HEENT: Pupils Equal Neck: Supple Lungs: Clear to Auscultation, Normal Respiratory Effort Cardiovascular: Regular Rate, Regular Rhythm GI/Abdominal Exam: Normal Bowel Sounds, Other (mildly distended) Extremities: Limited Range of Motion Skin: Warm, Dry, Intact Neurological: No New Focal Deficit Psy/Mental Status: Alert, Normal Affect, Normal Mood Sepsis Event Note - Evaluation Sepsis Screening Result: No Definite Risk - Focused Exam Vital Signs: Vital Signs Temp Pulse Resp BP BP Pulse Ox 07/18/20 11:00 35.6 C L 72 16 128/54 L 96 07/18/20 07:00 36.0 C L 68 16 140/67 94 L 07/18/20 03:04 16 - Problem List & Annotations (1) Status post total hip replacement, left SNOMED Code(s): 913012580918, 459259476237 Code(s): Z96.642 - PRESENCE OF LEFT ARTIFICIAL HIP JOINT Status: Acute Current Visit: Yes - Problem List Review Problem List Initiated/Reviewed/Updated: Yes - My Orders Last 24 Hours: Active Orders 24 hr Category Date Time Status Convert IV to Saline Lock [OM.PC] Routine Oth 07/17/20 16:42 Ordered Medication Orders Acetaminophen (Tylenol) 650 mg PO Q4H PRN PRN Reason: Pain/Fever Hydrocodone Bitart/Acetaminophen (Sun 325-5 Mg) 2 tab PO Q4H PRN PRN Reason: Pain (mild 1-3) Bandage/Support Products ( Nasal Pump House Engineer) 1 applic NASBOTH BID [facility] Stop: 07/23/20 21:01 Last Admin: 07/18/20 08:30 Dose: 1 applic Documented by: Admin: 07/17/20 21:06 Dose: 1 applic Documented by: Admin: 07/17/20 10:09 Dose: 1 applic Documented by: Admin: 07/16/20 20:33 Dose: 1 applic Documented by: Admin: 07/16/20 11:18 Dose: 1 applic Documented by: Admin: 07/16/20 06:00 Dose: 1 applic Documented by: MAJOR Docusate Sodium (Colace) 100 mg PO DAILY [facility] Last Admin: 07/18/20 08:31 Dose: 100 mg Documented by: Admin: 07/17/20 10:08 Dose: 100 mg Documented by: LLUVIA Enoxaparin Sodium (Lovenox) 30 mg SUBCUT DAILY [facility] Last Admin: 07/18/20 08:32 Dose: 30 mg Documented by: Admin: 07/17/20 10:08 Dose: 30 mg Documented by: LLUVIA Magnesium Hydroxide (Milk Of Magnesia) 30 ml PO Q6H PRN PRN Reason: Stool Softener Last Admin: 07/18/20 08:33 Dose: 30 ml Documented by: Admin: 07/17/20 19:14 Dose: 30 ml Documented by: Admin: 07/17/20 05:52 Dose: 30 ml Documented by: KIA Morphine Sulfate (Morphine) 2 mg IVPUSH Q4H PRN PRN Reason: Breakthrough Pain Last Admin: 07/17/20 21:51 Dose: 2 mg Documented by: Admin: 07/17/20 18:03 Dose: 2 mg Documented by: Admin: 07/17/20 07:54 Dose: 2 mg Documented by: Admin: 07/16/20 18:25 Dose: 2 mg Documented by: Admin: 07/16/20 13:23 Dose: 2 mg Documented by: MITCHELL Ondansetron HCl (Zofran) 4 mg IVPUSH Q6H PRN PRN Reason: Nausea/Vomiting Oxycodone/Acetaminophen (Percocet 325-5 Mg) 0 tab PO Q4H PRN PRN Reason: Pain (severe 7-10) Last Admin: 07/18/20 11:24 Dose: 2 tab Documented by: Admin: 07/18/20 07:21 Dose: 2 tab Documented by: Admin: 07/18/20 02:12 Dose: 2 tab Documented by: Admin: 07/17/20 21:11 Dose: 2 tab Documented by: Admin: 07/17/20 14:41 Dose: 2 tab Documented by: Admin: 07/17/20 10:32 Dose: 2 tab Documented by: Admin: 07/17/20 05:51 Dose: 1 tab Documented by: Admin: 07/17/20 01:02 Dose: 2 tab Documented by: Admin: 07/16/20 20:37 Dose: 2 tab Documented by: Admin: 07/16/20 16:37 Dose: 2 tab Documented by: Admin: 07/16/20 11:17 Dose: 2 tab Documented by: MITCHELL - Assessment Assessment (Free Text/Narrative):: Tolerated procedure well and reports only mild pain, has been up to chair, reports ongoing epigastric pain and gassiness, no bowel movement for a few days - Plan Plan (Free Text/Narrative):: Continue PT, D/C [place], start working on constipation, start arrangements for SNF
[2020-07-19] MEDS: Acetaminophen/oxyCODONE 325-5 MG Tab PO PRN (02:28)
[2020-07-19] MEDS: Morphine 2 MG/ML SYRINGE IVPUSH PRN (02:37)
[2020-07-19 07:22] VITALS: BP 111/81; PULSE 92
[2020-07-19] MEDS: Nozin Nasal Sanitizer NASBOTH SCH (08:15)
[2020-07-19] MEDS: Enoxaparin 30 MG/0.3 ML Syringe SUBCUT SCH (08:15)
[2020-07-19] MEDS: Docusate Sodium 100 MG Cap PO SCH (08:16)
--- NOTE | 2020-07-25 10:47 | PCM.DCSUM1 ---
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 Admitted for IVETTE. Diagnosis: Stroke: No Modified Jesse Scale: No Symptoms at All Modified Charlotte Scale Score: 0 - Discharge Data Discharge Date: 07/19/20 Discharge Disposition: DC/Tfer to SNF 03 Condition: Good - Referral to Home Health Date of Face to Face Encounter: 07/19/20 Primary Care Physician: Marcial Hanna MD - Discharge Diagnosis/Problem(s) (1) Status post total hip replacement, left SNOMED Code(s): 604889253059, [id number] ICD Code: Z96.642 - PRESENCE OF LEFT ARTIFICIAL HIP JOINT Status: Acute - Patient Summary/Data Operative Procedure(s) Performed: Left IVETTE Consults: Consultations 07/16/20 09:40 Consult to Case Management/Manager [employer] [CONS] Routine Comment: Physician Instructions: Discharge placement post hip surgery Service(s) to be Consulted: Case Management PT Evaluation and Treatment [CONS] Routine Please Evaluate and Treat. PT Reason for Consult: Ambulation Discharge Disposition: Home w Home Health Special Instructions: posterior hip precautions, WBAT This query below is only for informational purposes and is not editable. PT Evaluation and Treatment [CONS] Routine Please Evaluate and Treat. PT Reason for Consult: Post op Ortho Surgery Hip Pending Discharge: Yes, 2- -3 days Special Instructions: Schedule first outpatient P.T. appointment 3 - 5 days post discharge This query below is only for informational purposes and is not editable. 07/16/20 09:45 OT Evaluation and Treatment [CONS] Routine Please Evaluate and Treat. OT Reason for Consult: ADL's Special Instructions: Status post Hip Surgery This query below is only for informational purposes and is not editable. Hospital Course: Admitted for left IVETTE which he tolerated well. Was able to progress with PT and was walking well with a walker and independent with transitions in/out of bed. Did require reminders to asks for assistance. Has had difficulty with some GI problems including constipation. Was able to have a bowel movement prior to discharge. Dressing was removed on the morning of POD #3, no signs of wound complications. Arrangements were made for transfer to SNF. - Patient Instructions Diet: Usual Diet as Tolerated Activity: As Tolerated, Full Weight Bearing Showering/Bathing: May Shower Wound/Incision Care: Keep Operative Site/Wound Site Clean and Dry Notify Provider of: Fever, Increased Pain, Swelling and Redness, Drainage - Discharge Plan *PRESCRIPTION DRUG MONITORING PROGRAM REVIEWED*: No *COPY OF PRESCRIPTION DRUG MONITORING REPORT IN PATIENT MONSE: No Prescriptions/Med Rec: oxyCODONE HCl/Acetaminophen [Percocet 5-325 mg Tablet] 1 - 2 each PO Q6HR PRN #40 tablet PRN Reason: Pain (Moderate 4-6) Home Medications: Home Meds Magnesium Citrate [Citrate of Magnesia] 1 bottle PO ASDIRECTED PRN 07/16/20 [History] Nozin [ Nasal Pension Fund Manager] 1 applic NASBOTH BID haresh 07/19/20 [Rx] oxyCODONE HCl/Acetaminophen [Percocet 5-325 mg Tablet] 1 - 2 each PO Q6HR PRN #40 tablet 07/19/20 [Rx] Metoclopramide HCl [Reglan] 10 mg PO QID PRN #20 tablet 07/20/20 [Rx] Tamsulosin HCl [Flomax] 0.4 mg PO BEDTIME #15 cap.er.24h 07/20/20 [Rx] Oxygen Therapy Mode: Room Air Patient Handouts: Preventing Constipation After Surgery Referrals: Martell Florez MD [Physician] - 07/31/20 11:15 am (Please register at the ER desk for your appointment and arrrive 15 minutes early to register. ) - Discharge Summary/Plan Comment DC Time >30 min.: No - General Info Functional Status: Reports: Pain Controlled, Tolerating Diet, Ambulating, Urinating - Review of Systems General: Reports: No Symptoms HEENT: Reports: No Symptoms Pulmonary: Reports: No Symptoms Cardiovascular: Reports: No Symptoms Gastrointestinal: Reports: Other (intermittent epigastric pain with eating) Genitourinary: Reports: No Symptoms Musculoskeletal: Reports: Leg Pain Skin: Reports: No Symptoms Neurological: Reports: No Symptoms Psychiatric: Reports: No Symptoms - Patient Data Vitals - Most Recent: Last Vital Signs Temp 36.3 C 07/19/20 07:00 Pulse 92 07/19/20 07:00 Resp 16 07/19/20 07:00 BP 111/81 07/19/20 07:00 Pulse Ox 95 07/19/20 07:00 Weight - Most Recent: 111.584 kg Med Orders - Current: Current Medications Discontinued Medications Acetaminophen (Tylenol) 650 mg PO Q4H PRN PRN Reason: Pain/Fever Hydrocodone Bitart/Acetaminophen ([place] 325-5 Mg) 2 tab PO Q4H PRN PRN Reason: Pain (mild 1-3) Bandage/Support Products ( Nasal Pension Fund Manager) 1 applic NASBOTH BID [facility] Stop: 07/23/20 21:01 Last Admin: 07/19/20 08:15 Dose: 1 applic Documented by: Bisacodyl (Dulcolax) 10 mg RECTAL ONETIME ONE Stop: 07/18/20 13:38 Last Admin: 07/18/20 13:47 Dose: 10 mg Documented by: Docusate Sodium (Colace) 100 mg PO DAILY [facility] Docusate Sodium (Colace) 100 mg PO DAILY [facility] Last Admin: 07/19/20 08:16 Dose: Not Given Documented by: Enoxaparin Sodium (Lovenox) 30 mg SUBCUT DAILY [facility] Enoxaparin Sodium (Lovenox) 30 mg SUBCUT DAILY [facility] Last Admin: 07/19/20 08:15 Dose: 30 mg Documented by: Fentanyl (Sublimaze) Confirm Administered Dose 100 mcg .ROUTE .STK-MED ONE Stop: 07/16/20 07:26 Lactated Ringer's (Ringers, Lactated) 1,000 mls @ 75 mls/hr IV ASDIRECTED [facility] Last Admin: 07/16/20 07:00 Dose: 75 mls/hr Documented by: Cefazolin Sodium/Dextrose 2 gm (/ Premix) 50 mls @ 100 mls/hr IV ONETIME ONE Stop: 07/16/20 06:29 Last Admin: 07/16/20 07:47 Dose: 100 mls/hr Documented by: Tranexamic Acid 1,000 mg/ (Sodium Chloride) 60 mls @ 240 mls/hr IV ONETIME ONE Stop: 07/16/20 07:59 Last Admin: 07/16/20 12:33 Dose: Not Given Documented by: Lactated Ringer's (Ringers, Lactated) Confirm Administered Dose 1,000 mls @ as directed .ROUTE .STK-MED ONE Stop: 07/16/20 09:05 Sodium Chloride (Normal Saline) 1,000 mls @ 100 mls/hr IV ASDIRECTED [facility] Cefazolin Sodium 1 gm/ Sodium (Chloride) 50 mls @ 200 mls/hr IV Q8H [facility] Stop: 07/17/20 01:59 Last Admin: 07/16/20 11:19 Dose: Not Given Documented by: Sodium Chloride (Normal Saline) 1,000 mls @ 100 mls/hr IV ASDIRECTED [facility] Last Admin: 07/17/20 08:02 Dose: 100 mls/hr Documented by: Cefazolin Sodium/Dextrose 1 gm (/ Premix) 50 mls @ 100 mls/hr IV Q8H [facility] Stop: 07/17/20 08:29 Last Admin: 07/17/20 08:02 Dose: 100 mls/hr Documented by: Ketorolac Tromethamine (Toradol) 30 mg IVPUSH Q8H [facility] Stop: 07/17/20 04:01 Ketorolac Tromethamine (Toradol) 30 mg IVPUSH Q8H [facility] Stop: 07/17/20 04:01 Last Admin: 07/17/20 03:36 Dose: 30 mg Documented by: Magnesium Hydroxide (Milk Of Magnesia) 30 ml PO Q6H PRN PRN Reason: Stool Softener Last Admin: 07/18/20 08:33 Dose: 30 ml Documented by: Midazolam HCl (Versed 1 Mg/Ml) Confirm Administered Dose 2 mg .ROUTE .STK-MED ONE Stop: 07/16/20 07:26 Morphine Sulfate (Morphine) 2 mg IVPUSH Q4H PRN PRN Reason: Breakthrough Pain Last Admin: 07/19/20 02:37 Dose: 1 mg Documented by: Ondansetron HCl (Zofran) 4 mg IVPUSH Q6H PRN PRN Reason: Nausea/Vomiting Oxycodone/Acetaminophen (Percocet 325-5 Mg) 0 tab PO Q4H PRN PRN Reason: Pain (severe 7-10) Oxycodone/Acetaminophen (Percocet 325-5 Mg) 0 tab PO Q4H PRN PRN Reason: Pain (severe 7-10) Last Admin: 07/19/20 02:28 Dose: 2 tab Documented by: Povidone Iodine (Betadine 10% Soln) Confirm Administered Dose 1 ml .ROUTE .STK- MED ONE Stop: 07/16/20 06:40 Last Admin: 07/16/20 08:30 Dose: 40 ml Documented by: Propofol (Diprivan 20 Ml) Confirm Administered Dose 200 mg .ROUTE .STK-MED ONE Stop: 07/16/20 07:25 Propofol (Diprivan 20 Ml) Confirm Administered Dose 200 mg .ROUTE .STK-MED ONE Stop: 07/16/20 09:05 - Exam General: Reports: Alert, Oriented HEENT: Reports: Pupils Equal, Pupils Reactive, EOMI, Mucous Membr. Moist/[place] Neck: Reports: Supple Lungs: Reports: Clear to Auscultation, Normal Respiratory Effort Cardiovascular: Reports: Regular Rate, Regular Rhythm GI/Abdominal Exam: Normal Bowel Sounds, Soft, Non-Tender, No Distention (Male) Exam: Deferred Rectal (Males) Exam: Deferred Back Exam: Reports: Normal Inspection Extremities: Limited Range of Motion Skin: Reports: Warm, Dry Wound/Incisions: Reports: Healing Well, No Drainage Neurological: Reports: No New Focal Deficit Psy/Mental Status: Reports: Alert, Normal Affect, Normal Mood
--- NOTE | 2020-07-25 10:54 | PCM.SURGPN ---
- General Info Date of Service: 07/18/20 Date of Surgery/Procedure: 07/16/20 POD#: 2 Functional Status: Reports: Pain Controlled, Tolerating Diet, Ambulating, Urinating - Review of Systems General: Reports: No Symptoms HEENT: Reports: No Symptoms Pulmonary: Reports: No Symptoms Cardiovascular: Reports: No Symptoms Gastrointestinal: Reports: Other (intermittent epigastric pain with eating) Genitourinary: Reports: No Symptoms Musculoskeletal: Reports: Leg Pain Skin: Reports: No Symptoms Neurological: Reports: No Symptoms Psychiatric: Reports: No Symptoms - Patient Data Vitals - Most Recent: Last Vital Signs Temp 36.3 C 07/19/20 07:00 Pulse 92 07/19/20 07:00 Resp 16 07/19/20 07:00 BP 111/81 07/19/20 07:00 Pulse Ox 95 07/19/20 07:00 Weight - Most Recent: 111.584 kg Med Orders - Current: Current Medications Discontinued Medications Acetaminophen (Tylenol) 650 mg PO Q4H PRN PRN Reason: Pain/Fever Hydrocodone Bitart/Acetaminophen ([place] 325-5 Mg) 2 tab PO Q4H PRN PRN Reason: Pain (mild 1-3) Bandage/Support Products ( Nasal Soft Work Wrapper Examiner) 1 applic NASBOTH BID [facility] Stop: 07/23/20 21:01 Last Admin: 07/19/20 08:15 Dose: 1 applic Documented by: Bisacodyl (Dulcolax) 10 mg RECTAL ONETIME ONE Stop: 07/18/20 13:38 Last Admin: 07/18/20 13:47 Dose: 10 mg Documented by: Docusate Sodium (Colace) 100 mg PO DAILY [facility] Docusate Sodium (Colace) 100 mg PO DAILY [facility] Last Admin: 07/19/20 08:16 Dose: Not Given Documented by: Enoxaparin Sodium (Lovenox) 30 mg SUBCUT DAILY [facility] Enoxaparin Sodium (Lovenox) 30 mg SUBCUT DAILY [facility] Last Admin: 07/19/20 08:15 Dose: 30 mg Documented by: Fentanyl (Sublimaze) Confirm Administered Dose 100 mcg .ROUTE .STK-MED ONE Stop: 07/16/20 07:26 Lactated Ringer's (Ringers, Lactated) 1,000 mls @ 75 mls/hr IV ASDIRECTED [facility] Last Admin: 07/16/20 07:00 Dose: 75 mls/hr Documented by: Cefazolin Sodium/Dextrose 2 gm (/ Premix) 50 mls @ 100 mls/hr IV ONETIME ONE Stop: 07/16/20 06:29 Last Admin: 07/16/20 07:47 Dose: 100 mls/hr Documented by: Tranexamic Acid 1,000 mg/ (Sodium Chloride) 60 mls @ 240 mls/hr IV ONETIME ONE Stop: 07/16/20 07:59 Last Admin: 07/16/20 12:33 Dose: Not Given Documented by: Lactated Ringer's (Ringers, Lactated) Confirm Administered Dose 1,000 mls @ as directed .ROUTE .STK-MED ONE Stop: 07/16/20 09:05 Sodium Chloride (Normal Saline) 1,000 mls @ 100 mls/hr IV ASDIRECTED [facility] Cefazolin Sodium 1 gm/ Sodium (Chloride) 50 mls @ 200 mls/hr IV Q8H [facility] Stop: 07/17/20 01:59 Last Admin: 07/16/20 11:19 Dose: Not Given Documented by: Sodium Chloride (Normal Saline) 1,000 mls @ 100 mls/hr IV ASDIRECTED [facility] Last Admin: 07/17/20 08:02 Dose: 100 mls/hr Documented by: Cefazolin Sodium/Dextrose 1 gm (/ Premix) 50 mls @ 100 mls/hr IV Q8H [facility] Stop: 07/17/20 08:29 Last Admin: 07/17/20 08:02 Dose: 100 mls/hr Documented by: Ketorolac Tromethamine (Toradol) 30 mg IVPUSH Q8H [facility] Stop: 07/17/20 04:01 Ketorolac Tromethamine (Toradol) 30 mg IVPUSH Q8H [facility] Stop: 07/17/20 04:01 Last Admin: 07/17/20 03:36 Dose: 30 mg Documented by: Magnesium Hydroxide (Milk Of Magnesia) 30 ml PO Q6H PRN PRN Reason: Stool Softener Last Admin: 07/18/20 08:33 Dose: 30 ml Documented by: Midazolam HCl (Versed 1 Mg/Ml) Confirm Administered Dose 2 mg .ROUTE .STK-MED ONE Stop: 07/16/20 07:26 Morphine Sulfate (Morphine) 2 mg IVPUSH Q4H PRN PRN Reason: Breakthrough Pain Last Admin: 07/19/20 02:37 Dose: 1 mg Documented by: Ondansetron HCl (Zofran) 4 mg IVPUSH Q6H PRN PRN Reason: Nausea/Vomiting Oxycodone/Acetaminophen (Percocet 325-5 Mg) 0 tab PO Q4H PRN PRN Reason: Pain (severe 7-10) Oxycodone/Acetaminophen (Percocet 325-5 Mg) 0 tab PO Q4H PRN PRN Reason: Pain (severe 7-10) Last Admin: 07/19/20 02:28 Dose: 2 tab Documented by: Povidone Iodine (Betadine 10% Soln) Confirm Administered Dose 1 ml .ROUTE .STK- MED ONE Stop: 07/16/20 06:40 Last Admin: 07/16/20 08:30 Dose: 40 ml Documented by: Propofol (Diprivan 20 Ml) Confirm Administered Dose 200 mg .ROUTE .STK-MED ONE Stop: 07/16/20 07:25 Propofol (Diprivan 20 Ml) Confirm Administered Dose 200 mg .ROUTE .STK-MED ONE Stop: 07/16/20 09:05 Sepsis Event Note - Evaluation Sepsis Screening Result: No Definite Risk - Problem List & Annotations (1) Status post total hip replacement, left SNOMED Code(s): 179771801353, [id number] Code(s): Z96.642 - PRESENCE OF LEFT ARTIFICIAL HIP JOINT Status: Acute - Problem List Review Problem List Initiated/Reviewed/Updated: Yes - Assessment Assessment (Free Text/Narrative):: Working on constipation issues today, no epigastric pain currently, has been up in [place] walking with PT, has gotten out of bed a couple of times on his own, doing well with pain control and activity - Plan Plan (Free Text/Narrative):: Anticipate discharge to SNF/Rehab in am, encourage walking to help with constipation etc.
--- NOTE | 2020-07-25 13:23 | OR ---
DATE OF PROCEDURE: 07/16/2020 SURGEON: Martell Florez MD PREOPERATIVE DIAGNOSIS: Osteoarthritis, left hip. POSTOPERATIVE DIAGNOSIS: Severe osteoarthritis, left hip. PROCEDURE: Left total hip arthroplasty utilizing Flor M/L taper stem size 11 standard offset, +0 36 mm head, and a 60 mm Continuum cup. ANESTHESIA: Spinal with sedation. INDICATIONS: Magdy is an 79-year-old male with a history of rapidly progressive left hip pain. It has been bothering him for the last few years, but has gotten significantly worse in the past couple of months limiting his activities of daily living as well as just simple ambulation. X-ray revealed complete collapse with cystic formation in both the femoral head and acetabulum. Now presents for left total hip arthroplasty. Risks, benefits, potential complications of the procedure were discussed. DESCRIPTION OF PROCEDURE: After adequate anesthesia was obtained, the patient was placed in lateral decubitus position and secured with the hip positioner. The left hip and leg were prepped and draped in a sterile fashion. Incision was made over the greater trochanter, carried down to the subcutaneous tissues and hemostasis obtained with electrocautery. Tensor fascia and IT band were split in line with the fibers and a Charnley retractor was placed. Short external rotators were taken off the greater trochanter posteriorly along with the posterior capsule. The capsule was divided in a T-fashion, and the hip was dislocated. Retractor was placed about the femoral neck. Femoral neck cut was then made with an oscillating saw. Examination of the femoral head revealed severe degenerative change with complete loss of articular cartilage, eburnated bone and deformity of the head from bone wear. Retractors were placed about the anterior and inferior aspect of the acetabulum. Acetabular labrum was excised. Soft tissues were cleared from the central portion of the acetabulum and this was then sequentially reamed to 60 mm. A 60 mm Continuum cup was press-fit into place with excellent purchase, and additional fixation obtained with an acetabular screw. This was irrigated and the liner was tapped into position. Attention then turned to the femur. A box osteotome was used to remove the lateral femoral neck cortex. A hand awl was placed down the intramedullary canal and the lateralizing awl was then utilized. The proximal femur was sequentially broached to a size 11 stem with excellent fit and fill. Trial reduction was made with a -3.5 and 0 neck length. 0 neck length appeared to reproduce limb length and provided excellent stability. The trials were removed. M/L taper stem was press-fit into position. This was reduced once again with a 0 neck length, which provided good stability in flexion, adduction, and internal rotation. The trial head was removed. The trunnion of the stem was dried, and 36 mm head was tapped into position. Hip was reduced and again taken through range of motion. He had full extension, very good stability on flexion. The hip was irrigated with pulse lavage. This was followed by a dilute Betadine solution, which was left in place for 2.5 minutes and then irrigated once again. The capsule was closed with #2 Ethibond. Tensor fascia was closed in a running locking fashion, again with #2 Ethibond. Skin was closed with 2-0 Vicryl and a running 3-0 Monocryl. Steri-Strips were applied. Sterile dressing was then placed. The patient was taken from the operating room in stable condition. Martell Florez MD /[id number] DONY
== END 2020-07-19 10:15 | DRG 470 ==
LOC: JP.SDS 05:22 → JP.SDSSCHI 05:22 → EDSTATUS 07:30 → JP.MS 09:40
PROVIDERS: ADMIT Specialist; ATTEND Specialist
PROC: 0SRB01A Replacement of Left Hip Joint with Metal Synthetic Substitute, Uncemented, Open Approach (ICD-10-PCS; principal; 2020-07-16)
DX: M16.0 Bilateral primary osteoarthritis of hip (principal); K21.9 Gastro-esophageal reflux disease without esophagitis; G47.33 Obstructive sleep apnea (adult) (pediatric); I10 Essential (primary) hypertension; I35.0 Nonrheumatic aortic (valve) stenosis; Z20.828 Contact with and (suspected) exposure to other viral communicable diseases
CPT/HCPCS: 36415; 72170; 72170-26; 85027; 86850; 86900; 86901; 97110-GP; 97116-GP; 97161-GP; 97165-GO; 97530-GP; 97535-GP; A9270-GY; C1713; C1776; J0690; J1650; J1885; J2250; J2270; J2704; J3010; J7030; J7050; J7120; U0002

== ENCOUNTER 2020-07-19 23:38 | Emergency (ER) | payer MEDICARE, BC ==
[2020-07-19] MEDS ORDERED: Lidocaine 2% Jelly 10 ML Urojet MUCMEM ONE (23:52)
--- NOTE | 2020-07-19 23:55 | EDM.PDOC ---
ED HPI GENERAL MEDICAL PROBLEM - General Chief Complaint: Abdominal Pain Stated Complaint: MED[facility] Time Seen by Provider: 07/19/20 23:40 Source of Information: Reports: Patient, EMS, Old Records History Limitations: Reports: No Limitations - History of Present Illness INITIAL COMMENTS - FREE TEXT/NARRATIVE: 79 yo male here via EMS from [facility] [place] where he is convalescing from L hip replacement. Has not been having much for bowel movements lately. Also has pain with voiding and is voiding small amts often. No fever or nausea. Pain is intermittent. Lower Abdomen Pain Score (Numeric/FACES): 5 - Related Data Allergies Allergy/AdvReac Type Severity Reaction Status Date / Time No Known Allergies Allergy Verified 07/20/20 00:08 Home Meds: Home Meds Magnesium Citrate [Citrate of Magnesia] 1 bottle PO ASDIRECTED PRN 07/16/20 [History] Nozin [ Nasal Exchange Mechanic] 1 applic NASBOTH BID haresh 07/19/20 [Rx] oxyCODONE HCl/Acetaminophen [Percocet 5-325 mg Tablet] 1 - 2 each PO Q6HR PRN #40 tablet 07/19/20 [Rx] Metoclopramide HCl [Reglan] 10 mg PO QID PRN #20 tablet 07/20/20 [Rx] Past Medical History HEENT History: Reports: Cataract, Glaucoma, Impaired Vision Other HEENT History: wears glasses Cardiovascular History: Reports: Arrhythmia, High Cholesterol, Hypertension, [place] Respiratory History: Reports: Sleep Apnea Gastrointestinal History: Reports: Cholelithiasis, Chronic Constipation, Chronic Diarrhea, Colon Polyp, Gastritis, GERD, PUD Genitourinary History: Reports: Prostate Disorder, Other (See Below) Other Genitourinary History: urinary frequency Musculoskeletal History: Reports: Back Pain, Chronic, Osteoarthritis Psychiatric History: Reports: Depression, Other (See Below) Other Psychiatric History: past 6 months anger problems, caregiver for his is exhausting him Endocrine/Metabolic History: Reports: Obesity/BMI 30+ - Infectious Disease History Infectious Disease History: Reports: Chicken Pox, Measles, Mumps, Rubella - Past Surgical History Head Surgeries/Procedures: Reports: None HEENT Surgical History: Reports: None Cardiovascular Surgical History: Reports: None Respiratory Surgical History: Reports: None GI Surgical History: Reports: Cholecystectomy, Colonoscopy, EGD, Other (See Below) Other GI Surgeries/Procedures: partial bowel obstruction Male Surgical History: Reports: None Endocrine Surgical History: Reports: None Musculoskeletal Surgical History: Reports: Knee Replacement, Other (See Below) Other Musculoskeletal Surgeries/Procedures:: Left ankle surg, left toe surgery, right middle toe amputated. Dermatological Surgical History: Reports: None Social & Family History - Family History Family Medical History: Noncontributory Cardiac: Reports: CAD, [place] : Reports: Dialysis, Renal Disease/Insufficiency Musculoskeletal: Reports: Arthritis, Other (See Below) Other Musculoskeletal Family History: scoliosis Oncologic: Reports: Breast Other Oncologic Family History: daughter has recent breast ca diagnosis - Caffeine Use Caffeine Use: Reports: None Caffeine Use Comment: occasional 2-3 cups week ED ROS GENERAL - Review of Systems Review Of Systems: See Below Constitutional: Reports: No Symptoms HEENT: Reports: No Symptoms Respiratory: Reports: No Symptoms Cardiovascular: Reports: No Symptoms Endocrine: Reports: No Symptoms GI/Abdominal: Reports: Abdominal Pain (bloating), Distension, Nausea (mild). Denies: Black Stool, Constipation, Diarrhea, Hematemesis, Hematochezia, Melena, Vomiting : Reports: Dysuria, Frequency, Urgency Musculoskeletal: Reports: Joint Pain (L and R hip, chronic) Skin: Reports: No Symptoms Neurological: Reports: No Symptoms ED EXAM, GI/ABD - Physical Exam Exam: See Below Exam Limited By: No Limitations General Appearance: Alert, WD/WN, No Apparent Distress Eyes: Bilateral: Normal Appearance Ears: Normal External Exam, Normal Canal, Hearing Grossly Normal Nose: Normal Inspection, No Blood Throat/Mouth: Normal Inspection, Normal Lips, Normal Oropharynx, Normal Voice, No Airway Compromise Head: Atraumatic, Normocephalic Neck: Normal Inspection Respiratory/Chest: No Respiratory Distress, Lungs Clear, Normal Breath Sounds, No Accessory Muscle Use Cardiovascular: Regular Rate, Rhythm, No Edema GI/Abdominal Exam: Normal Bowel Sounds, Soft, Non-Tender, Distended. No: No Distention, Guarding, Rigid, Rebound, Tender Extremities: Other (surgical wound L hip, minimal redness and warmth. ) Neurological: Alert, Oriented, CN II-XII Intact, Normal Cognition, No Motor/Sens ory Deficits Psychiatric: Normal Affect, Normal Mood Skin Exam: Warm, Dry, Intact, Normal Color, No Rash Course - Vital Signs Text/Narrative:: Post-Void bladder scan 694 ml. Last Recorded V/S: Last Vital Signs Temp 36.6 C 07/20/20 00:20 Pulse 86 07/20/20 00:20 Resp 18 07/20/20 00:20 BP 172/78 H 07/20/20 00:20 Pulse Ox 96 07/20/20 00:20 - Orders/Labs/Meds Orders: Active Orders 24 hr Category Date Time Status Bladder Scan [RC] ASDIRECTED Care 07/19/20 23:47 Active Aragon Catheter Insertion [Insert Urinary Catheter] [OM. Care 07/19/20 23:52 Ordered PC] Q24H Urinary Catheter Assessment [RC] ASDIRECTED Care 07/19/20 23:52 Active Abdomen 1V Upright [CR] Stat Exams 07/20/20 00:10 Taken Labs: Laboratory Tests 07/19/20 Range/Units 23:42 Urine Color Yellow (YELLOW) Urine Appearance Clear (CLEAR) Urine pH 7.5 (5.0-8.0) Ur Specific [place] 1.020 (1.008-1.030) Urine Protein Negative (NEGATIVE) mg/dL Urine Glucose (UA) Negative (NEGATIVE) mg/dL Urine Ketones Negative (NEGATIVE) mg/dL Urine Occult Blood Trace-intact H (NEGATIVE) Urine Nitrite Negative (NEGATIVE) Urine Bilirubin Negative (NEGATIVE) Urine Urobilinogen 0.2 (0.2-1.0) EU/dL Ur Leukocyte Esterase Negative (NEGATIVE) Urine RBC Not seen (0-5) Urine WBC Not seen (0-5) Ur Epithelial Cells Not seen Amorphous Sediment Few Urine Bacteria Not seen Urine Mucus Not seen Meds: Medications Discontinued Medications Generic Name Dose Route Start Last Admin Trade Name Freq PRN Reason Stop Dose Admin Belladonna Alkaloids/Opium 1 supp 07/20/20 00:46 07/20/20 01:03 B & O Supprettes No. 15a RECTAL 07/20/20 00:47 1 supp ONETIME ONE Administration Lidocaine HCl 10 ml 07/19/20 23:52 07/20/20 00:24 Xylocaine 2% Jelly MUCMEM 07/19/20 23:53 10 ml ONETIME ONE Administration Ondansetron HCl 4 mg 07/20/20 02:02 07/20/20 02:06 Zofran Odt PO 07/20/20 02:03 4 mg ONETIME ONE Administration Oxycodone/Acetaminophen 1 tab 07/20/20 00:52 07/20/20 01:01 Percocet 325-5 Mg PO 07/20/20 00:53 1 tab ONETIME STA Administration Oxycodone/Acetaminophen 1 tab 07/20/20 01:35 07/20/20 01:42 Percocet 325-5 Mg PO 07/20/20 01:36 1 tab ONETIME STA Administration Simethicone 160 mg 07/20/20 00:51 07/20/20 01:03 Simethicone PO 07/20/20 00:52 160 mg ONETIME ONE Administration Tamsulosin HCl 0.4 mg 07/20/20 00:55 07/20/20 01:01 Flomax PO 07/20/20 00:56 0.4 mg ONETIME ONE Administration - Radiology Interpretation Free Text/Narrative:: Abdominal X-rays-some air-fluid levels, not a lot of stool. Departure - Departure Time of Disposition: 02:15 Disposition: Home, Self-Care 01 Condition: Fair Clinical Impression: Urinary retention due to benign prostatic hyperplasia - Discharge Information *PRESCRIPTION DRUG MONITORING PROGRAM REVIEWED*: Not Applicable *COPY OF PRESCRIPTION DRUG MONITORING REPORT IN PATIENT MONSE: Not Applicable Referrals: Yovany Mcmanus MD [Primary Care Provider] - Forms: ED Department Discharge Additional Instructions: Try Reglan(metoclopramide) for ongoing nausea/bloating. Take Flomax at bedtime for your enlarged prostate/urinary retention. Recheck with your provider early next week. Continue other medications as currently. Sepsis Event Note (ED) - Focused Exam Vital Signs: Vital Signs Temp Pulse Resp BP Pulse Ox 07/20/20 00:20 36.6 C 86 18 172/78 H 96 07/19/20 23:57 36.6 C 86 18 172/78 H 96 - My Orders Last 24 Hours: My Active Orders 07/19/20 23:47 Bladder Scan [RC] ASDIRECTED 07/19/20 23:52 Aragon Catheter Insertion [Insert Urinary Catheter] [OM.PC] Q24H Urinary Catheter Assessment [RC] ASDIRECTED 07/20/20 00:10 Abdomen 1V Upright [CR] Stat - Assessment/Plan Last 24 Hours: My Active Orders 07/19/20 23:47 Bladder Scan [RC] ASDIRECTED 07/19/20 23:52 Aragon Catheter Insertion [Insert Urinary Catheter] [OM.PC] Q24H Urinary Catheter Assessment [RC] ASDIRECTED 07/20/20 00:10 Abdomen 1V Upright [CR] Stat
[2020-07-20] MEDS ORDERED: Belladonna Alkaloids/Opium 16.2-30 MG Supp RECTAL ONE (00:46)
[2020-07-20] MEDS ORDERED: Simethicone 80 MG Tab.Chew PO ONE (00:51)
[2020-07-20] MEDS ORDERED: Acetaminophen/oxyCODONE 325-5 MG Tab PO STA ×2 (00:52→01:35)
[2020-07-20] MEDS ORDERED: Tamsulosin 0.4 MG Cap.ER PO ONE (00:55)
[2020-07-20] MEDS ORDERED: Ondansetron 4 MG Tab.DIS PO ONE (02:02)
[2020-07-20 02:47] VITALS: BP 162/79; PULSE 89
--- NOTE | 2020-07-20 09:25 | CR ---
Abdomen 1V Upright CLINICAL HISTORY: Left lower quadrant pain FINDINGS: No free air is identified. There are scattered air-filled loops of small bowel in a nonspecific pattern. There is some fecal retention in the left colon. There is an air-fluid level in the right colon IMPRESSION: Nonspecific intestinal gas pattern. Mild gaseous distention may represent ileus Fecal retention
== END 2020-07-20 03:06 | disposition home or self-care (01) ==
LOC: JP.ED 23:38
DX: N40.1 Benign prostatic hyperplasia with lower urinary tract symptoms (principal); R33.8 Other retention of urine; I10 Essential (primary) hypertension; I25.2 Old myocardial infarction; E66.9 Obesity, unspecified; Z90.49 Acquired absence of other specified parts of digestive tract; Z79.899 Other long term (current) drug therapy; Z68.35 Body mass index [BMI] 35.0-35.9, adult
CPT/HCPCS: 51702; 51798; 74018; 81001; 99284; A9270; 99283

== ENCOUNTER 2020-07-22 11:34 | Emergency (ER) | payer MEDICARE, BC ==
[2020-07-22 11:59] VITALS: BP 108/48; PULSE 73
[2020-07-22] MEDS ORDERED: HYDROmorphone 1 MG/ML Syringe IVPUSH ONE (12:08)
[2020-07-22] MEDS ORDERED: Sodium Chloride 0.9% 10 ML Syringe FLUSH PRN (12:08)
--- NOTE | 2020-07-22 12:08 | EDM.PDOC ---
ED HPI GENERAL MEDICAL PROBLEM - General Chief Complaint: Lower Extremity Injury/Pain Stated Complaint: HIP PAIN POST SURGERY Time Seen by Provider: 07/22/20 11:56 Source of Information: Reports: Patient History Limitations: Reports: No Limitations - History of Present Illness INITIAL COMMENTS - FREE TEXT/NARRATIVE: Patient presents for evaluation of severe left hip pain which occurred while he was bending forward this morning. He was sitting on the edge of his bed and saw an object on the floor which he thought he should pickling grader. He bent forward from the waist and suddenly felt a sharp, stabbing, severe pain in the area near his recent hip arthroplasty. Pain medication at his care facility did not bring things under control. He had his brother bring him here for evaluation. Any movement of the hip is uncomfortable at this time. Onset: Sudden Location: Reports: Lower Extremity, Left (Left hip region) Quality: Reports: Sharp, Stabbing Severity: Severe Improves with: Reports: None Worsens with: Reports: Movement Context: Reports: Other (Hip arthroplasty on 16 July.) - Related Data Allergies Allergy/AdvReac Type Severity Reaction Status Date / Time No Known Allergies Allergy Verified 07/22/20 11:49 Home Meds: Home Meds Magnesium Citrate [Citrate of Magnesia] 1 bottle PO ASDIRECTED PRN 07/16/20 [History] Nozin [ Nasal Ceramic Design Engineer] 1 applic NASBOTH BID haresh 07/19/20 [Rx] oxyCODONE HCl/Acetaminophen [Percocet 5-325 mg Tablet] 1 - 2 each PO Q6HR PRN #40 tablet 07/19/20 [Rx] Metoclopramide HCl [Reglan] 10 mg PO QID PRN #20 tablet 07/20/20 [Rx] Tamsulosin HCl [Flomax] 0.4 mg PO BEDTIME #15 cap.er.24h 07/20/20 [Rx] Past Medical History HEENT History: Reports: Cataract, Glaucoma, Impaired Vision Other HEENT History: wears glasses Cardiovascular History: Reports: Arrhythmia, High Cholesterol, Hypertension, [place] Respiratory History: Reports: Sleep Apnea Gastrointestinal History: Reports: Cholelithiasis, Chronic Constipation, Chronic Diarrhea, Colon Polyp, Gastritis, GERD, PUD Genitourinary History: Reports: Prostate Disorder, Other (See Below) Other Genitourinary History: urinary frequency Musculoskeletal History: Reports: Back Pain, Chronic, Osteoarthritis Psychiatric History: Reports: Depression, Other (See Below) Other Psychiatric History: past 6 months anger problems, caregiver for his is exhausting him Endocrine/Metabolic History: Reports: Obesity/BMI 30+ - Infectious Disease History Infectious Disease History: Reports: Chicken Pox, Measles, Mumps, Rubella - Past Surgical History Head Surgeries/Procedures: Reports: None HEENT Surgical History: Reports: None Cardiovascular Surgical History: Reports: None Respiratory Surgical History: Reports: None GI Surgical History: Reports: Cholecystectomy, Colonoscopy, EGD, Other (See Below) Other GI Surgeries/Procedures: partial bowel obstruction Male Surgical History: Reports: None Endocrine Surgical History: Reports: None Musculoskeletal Surgical History: Reports: Hip Replacement, Knee Replacement, Other (See Below) Other Musculoskeletal Surgeries/Procedures:: Left ankle surg, left toe surgery, right middle toe amputated. Dermatological Surgical History: Reports: None Social & Family History - Family History Family Medical History: Noncontributory Cardiac: Reports: CAD, [place] : Reports: Dialysis, Renal Disease/Insufficiency Musculoskeletal: Reports: Arthritis, Other (See Below) Other Musculoskeletal Family History: scoliosis Oncologic: Reports: Breast Other Oncologic Family History: daughter has recent breast ca diagnosis - Tobacco Use Smoking Status *Q: Never Smoker - Caffeine Use Caffeine Use: Reports: None Caffeine Use Comment: occasional 2-3 cups week Review of Systems - Review of Systems Review Of Systems: See Below Constitutional: Reports: No Symptoms Respiratory: Reports: No Symptoms Cardiovascular: Reports: No Symptoms GI/Abdominal: Reports: No Symptoms Musculoskeletal: Reports: Other (Left hip region pain as described.) Neurological: Reports: No Symptoms ED EXAM, GENERAL - Physical Exam Exam: See Below Free Text/Narrative:: This is an adult male interviewed while on the cart in room 7. His hip and knee are in slight flexion with support under the knee. Exam Limited By: No Limitations General Appearance: Alert, Anxious, Moderate Distress Respiratory/Chest: No Respiratory Distress Cardiovascular: Regular Rate, Rhythm Extremities: Other (There is extreme pain on palpation and with even minimal movement of the left hip region. The right hip is fine.) Course - Vital Signs Last Recorded V/S: Last Vital Signs Temp 36.5 C 07/22/20 11:57 Pulse 73 07/22/20 11:57 Resp 16 07/22/20 11:57 BP 108/48 L 07/22/20 11:57 Pulse Ox 99 07/22/20 11:57 - Orders/Labs/Meds Orders: Active Orders 24 hr Category Date Time Status Hip Min 1V w Pelvis Rt [CR] Stat Exams 07/22/20 12:08 Ordered Sodium Chloride 0.9% [Saline Flush] Med 07/22/20 12:08 Ordered 10 ml FLUSH ASDIRECTED PRN Saline Lock Insert [OM.PC] Routine Oth 07/22/20 12:08 Ordered Medication Orders Sodium Chloride (Saline Flush) 10 ml FLUSH ASDIRECTED PRN PRN Reason: Keep Vein Open Last Admin: 07/22/20 12:31 Dose: 10 ml Documented by: JACQUELINE Meds: Medications Generic Name Dose Route Start Last Admin Trade Name Freq PRN Reason Stop Dose Admin Sodium Chloride 10 ml 07/22/20 12:08 07/22/20 12:31 Saline Flush FLUSH 10 ml ASDIRECTED PRN Administration Keep Vein Open Discontinued Medications Generic Name Dose Route Start Last Admin Trade Name Freq PRN Reason Stop Dose Admin Hydromorphone HCl 1 mg 07/22/20 12:08 07/22/20 12:30 Dilaudid IVPUSH 07/22/20 12:09 1 mg ONETIME ONE Administration - Re-Assessments/Exams Free Text/Narrative Re-Assessment/Exam: 07/22/20 12:52 We will obtain an x-ray of the left hip and pelvis. He will be given 1 mg of hydromorphone IV. Review of images show that the arthroplasty is seated exactly where it needs to be. I discussed with him that being now 6 days postop, he likely pulled some inflamed soft tissue that was still reacting and recovering from the recent surgery. He is a little groggy at this time but still able to answer questions. I will have him rest for a little while but then work on getting him up and into a wheelchair and then back into his brother's vehicle to return to his care center. No changes in medications or other postoperative care recommendations. 07/22/20 13:45 Patient transferred into the wheelchair successfully and will be discharged to be returned to his care center via transportation by brother. Departure - Departure Time of Disposition: 13:36 Disposition: DC/Tfer to SNF 03 Clinical Impression: Hip pain, left, History of arthroplasty - Discharge Information Referrals: Marcial Hanna MD [Primary Care Provider] - Forms: ED Department Discharge Additional Instructions: Continue currently recommended post surgery care and medications. The pain that you felt today is from soft tissue in the hip area getting stretched out again. The the artificial hip itself is where it should be in the hip socket. Sepsis Event Note (ED) - Evaluation Sepsis Screening Result: No Definite Risk - Focused Exam Vital Signs: Vital Signs Temp Pulse Resp BP Pulse Ox 07/22/20 11:57 36.5 C 73 16 108/48 L 99 - My Orders Last 24 Hours: My Active Orders 07/22/20 12:08 Hip Min 1V w Pelvis Rt [CR] Stat Sodium Chloride 0.9% [Saline Flush] 10 ml FLUSH ASDIRECTED PRN Saline Lock Insert [OM.PC] Routine - Assessment/Plan Last 24 Hours: My Active Orders 07/22/20 12:08 Hip Min 1V w Pelvis Rt [CR] Stat Sodium Chloride 0.9% [Saline Flush] 10 ml FLUSH ASDIRECTED PRN Saline Lock Insert [OM.PC] Routine
--- NOTE | 2020-07-23 12:28 | CR ---
Hip Min 1V w Pelvis Rt CLINICAL HISTORY: Left hip pain FINDINGS: Patient is status post recent left hip arthroplasty. Components appear well seated as seen. The distal aspect of the femoral prosthesis is not imaged. IMPRESSION: Limited study Recent left hip arthroplasty No dislocation.
== END 2020-07-22 14:15 ==
LOC: JP.ED 11:34
DX: M25.552 Pain in left hip (principal); I10 Essential (primary) hypertension; I25.2 Old myocardial infarction; X50.1XXA Overexertion from prolonged static or awkward postures, initial encounter
CPT/HCPCS: 73501; 96374; 99283; J1170

== ENCOUNTER 2020-07-28 12:54 | Emergency (ER) | payer MEDICARE, BC ==
--- NOTE | 2020-07-28 13:37 | EDM.PDOC ---
ED HPI GENERAL MEDICAL PROBLEM - General Chief Complaint: Genitourinary Problem Stated Complaint: MEDICAL [facility]IA [facility] Time Seen by Provider: 07/28/20 13:18 Source of Information: Reports: Patient, Long-Term Records, RN, RN Notes Reviewed History Limitations: Reports: No Limitations - History of Present Illness INITIAL COMMENTS - FREE TEXT/NARRATIVE: Pt presents with fever (101) probably related to UTI on lab work completed today. Pt does not trigger sepsis on algorithm. Pt had recent left hip surgery. Incision site does not show signs or symptoms of infection. Pt does not have any pain related to the surgical site but is complaining of abdominal pain. Pt states he has not had a bowel movement in 3-4 days. Pt states he has had Dulcolax as well as an enema without results. Pt does have mag citrate on his current orders that have not been tried. Pt continues to use pain medication but feels he may be able to use less narcotic and more tylenol to help reduce pain. Onset: Today Onset Date: 07/28/20 Onset Time: 07:00 Duration: Getting Worse Location: Reports: Abdomen (flatus and belching abd soft with some tenderness), Pelvis (difficulty urinating, UTI on labs sent with him from the [place]), Lower Extremity, Left (recent hip surgery, incision w/o sxs of infection ) Quality: Reports: Pressure (from the bloating) Severity: Moderate Improves with: Reports: None Worsens with: Reports: None Context: Reports: Other (recent surgery, limited mobilty and use of narcotics for pain) Associated Symptoms: Reports: Fever/Chills. Denies: Nausea/Vomiting Treatments DIAGNOSTIC ASSISTANT: Reports: Other Medication(s) (prune juice, dulcolax, enema, pain medications. UTI not yet treated) - Related Data Allergies Allergy/AdvReac Type Severity Reaction Status Date / Time No Known Allergies Allergy Verified 07/22/20 11:49 Home Meds: Home Meds Magnesium Citrate [Citrate of Magnesia] 1 bottle PO ASDIRECTED PRN 07/16/20 [History] Metoclopramide HCl [Reglan] 10 mg PO QID PRN #20 tablet 07/20/20 [Rx] Tamsulosin HCl [Flomax] 0.4 mg PO BEDTIME #15 cap.er.24h 07/20/20 [Rx] Acetaminophen [Tylenol] 650 mg PO Q4H PRN 07/28/20 [History] Docusate Sodium/Sennosides [Senna Plus] 2 tab PO DAILY 07/28/20 [History] Magnesium Hydroxide [Milk of Magnesia] 30 ml PO DAILY PRN 07/28/20 [History] Omeprazole 20 mg PO ACBREAKFAST 07/28/20 [History] bisacodyL [Dulcolax] 10 mg RC Q3D PRN 07/28/20 [History] oxyCODONE HCl/Acetaminophen [Percocet 5-325 mg Tablet] 1 each PO Q6HR PRN 07/28/20 [History] oxyCODONE HCl/Acetaminophen [Percocet 5-325 mg Tablet] 2 each PO Q6HR PRN 07/28/20 [History] Past Medical History HEENT History: Reports: Cataract, Glaucoma, Impaired Vision Other HEENT History: wears glasses Cardiovascular History: Reports: Arrhythmia, High Cholesterol, Hypertension, [place] Respiratory History: Reports: Sleep Apnea Gastrointestinal History: Reports: Cholelithiasis, Chronic Constipation, Chronic Diarrhea, Colon Polyp, Gastritis, GERD, PUD Genitourinary History: Reports: Prostate Disorder, Other (See Below) Other Genitourinary History: urinary frequency Musculoskeletal History: Reports: Back Pain, Chronic, Osteoarthritis Psychiatric History: Reports: Depression, Other (See Below) Other Psychiatric History: past 6 months anger problems, caregiver for his is exhausting him Endocrine/Metabolic History: Reports: Obesity/BMI 30+ - Infectious Disease History Infectious Disease History: Reports: Chicken Pox, Measles, Mumps, Rubella - Past Surgical History Head Surgeries/Procedures: Reports: None HEENT Surgical History: Reports: None Cardiovascular Surgical History: Reports: None Respiratory Surgical History: Reports: None GI Surgical History: Reports: Cholecystectomy, Colonoscopy, EGD, Other (See Below) Other GI Surgeries/Procedures: partial bowel obstruction Male Surgical History: Reports: None Endocrine Surgical History: Reports: None Musculoskeletal Surgical History: Reports: Hip Replacement, Knee Replacement, Other (See Below) Other Musculoskeletal Surgeries/Procedures:: Left ankle surg, left toe surgery, right middle toe amputated. Dermatological Surgical History: Reports: None Social & Family History - Family History Family Medical History: Noncontributory Cardiac: Reports: CAD, [place] : Reports: Dialysis, Renal Disease/Insufficiency Musculoskeletal: Reports: Arthritis, Other (See Below) Other Musculoskeletal Family History: scoliosis Oncologic: Reports: Breast Other Oncologic Family History: daughter has recent breast ca diagnosis - Tobacco Use Smoking Status *Q: Former Smoker Used Tobacco, but Quit: Yes Month/Year Tobacco Last Used: 1969 Second Hand Smoke Exposure: No - Caffeine Use Caffeine Use: Reports: None Caffeine Use Comment: occasional 2-3 cups week - Recreational Drug Use Recreational Drug Use: No ED ROS GENERAL - Review of Systems Review Of Systems: See Below Constitutional: Reports: Fever, Weakness HEENT: Reports: No Symptoms Respiratory: Denies: Shortness of Breath, Cough Cardiovascular: Reports: Edema (non-pitting). 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 Pt is sleepy during the exam and interview. He awakes with bouts of abd pain/tenderness with belching and flatus. Abd is soft with tenderness. UTI on labs obtained today not yet treated. Pt denies hip pain and uses a walker to ambulate. Fever on arrival 101 but does not trigger sepsis protocol. Exam Limited By: No Limitations General Appearance: WD/WN, No Apparent Distress, Lethargic (0), Moderate Distress, Obese Head: Atraumatic, Normocephalic Neck: Normal Inspection, Supple, Non-Tender, Full Range of Motion Respiratory/Chest: No Respiratory Distress, Lungs Clear, Normal Breath Sounds, No Accessory Muscle Use, Chest Non-Tender Cardiovascular: Normal Peripheral Pulses, Regular Rate, Rhythm. No: No Edema (slight edema in bilateral lower extremities, non-pitting) GI/Abdominal: Normal Bowel Sounds, Soft, No Organomegaly, No Abnormal Bruit, No Mass, Pelvis Stable, Distended, Tender. No: Non-Tender, No Distention Back Exam: Normal Inspection, Full Range of Motion Extremities: Normal Capillary Refill, Pedal Edema, Limited Range of Motion (recent surgery - left hip) Neurological: Oriented, CN II-XII Intact, Normal Cognition, Normal Reflexes, Slow to Respond (r/t pain meds) Psychiatric: Normal Affect, Normal Mood Skin Exam: Warm, Dry, Intact, No Rash, Wound/Incision (left hip as already described) Lymphatic: No Adenopathy Comments: Pt with UTI on labs. More concerned about the abd discomfort. Denies pain at the incision site. Course - Vital Signs Text/Narrative:: Noted elevation of temp, does not trigger sepsis protocol Last Recorded V/S: Last Vital Signs Temp 38.0 C 07/28/20 13:05 Pulse 91 07/28/20 14:10 Resp 21 H 07/28/20 14:10 BP 133/70 07/28/20 14:10 Pulse Ox 91 L 07/28/20 14:10 - Re-Assessments/Exams Free Text/Narrative Re-Assessment/Exam: 07/28/20 14:07 Will treat UTI with oral antibiotics. Cephalexin 500mg four times a day for 10 days Pt to utilize MagCitrate already on on current orders for constipation to produce bowel movement Pt to stop percocet due to constipation and sleepiness. Pt to utilize tylenol for pain and to reduce narcotic related constipation. 07/28/20 14:16 Pt is in agreement with this plan. He will return to sn[facility] for final days of therapy with intended discharge to home on 07/30/2020 07/28/20 14:43 Departure - Departure Time of Disposition: 14:35 Disposition: DC/Tfer to [facility] [place] 62 Condition: Fair Clinical Impression: UTI (urinary tract infection), Constipation due to opioid therapy, UTI, Urinary tract infectious disease - Discharge Information *PRESCRIPTION DRUG MONITORING PROGRAM REVIEWED*: No *COPY OF PRESCRIPTION DRUG MONITORING REPORT IN PATIENT MONSE: No Instructions: Antibiotic Medicine, Adult, [id number], Constipation, Adult, Urinary Tract Infection, Adult Referrals: Yovany Mcmanus MD [Primary Care Provider] - Forms: ED Department Discharge Additional Instructions: D/C Percocet - Use Tylenol 650 mg up to four times a day as needed for pain Utilize magcitrate as ordered on current [place] orders to produce bowel movement. Start Cephalexin 500mg four times a day for UTI. continue for 10 days until all antibiotics are complete. Provided [facility] RX Increase fluid intake, increase ambulation as tolerated. Care Plan Goals: Bowel movement following use of bowel stimulant medications Pain relief with use of tylenol versus narcotic Verify (cephalexin) susceptibility with culture result when available Sepsis Event Note (ED) - Evaluation Sepsis Screening Result: No Definite Risk - Focused Exam Vital Signs: Vital Signs Temp Pulse Resp BP Pulse Ox 07/28/20 14:10 91 21 H 133/70 91 L 07/28/20 13:05 38.0 C 104 H 17 117/70 94 L 07/28/20 13:03 38.0 C 104 H 17 117/70 94 L
[2020-07-28 14:11] VITALS: BP 133/70; PULSE 91
== END 2020-07-28 14:54 ==
LOC: JP.ED 12:54
DX: N39.0 Urinary tract infection, site not specified (principal); K59.03 Drug induced constipation; T40.2X5A Adverse effect of other opioids, initial encounter; R60.0 Localized edema; E66.9 Obesity, unspecified; Z68.34 Body mass index [BMI] 34.0-34.9, adult; I10 Essential (primary) hypertension; I25.2 Old myocardial infarction; N42.9 Disorder of prostate, unspecified; Z79.899 Other long term (current) drug therapy; Z87.891 Personal history of nicotine dependence
CPT/HCPCS: 99283; 99285

== ENCOUNTER 2020-08-04 06:31 | Inpatient (IN) | payer MEDICARE, BC, OTHER ==
--- NOTE | 2020-08-04 07:30 | EDM.PDOC ---
ED HPI GENERAL MEDICAL PROBLEM - General Chief Complaint: General Stated Complaint: HIP PAIN Time Seen by Provider: 08/04/20 07:05 Source of Information: Reports: Patient, Family History Limitations: Reports: No Limitations - History of Present Illness INITIAL COMMENTS - FREE TEXT/NARRATIVE: 79-year-old male who recently underwent hip surgery, was in a [facility] for rehabilitation and went home 2 days ago. He was doing well but developed increased confusion and agitation overnight, his daughter said he was pacing on and this morning he is very confused. He has no fever. He had a normal bowel movement last night according to the daughter, but later he felt he needed to have a bowel movement so took "3 Dulcolax", otherwise there is been no medication changes. He is on cephalexin for a UTI. He takes hydrocodone sparingly. He has not fallen, sustained a head injury, denies any shortness of breath. He has a chronic abdominal upset that has been worked up and is stable. Onset: Unknown/Unsure Duration: Hour(s): (Increased confusion over the past 10 hours) Associated Symptoms: Reports: Confusion, Other (Mild agitation) left hip Pain Score (Numeric/FACES): 8 - Related Data Allergies Allergy/AdvReac Type Severity Reaction Status Date / Time No Known Allergies Allergy Verified 08/04/20 06:42 Home Meds: Home Meds Magnesium Citrate [Citrate of Magnesia] 1 bottle PO ASDIRECTED PRN 07/16/20 [History] Tamsulosin HCl [Flomax] 0.4 mg PO BEDTIME #15 cap.er.24h 07/20/20 [Rx] Acetaminophen [Tylenol] 650 mg PO Q4H PRN 07/28/20 [History] Docusate Sodium/Sennosides [Senna Plus] 2 tab PO DAILY 07/28/20 [History] Magnesium Hydroxide [Milk of Magnesia] 30 ml PO DAILY PRN 07/28/20 [History] Omeprazole 20 mg PO ACBREAKFAST 07/28/20 [History] bisacodyL [Dulcolax] 10 mg RC Q3D PRN 07/28/20 [History] cephALEXin [Cephalexin] 500 mg PO QID 07/31/20 [History] Hydrocodone/Acetaminophen [[place] 5-325 Tablet] 1 - 2 each PO Q8HR PRN #40 tablet 08/01/20 [Rx] Past Medical History HEENT History: Reports: Cataract, Glaucoma, Impaired Vision Other HEENT History: wears glasses Cardiovascular History: Reports: Arrhythmia, High Cholesterol, Hypertension, [place] Respiratory History: Reports: Sleep Apnea Gastrointestinal History: Reports: Cholelithiasis, Chronic Constipation, Chronic Diarrhea, Colon Polyp, Gastritis, GERD, PUD Genitourinary History: Reports: Prostate Disorder, Other (See Below) Other Genitourinary History: urinary frequency Musculoskeletal History: Reports: Back Pain, Chronic, Osteoarthritis Other Musculoskeletal History: 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 Psychiatric History: Reports: Depression, Other (See Below) Other Psychiatric History: past 6 months anger problems, caregiver for his is exhausting him Endocrine/Metabolic History: Reports: Obesity/BMI 30+ - Infectious Disease History Infectious Disease History: Reports: Chicken Pox, Measles, Mumps, Rubella - Past Surgical History Head Surgeries/Procedures: Reports: None HEENT Surgical History: Reports: None Cardiovascular Surgical History: Reports: None Respiratory Surgical History: Reports: None GI Surgical History: Reports: Cholecystectomy, Colonoscopy, EGD, Other (See Below) Other GI Surgeries/Procedures: partial bowel obstruction Male Surgical History: Reports: None Endocrine Surgical History: Reports: None Musculoskeletal Surgical History: Reports: Hip Replacement, Knee Replacement, Other (See Below) Other Musculoskeletal Surgeries/Procedures:: Left ankle surg, left toe surgery, right middle toe amputated. Dermatological Surgical History: Reports: None Social & Family History - Family History Family Medical History: Noncontributory Cardiac: Reports: CAD, [place] : Reports: Dialysis, Renal Disease/Insufficiency Musculoskeletal: Reports: Arthritis, Other (See Below) Other Musculoskeletal Family History: scoliosis Oncologic: Reports: Breast Other Oncologic Family History: daughter has recent breast ca diagnosis - Tobacco Use Smoking Status *Q: Never Smoker - Caffeine Use Caffeine Use: Reports: Coffee Caffeine Use Comment: occasional 2-3 cups week - Recreational Drug Use Recreational Drug Use: No ED ROS GENERAL - Review of Systems Review Of Systems: See Below Constitutional: Denies: Fever, Chills, Malaise HEENT: Reports: No Symptoms Respiratory: Denies: Shortness of Breath Cardiovascular: Denies: Chest Pain, Palpitations GI/Abdominal: Reports: Other (Chronic recurring belching sensation and abdominal pressure) : Reports: Other (No symptoms but currently being treated for UTI) Skin: Denies: Erythema Neurological: Reports: Confusion. Denies: Dizziness, Headache Psychiatric: Reports: Anxiety ED EXAM, GENERAL - Physical Exam Exam: See Below Exam Limited By: No Limitations General Appearance: Alert, No Apparent Distress, Anxious, Other (Patient is cooperative, answering questions appropriately but keeps asking if he can "stand up" he is obviously anxious) Eye Exam: Bilateral Eye: EOMI Head: Atraumatic Neck: Non-Tender Cardiovascular: Regular Rate, Rhythm, Systolic Murmur GI/Abdominal: Normal Bowel Sounds, Soft, Non-Tender Extremities: Other (Left hip is very tender to even light palpation, there is obvious swelling under the lateral incision with some surrounding erythema) Neurological: Alert, Oriented (Patient is now oriented but still mildly confused), Confused Psychiatric: Anxious Course - Vital Signs Last Recorded V/S: Last Vital Signs Temp 97.4 F 08/04/20 10:04 Pulse 60 08/04/20 11:30 Resp 20 08/04/20 11:30 BP 154/77 H 08/04/20 11:30 Pulse Ox 96 08/04/20 11:30 - Orders/Labs/Meds Orders: Active Orders 24 hr Category Date Time Status Admission Status [Patient Status] [ADT] Routine ADT 08/04/20 10:58 Active Verify Patient Consent Obtain [RC] ASDIRECTED Care 08/04/20 11:01 Active NPO [Nothing Per Oral Diet] [DIET] Diet 08/04/20 Lunch Active Sodium Chloride 0.9% [Normal Saline] 1,000 ml Med 08/04/20 10:45 Active IV ASDIRECTED Medication Orders Sodium Chloride (Normal Saline) 1,000 mls @ 250 mls/hr IV ASDIRECTED SHIRA Last Admin: 08/04/20 11:05 Dose: 250 mls/hr Documented by: PREILOR Labs: Laboratory Tests 08/04/20 08/04/20 08/04/20 Range/Units 07:17 07:18 07:18 WBC 9.3 (4.5-11.0) K/uL RBC 4.41 (4.30-5.90) M/uL Hgb 12.5 (12.0-15.0) g/dL Hct 38.9 L (40.0-54.0) % MCV 88 (80-98) fL MCH 28 (27-31) pg MCHC 32 (32-36) % Plt Count 378 (150-400) K/uL Add Manual Diff Yes Neutrophils % (Manual) 54 (36-66) % Lymphocytes % (Manual) 28 (24-44) % Monocytes % (Manual) 9 H (2-6) % Eosinophils % (Manual) 9 H (2-4) % Sodium 142 (140-148) mmol/L Potassium 3.7 (3.6-5.2) mmol/L Chloride 105 (100-108) mmol/L Carbon Dioxide 27 (21-32) mmol/L Anion Gap 10.3 (5.0-14.0) mmol/L BUN 13 (7-18) mg/dL Creatinine 1.0 (0.8-1.3) mg/dL Est Cr Clr Drug Dosing 64.67 mL/min Estimated GFR (MDRD) > 60 (>60) Glucose 95 (74-106) mg/dL Calcium 9.0 (8.5-10.1) mg/dL Total Bilirubin 0.5 (0.2-1.0) mg/dL AST 17 (15-37) U/L ALT 25 (12-78) U/L Alkaline Phosphatase 77 (46-116) U/L C-Reactive Protein (0.0-0.3) mg/dL Total Protein 6.5 (6.4-8.2) g/dL Albumin 3.1 L (3.4-5.0) g/dL Globulin 3.4 (2.3-3.5) g/dL Albumin/Globulin Ratio 0.9 L (1.2-2.2) Urine Color Yellow (YELLOW) Urine Appearance Clear (CLEAR) Urine pH 5.5 (5.0-8.0) Ur Specific [place] 1.025 (1.008-1.030) Urine Protein Negative (NEGATIVE) mg/dL Urine Glucose (UA) Negative (NEGATIVE) mg/dL Urine Ketones Negative (NEGATIVE) mg/dL Urine Occult Blood Negative (NEGATIVE) Urine Nitrite Negative (NEGATIVE) Urine Bilirubin Negative (NEGATIVE) Urine Urobilinogen 0.2 (0.2-1.0) EU/dL Ur Leukocyte Esterase Negative (NEGATIVE) Urine RBC Not seen (0-5) Urine WBC 0-5 (0-5) Ur Epithelial Cells Not seen Amorphous Sediment Not seen Urine Bacteria Rare Urine Mucus Moderate SARS Virus RNA (PCR) (NEGATIVE) 08/04/20 08/04/20 Range/Units 08:17 11:40 WBC (4.5-11.0) K/uL RBC (4.30-5.90) M/uL Hgb (12.0-15.0) g/dL Hct (40.0-54.0) % MCV (80-98) fL MCH (27-31) pg MCHC (32-36) % Plt Count (150-400) K/uL Add Manual Diff Neutrophils % (Manual) (36-66) % Lymphocytes % (Manual) (24-44) % Monocytes % (Manual) (2-6) % Eosinophils % (Manual) (2-4) % Sodium (140-148) mmol/L Potassium (3.6-5.2) mmol/L Chloride (100-108) mmol/L Carbon Dioxide (21-32) mmol/L Anion Gap (5.0-14.0) mmol/L BUN (7-18) mg/dL Creatinine (0.8-1.3) mg/dL Est Cr Clr Drug Dosing mL/min Estimated GFR (MDRD) (>60) Glucose (74-106) mg/dL Calcium (8.5-10.1) mg/dL Total Bilirubin (0.2-1.0) mg/dL AST (15-37) U/L ALT (12-78) U/L Alkaline Phosphatase (46-116) U/L C-Reactive Protein 0.31 H (0.0-0.3) mg/dL Total Protein (6.4-8.2) g/dL Albumin (3.4-5.0) g/dL Globulin (2.3-3.5) g/dL Albumin/Globulin Ratio (1.2-2.2) Urine Color (YELLOW) Urine Appearance (CLEAR) Urine pH (5.0-8.0) Ur Specific [place] (1.008-1.030) Urine Protein (NEGATIVE) mg/dL Urine Glucose (UA) (NEGATIVE) mg/dL Urine Ketones (NEGATIVE) mg/dL Urine Occult Blood (NEGATIVE) Urine Nitrite (NEGATIVE) Urine Bilirubin (NEGATIVE) Urine Urobilinogen (0.2-1.0) EU/dL Ur Leukocyte Esterase (NEGATIVE) Urine RBC (0-5) Urine WBC (0-5) Ur Epithelial Cells Amorphous Sediment Urine Bacteria Urine Mucus SARS Virus RNA (PCR) Negative (NEGATIVE) Meds: Medications Generic Name Dose Route Start Last Admin Trade Name Henrietta PRN Reason Stop Dose Admin Sodium Chloride 1,000 mls @ 250 mls/hr 08/04/20 10:45 08/04/20 11:05 Normal Saline IV 250 mls/hr ASDIRECTED SHIRA Administration Discontinued Medications Generic Name Dose Route Start Last Admin Trade Name Henrietta PRN Reason Stop Dose Admin Bupivacaine HCl Confirm 08/04/20 11:31 Marcaine 0.5% Administered 08/04/20 11:32 Dose 50 ml .ROUTE .STK-MED ONE Fentanyl 50 mcg 08/04/20 09:54 08/04/20 10:01 Sublimaze IM 08/04/20 09:55 50 mcg ONETIME ONE Administration Fentanyl Confirm 08/04/20 12:27 Sublimaze Administered 08/04/20 12:28 Dose 100 mcg .ROUTE .STK-MED ONE Hydromorphone HCl 0.5 mg 08/04/20 11:12 08/04/20 11:20 Dilaudid IVPUSH 08/04/20 11:13 0.5 mg ONETIME ONE Administration Meropenem 1 gm/ Sodium 100 mls @ 200 mls/hr 08/04/20 10:42 08/04/20 11:05 Chloride IV 08/04/20 11:11 200 mls/hr ONETIME ONE Administration Lactated Ringer's Confirm 08/04/20 12:53 Ringers, Lactated Administered 08/04/20 12:54 Dose 1,000 mls @ as directed .ROUTE .STK-MED ONE Midazolam HCl Confirm 08/04/20 12:27 Versed 1 Mg/Ml Administered 08/04/20 12:28 Dose 2 mg .ROUTE .STK-MED ONE Povidone Iodine Confirm 08/04/20 12:01 Betadine 10% Soln Administered 08/04/20 12:02 Dose 1 ml .ROUTE .STK-MED ONE Propofol Confirm 08/04/20 12:27 Diprivan 20 Ml Administered 08/04/20 12:28 Dose 200 mg .ROUTE .STK-MED ONE - Re-Assessments/Exams Free Text/Narrative Re-Assessment/Exam: 08/04/20 08:30 CBC and CMP were obtained which were normal, and ultrasound shows a loculated collection of fluid under the incision. It is very tender to palpation. I discussed his condition with Dr. Florez, and added a CRP. He is come to the hospital and will take a look at the incision. 08/04/20 08:31 UA is now normal. 08/04/20 11:07 Dr. Florez felt surgical exploration was needed. He will be admitted. CRP was 0.31. An additional 50 mcg of fentanyl IM and later 0.5 mg of IV Dilaudid were used for pain control. He was also given 2 doses of his own pain medications initially. Departure - Departure Time of Disposition: 12:46 Disposition: Admitted As Inpatient 65 Clinical Impression: Hematoma, Postoperative pain, Confusion - Discharge Information Sepsis Event Note (ED) - Evaluation Sepsis Screening Result: No Definite Risk - Focused Exam Vital Signs: Vital Signs Temp Pulse Resp BP Pulse Ox 08/04/20 11:30 60 20 154/77 H 96 08/04/20 10:04 97.4 F 61 18 131/89 99 08/04/20 06:39 96.7 F L 74 17 115/70 98 - My Orders Last 24 Hours: My Active Orders 08/04/20 10:45 Sodium Chloride 0.9% [Normal Saline] 1,000 ml IV ASDIRECTED - Assessment/Plan Last 24 Hours: My Active Orders 08/04/20 10:45 Sodium Chloride 0.9% [Normal Saline] 1,000 ml IV ASDIRECTED
--- NOTE | 2020-08-04 08:01 | CRLCT ---
INDICATION: Altered mental status. TECHNIQUE: CT scan of the brain without contrast. FINDINGS: Brain: Prominent extra-axial spaces. No midline shift or mass effect. No signs of hemorrhage. Calvarium: Normal. Miscellaneous: There is dense calcification of the anterior falx. No change from prior CT scan of the brain September 2019. IMPRESSION: Stable cerebral volume loss and no new acute intracranial radiographic abnormality. Please note that all CT scans at this facility use dose modulation, iterative reconstruction, and/or weight-based dosing when appropriate to reduce radiation dose to as low as reasonably achievable. Dictated by Bruce Bradley MD @ Aug 04 2020 7:56AM Signed by Dr. Bruce Bradley @ Aug 04 2020 8:00AM
[2020-08-04] MEDS ORDERED: fentaNYL 100 MCG/2 ML SDV IM ONE (09:54)
[2020-08-04] MEDS ORDERED: Meropenem 1 GM in Sodium Chloride 0.9% 100 ML IV ONE (10:42)
[2020-08-04] MEDS ORDERED: Sodium Chloride 0.9% 1,000 ML IV SCH (10:45)
[2020-08-04] MEDS ORDERED: HYDROmorphone 0.5 MG/0.5 ML Syringe IVPUSH ONE (11:12)
--- NOTE | 2020-08-04 11:24 | PCM.HP.2 ---
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 Patient and family member report that he was up pacing last night due to pain and this morning became confused and disoriented. In the ED his metal status has been waxing and waning. Left hip is very tender, especially near inferior end of incision, with some surrounding erythema and warmth. No drainage, has not been febrile. Has been on Keflex for a UTI. Labs are unremarkable, with no elevated WBC, or C-RP. Ultrasound in ED showed a loculated fluid collection. Onset of Symptoms: Reports: Gradual Duration of Symptoms: Reports: Getting Worse Location: Reports: Lower Extremity, Left (hip) Quality: Reports: Throbbing Severity: Severe Improves with: Reports: Rest Worsens with: Reports: Movement Associated Symptoms: Reports: Other (confusion) left hip Pain Score (Numeric/FACES): 8 - Related Data Allergies/Adverse Reactions: Allergies Allergy/AdvReac Type Severity Reaction Status Date / Time No Known Allergies Allergy Verified 08/04/20 06:42 Home Medications: Home Meds Magnesium Citrate [Citrate of Magnesia] 1 bottle PO ASDIRECTED PRN 07/16/20 [History] Tamsulosin HCl [Flomax] 0.4 mg PO BEDTIME #15 cap.er.24h 07/20/20 [Rx] Acetaminophen [Tylenol] 650 mg PO Q4H PRN 07/28/20 [History] Docusate Sodium/Sennosides [Senna Plus] 2 tab PO DAILY 07/28/20 [History] Magnesium Hydroxide [Milk of Magnesia] 30 ml PO DAILY PRN 07/28/20 [History] Omeprazole 20 mg PO ACBREAKFAST 07/28/20 [History] bisacodyL [Dulcolax] 10 mg RC Q3D PRN 07/28/20 [History] cephALEXin [Cephalexin] 500 mg PO QID 07/31/20 [History] Hydrocodone/Acetaminophen [[place] 5-325 Tablet] 1 - 2 each PO Q8HR PRN #40 tablet 08/01/20 [Rx] Past Medical History HEENT History: Reports: Cataract, Glaucoma, Impaired Vision Other HEENT History: wears glasses Cardiovascular History: Reports: Arrhythmia, High Cholesterol, Hypertension, PR Respiratory History: Reports: Sleep Apnea Gastrointestinal History: Reports: Cholelithiasis, Chronic Constipation, Chronic Diarrhea, Colon Polyp, Gastritis, GERD, PUD Genitourinary History: Reports: Prostate Disorder, Other (See Below) Other Genitourinary History: urinary frequency Musculoskeletal History: Reports: Back Pain, Chronic, Osteoarthritis Other Musculoskeletal History: 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 Psychiatric History: Reports: Depression, Other (See Below) Other Psychiatric History: past 6 months anger problems, caregiver for his is exhausting him Endocrine/Metabolic History: Reports: Obesity/BMI 30+ - Infectious Disease History Infectious Disease History: Reports: Chicken Pox, Measles, Mumps, Rubella - Past Surgical History Head Surgeries/Procedures: Reports: None HEENT Surgical History: Reports: None Cardiovascular Surgical History: Reports: None Respiratory Surgical History: Reports: None GI Surgical History: Reports: Cholecystectomy, Colonoscopy, EGD, Other (See Below) Other GI Surgeries/Procedures: partial bowel obstruction Male Surgical History: Reports: None Endocrine Surgical History: Reports: None Musculoskeletal Surgical History: Reports: Hip Replacement, Knee Replacement, Other (See Below) Other Musculoskeletal Surgeries/Procedures:: Left ankle surg, left toe surgery, right middle toe amputated. Dermatological Surgical History: Reports: None Social & Family History - Family History Family Medical History: Noncontributory Cardiac: Reports: CAD, PR : Reports: Dialysis, Renal Disease/Insufficiency Musculoskeletal: Reports: Arthritis, Other (See Below) Other Musculoskeletal Family History: scoliosis Oncologic: Reports: Breast Other Oncologic Family History: daughter has recent breast ca diagnosis - Tobacco Use Smoking Status *Q: Never Smoker - Caffeine Use Caffeine Use: Reports: Coffee Caffeine Use Comment: occasional 2-3 cups week - Recreational Drug Use Recreational Drug Use: No H&P Review of Systems - Review of Systems: Review Of Systems: See Below HEENT: Reports: No Symptoms Pulmonary: Reports: No Symptoms Cardiovascular: Reports: No Symptoms Gastrointestinal: Reports: Constipation Musculoskeletal: Reports: Leg Pain Skin: Reports: Erythema Psychiatric: Reports: Confusion Neurological: Reports: No Symptoms Exam - Exam Exam: See Below - Vital Signs Vital Signs: Last Vital Signs Temp 36.3 C 08/04/20 10:04 Pulse 61 08/04/20 10:04 Resp 18 08/04/20 10:04 BP 131/89 08/04/20 10:04 Pulse Ox 99 08/04/20 10:04 Weight: 111.13 kg - Exam General: Alert, Oriented (at time of this exam) HEENT: PERRLA, Hearing Intact, Mucosa Moist & [place], Nares Patent, Normal Nasal Septum, Posterior Pharynx Clear, Conjunctiva Clear, EOMI, EACs Clear, TMs Clear Lungs: Clear to Auscultation, Normal Respiratory Effort Cardiovascular: Regular Rate, Regular Rhythm GI/Abdominal Exam: Normal Bowel Sounds, Soft, Non-Tender, No Distention (Male) Exam: Deferred Rectal (Males) Exam: Deferred Back Exam: Normal Inspection Extremities: Limited Range of Motion, Increased Warmth (left hip) Peripheral Pulses: 1+: Dorsalis Pedis (L), Dorsalis Pedis (R) Skin: Warm, Dry Neurological: Cranial Nerves Intact, Reflexes Equal Bilateral Neuro Extensive - Mental Status: Alert, Normal Mood/Affect - Patient Data Lab Results Last 24 hrs: Laboratory Results - last 24 hr 08/04/20 08/04/20 08/04/20 Range/Units 07:17 07:18 07:18 WBC 9.3 (4.5-11.0) K/uL RBC 4.41 (4.30-5.90) M/uL Hgb 12.5 (12.0-15.0) g/dL Hct 38.9 L (40.0-54.0) % MCV 88 (80-98) fL MCH 28 (27-31) pg MCHC 32 (32-36) % Plt Count 378 (150-400) K/uL Add Manual Diff Yes Neutrophils % (Manual) 54 (36-66) % Lymphocytes % (Manual) 28 (24-44) % Monocytes % (Manual) 9 H (2-6) % Eosinophils % (Manual) 9 H (2-4) % Sodium 142 (140-148) mmol/L Potassium 3.7 (3.6-5.2) mmol/L Chloride 105 (100-108) mmol/L Carbon Dioxide 27 (21-32) mmol/L Anion Gap 10.3 (5.0-14.0) mmol/L BUN 13 (7-18) mg/dL Creatinine 1.0 (0.8-1.3) mg/dL Est Cr Clr Drug Dosing 64.67 mL/min Estimated GFR (MDRD) > 60 (>60) Glucose 95 (74-106) mg/dL Calcium 9.0 (8.5-10.1) mg/dL Total Bilirubin 0.5 (0.2-1.0) mg/dL AST 17 (15-37) U/L ALT 25 (12-78) U/L Alkaline Phosphatase 77 (46-116) U/L C-Reactive Protein (0.0-0.3) mg/dL Total Protein 6.5 (6.4-8.2) g/dL Albumin 3.1 L (3.4-5.0) g/dL Globulin 3.4 (2.3-3.5) g/dL Albumin/Globulin Ratio 0.9 L (1.2-2.2) Urine Color Yellow (YELLOW) Urine Appearance Clear (CLEAR) Urine pH 5.5 (5.0-8.0) Ur Specific [place] 1.025 (1.008-1.030) Urine Protein Negative (NEGATIVE) mg/dL Urine Glucose (UA) Negative (NEGATIVE) mg/dL Urine Ketones Negative (NEGATIVE) mg/dL Urine Occult Blood Negative (NEGATIVE) Urine Nitrite Negative (NEGATIVE) Urine Bilirubin Negative (NEGATIVE) Urine Urobilinogen 0.2 (0.2-1.0) EU/dL Ur Leukocyte Esterase Negative (NEGATIVE) Urine RBC Not seen (0-5) Urine WBC 0-5 (0-5) Ur Epithelial Cells Not seen Amorphous Sediment Not seen Urine Bacteria Rare Urine Mucus Moderate /11/11 Range/Units 08:17 WBC (4.5-11.0) K/uL RBC (4.30-5.90) M/uL Hgb (12.0-15.0) g/dL Hct (40.0-54.0) % MCV (80-98) fL MCH (27-31) pg MCHC (32-36) % Plt Count (150-400) K/uL Add Manual Diff Neutrophils % (Manual) (36-66) % Lymphocytes % (Manual) (24-44) % Monocytes % (Manual) (2-6) % Eosinophils % (Manual) (2-4) % Sodium (140-148) mmol/L Potassium (3.6-5.2) mmol/L Chloride (100-108) mmol/L Carbon Dioxide (21-32) mmol/L Anion Gap (5.0-14.0) mmol/L BUN (7-18) mg/dL Creatinine (0.8-1.3) mg/dL Est Cr Clr Drug Dosing mL/min Estimated GFR (MDRD) (>60) Glucose (74-106) mg/dL Calcium (8.5-10.1) mg/dL Total Bilirubin (0.2-1.0) mg/dL AST (15-37) U/L ALT (12-78) U/L Alkaline Phosphatase (46-116) U/L C-Reactive Protein 0.31 H (0.0-0.3) mg/dL Total Protein (6.4-8.2) g/dL Albumin (3.4-5.0) g/dL Globulin (2.3-3.5) g/dL Albumin/Globulin Ratio (1.2-2.2) Urine Color (YELLOW) Urine Appearance (CLEAR) Urine pH (5.0-8.0) Ur Specific [place] (1.008-1.030) Urine Protein (NEGATIVE) mg/dL Urine Glucose (UA) (NEGATIVE) mg/dL Urine Ketones (NEGATIVE) mg/dL Urine Occult Blood (NEGATIVE) Urine Nitrite (NEGATIVE) Urine Bilirubin (NEGATIVE) Urine Urobilinogen (0.2-1.0) EU/dL Ur Leukocyte Esterase (NEGATIVE) Urine RBC (0-5) Urine WBC (0-5) Ur Epithelial Cells Amorphous Sediment Urine Bacteria Urine Mucus Result Diagrams: 08/04/20 07:18 08/04/20 07:18 Sepsis Event Note - Evaluation Sepsis Screening Result: No Definite Risk - Focused Exam Vital Signs: Vital Signs Temp Pulse Resp BP Pulse Ox 08/04/20 10:04 36.3 C 61 18 131/89 99 08/04/20 06:39 35.9 C L 74 17 115/70 98 - Problem List (1) Abscess of hip, left SNOMED Code(s): 260010 ICD Code: L02.416 - CUTANEOUS ABSCESS OF LEFT LOWER LIMB Status: Acute Current Visit: Yes (2) Status post total hip replacement, left SNOMED Code(s): 373998231070, [id number] ICD Code: Z96.642 - PRESENCE OF LEFT ARTIFICIAL HIP JOINT Status: Chronic Current Visit: No Problem List Initiated/Reviewed/Updated: Yes Orders Last 24hrs: Active Orders 24 hr Category Date Time Status Sodium Chloride 0.9% [Normal Saline] 1,000 ml Med 08/04/20 10:45 Active IV ASDIRECTED Medication Orders Sodium Chloride (Normal Saline) 1,000 mls @ 250 mls/hr IV ASDIRECTED SHIRA Last Admin: 08/04/20 11:05 Dose: 250 mls/hr Documented by: PREILOR Assessment/Plan Comment:: Despite normal lab work, clinical indications point to an infection in the left hip. This may communicate with the hip joint and affect the arthroplasty. Plan: Will take to the OR today for Irrigation and Debridement of the left hip. If this does communicate with the prosthesis he will need buttermilk drier operator IV antibiotics.
[2020-08-04] MEDS ORDERED: Bupivacaine 0.5% 50 ML MDV ONE (11:31)
[2020-08-04] MEDS ORDERED: Povidone-Iodine 10% Soln 118.25 ML Bottle ONE (12:01)
[2020-08-04] MEDS ORDERED: fentaNYL 100 MCG/2 ML SDV ONE (12:27)
[2020-08-04] MEDS ORDERED: Midazolam 1 MG/ML 2 ML SDV ONE (12:27)
[2020-08-04] MEDS ORDERED: Propofol 200 MG/20 ML SDV ONE (12:27)
[2020-08-04] MEDS ORDERED: Lactated Ringers 1,000 ML ONE (12:53)
[2020-08-04] MEDS ORDERED: Acetaminophen/HYDROcodone 325-5 MG Tab PO PRN (13:44)
[2020-08-04] MEDS ORDERED: Ondansetron 4 MG/2 ML SDV IVPUSH PRN (13:44)
[2020-08-04] MEDS ORDERED: Acetaminophen 325 MG Tab PO PRN (13:44)
[2020-08-04] MEDS ORDERED: Magnesium Hydroxide 400 MG/5 ML Susp 30 ML Cup PO PRN (13:44)
[2020-08-04] MEDS ORDERED: Magnesium Citrate Solution 296 ML Bottle PO PRN (13:52)
--- NOTE | 2020-08-04 15:48 | PCM.CONS ---
H&P History of Present Illness - General Date of Service: 08/04/20 Admit Problem/Dx: Admission Diagnosis/Problem Admission Diagnosis/Problem Abscess after procedure Source of Information: Patient, Provider History Limitations: Reports: No Limitations - History of Present Illness Initial Comments - Free Text/Narative: CC: It was a rough night HPI: Magdy came to the emergency room this morning with restlessness and confusion. He was recently released from the long term after rehabbing for a left hip arthroplasty. Things had been going well per his report. Last night he says he was restless and having difficulty sleeping. His daughter thought he was somewhat confused. He thinks that he took 3 Dulcolax but he is not quite sure why. His daughter thinks maybe it was 3 diphenhydramine capsules that he took. This morning he was mildly agitated and confused. This seem to wax and wane some. He was also complaining of some discomfort in his left hip. He describes moderate achy pain that does not radiate. He has been taking pain pills and they have been helping. Moving around makes the pain worse. He does not report any fevers, nausea, abdominal pain or shortness of breath. He was on antibiotics for a urinary tract infection. No urinary symptoms. Initial work-up in the emergency room was concerning for an infected hematoma of the left hip. He was not febrile and his white count was normal. Labs were fairly unremarkable in the emergency room. He was taken to the operating room and had a debridement but it appeared more consistent with a seroma than any sort of infected fluid. No organisms were seen on the Gram stain. He seems to be back to his usual self at this point. I was asked to see him this afternoon by Dr. Cortes regarding the confusion. left hip Pain Score (Numeric/FACES): 8 - Related Data Allergies/Adverse Reactions: Allergies Allergy/AdvReac Type Severity Reaction Status Date / Time No Known Allergies Allergy Verified 08/04/20 06:42 Home Medications: Home Meds Magnesium Citrate [Citrate of Magnesia] 1 bottle PO ASDIRECTED PRN 07/16/20 [History] Tamsulosin HCl [Flomax] 0.4 mg PO BEDTIME #15 cap.er.24h 07/20/20 [Rx] Acetaminophen [Tylenol] 650 mg PO Q4H PRN 07/28/20 [History] Docusate Sodium/Sennosides [Senna Plus] 2 tab PO DAILY 07/28/20 [History] Magnesium Hydroxide [Milk of Magnesia] 30 ml PO DAILY PRN 07/28/20 [History] Omeprazole 20 mg PO ACBREAKFAST 07/28/20 [History] bisacodyL [Dulcolax] 10 mg RC Q3D PRN 07/28/20 [History] cephALEXin [Cephalexin] 500 mg PO QID 07/31/20 [History] Hydrocodone/Acetaminophen [[place] 5-325 Tablet] 1 - 2 each PO Q8HR PRN #40 tablet 08/01/20 [Rx] Past Medical History HEENT History: Reports: Cataract, Glaucoma, Impaired Vision Other HEENT History: wears glasses Cardiovascular History: Reports: Arrhythmia, High Cholesterol, Hypertension, PR Respiratory History: Reports: Sleep Apnea Gastrointestinal History: Reports: Cholelithiasis, Chronic Constipation, Chronic Diarrhea, Colon Polyp, Gastritis, GERD, PUD Genitourinary History: Reports: Prostate Disorder, Other (See Below) Other Genitourinary History: urinary frequency Musculoskeletal History: Reports: Back Pain, Chronic, Osteoarthritis Other Musculoskeletal History: 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 Psychiatric History: Reports: Depression, Other (See Below) Other Psychiatric History: past 6 months anger problems, caregiver for his is exhausting him Endocrine/Metabolic History: Reports: Obesity/BMI 30+ - Infectious Disease History Infectious Disease History: Reports: Chicken Pox, Measles, Mumps, Rubella - Past Surgical History Head Surgeries/Procedures: Reports: None HEENT Surgical History: Reports: None Cardiovascular Surgical History: Reports: None Respiratory Surgical History: Reports: None GI Surgical History: Reports: Cholecystectomy, Colonoscopy, EGD, Other (See Below) Other GI Surgeries/Procedures: partial bowel obstruction Male Surgical History: Reports: None Endocrine Surgical History: Reports: None Musculoskeletal Surgical History: Reports: Hip Replacement, Knee Replacement, Other (See Below) Other Musculoskeletal Surgeries/Procedures:: Left ankle surg, left toe surgery, right middle toe amputated. Dermatological Surgical History: Reports: None Social & Family History - Family History Family Medical History: Noncontributory Cardiac: Reports: CAD, PR : Reports: Dialysis, Renal Disease/Insufficiency Musculoskeletal: Reports: Arthritis, Other (See Below) Other Musculoskeletal Family History: scoliosis Oncologic: Reports: Breast Other Oncologic Family History: daughter has recent breast ca diagnosis - Tobacco Use Smoking Status *Q: Never Smoker - Caffeine Use Caffeine Use: Reports: Coffee Caffeine Use Comment: occasional 2-3 cups week - Recreational Drug Use Recreational Drug Use: No H&P Review of Systems - Review of Systems: Review Of Systems: See Below Free Text/Narrative: A complete 12 point review of systems was obtained. Pertinent positives and negatives are noted in the history of present illness. All other systems were reviewed and were negative except as noted. Exam - Exam Exam: See Below - Vital Signs Vital Signs: Last Vital Signs Temp 35.2 C L 08/04/20 14:26 Pulse 41 L 08/04/20 14:39 Resp 16 08/04/20 14:39 BP 124/48 L 08/04/20 14:39 Pulse Ox 95 08/04/20 14:39 Weight: 111.13 kg - Exam Quality Assessment: Supplemental Oxygen General: Alert, Oriented, Cooperative. No: Mild Distress HEENT: Conjunctiva Clear. No: Mucosa Moist & [place] (dry), Scleral Icterus Neck: Supple, Trachea Midline Lungs: Clear to Auscultation, Normal Respiratory Effort Cardiovascular: Irregular Rhythm, Bradycardia, Systolic Murmur (Harsh systolic ejection murmur at right upper sternal border and apex) GI/Abdominal Exam: Normal Bowel Sounds, Soft, No Distention, Tender (Mild generalized) Extremities: No Pedal Edema. No: Increased Warmth Skin: Warm, Dry, Incision (Left hip incision is covered with dry intact dressings) Neuro Extensive - Mental Status: Alert, Oriented x3, Nl Response to Commands Neuro Extensive - Motor, Sensory, Reflexes: No: Dysarthria, Abnormal Motor, Tremor Psychiatric: Alert, Normal Affect - Patient Data Lab Results Last 24 hrs: Laboratory Results - last 24 hr 08/04/20 08/04/20 08/04/20 Range/Units 07:17 07:18 07:18 WBC 9.3 (4.5-11.0) K/uL RBC 4.41 (4.30-5.90) M/uL Hgb 12.5 (12.0-15.0) g/dL Hct 38.9 L (40.0-54.0) % MCV 88 (80-98) fL MCH 28 (27-31) pg MCHC 32 (32-36) % Plt Count 378 (150-400) K/uL Add Manual Diff Yes Neutrophils % (Manual) 54 (36-66) % Lymphocytes % (Manual) 28 (24-44) % Monocytes % (Manual) 9 H (2-6) % Eosinophils % (Manual) 9 H (2-4) % Sodium 142 (140-148) mmol/L Potassium 3.7 (3.6-5.2) mmol/L Chloride 105 (100-108) mmol/L Carbon Dioxide 27 (21-32) mmol/L Anion Gap 10.3 (5.0-14.0) mmol/L BUN 13 (7-18) mg/dL Creatinine 1.0 (0.8-1.3) mg/dL Est Cr Clr Drug Dosing 64.67 mL/min Estimated GFR (MDRD) > 60 (>60) Glucose 95 (74-106) mg/dL Calcium 9.0 (8.5-10.1) mg/dL Total Bilirubin 0.5 (0.2-1.0) mg/dL AST 17 (15-37) U/L ALT 25 (12-78) U/L Alkaline Phosphatase 77 (46-116) U/L C-Reactive Protein (0.0-0.3) mg/dL Total Protein 6.5 (6.4-8.2) g/dL Albumin 3.1 L (3.4-5.0) g/dL Globulin 3.4 (2.3-3.5) g/dL Albumin/Globulin Ratio 0.9 L (1.2-2.2) Urine Color Yellow (YELLOW) Urine Appearance Clear (CLEAR) Urine pH 5.5 (5.0-8.0) Ur Specific [place] 1.025 (1.008-1.030) Urine Protein Negative (NEGATIVE) mg/dL Urine Glucose (UA) Negative (NEGATIVE) mg/dL Urine Ketones Negative (NEGATIVE) mg/dL Urine Occult Blood Negative (NEGATIVE) Urine Nitrite Negative (NEGATIVE) Urine Bilirubin Negative (NEGATIVE) Urine Urobilinogen 0.2 (0.2-1.0) EU/dL Ur Leukocyte Esterase Negative (NEGATIVE) Urine RBC Not seen (0-5) Urine WBC 0-5 (0-5) Ur Epithelial Cells Not seen Amorphous Sediment Not seen Urine Bacteria Rare Urine Mucus Moderate SARS Virus RNA (PCR) (NEGATIVE) 09/12/20 09/12/20 Range/Units 08:17 11:40 WBC (4.5-11.0) K/uL RBC (4.30-5.90) M/uL Hgb (12.0-15.0) g/dL Hct (40.0-54.0) % MCV (80-98) fL MCH (27-31) pg MCHC (32-36) % Plt Count (150-400) K/uL Add Manual Diff Neutrophils % (Manual) (36-66) % Lymphocytes % (Manual) (24-44) % Monocytes % (Manual) (2-6) % Eosinophils % (Manual) (2-4) % Sodium (140-148) mmol/L Potassium (3.6-5.2) mmol/L Chloride (100-108) mmol/L Carbon Dioxide (21-32) mmol/L Anion Gap (5.0-14.0) mmol/L BUN (7-18) mg/dL Creatinine (0.8-1.3) mg/dL Est Cr Clr Drug Dosing mL/min Estimated GFR (MDRD) (>60) Glucose (74-106) mg/dL Calcium (8.5-10.1) mg/dL Total Bilirubin (0.2-1.0) mg/dL AST (15-37) U/L ALT (12-78) U/L Alkaline Phosphatase (46-116) U/L C-Reactive Protein 0.31 H (0.0-0.3) mg/dL Total Protein (6.4-8.2) g/dL Albumin (3.4-5.0) g/dL Globulin (2.3-3.5) g/dL Albumin/Globulin Ratio (1.2-2.2) Urine Color (YELLOW) Urine Appearance (CLEAR) Urine pH (5.0-8.0) Ur Specific [place] (1.008-1.030) Urine Protein (NEGATIVE) mg/dL Urine Glucose (UA) (NEGATIVE) mg/dL Urine Ketones (NEGATIVE) mg/dL Urine Occult Blood (NEGATIVE) Urine Nitrite (NEGATIVE) Urine Bilirubin (NEGATIVE) Urine Urobilinogen (0.2-1.0) EU/dL Ur Leukocyte Esterase (NEGATIVE) Urine RBC (0-5) Urine WBC (0-5) Ur Epithelial Cells Amorphous Sediment Urine Bacteria Urine Mucus SARS Virus RNA (PCR) Negative (NEGATIVE) Result Diagrams: 09/12/20 07:18 08/04/20 07:18 Armond Results Last 24 hrs: Microbiology 08/04/20 14:24 Gram Stain - Final Hip, Left Imaging Impressions Last 24 hrs: Head CT-images personally reviewed-no evidence for stroke or hemorrhage. No acute findings. Sepsis Event Note - Evaluation Sepsis Screening Result: No Definite Risk - Focused Exam Vital Signs: Vital Signs Temp Pulse Resp BP Pulse Ox 08/04/20 14:39 41 L 16 124/48 L 95 08/04/20 14:31 94 L 08/04/20 14:26 35.2 C L 52 L 16 143/53 H 95 08/04/20 14:09 35.8 C L 52 L 15 132/58 L 97 08/04/20 14:05 53 L 15 125/53 L 95 08/04/20 14:00 53 L 14 111/91 H 99 08/04/20 13:56 35.7 C L 54 L 15 117/60 95 08/04/20 13:50 54 L 14 105/61 96 08/04/20 13:46 57 L 18 109/57 L 94 L 08/04/20 12:40 35.6 C L 54 L 17 96/55 L 95 08/04/20 11:30 60 20 154/77 H 96 08/04/20 10:04 36.3 C 61 18 131/89 99 08/04/20 06:39 35.9 C L 74 17 115/70 98 *Q Meaningful Use (ADM) - VTE Risk Assess *Q Each Risk Factor Represents 1 Point: Minor Surgery Planned, Obesity ( BMI > 25 kg/m2) Total Score 1 Point Risk Factors: 2 Each Risk Factor Represents 2 Points: None Total Score 2 Point Risk Factors: 0 Each Risk Factor Represents 3 Points: Age 75 Years or Greater Total Score 3 Point Risk Factors: 3 Each Risk Factor Represents 5 Points: None Total Score 5 Point Risk Factors: 0 Venous Thromboembolism Risk Factor Score *Q: 5 Consult PN Assessment/Plan Procedures: Procedures ASSAY OF AMYLASE (06/26/17) ASSAY OF CK (CPK) (07/16/15) ASSAY OF CREATININE (04/07/18) ASSAY OF LACTIC ACID (03/09/17) ASSAY OF LIPASE (10/06/19) ASSAY OF MAGNESIUM (06/26/17) ASSAY OF NATRIURETIC PEPTIDE (06/26/17) ASSAY OF PHOSPHORUS (06/26/17) ASSAY OF TROPONIN QUANT (06/26/17) BLOOD CULTURE FOR BACTERIA (11/23/13) BLOOD TYPING SEROLOGIC ABO (07/16/20) BLOOD TYPING SEROLOGIC RH(D) (07/16/20) C DIFF AMPLIFIED PROBE (06/26/17) C-REACTIVE PROTEIN (07/12/20) CARDIOVASCULAR STRESS TEST (03/11/17) CARDIOVASCULAR STRESS TEST (03/11/17) CHEST X-RAY 1 VIEW FRONTAL (06/26/17) CHEST X-RAY 2VW FRONTAL&LATL (07/16/15) COMPLETE CBC AUTOMATED (07/16/20) COMPLETE CBC W/AUTO DIFF WBC (10/11/19) COMPREHEN METABOLIC PANEL (07/12/20) CT ABD & PELV W/CONTRAST (10/06/19) CT HEAD/BRAIN W/O DYE (10/11/19) CT THORAX W/DYE (12/02/13) CULTURE AEROBIC IDENTIFY (11/23/13) CULTURE SCREEN ONLY (10/11/19) DIAGNOSTIC COLONOSCOPY (11/29/13) DRAIN/INJ JOINT/BURSA W/O US (10/13/17) EGD BIOPSY SINGLE/MULTIPLE (10/11/19) ELECTRICAL STIMULATION (03/22/15) ELECTROCARDIOGRAM REPORT (06/26/17) ELECTROCARDIOGRAM TRACING (06/26/17) EMERGENCY DEPT VISIT (07/28/20) EMERGENCY DEPT VISIT (07/22/20) EMERGENCY DEPT VISIT (07/19/20) EMERGENCY DEPT VISIT (10/11/19) EMERGENCY DEPT VISIT (10/11/19) EMERGENCY DEPT VISIT (10/06/19) EMERGENCY DEPT VISIT (06/26/17) EMERGENCY DEPT VISIT (07/16/15) EMERGENCY DEPT VISIT (07/16/15) EMERGENCY DEPT VISIT (11/23/13) EMERGENCY DEPT VISIT (09/27/13) EMERGENCY DEPT VISIT (09/27/13) GAIT TRAINING THERAPY (07/16/20) GLUCOSE BLOOD TEST (10/11/19) GLYCOSYLATED HEMOGLOBIN TEST (11/23/13) HOT OR COLD PACKS THERAPY (04/11/15) HT MUSCLE IMAGE SPECT MULT (03/11/17) HYDRATE IV INFUSION ADD-ON (10/11/19) INSERT TEMP BLADDER CATH (07/19/20) LIPID PANEL (11/23/13) MANUAL THERAPY 1/> REGIONS (04/11/15) MEASURE BLOOD OXYGEN LEVEL (06/26/17) METABOLIC PANEL TOTAL CA (06/26/17) MICROBE SUSCEPTIBLE ARMOND (07/28/20) MRI JNT OF LWR EXTRE W/O DYE (03/20/14) MRI JOINT LWR EXTR W/O&W/DYE (04/14/18) NEEDLE LOCALIZATION BY XRAY (10/13/17) OBSERV/HOSP SAME DATE (10/11/19) OCCULT BLD FECES 1-3 TESTS (11/23/13) OT EVAL LOW COMPLEX 30 MIN (07/16/20) PARTIAL AMPUTATION OF TOE (09/05/19) PROTHROMBIN TIME (03/09/17) PT EVAL LOW COMPLEX 20 MIN (07/16/20) PT EVAL MOD COMPLEX 30 MIN (06/26/17) PT EVALUATION (01/19/15) RBC ANTIBODY SCREEN (07/16/20) RBC SED RATE NONAUTOMATED (07/16/15) REAGENT STRIP/BLOOD GLUCOSE (11/23/13) ROUTINE VENIPUNCTURE (07/16/20) SELF CARE MNGMENT TRAINING (07/16/20) THER/PROPH/DIAG INJ IV PUSH (07/22/20) THER/PROPH/DIAG INJ SC/IM (07/12/20) THER/PROPH/DIAG IV INF INIT (10/11/19) THERAPEUTIC ACTIVITIES (07/16/20) THERAPEUTIC EXERCISES (07/16/20) THROMBOPLASTIN TIME PARTIAL (03/09/17) TISSUE EXAM BY PATHOLOGIST (06/26/17) TISSUE EXAM BY PATHOLOGIST (06/26/17) TISSUE EXAM BY PATHOLOGIST (04/06/17) TTE W/DOPPLER COMPLETE (12/21/14) TX/PRO/DX INJ NEW DRUG ADDON (06/26/17) ULTRASOUND THERAPY (06/02/14) URINALYSIS AUTO W/SCOPE (07/28/20) URINE BACTERIA CULTURE (07/28/20) URINE CULTURE/COLONY COUNT (07/28/20) US URINE CAPACITY MEASURE (07/19/20) X-RAY EXAM ABDOMEN 1 VIEW (07/19/20) X-RAY EXAM ABDOMEN 2 VIEWS (07/12/20) X-RAY EXAM CHEST 1 VIEW (10/11/19) X-RAY EXAM HIP UNI 1 VIEW (07/22/20) X-RAY EXAM NECK SPINE 4/5VWS (07/16/15) X-RAY EXAM OF ABDOMEN (06/26/17) X-RAY EXAM OF PELVIS (07/16/20) Problem List Initiated/Reviewed/Updated: Yes My Orders Last 24 Hours: My Active Orders 08/04/20 21:00 Melatonin 9 mg PO BEDTIME 08/05/20 05:11 BASIC METABOLIC PANEL,BMP [CHEM] AM Plan: ASSESSMENT AND RECOMMENDATIONS- Hyperactive delirium-patient mildly agitated and restless overnight. Somewhat confused this morning. If he did indeed take diphenhydramine last night this could explain things. Seems to be his usual self this afternoon. No evidence for infection at this time. Only medication on his list of any concern is his pain pill but he has been tolerating these. No acute concerns at this time and I would anticipate he should be back to normal tomorrow. -Melatonin at bedtime Recent left total hip arthroplasty-initially there was concern for an infected hematoma but this appears to be more likely a seroma than any actual infection. He is on antibiotics empirically while cultures are pending. -Postoperative care per Dr Martell Florez Obstructive sleep apnea-episodes of apnea associated with bradycardia. Dips in his heart rate are extremely short in duration. -Outpatient follow-up The hospitalist service will follow along during the acute phase of the hospitalization. Peter Funez MD Requesting Provider: Dr Martell Florez Date Consult Requested: 08/04/20 Reason for Consult: Confusion Patient History Reviewed: Yes Admission H&P Reviewed: Yes Notified Requestor: Yes Time Spent (in minutes): 60
[2020-08-04] MEDS: Sodium Chloride 0.9% 1,000 ML IV SCH (17:52)
[2020-08-04] MEDS: Meropenem 500 MG in Sodium Chloride 0.9% 50 ML IV SCH (17:53)
[2020-08-04] MEDS: Acetaminophen/oxyCODONE 325-5 MG Tab PO PRN (20:08)
[2020-08-04] MEDS: Nozin Nasal Sanitizer NASBOTH SCH (20:11)
[2020-08-04] MEDS: Tamsulosin 0.4 MG Cap.ER PO SCH (20:12)
[2020-08-04] MEDS: Morphine 2 MG/ML SYRINGE IV PRN ×2 (21:12→22:11)
[2020-08-04] MEDS: Melatonin 3 MG Tab PO SCH (21:15)
[2020-08-04] MEDS ORDERED: HYDROmorphone 0.5 MG/0.5 ML Syringe IVPUSH STA (22:40)
--- NOTE | 2020-08-04 23:35 | OR ---
DATE OF PROCEDURE: 08/04/2020 SURGEON: Martell Florez MD PREOPERATIVE DIAGNOSIS: Abscess, left hip. POSTOPERATIVE DIAGNOSIS: Seroma, left hip, possible infection. PROCEDURE: Irrigation and debridement, left hip wound. ANESTHESIA: Spinal. INDICATIONS: Mr. Mandujano is an 79-year-old gentleman who underwent a left total hip arthroplasty on 07/16 of this year. Had been having some pain over the incision with hematoma or seroma present. Over the last 24 hours, had increased pain and this morning had some confusion at home. He was brought in by a family member. Reports persistent left hip pain and tenderness. Lab workup is negative for infection. However, the wound does appear slightly erythematous and warm to the touch. There is no drainage. C-reactive protein is normal. Due to mental status changes and appearance of the wound, plan to take him to the operating room for irrigation, debridement, and exploration to find out if this is superficial or communicates with his total hip. Risks, benefits, and potential complications were discussed with Magdy and his family member. DESCRIPTION OF PROCEDURE: After adequate anesthesia was obtained, the patient was placed in lateral decubitus position, secured with the hip positioner. The left hip and leg were prepped and draped in a sterile fashion. Previous incision was utilized. This was open for approximately 2 to 3 cm and a yellowish clear fluid was present in the subcutaneous tissues. This was cultured for aerobic and anaerobic organisms. Wound was then increased proximally and distally and this opened into a cavity in the subcutaneous tissues. This was not grossly purulent. It had the appearance of a seroma with some inflammation of the lining of the seroma. This was thoroughly irrigated with the pulse lavage. This was explored, slightly loculated inferiorly. After thorough irrigation with the pulse lavage, it was then irrigated with dilute Betadine solution and scrubbed and irrigated once again. An 18-gauge needle was then placed through the tensor fascia in an attempt to aspirate the hip joint or just posterior to the greater trochanter in the area of previous dissection. No fluid was obtained with this. There was no indication that this communicated through the IT band. Wound was then debrided using a Torres elevator, scraping off the lining of the seroma and irrigating it once again with pulse lavage and dilute Betadine. Wound was then closed in multiple layers with 2-0 Vicryl and a running 3-0 Monocryl. Steri-Strips were applied. Adhesive dressing was applied. Plan to admit the patient for IV antibiotics until the culture results are available. He may be up weightbearing as tolerated. Martell Florez MD /[id number] [id number]
[2020-08-05] MEDS: Sodium Chloride 0.9% 1,000 ML IV SCH ×2 (02:24→10:55)
[2020-08-05] MEDS: Meropenem 500 MG in Sodium Chloride 0.9% 50 ML IV SCH ×3 (02:25→17:42)
[2020-08-05] MEDS ORDERED: Non-Formulary Medication 1 Each (Omeprazole [Omeprazole] 20 MG) PO SCH (07:30)
[2020-08-05] MEDS: Pantoprazole 40 MG Tab.CR PO SCH (07:50)
[2020-08-05] MEDS: Docusate Sodium 100 MG Cap PO SCH (09:28)
[2020-08-05] MEDS: Nozin Nasal Sanitizer NASBOTH SCH ×2 (10:05→21:00)
--- NOTE | 2020-08-05 12:10 | PCM.CONSN ---
- General Info Date of Service: 08/05/20 Subjective Update: Patient did have some increased pain last night but this did respond well to a one-time dose of hydromorphone. Pain is fairly well controlled though he does report some burning pain in the incision. He has not had any fevers. No significant confusion issues. Appetite is okay. Cultures negative so far. Tolerating antibiotics. Functional Status: Reports: Pain Controlled, Tolerating Diet - Review of Systems General: Denies: Fever Musculoskeletal: Reports: Joint Pain (left hip ) - Patient Data Vitals - Most Recent: Last Vital Signs Temp 36.1 C 08/05/20 12:04 Pulse 64 08/05/20 12:04 Resp 17 08/05/20 12:04 BP 116/52 L 08/05/20 12:04 Pulse Ox 98 08/05/20 12:04 Weight - Most Recent: 111.13 kg I&O - Last 24 Hours: Intake & Output 08/04/20 08/05/20 08/05/20 22:59 06:59 14:59 Intake Total 1037 2272 992 Output Total 300 1350 1050 Balance 737 922 -58 Lab Results Last 24 Hours: Laboratory Results - last 24 hr 08/04/20 08/05/20 08/05/20 Range/Units 11:40 04:55 04:55 WBC 8.9 (4.5-11.0) K/uL RBC 4.01 L (4.30-5.90) M/uL Hgb 11.5 L (12.0-15.0) g/dL Hct 36.5 L (40.0-54.0) % MCV 91 (80-98) fL MCH 29 (27-31) pg MCHC 32 (32-36) % Plt Count 324 (150-400) K/uL Sodium 144 (140-148) mmol/L Potassium 3.8 (3.6-5.2) mmol/L Chloride 108 (100-108) mmol/L Carbon Dioxide 26 (21-32) mmol/L Anion Gap 10.0 (5.0-14.0) mmol/L BUN 13 (7-18) mg/dL Creatinine 0.9 (0.8-1.3) mg/dL Est Cr Clr Drug Dosing 71.85 mL/min Estimated GFR (MDRD) > 60 (>60) Glucose 104 (74-106) mg/dL Calcium 8.4 L (8.5-10.1) mg/dL SARS Virus RNA (PCR) Negative (NEGATIVE) Armond Results Last 24 Hours: Microbiology 08/04/20 14:24 Gram Stain - Final Hip, Left Med Orders - Current: Current Medications Acetaminophen (Tylenol) 650 mg PO Q4H PRN PRN Reason: Pain/Fever Hydrocodone Bitart/Acetaminophen ([place] 325-5 Mg) 2 tab PO Q4H PRN PRN Reason: Pain (mild 1-3) Last Admin: 08/05/20 00:16 Dose: 2 tab Documented by: Bandage/Support Products ( Nasal Websphere Message Broker Developer) 1 applic NASBOTH BID [facility] Stop: 08/11/20 21:01 Last Admin: 08/05/20 10:05 Dose: 6 drop Documented by: Docusate Sodium (Colace) 100 mg PO DAILY [facility] Last Admin: 08/05/20 09:28 Dose: Not Given Documented by: Meropenem 500 mg/ Sodium (Chloride) 50 mls @ 100 mls/hr IV Q8H [facility] Stop: 08/07/20 18:31 Last Admin: 08/05/20 10:55 Dose: 100 mls/hr Documented by: Magnesium Citrate (Citrate Of Magnesia) 296 ml PO ASDIRECTED PRN PRN Reason: Constipation Magnesium Hydroxide (Milk Of Magnesia) 30 ml PO Q6H PRN PRN Reason: Stool Softener Melatonin (Melatonin) 9 mg PO BEDTIME [facility] Last Admin: 08/04/20 21:15 Dose: 9 mg Documented by: Morphine Sulfate (Morphine) 1 mg IV Q1H PRN PRN Reason: Breakthrough Pain Last Admin: 08/04/20 22:11 Dose: 1 mg Documented by: Ondansetron HCl (Zofran) 4 mg IVPUSH Q6H PRN PRN Reason: Nausea/Vomiting Oxycodone/Acetaminophen (Percocet 325-5 Mg) 0 tab PO Q6H PRN PRN Reason: Pain (moderate 4-6) Last Admin: 08/04/20 20:08 Dose: 1 tab Documented by: Pantoprazole Sodium (Protonix) 40 mg PO ACBREAKFAST [facility] Last Admin: 08/05/20 07:50 Dose: 40 mg Documented by: Senna/Docusate Sodium (Senna Plus) 2 tab PO DAILY [facility] Last Admin: 08/05/20 09:28 Dose: Not Given Documented by: Tamsulosin HCl (Flomax) 0.4 mg PO BEDTIME [facility] Last Admin: 08/04/20 20:12 Dose: 0.4 mg Documented by: Discontinued Medications Bupivacaine HCl (Marcaine 0.5%) Confirm Administered Dose 50 ml .ROUTE .STK-MED ONE Stop: 08/04/20 11:32 Fentanyl (Sublimaze) 50 mcg IM ONETIME ONE Stop: 08/04/20 09:55 Last Admin: 08/04/20 10:01 Dose: 50 mcg Documented by: Fentanyl (Sublimaze) Confirm Administered Dose 100 mcg .ROUTE .STK-MED ONE Stop: 08/04/20 12:28 Hydromorphone HCl (Dilaudid) 0.5 mg IVPUSH ONETIME ONE Stop: 08/04/20 11:13 Last Admin: 08/04/20 11:20 Dose: 0.5 mg Documented by: Hydromorphone HCl (Dilaudid) 0.5 mg IVPUSH ONETIME STA Stop: 08/04/20 22:41 Last Admin: 08/04/20 22:54 Dose: 0.5 mg Documented by: Meropenem 1 gm/ Sodium (Chloride) 100 mls @ 200 mls/hr IV ONETIME ONE Stop: 08/04/20 11:11 Last Admin: 08/04/20 11:05 Dose: 200 mls/hr Documented by: Sodium Chloride (Normal Saline) 1,000 mls @ 250 mls/hr IV ASDIRECTED [facility] Last Admin: 08/04/20 11:05 Dose: 250 mls/hr Documented by: Lactated Ringer's (Ringers, Lactated) Confirm Administered Dose 1,000 mls @ as directed .ROUTE .STK-MED ONE Stop: 08/04/20 12:54 Sodium Chloride (Normal Saline) 1,000 mls @ 125 mls/hr IV ASDIRECTED [facility] Last Admin: 08/05/20 10:55 Dose: 125 mls/hr Documented by: Midazolam HCl (Versed 1 Mg/Ml) Confirm Administered Dose 2 mg .ROUTE .STK-MED ONE Stop: 08/04/20 12:28 Povidone Iodine (Betadine 10% Soln) Confirm Administered Dose 1 ml .ROUTE .STK- MED ONE Stop: 08/04/20 12:02 Last Admin: 08/04/20 13:24 Dose: 10 ml Documented by: Propofol (Diprivan 20 Ml) Confirm Administered Dose 200 mg .ROUTE .STK-MED ONE Stop: 08/04/20 12:28 - Exam Quality Assessment: No: Supplemental Oxygen General: Alert, Oriented, Cooperative, No Acute Distress Lungs: Normal Respiratory Effort Cardiovascular: Regular Rate, Regular Rhythm GI/Abdominal Exam: Soft, No Distention Extremities: No Pedal Edema Skin: Warm, Dry Wound/Incisions: Dressing Dry and Intact Psy/Mental Status: Alert, Normal Affect Sepsis Event Note - Evaluation Sepsis Screening Result: No Definite Risk - Focused Exam Vital Signs: Vital Signs Temp Pulse Resp BP Pulse Ox 08/05/20 12:04 36.1 C 64 17 116/52 L 98 08/05/20 07:58 36.1 C 61 17 113/48 L 100 08/05/20 02:26 36.1 C 62 16 127/49 L 95 Consult PN Assessment/Plan Procedures: Procedures ASSAY OF AMYLASE (06/26/17) ASSAY OF CK (CPK) (07/16/15) ASSAY OF CREATININE (04/07/18) ASSAY OF LACTIC ACID (03/09/17) ASSAY OF LIPASE (10/06/19) ASSAY OF MAGNESIUM (06/26/17) ASSAY OF NATRIURETIC PEPTIDE (06/26/17) ASSAY OF PHOSPHORUS (06/26/17) ASSAY OF TROPONIN QUANT (06/26/17) BLOOD CULTURE FOR BACTERIA (11/23/13) BLOOD TYPING SEROLOGIC ABO (07/16/20) BLOOD TYPING SEROLOGIC RH(D) (07/16/20) C DIFF AMPLIFIED PROBE (06/26/17) C-REACTIVE PROTEIN (07/12/20) CARDIOVASCULAR STRESS TEST (03/11/17) CARDIOVASCULAR STRESS TEST (03/11/17) CHEST X-RAY 1 VIEW FRONTAL (06/26/17) CHEST X-RAY 2VW FRONTAL&LATL (07/16/15) COMPLETE CBC AUTOMATED (07/16/20) COMPLETE CBC W/AUTO DIFF WBC (10/11/19) COMPREHEN METABOLIC PANEL (07/12/20) CT ABD & PELV W/CONTRAST (10/06/19) CT HEAD/BRAIN W/O DYE (10/11/19) CT THORAX W/DYE (12/02/13) CULTURE AEROBIC IDENTIFY (11/23/13) CULTURE SCREEN ONLY (10/11/19) DIAGNOSTIC COLONOSCOPY (11/29/13) DRAIN/INJ JOINT/BURSA W/O US (10/13/17) EGD BIOPSY SINGLE/MULTIPLE (10/11/19) ELECTRICAL STIMULATION (03/22/15) ELECTROCARDIOGRAM REPORT (06/26/17) ELECTROCARDIOGRAM TRACING (06/26/17) EMERGENCY DEPT VISIT (07/28/20) EMERGENCY DEPT VISIT (07/22/20) EMERGENCY DEPT VISIT (07/19/20) EMERGENCY DEPT VISIT (10/11/19) EMERGENCY DEPT VISIT (10/11/19) EMERGENCY DEPT VISIT (10/06/19) EMERGENCY DEPT VISIT (06/26/17) EMERGENCY DEPT VISIT (07/16/15) EMERGENCY DEPT VISIT (07/16/15) EMERGENCY DEPT VISIT (11/23/13) EMERGENCY DEPT VISIT (09/27/13) EMERGENCY DEPT VISIT (09/27/13) GAIT TRAINING THERAPY (07/16/20) GLUCOSE BLOOD TEST (10/11/19) GLYCOSYLATED HEMOGLOBIN TEST (11/23/13) HOT OR COLD PACKS THERAPY (04/11/15) HT MUSCLE IMAGE SPECT MULT (03/11/17) HYDRATE IV INFUSION ADD-ON (10/11/19) INSERT TEMP BLADDER CATH (07/19/20) LIPID PANEL (11/23/13) MANUAL THERAPY 1/> REGIONS (04/11/15) MEASURE BLOOD OXYGEN LEVEL (06/26/17) METABOLIC PANEL TOTAL CA (06/26/17) MICROBE SUSCEPTIBLE ARMOND (07/28/20) MRI JNT OF LWR EXTRE W/O DYE (03/20/14) MRI JOINT LWR EXTR W/O&W/DYE (04/14/18) NEEDLE LOCALIZATION BY XRAY (10/13/17) OBSERV/HOSP SAME DATE (10/11/19) OCCULT BLD FECES 1-3 TESTS (11/23/13) OT EVAL LOW COMPLEX 30 MIN (07/16/20) PARTIAL AMPUTATION OF TOE (09/05/19) PROTHROMBIN TIME (03/09/17) PT EVAL LOW COMPLEX 20 MIN (07/16/20) PT EVAL MOD COMPLEX 30 MIN (06/26/17) PT EVALUATION (01/19/15) RBC ANTIBODY SCREEN (07/16/20) RBC SED RATE NONAUTOMATED (07/16/15) REAGENT STRIP/BLOOD GLUCOSE (11/23/13) ROUTINE VENIPUNCTURE (07/16/20) SELF CARE MNGMENT TRAINING (07/16/20) THER/PROPH/DIAG INJ IV PUSH (07/22/20) THER/PROPH/DIAG INJ SC/IM (07/12/20) THER/PROPH/DIAG IV INF INIT (10/11/19) THERAPEUTIC ACTIVITIES (07/16/20) THERAPEUTIC EXERCISES (07/16/20) THROMBOPLASTIN TIME PARTIAL (03/09/17) TISSUE EXAM BY PATHOLOGIST (06/26/17) TISSUE EXAM BY PATHOLOGIST (06/26/17) TISSUE EXAM BY PATHOLOGIST (04/06/17) TTE W/DOPPLER COMPLETE (12/21/14) TX/PRO/DX INJ NEW DRUG ADDON (06/26/17) ULTRASOUND THERAPY (06/02/14) URINALYSIS AUTO W/SCOPE (07/28/20) URINE BACTERIA CULTURE (07/28/20) URINE CULTURE/COLONY COUNT (07/28/20) US URINE CAPACITY MEASURE (07/19/20) X-RAY EXAM ABDOMEN 1 VIEW (07/19/20) X-RAY EXAM ABDOMEN 2 VIEWS (07/12/20) X-RAY EXAM CHEST 1 VIEW (10/11/19) X-RAY EXAM HIP UNI 1 VIEW (07/22/20) X-RAY EXAM NECK SPINE 4/5VWS (07/16/15) X-RAY EXAM OF ABDOMEN (06/26/17) X-RAY EXAM OF PELVIS (07/16/20) Problem List Initiated/Reviewed/Updated: Yes My Orders Last 24 Hours: My Active Orders 08/04/20 21:00 Melatonin 9 mg PO BEDTIME 08/05/20 10:48 DC Aragon Catheter [Urinary Catheter Removal] [RC] PER UNIT ROUTINE 08/05/20 12:08 Convert IV to Saline Lock [OM.PC] Routine Plan: ASSESSMENT AND RECOMMENDATIONS- Hyperactive delirium-no issues during the hospital stay and seems to be at his baseline. -Melatonin at bedtime Recent left total hip arthroplasty-initially there was concern for an infected hematoma but this appears to be more likely a seroma than any actual infection. He is on antibiotics empirically while cultures are pending. Cultures negative so far. CRP was essentially normal. -Postoperative care per Dr Martell Florez Obstructive sleep apnea-no issues. -Outpatient follow-up The hospitalist service will follow along during the acute phase of the hospitalization. Peter Funez MD
[2020-08-05] MEDS: Acetaminophen/oxyCODONE 325-5 MG Tab PO PRN ×2 (13:19→19:19)
[2020-08-05] MEDS: Tamsulosin 0.4 MG Cap.ER PO SCH (21:00)
[2020-08-05] MEDS: Melatonin 3 MG Tab PO SCH (21:00)
[2020-08-06] MEDS: Meropenem 500 MG in Sodium Chloride 0.9% 50 ML IV SCH ×3 (03:05→18:09)
[2020-08-06] MEDS: Acetaminophen/oxyCODONE 325-5 MG Tab PO PRN ×2 (07:48→16:09)
[2020-08-06] MEDS: Pantoprazole 40 MG Tab.CR PO SCH (07:48)
[2020-08-06] MEDS: Docusate Sodium 100 MG Cap PO SCH (10:32)
[2020-08-06] MEDS: Nozin Nasal Sanitizer NASBOTH SCH ×2 (10:32→20:50)
--- NOTE | 2020-08-06 16:55 | PCM.CONSN ---
- General Info Date of Service: 08/06/20 Subjective Update: Mr. Mandujano has remained stable over the past 24 hours, no significant temperature elevations and vital signs have been within desired range. Pain control is reported to be adequate and he has been ambulating. Cultures remain negative thus far. Functional Status: Reports: Tolerating Diet, Ambulating, Urinating - Review of Systems General: Reports: No Symptoms. Denies: Fever, Chills Pulmonary: Reports: No Symptoms Cardiovascular: Reports: No Symptoms Gastrointestinal: Reports: No Symptoms - Patient Data Vitals - Most Recent: Last Vital Signs Temp 96.2 F L 08/06/20 15:55 Pulse 66 08/06/20 15:55 Resp 18 08/06/20 15:55 BP 130/54 L 08/06/20 15:55 Pulse Ox 95 08/06/20 15:55 Weight - Most Recent: 245 lb I&O - Last 24 Hours: Intake & Output 08/06/20 08/06/20 08/06/20 06:59 14:59 22:59 Intake Total 346 Balance 346 Armond Results Last 24 Hours: Microbiology 08/04/20 14:24 Anaerobic Culture - Preliminary Hip, Left NO GROWTH AFTER 1 DAY 08/04/20 14:24 Gram Stain - Final Hip, Left Wound Culture - Preliminary NO GROWTH AFTER 1 DAY Med Orders - Current: Current Medications Acetaminophen (Tylenol) 650 mg PO Q4H PRN PRN Reason: Pain/Fever Hydrocodone Bitart/Acetaminophen ([place] 325-5 Mg) 2 tab PO Q4H PRN PRN Reason: Pain (mild 1-3) Last Admin: 08/05/20 00:16 Dose: 2 tab Documented by: Bandage/Support Products ( Nasal Clean Out Driller Helper) 1 applic NASBOTH BID [facility] Stop: 08/11/20 21:01 Last Admin: 08/06/20 10:32 Dose: 1 drop Documented by: Docusate Sodium (Colace) 100 mg PO DAILY [facility] Last Admin: 08/06/20 10:32 Dose: 100 mg Documented by: Meropenem 500 mg/ Sodium (Chloride) 50 mls @ 100 mls/hr IV Q8H [facility] Stop: 08/07/20 18:31 Last Admin: 08/06/20 10:32 Dose: 100 mls/hr Documented by: Magnesium Citrate (Citrate Of Magnesia) 296 ml PO ASDIRECTED PRN PRN Reason: Constipation Magnesium Hydroxide (Milk Of Magnesia) 30 ml PO Q6H PRN PRN Reason: Stool Softener Melatonin (Melatonin) 9 mg PO BEDTIME [facility] Last Admin: 08/05/20 21:00 Dose: 9 mg Documented by: Morphine Sulfate (Morphine) 1 mg IV Q1H PRN PRN Reason: Breakthrough Pain Last Admin: 08/04/20 22:11 Dose: 1 mg Documented by: Ondansetron HCl (Zofran) 4 mg IVPUSH Q6H PRN PRN Reason: Nausea/Vomiting Oxycodone/Acetaminophen (Percocet 325-5 Mg) 0 tab PO Q6H PRN PRN Reason: Pain (moderate 4-6) Last Admin: 08/06/20 16:09 Dose: 1 tab Documented by: Pantoprazole Sodium (Protonix) 40 mg PO ACBREAKFAST [facility] Last Admin: 08/06/20 07:48 Dose: 40 mg Documented by: Senna/Docusate Sodium (Senna Plus) 2 tab PO DAILY [facility] Last Admin: 08/06/20 10:33 Dose: 2 tab Documented by: Tamsulosin HCl (Flomax) 0.4 mg PO BEDTIME [facility] Last Admin: 08/05/20 21:00 Dose: 0.4 mg Documented by: Discontinued Medications Bupivacaine HCl (Marcaine 0.5%) Confirm Administered Dose 50 ml .ROUTE .STK-MED ONE Stop: 08/04/20 11:32 Fentanyl (Sublimaze) 50 mcg IM ONETIME ONE Stop: 08/04/20 09:55 Last Admin: 08/04/20 10:01 Dose: 50 mcg Documented by: Fentanyl (Sublimaze) Confirm Administered Dose 100 mcg .ROUTE .STK-MED ONE Stop: 08/04/20 12:28 Hydromorphone HCl (Dilaudid) 0.5 mg IVPUSH ONETIME ONE Stop: 08/04/20 11:13 Last Admin: 08/04/20 11:20 Dose: 0.5 mg Documented by: Hydromorphone HCl (Dilaudid) 0.5 mg IVPUSH ONETIME STA Stop: 08/04/20 22:41 Last Admin: 08/04/20 22:54 Dose: 0.5 mg Documented by: Meropenem 1 gm/ Sodium (Chloride) 100 mls @ 200 mls/hr IV ONETIME ONE Stop: 08/04/20 11:11 Last Admin: 08/04/20 11:05 Dose: 200 mls/hr Documented by: Sodium Chloride (Normal Saline) 1,000 mls @ 250 mls/hr IV ASDIRECTED [facility] Last Admin: 08/04/20 11:05 Dose: 250 mls/hr Documented by: Lactated Ringer's (Ringers, Lactated) Confirm Administered Dose 1,000 mls @ as directed .ROUTE .STK-MED ONE Stop: 08/04/20 12:54 Sodium Chloride (Normal Saline) 1,000 mls @ 125 mls/hr IV ASDIRECTED [facility] Last Admin: 08/05/20 10:55 Dose: 125 mls/hr Documented by: Midazolam HCl (Versed 1 Mg/Ml) Confirm Administered Dose 2 mg .ROUTE .STK-MED ONE Stop: 08/04/20 12:28 Povidone Iodine (Betadine 10% Soln) Confirm Administered Dose 1 ml .ROUTE .STK- MED ONE Stop: 08/04/20 12:02 Last Admin: 08/04/20 13:24 Dose: 10 ml Documented by: Propofol (Diprivan 20 Ml) Confirm Administered Dose 200 mg .ROUTE .STK-MED ONE Stop: 08/04/20 12:28 - Exam General: Alert, Oriented, Cooperative, Mild Distress Lungs: Clear to Auscultation, Normal Respiratory Effort Cardiovascular: Regular Rate, Regular Rhythm, No Murmurs GI/Abdominal Exam: Soft, Non-Tender, No Organomegaly, No Distention Extremities: Non-Tender, No Pedal Edema Sepsis Event Note - Evaluation Sepsis Screening Result: No Definite Risk - Focused Exam Vital Signs: Vital Signs Temp Pulse Resp BP BP Pulse Ox 08/06/20 15:55 96.2 F L 66 18 130/54 L 95 08/06/20 15:00 96.5 F L 66 18 135/51 L 96 08/06/20 12:00 16 08/06/20 07:00 95.9 F L 67 16 158/59 H 98 Consult PN Assessment/Plan Procedures: Procedures ASSAY OF AMYLASE (06/26/17) ASSAY OF CK (CPK) (07/16/15) ASSAY OF CREATININE (04/07/18) ASSAY OF LACTIC ACID (03/09/17) ASSAY OF LIPASE (10/06/19) ASSAY OF MAGNESIUM (06/26/17) ASSAY OF NATRIURETIC PEPTIDE (06/26/17) ASSAY OF PHOSPHORUS (06/26/17) ASSAY OF TROPONIN QUANT (06/26/17) BLOOD CULTURE FOR BACTERIA (11/23/13) BLOOD TYPING SEROLOGIC ABO (07/16/20) BLOOD TYPING SEROLOGIC RH(D) (07/16/20) C DIFF AMPLIFIED PROBE (06/26/17) C-REACTIVE PROTEIN (07/12/20) CARDIOVASCULAR STRESS TEST (03/11/17) CARDIOVASCULAR STRESS TEST (03/11/17) CHEST X-RAY 1 VIEW FRONTAL (06/26/17) CHEST X-RAY 2VW FRONTAL&LATL (07/16/15) COMPLETE CBC AUTOMATED (07/16/20) COMPLETE CBC W/AUTO DIFF WBC (10/11/19) COMPREHEN METABOLIC PANEL (07/12/20) CT ABD & PELV W/CONTRAST (10/06/19) CT HEAD/BRAIN W/O DYE (10/11/19) CT THORAX W/DYE (12/02/13) CULTURE AEROBIC IDENTIFY (11/23/13) CULTURE SCREEN ONLY (10/11/19) DIAGNOSTIC COLONOSCOPY (11/29/13) DRAIN/INJ JOINT/BURSA W/O US (10/13/17) EGD BIOPSY SINGLE/MULTIPLE (10/11/19) ELECTRICAL STIMULATION (03/22/15) ELECTROCARDIOGRAM REPORT (06/26/17) ELECTROCARDIOGRAM TRACING (06/26/17) EMERGENCY DEPT VISIT (07/28/20) EMERGENCY DEPT VISIT (07/22/20) EMERGENCY DEPT VISIT (07/19/20) EMERGENCY DEPT VISIT (10/11/19) EMERGENCY DEPT VISIT (10/11/19) EMERGENCY DEPT VISIT (10/06/19) EMERGENCY DEPT VISIT (06/26/17) EMERGENCY DEPT VISIT (07/16/15) EMERGENCY DEPT VISIT (07/16/15) EMERGENCY DEPT VISIT (11/23/13) EMERGENCY DEPT VISIT (09/27/13) EMERGENCY DEPT VISIT (09/27/13) GAIT TRAINING THERAPY (07/16/20) GLUCOSE BLOOD TEST (10/11/19) GLYCOSYLATED HEMOGLOBIN TEST (11/23/13) HOT OR COLD PACKS THERAPY (04/11/15) HT MUSCLE IMAGE SPECT MULT (03/11/17) HYDRATE IV INFUSION ADD-ON (10/11/19) INSERT TEMP BLADDER CATH (07/19/20) LIPID PANEL (11/23/13) MANUAL THERAPY 1/> REGIONS (04/11/15) MEASURE BLOOD OXYGEN LEVEL (06/26/17) METABOLIC PANEL TOTAL CA (06/26/17) MICROBE SUSCEPTIBLE ARMOND (07/28/20) MRI JNT OF LWR EXTRE W/O DYE (03/20/14) MRI JOINT LWR EXTR W/O&W/DYE (04/14/18) NEEDLE LOCALIZATION BY XRAY (10/13/17) OBSERV/HOSP SAME DATE (10/11/19) OCCULT BLD FECES 1-3 TESTS (11/23/13) OT EVAL LOW COMPLEX 30 MIN (07/16/20) PARTIAL AMPUTATION OF TOE (09/05/19) PROTHROMBIN TIME (03/09/17) PT EVAL LOW COMPLEX 20 MIN (07/16/20) PT EVAL MOD COMPLEX 30 MIN (06/26/17) PT EVALUATION (01/19/15) RBC ANTIBODY SCREEN (07/16/20) RBC SED RATE NONAUTOMATED (07/16/15) REAGENT STRIP/BLOOD GLUCOSE (11/23/13) ROUTINE VENIPUNCTURE (07/16/20) SELF CARE MNGMENT TRAINING (07/16/20) THER/PROPH/DIAG INJ IV PUSH (07/22/20) THER/PROPH/DIAG INJ SC/IM (07/12/20) THER/PROPH/DIAG IV INF INIT (10/11/19) THERAPEUTIC ACTIVITIES (07/16/20) THERAPEUTIC EXERCISES (07/16/20) THROMBOPLASTIN TIME PARTIAL (03/09/17) TISSUE EXAM BY PATHOLOGIST (06/26/17) TISSUE EXAM BY PATHOLOGIST (06/26/17) TISSUE EXAM BY PATHOLOGIST (04/06/17) TTE W/DOPPLER COMPLETE (12/21/14) TX/PRO/DX INJ NEW DRUG ADDON (06/26/17) ULTRASOUND THERAPY (06/02/14) URINALYSIS AUTO W/SCOPE (07/28/20) URINE BACTERIA CULTURE (07/28/20) URINE CULTURE/COLONY COUNT (07/28/20) US URINE CAPACITY MEASURE (07/19/20) X-RAY EXAM ABDOMEN 1 VIEW (07/19/20) X-RAY EXAM ABDOMEN 2 VIEWS (07/12/20) X-RAY EXAM CHEST 1 VIEW (10/11/19) X-RAY EXAM HIP UNI 1 VIEW (07/22/20) X-RAY EXAM HIP UNI 2-3 VIEWS (08/01/20) X-RAY EXAM NECK SPINE 4/5VWS (07/16/15) X-RAY EXAM OF ABDOMEN (06/26/17) X-RAY EXAM OF PELVIS (07/16/20) Problem List Initiated/Reviewed/Updated: Yes Plan: ASSESSMENT AND RECOMMENDATIONS- Hyperactive delirium-no issues during the hospital stay and seems to be at his baseline. -Melatonin at bedtime Recent left total hip arthroplasty-initially there was concern for an infected hematoma but this appears to be more likely a seroma than any actual infection. He is on antibiotics empirically while cultures are pending. Cultures negative so far. CRP was essentially normal. -Postoperative care per Dr Martell Florez Obstructive sleep apnea-no issues. -Outpatient follow-up The hospitalist service will follow along during the acute phase of the hospitalization.
[2020-08-06] MEDS: Melatonin 3 MG Tab PO SCH (20:51)
[2020-08-06] MEDS: Tamsulosin 0.4 MG Cap.ER PO SCH (20:51)
[2020-08-07] MEDS: Meropenem 500 MG in Sodium Chloride 0.9% 50 ML IV SCH ×2 (01:48→10:31)
[2020-08-07] MEDS: Docusate Sodium 100 MG Cap PO SCH (08:14)
[2020-08-07] MEDS: Nozin Nasal Sanitizer NASBOTH SCH (08:15)
[2020-08-07] MEDS: Pantoprazole 40 MG Tab.CR PO SCH (08:15)
[2020-08-07 10:39] VITALS: BP 118/64; PULSE 73
--- NOTE | 2020-08-08 16:08 | PCM.SURGPN ---
- General Info Date of Service: 08/06/20 Date of Surgery/Procedure: 08/04/20 POD#: 2 Functional Status: Reports: Tolerating Diet, Ambulating, Urinating, Other (Still having some pain but improved) - Review of Systems General: Reports: No Symptoms HEENT: Reports: No Symptoms Pulmonary: Reports: No Symptoms Cardiovascular: Reports: No Symptoms Musculoskeletal: Reports: Leg Pain Skin: Reports: No Symptoms Neurological: Reports: No Symptoms Psychiatric: Reports: No Symptoms - Patient Data Vitals - Most Recent: Last Vital Signs Temp 35.6 C L 08/07/20 10:38 Pulse 73 08/07/20 10:38 Resp 16 08/07/20 10:38 BP 118/64 08/07/20 10:38 Pulse Ox 95 08/07/20 10:38 Weight - Most Recent: 111.13 kg Armond Results Last 24 Hrs: Microbiology 08/04/20 14:24 Anaerobic Culture - Final Hip, Left NO GROWTH AFTER 3 DAYS 08/04/20 14:24 Gram Stain - Final Hip, Left Wound Culture - Final NO GROWTH AFTER 3 DAYS Med Orders - Current: Current Medications Discontinued Medications Acetaminophen (Tylenol) 650 mg PO Q4H PRN PRN Reason: Pain/Fever Hydrocodone Bitart/Acetaminophen ([place] 325-5 Mg) 2 tab PO Q4H PRN PRN Reason: Pain (mild 1-3) Last Admin: 08/05/20 00:16 Dose: 2 tab Documented by: Bandage/Support Products ( Nasal [employer] Tr[employer] Worker) 1 applic NASBOTH BID [facility] Stop: 08/11/20 21:01 Last Admin: 08/07/20 08:15 Dose: 1 applic Documented by: Bupivacaine HCl (Marcaine 0.5%) Confirm Administered Dose 50 ml .ROUTE .STK-MED ONE Stop: 08/04/20 11:32 Docusate Sodium (Colace) 100 mg PO DAILY [facility] Last Admin: 08/07/20 08:14 Dose: Not Given Documented by: Fentanyl (Sublimaze) 50 mcg IM ONETIME ONE Stop: 08/04/20 09:55 Last Admin: 08/04/20 10:01 Dose: 50 mcg Documented by: Fentanyl (Sublimaze) Confirm Administered Dose 100 mcg .ROUTE .STK-MED ONE Stop: 08/04/20 12:28 Hydromorphone HCl (Dilaudid) 0.5 mg IVPUSH ONETIME ONE Stop: 08/04/20 11:13 Last Admin: 08/04/20 11:20 Dose: 0.5 mg Documented by: Hydromorphone HCl (Dilaudid) 0.5 mg IVPUSH ONETIME STA Stop: 08/04/20 22:41 Last Admin: 08/04/20 22:54 Dose: 0.5 mg Documented by: Meropenem 1 gm/ Sodium (Chloride) 100 mls @ 200 mls/hr IV ONETIME ONE Stop: 08/04/20 11:11 Last Admin: 08/04/20 11:05 Dose: 200 mls/hr Documented by: Sodium Chloride (Normal Saline) 1,000 mls @ 250 mls/hr IV ASDIRECTED [facility] Last Admin: 08/04/20 11:05 Dose: 250 mls/hr Documented by: Lactated Ringer's (Ringers, Lactated) Confirm Administered Dose 1,000 mls @ as directed .ROUTE .[facility]-MED ONE Stop: 08/04/20 12:54 Sodium Chloride (Normal Saline) 1,000 mls @ 125 mls/hr IV ASDIRECTED [facility] Last Admin: 08/05/20 10:55 Dose: 125 mls/hr Documented by: Meropenem 500 mg/ Sodium (Chloride) 50 mls @ 100 mls/hr IV Q8H [facility] Stop: 08/07/20 18:31 Last Admin: 08/07/20 10:31 Dose: Not Given Documented by: Magnesium Citrate (Citrate Of Magnesia) 296 ml PO ASDIRECTED PRN PRN Reason: Constipation Magnesium Hydroxide (Milk Of Magnesia) 30 ml PO Q6H PRN PRN Reason: Stool Softener Last Admin: 08/06/20 20:55 Dose: 30 ml Documented by: Melatonin (Melatonin) 9 mg PO BEDTIME [facility] Last Admin: 08/06/20 20:51 Dose: 9 mg Documented by: Midazolam HCl (Versed 1 Mg/Ml) Confirm Administered Dose 2 mg .ROUTE .STK-MED ONE Stop: 08/04/20 12:28 Morphine Sulfate (Morphine) 1 mg IV Q1H PRN PRN Reason: Breakthrough Pain Last Admin: 08/04/20 22:11 Dose: 1 mg Documented by: Ondansetron HCl (Zofran) 4 mg IVPUSH Q6H PRN PRN Reason: Nausea/Vomiting Oxycodone/Acetaminophen (Percocet 325-5 Mg) 0 tab PO Q6H PRN PRN Reason: Pain (moderate 4-6) Last Admin: 08/06/20 16:09 Dose: 1 tab Documented by: Pantoprazole Sodium (Protonix) 40 mg PO ACBREAKFAST [facility] Last Admin: 08/07/20 08:15 Dose: 40 mg Documented by: Povidone Iodine (Betadine 10% Soln) Confirm Administered Dose 1 ml .ROUTE .STK- MED ONE Stop: 08/04/20 12:02 Last Admin: 08/04/20 13:24 Dose: 10 ml Documented by: Propofol (Diprivan 20 Ml) Confirm Administered Dose 200 mg .ROUTE .STK-MED ONE Stop: 08/04/20 12:28 Senna/Docusate Sodium (Senna Plus) 2 tab PO DAILY [facility] Last Admin: 08/07/20 08:14 Dose: Not Given Documented by: Tamsulosin HCl (Flomax) 0.4 mg PO BEDTIME [facility] Last Admin: 08/06/20 20:51 Dose: 0.4 mg Documented by: - Exam Wound/Incisions: Dressing Dry and Intact General: Alert, Oriented HEENT: Pupils Equal Neck: Supple Lungs: Clear to Auscultation, Normal Respiratory Effort Cardiovascular: Regular Rate, Regular Rhythm GI/Abdominal Exam: Normal Bowel Sounds, Soft, Non-Tender, No Distention Extremities: Limited Range of Motion Skin: Warm, Dry Neurological: No New Focal Deficit Psy/Mental Status: Alert, Normal Affect, Normal Mood Sepsis Event Note - Evaluation Sepsis Screening Result: No Definite Risk - Problem List & Annotations (1) Status post total hip replacement, left SNOMED Code(s): 825654837861, 479707027598 Code(s): Z96.642 - PRESENCE OF LEFT ARTIFICIAL HIP JOINT Status: Chronic (2) Seroma after procedure SNOMED Code(s): 367584741584882 Code(s): TLM3267 - Status: Acute (3) Confusion SNOMED Code(s): 185496906 Code(s): R41.0 - DISORIENTATION, UNSPECIFIED Status: Acute - Problem List Review Problem List Initiated/Reviewed/Updated: Yes - Assessment Assessment (Free Text/Narrative):: Doing better today, no fevers or chills, no further mental status changes, wound cultures negative so far - Plan Plan (Free Text/Narrative):: Continue IV antibiotic thru tonight, if no fevers and cultures negative home tomorrow on emperic antibiotics for one week.
--- NOTE | 2020-08-08 16:15 | PCM.DCSUM1 ---
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 The AM of admission presented to the ED with swelling and mild erythema around the hip incision and intermittent confusion/disorientation. Lab work was normal but due to clinical presentation he was taken to the OR with a presumed infected hematoma or abscess and possible infection communicating to the hip prosthesis. Diagnosis: Stroke: No Modified Jesse Scale: No Symptoms at All Modified Deer Scale Score: 0 - Discharge Data Discharge Date: 08/08/20 Discharge Disposition: Home, W Home Health Agency 06 Condition: Good - Referral to Home Health Date of Face to Face Encounter: 08/07/20 Reason for Homebound Status: Limited ambulation, history of recent IVETTE and evacuation of seroma left hip Primary Care Physician: Marcial Hanna MD Skilled Need: PT for ambulation and strengthening - Discharge Diagnosis/Problem(s) (1) Status post total hip replacement, left SNOMED Code(s): 658473707282, [id number] ICD Code: Z96.642 - PRESENCE OF LEFT ARTIFICIAL HIP JOINT Status: Chronic (2) Seroma after procedure SNOMED Code(s): 051217193375071 ICD Code: [id number] - Status: Acute (3) Confusion SNOMED Code(s): 481823895 ICD Code: R41.0 - DISORIENTATION, UNSPECIFIED Status: Acute - Patient Summary/Data Operative Procedure(s) Performed: Irrigation and debridemnet of seroma left hip Complications: none Consults: Consultations 08/04/20 13:45 Consult to Case Management/Shade Bander [CONS] Routine Comment: Physician Instructions: Discharge placement post hip surgery Service(s) to be Consulted: Case Management PT Evaluation and Treatment [CONS] Routine Please Evaluate and Treat. PT Reason for Consult: Ambulation Discharge Disposition: Home w Home Health Special Instructions: posterior hip precautions, WBAT This query below is only for informational purposes and is not editable. Admission Diagnosis/Problem: Abscess after procedure PT Evaluation and Treatment [CONS] Routine Please Evaluate and Treat. PT Reason for Consult: Post op Ortho Surgery Hip Pending Discharge: Yes, 2- -3 days Special Instructions: Schedule first outpatient P.T. appointment 3 - 5 days post discharge This query below is only for informational purposes and is not editable. Admission Diagnosis/Problem: Abscess after procedure 08/04/20 13:54 Consult to Physician [CONS] Routine Consulting Provider: Peter Funez Call Completed to Consulting Physician: Yes Reason for Consult: Assist with post op managegment Person Notified: Dr. Funez Date Notified: 08/04/20 Hospital Course: Tolerated surgery with no complications. Remained afebrile. No further metal status changes. Was stared on IV meropenem in the ED and continued with that post op. Was followed by Hospitalists. Progressed with PT and reported no significant pain the morning of discharge. Cultures of seroma remained negative. Patient discharged to home on Augmentin since there was some inflammation in the lining of the seroma and growth on cultures may have been suppressed by Keflex that he was on for a UTI prior to admission. - Patient Instructions Diet: Usual Diet as Tolerated Activity: Full Weight Bearing Showering/Bathing: May Shower Wound/Incision Care: Keep Operative Site/Wound Site Clean and Dry Notify Provider of: Fever, Increased Pain, Swelling and Redness, Drainage - Discharge Plan *PRESCRIPTION DRUG MONITORING PROGRAM REVIEWED*: No *COPY OF PRESCRIPTION DRUG MONITORING REPORT IN PATIENT MONSE: No Prescriptions/Med Rec: Amoxicillin/Potassium Clav [Augmentin 500-125 Tablet] 1 each PO BID 7 Days #14 tablet Home Medications: Home Meds Magnesium Citrate [Citrate of Magnesia] 1 bottle PO ASDIRECTED PRN 07/16/20 [History] Tamsulosin HCl [Flomax] 0.4 mg PO BEDTIME #15 cap.er.24h 07/20/20 [Rx] Acetaminophen [Tylenol] 650 mg PO Q4H PRN 07/28/20 [History] Docusate Sodium/Sennosides [Senna Plus] 2 tab PO DAILY 07/28/20 [History] Magnesium Hydroxide [Milk of Magnesia] 30 ml PO DAILY PRN 07/28/20 [History] Omeprazole 20 mg PO ACBREAKFAST 07/28/20 [History] bisacodyL [Dulcolax] 10 mg RC Q3D PRN 07/28/20 [History] cephALEXin [Cephalexin] 500 mg PO QID 07/31/20 [History] Hydrocodone/Acetaminophen [[place] 5-325 Tablet] 1 - 2 each PO Q8HR PRN #40 tablet 08/01/20 [Rx] Amoxicillin/Potassium Clav [Augmentin 500-125 Tablet] 1 each PO BID 7 Days #14 tablet 08/07/20 [Rx] Oxygen Therapy Mode: Room Air Referrals: Martell Florez MD [Physician] - 08/21/20 1:45 pm ([place] for your appointment at the ER desk and arrive 15 minutes early for your appointment. ) - Discharge Summary/Plan Comment DC Time >30 min.: No - Patient Data Vitals - Most Recent: Last Vital Signs Temp 35.6 C L 08/07/20 10:38 Pulse 73 08/07/20 10:38 Resp 16 08/07/20 10:38 BP 118/64 08/07/20 10:38 Pulse Ox 95 08/07/20 10:38 Weight - Most Recent: 111.13 kg AMBROSIO Results - Last 24 hrs: Microbiology 08/04/20 14:24 Anaerobic Culture - Final Hip, Left NO GROWTH AFTER 3 DAYS 08/04/20 14:24 Gram Stain - Final Hip, Left Wound Culture - Final NO GROWTH AFTER 3 DAYS Med Orders - Current: Current Medications Discontinued Medications Acetaminophen (Tylenol) 650 mg PO Q4H PRN PRN Reason: Pain/Fever Hydrocodone Bitart/Acetaminophen ([place] 325-5 Mg) 2 tab PO Q4H PRN PRN Reason: Pain (mild 1-3) Last Admin: 08/05/20 00:16 Dose: 2 tab Documented by: Bandage/Support Products ( Nasal Mark Up Designer) 1 applic NASBOTH BID [facility] Stop: 08/11/20 21:01 Last Admin: 08/07/20 08:15 Dose: 1 applic Documented by: Bupivacaine HCl (Marcaine 0.5%) Confirm Administered Dose 50 ml .ROUTE .STK-MED ONE Stop: 08/04/20 11:32 Docusate Sodium (Colace) 100 mg PO DAILY [facility] Last Admin: 08/07/20 08:14 Dose: Not Given Documented by: Fentanyl (Sublimaze) 50 mcg IM ONETIME ONE Stop: 08/04/20 09:55 Last Admin: 08/04/20 10:01 Dose: 50 mcg Documented by: Fentanyl (Sublimaze) Confirm Administered Dose 100 mcg .ROUTE .STK-MED ONE Stop: 08/04/20 12:28 Hydromorphone HCl (Dilaudid) 0.5 mg IVPUSH ONETIME ONE Stop: 08/04/20 11:13 Last Admin: 08/04/20 11:20 Dose: 0.5 mg Documented by: Hydromorphone HCl (Dilaudid) 0.5 mg IVPUSH ONETIME STA Stop: 08/04/20 22:41 Last Admin: 08/04/20 22:54 Dose: 0.5 mg Documented by: Meropenem 1 gm/ Sodium (Chloride) 100 mls @ 200 mls/hr IV ONETIME ONE Stop: 08/04/20 11:11 Last Admin: 08/04/20 11:05 Dose: 200 mls/hr Documented by: Sodium Chloride (Normal Saline) 1,000 mls @ 250 mls/hr IV ASDIRECTED [facility] Last Admin: 08/04/20 11:05 Dose: 250 mls/hr Documented by: Lactated Ringer's (Ringers, Lactated) Confirm Administered Dose 1,000 mls @ as directed .ROUTE .STK-MED ONE Stop: 08/04/20 12:54 Sodium Chloride (Normal Saline) 1,000 mls @ 125 mls/hr IV ASDIRECTED [facility] Last Admin: 08/05/20 10:55 Dose: 125 mls/hr Documented by: Meropenem 500 mg/ Sodium (Chloride) 50 mls @ 100 mls/hr IV Q8H [facility] Stop: 08/07/20 18:31 Last Admin: 08/07/20 10:31 Dose: Not Given Documented by: Magnesium Citrate (Citrate Of Magnesia) 296 ml PO ASDIRECTED PRN PRN Reason: Constipation Magnesium Hydroxide (Milk Of Magnesia) 30 ml PO Q6H PRN PRN Reason: Stool Softener Last Admin: 08/06/20 20:55 Dose: 30 ml Documented by: Melatonin (Melatonin) 9 mg PO BEDTIME [facility] Last Admin: 08/06/20 20:51 Dose: 9 mg Documented by: Midazolam HCl (Versed 1 Mg/Ml) Confirm Administered Dose 2 mg .ROUTE .STK-MED ONE Stop: 08/04/20 12:28 Morphine Sulfate (Morphine) 1 mg IV Q1H PRN PRN Reason: Breakthrough Pain Last Admin: 08/04/20 22:11 Dose: 1 mg Documented by: Ondansetron HCl (Zofran) 4 mg IVPUSH Q6H PRN PRN Reason: Nausea/Vomiting Oxycodone/Acetaminophen (Percocet 325-5 Mg) 0 tab PO Q6H PRN PRN Reason: Pain (moderate 4-6) Last Admin: 08/06/20 16:09 Dose: 1 tab Documented by: Pantoprazole Sodium (Protonix) 40 mg PO ACBREAKFAST [facility] Last Admin: 08/07/20 08:15 Dose: 40 mg Documented by: Povidone Iodine (Betadine 10% Soln) Confirm Administered Dose 1 ml .ROUTE .STK- MED ONE Stop: 08/04/20 12:02 Last Admin: 08/04/20 13:24 Dose: 10 ml Documented by: Propofol (Diprivan 20 Ml) Confirm Administered Dose 200 mg .ROUTE .STK-MED ONE Stop: 08/04/20 12:28 Senna/Docusate Sodium (Senna Plus) 2 tab PO DAILY [facility] Last Admin: 08/07/20 08:14 Dose: Not Given Documented by: Tamsulosin HCl (Flomax) 0.4 mg PO BEDTIME [facility] Last Admin: 08/06/20 20:51 Dose: 0.4 mg Documented by:
== END 2020-08-07 14:45 | disposition home health service (06) | DRG 908 ==
LOC: JP.ED 06:31 → JP.SDS 11:22 → JP.MS 11:34 → UNDOADMIN 13:45 → UNDODISIN 08-07 14:45
PROVIDERS: ADMIT Specialist; ATTEND Specialist
PROC: 0JDM0ZZ Extraction of Left Upper Leg Subcutaneous Tissue and Fascia, Open Approach (ICD-10-PCS; principal; 2020-08-04)
DX: G89.18 Other acute postprocedural pain (principal); L76.34 Postprocedural seroma of skin and subcutaneous tissue following other procedure; H40.9 Unspecified glaucoma; H54.7 Unspecified visual loss; N39.0 Urinary tract infection, site not specified; G47.33 Obstructive sleep apnea (adult) (pediatric); E78.00 Pure hypercholesterolemia, unspecified; G47.30 Sleep apnea, unspecified; K59.09 Other constipation; Z86.010 Personal history of colon polyps; Z87.11 Personal history of peptic ulcer disease; K21.9 Gastro-esophageal reflux disease without esophagitis; M54.9 Dorsalgia, unspecified; G89.29 Other chronic pain; E66.9 Obesity, unspecified; Z96.642 Presence of left artificial hip joint; M19.90 Unspecified osteoarthritis, unspecified site; N42.9 Disorder of prostate, unspecified; Z90.49 Acquired absence of other specified parts of digestive tract; Z96.649 Presence of unspecified artificial hip joint; I10 Essential (primary) hypertension; Z96.659 Presence of unspecified artificial knee joint; F32.9 Major depressive disorder, single episode, unspecified; R41.0 Disorientation, unspecified; Z20.828 Contact with and (suspected) exposure to other viral communicable diseases; I25.2 Old myocardial infarction; Z79.899 Other long term (current) drug therapy; Z68.33 Body mass index [BMI] 33.0-33.9, adult
CPT/HCPCS: 36415; 70450; 80053; 81001; 85025; 86140; 96361; 96365; 96372; 96375; 99284; 99285; J1170; J2185; J2250; J2704; J3010 ×2; J7030; J7050; J7120; U0002; 10140; 80048; 85027; 87070; 87075; 87205; 97110-GP; 97162-GP; 97530-GP; 99024; 99222-AI; 99231; A9270-GY; J2270; J3490

== ENCOUNTER 2021-01-24 05:50 | Emergency (ER) | payer MEDICARE, BC ==
--- NOTE | 2021-01-24 06:05 | EDM.PDOC ---
ED HPI GENERAL MEDICAL PROBLEM - General Chief Complaint: Respiratory Problem Stated Complaint: SOB Time Seen by Provider: 01/24/21 05:54 Source of Information: Reports: Patient History Limitations: Reports: No Limitations - History of Present Illness INITIAL COMMENTS - FREE TEXT/NARRATIVE: Magdy is an 80-year-old male presenting to the ED for evaluation of cold symptoms including cough, shortness of breath, sneezing, nasal congestion, and today dry mouth. The patient has been dealing with symptoms since this morning when he woke up and noticed that his tongue was stuck to the roof of his mouth. He reports he had similar symptoms in June but reports he was not seen. He denies any fever, chills, chest pain, nausea or vomiting, diarrhea or constipation. Patient does have a history significant for aortic stenosis, obstructive sleep apnea, BPH, hypertension, hyperlipidemia, GERD, and small bowel obstruction. - Related Data Allergies Allergy/AdvReac Type Severity Reaction Status Date / Time No Known Allergies Allergy Verified 01/24/21 06:01 Home Meds: Home Meds Tamsulosin HCl [Flomax] 0.4 mg PO BEDTIME #15 cap.er.24h 07/20/20 [Rx] Docusate Sodium/Sennosides [Senna Plus] 2 tab PO DAILY 07/28/20 [History] bisacodyL [Dulcolax] 10 mg RC Q3D PRN 07/28/20 [History] Past Medical History HEENT History: Reports: Cataract, Glaucoma, Impaired Vision Other HEENT History: wears glasses Cardiovascular History: Reports: Arrhythmia, High Cholesterol, Hypertension, NM Respiratory History: Reports: Sleep Apnea Gastrointestinal History: Reports: Cholelithiasis, Chronic Constipation, Chronic Diarrhea, Colon Polyp, Gastritis, GERD, PUD Genitourinary History: Reports: Prostate Disorder, Other (See Below) Other Genitourinary History: urinary frequency Musculoskeletal History: Reports: Back Pain, Chronic, Osteoarthritis Other Musculoskeletal History: bilateral hip pain Psychiatric History: Reports: Depression, Other (See Below) Other Psychiatric History: past 6 months anger problems, caregiver for his is exhausting him Endocrine/Metabolic History: Reports: Obesity/BMI 30+ - Infectious Disease History Infectious Disease History: Reports: Chicken Pox, Measles, Mumps, Rubella - Past Surgical History Other Musculoskeletal Surgeries/Procedures:: Left ankle surg, left toe surgery, right middle toe amputated. s/p L total hip 8/24/20 Social & Family History - Family History Family Medical History: No Pertinent Family History Cardiac: Reports: CAD, NM : Reports: Dialysis, Renal Disease/Insufficiency Musculoskeletal: Reports: Arthritis, Other (See Below) Other Musculoskeletal Family History: scoliosis Oncologic: Reports: Breast Other Oncologic Family History: daughter has recent breast ca diagnosis - Caffeine Use Caffeine Use: Reports: Coffee Caffeine Use Comment: occasional 2-3 cups week ED ROS GENERAL - Review of Systems Review Of Systems: See Below Constitutional: Reports: Fatigue HEENT: Reports: Rhinitis Respiratory: Reports: Shortness of Breath, Cough. Denies: Sputum Cardiovascular: Reports: Blood Pressure Problem, Palpitations Endocrine: Reports: Fatigue GI/Abdominal: Reports: No Symptoms : Reports: No Symptoms Musculoskeletal: Reports: No Symptoms Skin: Reports: No Symptoms Neurological: Reports: No Symptoms Psychiatric: Reports: No Symptoms Hematologic/Lymphatic: Reports: No Symptoms Immunologic: Reports: No Symptoms ED EXAM, GENERAL - Physical Exam Exam: See Below Exam Limited By: No Limitations General Appearance: Alert, No Apparent Distress, Obese Nose: Nasal Swelling, Nasal Drainage (Patient states that he put Vicks VapoRub in both nostrils about an hour prior to coming to the ED.) Throat/Mouth: Normal Inspection, Normal Lips, Normal Oropharynx, Normal Voice Head: Atraumatic, Normocephalic Neck: Normal Inspection, Supple Respiratory/Chest: No Accessory Muscle Use, Wheezing (Inspiratory and expiratory was scant diffuse). No: Accessory Muscle Use, Retractions Cardiovascular: Normal Peripheral Pulses, Regular Rate, Rhythm, No JVD, Systolic Murmur (Grade 3/6 systolic ejection murmur heard in the right upper sternal border extending to the neck) Peripheral Pulses: 2+: Radial (L), Radial (R) GI/Abdominal: Normal Bowel Sounds, Soft, Non-Tender Back Exam: Normal Inspection, Full Range of Motion Extremities: Normal Inspection, Normal Range of Motion, Pedal Edema (3+ bilateral lower extremities, left greater than right) Neurological: Alert, Oriented, Normal Cognition, No Motor/Sensory Deficits Psychiatric: Normal Affect, Normal Mood Skin Exam: Warm, Dry, Intact, Normal Color Lymphatic: No Adenopathy #1 Interpretation EKG Date: 01/24/21 Time: 06:05 Rhythm: NSR Rate (Beats/Min): 87 P-Wave: Present QRS: Other (Q waves in leads II, III, and aVF, as well as, V2 and V3 consistent with an old inferior and anterior NM.) ST-T: Other (T wave inversion in leads I and aVL with flattening of the T waves in V5 and V6) Comparison: Change From Previous EKG (Significant change in the inferior and anterior leads since 06/27/2017.) Course - Vital Signs Last Recorded V/S: Last Vital Signs Temp 36.5 C 01/24/21 06:07 Pulse 90 01/24/21 06:07 Resp 15 01/24/21 06:34 BP 136/65 01/24/21 06:34 Pulse Ox 92 L 01/24/21 06:34 - Orders/Labs/Meds Orders: Active Orders 24 hr Category Date Time Status EKG Documentation Completion [RC] ASDIRECTED Care 01/24/21 05:59 Ordered Chest 2V [CR] Stat Exams 01/24/21 05:58 Ordered EKG 12 Lead [EK] Routine Ther 01/24/21 05:58 Ordered Labs: Laboratory Tests 01/24/21 01/24/21 Range/Units 06:08 06:08 WBC 9.8 (4.5-11.0) K/uL RBC 5.05 (4.30-5.90) M/uL Hgb 15.1 H D (12.0-15.0) g/dL Hct 45.3 (40.0-54.0) % MCV 90 (80-98) fL MCH 30 (27-31) pg MCHC 33 (32-36) % Plt Count 251 (150-400) K/uL Neut % (Auto) 51 (36-66) % Lymph % (Auto) 36 (24-44) % [place] % (Auto) 9 H (2-6) % Eos % (Auto) 4 (2-4) % Baso % (Auto) 0 (0-1) % Sodium 142 (140-148) mmol/L Potassium 3.7 (3.6-5.2) mmol/L Chloride 104 (100-108) mmol/L Carbon Dioxide 27 (21-32) mmol/L Anion Gap 10.8 (5.0-14.0) mmol/L BUN 16 (7-18) mg/dL Creatinine 0.8 (0.8-1.3) mg/dL Est Cr Clr Drug Dosing 79.49 mL/min Estimated GFR (MDRD) > 60 (>60) Glucose 93 (74-106) mg/dL Calcium 9.3 (8.5-10.1) mg/dL Total Bilirubin 0.5 (0.2-1.0) mg/dL AST 17 (15-37) U/L ALT 34 (12-78) U/L Alkaline Phosphatase 66 (46-116) U/L Troponin I 0.025 (0.000-0.056) ng/mL C-Reactive Protein 0.06 (0.0-0.3) mg/dL NT-Pro-B Natriuret Pep 190 (5-450) pg/mL Total Protein 6.9 (6.4-8.2) g/dL Albumin 3.7 (3.4-5.0) g/dL Globulin 3.2 (2.3-3.5) g/dL Albumin/Globulin Ratio 1.2 (1.2-2.2) - Radiology Interpretation Free Text/Narrative:: Viewed the two-view chest x-ray. There is no acute infiltrates, pulmonary edema, or change when compared to previous chest x-ray dated 10 October 2019. Flattened diaphragms without evidence for pleural effusions. - Re-Assessments/Exams Free Text/Narrative Re-Assessment/Exam: 01/24/21 06:42 view the labs, EKG, and chest x-ray. The patient's leukocyte count and CBC is normal with the exception of slight elevation in hemoglobin of 15.1. His comprehensive metabolic panel is normal. His troponin I and proBNP are also normal. Is no evidence for pulmonary edema on the chest x-ray. There is no evidence for acute cardiac injury or ischemia on the EKG. It appears that the patient has a viral URI with a cough. Unfortunately antibiotics or not cannot help him, however, he may take a decongestant of choice. We did not do a COVID-19 test because the patient has not lost his sense of taste or smell, had a significant fever, or other symptoms in addition to the nasal congestion to suggest COVID-19. Instructions for management of the viral URI were discussed and the patient will be discharged in satisfactory condition. Departure - Departure Time of Disposition: 06:44 Disposition: Home, Self-Care 01 Clinical Impression: Viral upper respiratory tract infection with cough - Discharge Information Instructions: Viral Respiratory Infection, [id number] Referrals: PCP,None [Primary Care Provider] - Forms: ED Department Discharge Care Plan Goals: I would recommend using a decongestant of choice, preferably something with pseudoephedrine. Keep an eye on your blood pressure which was quite elevated. If this remains elevated follow-up with your primary care provider to initiate therapy for it. Turn to the emergency room for reevaluation should you develop any worsening shortness of breath, high fever, or productive cough. Sepsis Event Note (ED) - Focused Exam Vital Signs: Vital Signs Temp Pulse Resp BP Pulse Ox 01/24/21 06:34 15 136/65 92 L 01/24/21 06:07 36.5 C 90 14 189/100 H 95 - Problem List & Annotations (1) Viral upper respiratory tract infection with cough SNOMED Code(s): 900373494, 577623223 Code(s): J06.9 - ACUTE UPPER RESPIRATORY INFECTION, UNSPECIFIED Status: Acute Priority: Medium Current Visit: Yes - Problem List Review Problem List Initiated/Reviewed/Updated: Yes - My Orders Last 24 Hours: My Active Orders 01/24/21 05:58 Chest 2V [CR] Stat EKG 12 Lead [EK] Routine 01/24/21 05:59 EKG Documentation Completion [RC] ASDIRECTED - Assessment/Plan Last 24 Hours: My Active Orders 01/24/21 05:58 Chest 2V [CR] Stat EKG 12 Lead [EK] Routine 01/24/21 05:59 EKG Documentation Completion [RC] ASDIRECTED
[2021-01-24 06:08] VITALS: PULSE 90
[2021-01-24 06:36] VITALS: BP 136/65
--- NOTE | 2021-01-24 11:21 | CR ---
CHEST: 2 view CLINICAL HISTORY:Dyspnea, cough COMPARISON:2019 FINDINGS: Heart is enlarged. Pulmonary vascular is normal. No infiltrate, effusion or pneumothorax is seen. There are atherosclerotic changes in the aorta.. Lungs are mildly hyperaerated. IMPRESSION: Mild cardiac megaly No acute cardiac pulmonary process Mild hyperaeration
== END 2021-01-24 07:20 | disposition home or self-care (01) ==
LOC: JP.ED 05:50
DX: J06.9 Acute upper respiratory infection, unspecified (principal); I10 Essential (primary) hypertension; I25.2 Old myocardial infarction; N42.9 Disorder of prostate, unspecified; E66.9 Obesity, unspecified; Z68.35 Body mass index [BMI] 35.0-35.9, adult; Z79.899 Other long term (current) drug therapy
CPT/HCPCS: 36415; 71046; 71046-26; 80053; 83880; 84484; 85025; 86140; 93005; 99282; 99285-25

== ENCOUNTER 2022-06-27 14:50 | Emergency (ER) | payer MEDICARE, BC ==
[2022-06-27] MEDS ORDERED: Ondansetron 4 MG Tab.DIS PO ONE (15:35)
[2022-06-27 16:14] VITALS: BP 139/63; PULSE 86
== END 2022-06-27 16:24 | disposition home or self-care (01) ==
LOC: JP.ED 14:50
DX: U07.1 COVID-19 (principal); R60.0 Localized edema; I10 Essential (primary) hypertension; I25.2 Old myocardial infarction; E66.9 Obesity, unspecified; Z68.36 Body mass index [BMI] 36.0-36.9, adult; Z79.899 Other long term (current) drug therapy; Z90.49 Acquired absence of other specified parts of digestive tract
CPT/HCPCS: 36415; 80048; 85025; 99284; Q0162; U0002

== ENCOUNTER 2023-01-01 08:00 | Inpatient (IN) | payer MEDICARE, BC ==
[2023-01-01 10:03] LABS: CORONAVIRUS COVID-19 NAA NEGATIVE (NEGATIVE)
[2023-01-01] MEDS ORDERED: Acetaminophen 500 MG Tab PO ONE (13:27)
[2023-01-01] MEDS ORDERED: Melatonin 3 MG Tab PO PRN (14:22)
[2023-01-01] MEDS ORDERED: Ondansetron 4 MG/2 ML SDV IV PRN (14:22)
[2023-01-01] MEDS ORDERED: HYDROmorphone 1 MG/ML Syringe IVPUSH PRN (14:22)
[2023-01-01] MEDS ORDERED: Albuterol 0.083% 2.5 MG/3 ML Neb Soln NEB PRN (14:22)
[2023-01-01] MEDS ORDERED: Ondansetron 4 MG Tab.DIS PO PRN (14:22)
[2023-01-01] MEDS ORDERED: HYDROmorphone 0.5 MG/0.5 ML Syringe IVPUSH PRN (14:30)
[2023-01-01] MEDS ORDERED: Potassium Chloride 20 MEQ Tab.ER PO ONE (15:00)
[2023-01-01] MEDS ORDERED: Azithromycin 500 MG in Sodium Chloride 0.9% 250 ML IV ONE (15:00)
[2023-01-01] MEDS: Sodium Chloride 0.9% 1,000 ML IV SCH ×2 (15:17→23:14)
[2023-01-01] MEDS: cefTRIAXone 1 GM in Sodium Chloride 0.9% 50 ML IV SCH (15:18)
[2023-01-01] MEDS: Enoxaparin 40 MG/0.4 ML Syringe SUBCUT SCH (15:22)
[2023-01-01] MEDS: Potassium Chloride 10 MEQ in Premix Bag 1 BAG IV SCH ×2 (15:39→16:39)
[2023-01-01] MEDS ORDERED: Calcium Carbonate 500 MG Tab.Chew PO PRN (19:29)
[2023-01-01] MEDS: Lactobacillus Rhamnosus GG (Probiotic) Cap PO SCH (21:24)
[2023-01-01] MEDS: oxyCODONE 5 MG Tab PO PRN (21:24)
[2023-01-01] MEDS ORDERED: amLODIPine 5 MG Tab PO ONE (23:15)
[2023-01-02] MEDS: Acetaminophen 325 MG Tab PO PRN ×2 (02:30→15:25)
[2023-01-02] MEDS: atorvaSTATin 10 MG Tab PO SCH (08:43)
[2023-01-02] MEDS: Aspirin 81 MG Tab.Chew PO SCH (08:43)
[2023-01-02] MEDS: Lactobacillus Rhamnosus GG (Probiotic) Cap PO SCH ×2 (08:43→21:09)
[2023-01-02] MEDS: amLODIPine 5 MG Tab PO SCH (08:43)
[2023-01-02] MEDS: Tamsulosin 0.4 MG Cap.ER PO SCH (08:43)
[2023-01-02] MEDS: Azithromycin 250 MG Tab PO SCH (08:47)
[2023-01-02] MEDS ORDERED: Sodium Chloride 0.9% 1,000 ML IV SCH (10:00)
[2023-01-02] MEDS ORDERED: Bisacodyl 10 MG Supp RECTAL ONE (10:15)
[2023-01-02] MEDS: cefTRIAXone 1 GM in Sodium Chloride 0.9% 50 ML IV SCH (13:58)
[2023-01-02] MEDS: Enoxaparin 40 MG/0.4 ML Syringe SUBCUT SCH (16:11)
[2023-01-02] MEDS ORDERED: Magnesium Hydroxide 400 MG/5 ML Susp 30 ML Cup PO PRN (16:18)
[2023-01-02] MEDS: Magnesium Hydroxide 400 MG/5 ML Susp 30 ML Cup PO PRN (16:20)
[2023-01-03] MEDS: Tamsulosin 0.4 MG Cap.ER PO SCH (09:11)
[2023-01-03] MEDS: Lactobacillus Rhamnosus GG (Probiotic) Cap PO SCH ×2 (09:11→20:16)
[2023-01-03] MEDS: Acetaminophen 325 MG Tab PO PRN (09:11)
[2023-01-03] MEDS: Aspirin 81 MG Tab.Chew PO SCH (09:11)
[2023-01-03] MEDS: atorvaSTATin 10 MG Tab PO SCH (09:12)
[2023-01-03] MEDS: Azithromycin 250 MG Tab PO SCH (09:12)
[2023-01-03] MEDS: amLODIPine 5 MG Tab PO SCH (09:12)
[2023-01-03] MEDS ORDERED: Bisacodyl 5 MG Tab PO ONE (10:30)
[2023-01-03] MEDS: Polyethylene Glycol 3350 Powder 17 GM Packet PO SCH (10:37)
[2023-01-03] MEDS: Cefdinir 300 MG Cap PO SCH ×2 (10:37→20:16)
[2023-01-03] MEDS ORDERED: Pneumococcal Polyvalent-23 Vaccine 0.5 ML SDV IM ONE (11:00)
[2023-01-03] MEDS: oxyCODONE 5 MG Tab PO PRN ×2 (11:42→20:16)
[2023-01-03] MEDS: Enoxaparin 40 MG/0.4 ML Syringe SUBCUT SCH (15:31)
[2023-01-04] MEDS: oxyCODONE 5 MG Tab PO PRN (03:30)
[2023-01-04] MEDS: Aspirin 81 MG Tab.Chew PO SCH (09:00)
[2023-01-04] MEDS: Tamsulosin 0.4 MG Cap.ER PO SCH (09:00)
[2023-01-04] MEDS: Polyethylene Glycol 3350 Powder 17 GM Packet PO SCH (09:00)
[2023-01-04] MEDS: Lactobacillus Rhamnosus GG (Probiotic) Cap PO SCH ×2 (09:00→21:25)
[2023-01-04] MEDS: atorvaSTATin 10 MG Tab PO SCH (09:00)
[2023-01-04] MEDS: Azithromycin 250 MG Tab PO SCH (09:00)
[2023-01-04] MEDS: amLODIPine 5 MG Tab PO SCH (09:00)
[2023-01-04] MEDS: Cefdinir 300 MG Cap PO SCH ×2 (09:02→21:26)
[2023-01-04] MEDS ORDERED: Hypromellose 0.3% Ophth Soln 15 ML Bottle EYEBOTH PRN (09:03)
[2023-01-04] MEDS: Acetaminophen 325 MG Tab PO PRN (09:11)
[2023-01-04] MEDS ORDERED: Calcium Carbonate 500 MG Tab.Chew PO PRN (09:50)
[2023-01-04] MEDS: Enoxaparin 40 MG/0.4 ML Syringe SUBCUT SCH (15:53)
[2023-01-05] MEDS: oxyCODONE 5 MG Tab PO PRN ×2 (01:33→08:29)
[2023-01-05] MEDS: atorvaSTATin 10 MG Tab PO SCH (08:28)
[2023-01-05] MEDS: Cefdinir 300 MG Cap PO SCH ×2 (08:28→20:30)
[2023-01-05] MEDS: Tamsulosin 0.4 MG Cap.ER PO SCH (08:28)
[2023-01-05] MEDS: amLODIPine 5 MG Tab PO SCH (08:29)
[2023-01-05] MEDS: Azithromycin 250 MG Tab PO SCH (08:30)
[2023-01-05] MEDS: Lactobacillus Rhamnosus GG (Probiotic) Cap PO SCH ×2 (08:30→20:29)
[2023-01-05] MEDS: Aspirin 81 MG Tab.Chew PO SCH (08:30)
[2023-01-05] MEDS: Polyethylene Glycol 3350 Powder 17 GM Packet PO SCH (08:37)
[2023-01-05] MEDS ORDERED: Ibuprofen 400 MG Tab PO PRN (12:17)
[2023-01-05] MEDS ORDERED: oxyCODONE 5 MG Tab PO PRN (12:22)
[2023-01-05] MEDS: Acetaminophen 500 MG Tab PO SCH ×2 (13:31→20:29)
[2023-01-05] MEDS: Furosemide 40 MG Tab PO SCH ×2 (13:31→20:30)
[2023-01-05] MEDS: Potassium Chloride 10 MEQ Cap.ER PO SCH ×2 (13:31→20:29)
[2023-01-05] MEDS: Enoxaparin 40 MG/0.4 ML Syringe SUBCUT SCH (15:32)
[2023-01-05] MEDS: Diclofenac Sodium 1% Gel 100 GM Tube TOP SCH ×2 (15:32→21:03)
[2023-01-05] MEDS: Magnesium Hydroxide 400 MG/5 ML Susp 30 ML Cup PO PRN (15:39)
[2023-01-06] MEDS: Diclofenac Sodium 1% Gel 100 GM Tube TOP SCH ×4 (06:06→21:43)
[2023-01-06] MEDS: atorvaSTATin 10 MG Tab PO SCH (08:47)
[2023-01-06] MEDS: Lactobacillus Rhamnosus GG (Probiotic) Cap PO SCH ×2 (08:47→21:42)
[2023-01-06] MEDS: Tamsulosin 0.4 MG Cap.ER PO SCH (08:47)
[2023-01-06] MEDS: Furosemide 40 MG Tab PO SCH ×2 (08:47→17:15)
[2023-01-06] MEDS: Aspirin 81 MG Tab.Chew PO SCH (08:47)
[2023-01-06] MEDS: Azithromycin 250 MG Tab PO SCH (08:48)
[2023-01-06] MEDS: Potassium Chloride 10 MEQ Cap.ER PO SCH ×3 (08:48→17:15)
[2023-01-06] MEDS: Acetaminophen 500 MG Tab PO SCH ×3 (08:48→21:42)
[2023-01-06] MEDS: Cefdinir 300 MG Cap PO SCH ×2 (08:48→21:42)
[2023-01-06] MEDS: amLODIPine 5 MG Tab PO SCH (08:49)
[2023-01-06] MEDS: Polyethylene Glycol 3350 Powder 17 GM Packet PO SCH (08:50)
[2023-01-06] MEDS: Enoxaparin 40 MG/0.4 ML Syringe SUBCUT SCH (17:15)
[2023-01-07] MEDS ORDERED: Lidocaine 2% Jelly 10 ML Urojet MUCMEM ONE (06:24)
[2023-01-07] MEDS: Diclofenac Sodium 1% Gel 100 GM Tube TOP SCH ×2 (06:30→10:17)
[2023-01-07] MEDS: Furosemide 40 MG Tab PO SCH (06:31)
[2023-01-07] MEDS: Polyethylene Glycol 3350 Powder 17 GM Packet PO SCH (08:48)
[2023-01-07] MEDS: Acetaminophen 500 MG Tab PO SCH (08:49)
[2023-01-07] MEDS: Azithromycin 250 MG Tab PO SCH (08:49)
[2023-01-07] MEDS: Lactobacillus Rhamnosus GG (Probiotic) Cap PO SCH (08:50)
[2023-01-07] MEDS: Aspirin 81 MG Tab.Chew PO SCH (08:50)
[2023-01-07] MEDS: Potassium Chloride 10 MEQ Cap.ER PO SCH (08:50)
[2023-01-07] MEDS: Cefdinir 300 MG Cap PO SCH (08:50)
[2023-01-07] MEDS: atorvaSTATin 10 MG Tab PO SCH (08:50)
[2023-01-07] MEDS: amLODIPine 5 MG Tab PO SCH (08:51)
[2023-01-07] MEDS: Tamsulosin 0.4 MG Cap.ER PO SCH (08:51)
[2023-01-07 10:51] VITALS: BP 156/52; PULSE 72
== END 2023-01-07 12:00 | DRG 193 ==
LOC: JP.ED 08:00 → JP.ICU 13:28
PROVIDERS: ADMIT Internal Medicine; ATTEND Hospitalist
PROC: 3E02340 Introduction of Influenza Vaccine into Muscle, Percutaneous Approach (ICD-10-PCS; principal; 2023-01-01)
PROC: 0T9B70Z Drainage of Bladder with Drainage Device, Via Natural or Artificial Opening (ICD-10-PCS; 2023-01-03)
DX: J18.9 Pneumonia, unspecified organism (principal); M25.551 Pain in right hip; J96.01 Acute respiratory failure with hypoxia; E87.6 Hypokalemia; M16.11 Unilateral primary osteoarthritis, right hip; E86.0 Dehydration; E66.9 Obesity, unspecified; Z20.822 Contact with and (suspected) exposure to COVID-19; E78.00 Pure hypercholesterolemia, unspecified; Z95.5 Presence of coronary angioplasty implant and graft; N40.1 Benign prostatic hyperplasia with lower urinary tract symptoms; K21.9 Gastro-esophageal reflux disease without esophagitis; R33.8 Other retention of urine; I10 Essential (primary) hypertension; K59.09 Other constipation; M54.9 Dorsalgia, unspecified; G89.29 Other chronic pain; H54.7 Unspecified visual loss; Z96.649 Presence of unspecified artificial hip joint; Z96.659 Presence of unspecified artificial knee joint; Z23 Encounter for immunization; R33.9 Retention of urine, unspecified; Z79.82 Long term (current) use of aspirin; Z79.899 Other long term (current) drug therapy; I25.2 Old myocardial infarction; Z86.16 Personal history of COVID-19; Z90.49 Acquired absence of other specified parts of digestive tract
CPT/HCPCS: 0241U; 36415; 51702; 51798; 71045; 73502; 74019; 80048; 83735; 84484; 85025; 85027; 90662; 90732; 93005; 93010; 97110; 97140; 97162; 97165; 97530; 99222; 99232; 99238; 99285; A9270-GY; G0008; G0009; J0456; J0696; J1650; J3480; J7030; J7050

== ENCOUNTER 2023-01-18 17:59 | Observation (INO) | payer MEDICARE, BC ==
[2023-01-18] MEDS ORDERED: Sodium Chloride 0.9% 10 ML Syringe FLUSH PRN (18:03)
[2023-01-18] MEDS ORDERED: Sodium Chloride 0.9% 500 ML IV ONE (18:03)
[2023-01-18 18:55] LABS: ESTIMATED GFR 88 mL/min (>60)
[2023-01-18] MEDS ORDERED: Sodium Chloride 0.9% 10 ML Syringe FLUSH ONE (18:55)
[2023-01-18] MEDS ORDERED: Iopamidol 755 Mg/ML 100 ML Bottle IV SCH (19:00)
[2023-01-18] MEDS ORDERED: Sodium Chloride 0.9% 75 ML IV SCH (19:00)
[2023-01-18 19:10] LABS: CORONAVIRUS COVID-19 NAA NEGATIVE (NEGATIVE)
[2023-01-18] MEDS ORDERED: Enoxaparin 40 MG/0.4 ML Syringe SUBCUT SCH (20:46)
[2023-01-18] MEDS ORDERED: atorvaSTATin 10 MG Tab PO SCH (21:30)
[2023-01-18] MEDS: Sodium Chloride 0.9% 1,000 ML IV SCH (21:33)
[2023-01-18] MEDS: Potassium Chloride 10 MEQ Cap.ER PO SCH (21:50)
[2023-01-18] MEDS: Acetaminophen 500 MG Tab PO SCH (22:06)
[2023-01-18] MEDS: Furosemide 40 MG Tab PO SCH (22:07)
[2023-01-19] MEDS: Sodium Chloride 0.9% 1,000 ML IV SCH (04:36)
[2023-01-19] MEDS: oxyCODONE 5 MG Tab PO PRN ×2 (06:03→16:03)
[2023-01-19] MEDS: Morphine 2 MG/ML SYRINGE IVPUSH PRN (07:52)
[2023-01-19] MEDS ORDERED: Tamsulosin 0.4 MG Cap.ER PO SCH (09:00)
[2023-01-19] MEDS ORDERED: Aspirin 81 MG Tab.Chew PO SCH (09:00)
[2023-01-19] MEDS ORDERED: amLODIPine 5 MG Tab PO SCH (09:00)
[2023-01-19] MEDS: Pantoprazole 40 MG Vial IVPUSH SCH (09:11)
[2023-01-19] MEDS: Acetaminophen 500 MG Tab PO SCH ×3 (09:11→20:49)
[2023-01-19] MEDS: Potassium Chloride 10 MEQ Cap.ER PO SCH (09:55)
[2023-01-19] MEDS: Furosemide 40 MG Tab PO SCH (09:56)
[2023-01-19] MEDS ORDERED: Gadoteridol 279.3 MG/ML 20 ML SDV IV SCH (10:00)
[2023-01-19] MEDS: POTASSIUM CHLORIDE 10 MEQ PO SCH ×2 (14:34→20:30)
[2023-01-19] MEDS: Furosemide 40 MG **PTOM PO SCH (15:14)
[2023-01-19] MEDS: atorvaSTATin 10 MG **PTOM PO SCH (20:31)
[2023-01-19] MEDS: Enoxaparin 40 MG/0.4 ML Syringe SUBCUT SCH (20:31)
[2023-01-19] MEDS: Calcium Carbonate 500 MG Tab.Chew PO PRN (22:45)
[2023-01-20] MEDS: Calcium Carbonate 500 MG Tab.Chew PO PRN (06:37)
[2023-01-20] MEDS: Aspirin 81 MG Tab.EC **PTOM PO SCH (08:00)
[2023-01-20] MEDS: Tamsulosin 0.4 MG Cap.ER **PTOM PO SCH (08:00)
[2023-01-20] MEDS: Furosemide 40 MG **PTOM PO SCH ×2 (08:00→16:10)
[2023-01-20] MEDS: amLODIPine 5 MG **PTOM PO SCH (08:01)
[2023-01-20] MEDS: POTASSIUM CHLORIDE 10 MEQ PO SCH ×3 (08:01→20:11)
[2023-01-20] MEDS: Acetaminophen 500 MG Tab PO SCH ×3 (08:03→20:15)
[2023-01-20] MEDS: Pantoprazole 40 MG Vial IVPUSH SCH (08:03)
[2023-01-20] MEDS: oxyCODONE 5 MG Tab PO PRN ×2 (14:51→22:59)
[2023-01-20] MEDS: Morphine 2 MG/ML SYRINGE IVPUSH PRN (16:09)
[2023-01-20] MEDS: atorvaSTATin 10 MG **PTOM PO SCH (20:11)
[2023-01-20] MEDS: Enoxaparin 40 MG/0.4 ML Syringe SUBCUT SCH (20:15)
[2023-01-21] MEDS: oxyCODONE 5 MG Tab PO PRN ×2 (02:59→08:41)
[2023-01-21] MEDS ORDERED: Pantoprazole 40 MG Tab.CR PO SCH (07:30)
[2023-01-21] MEDS: amLODIPine 5 MG **PTOM PO SCH (08:26)
[2023-01-21] MEDS: Tamsulosin 0.4 MG Cap.ER **PTOM PO SCH (08:26)
[2023-01-21] MEDS: POTASSIUM CHLORIDE 10 MEQ PO SCH ×2 (08:27→14:11)
[2023-01-21] MEDS: Aspirin 81 MG Tab.EC **PTOM PO SCH (08:27)
[2023-01-21] MEDS: Furosemide 40 MG **PTOM PO SCH ×2 (08:27→15:05)
[2023-01-21] MEDS: Acetaminophen 500 MG Tab PO SCH ×2 (08:28→14:11)
[2023-01-21] MEDS ORDERED: Clopidogrel 75 MG Tab PO SCH (14:00)
[2023-01-21 14:49] VITALS: BP 144/45; PULSE 68
== END 2023-01-21 15:30 | disposition home or self-care (01) ==
LOC: JP.ED 17:59 → JP.MS 20:07
PROVIDERS: ADMIT Internal Medicine; ATTEND Hospitalist
DX: I65.23 Occlusion and stenosis of bilateral carotid arteries (principal); M25.551 Pain in right hip; M16.11 Unilateral primary osteoarthritis, right hip; R29.90 Unspecified symptoms and signs involving the nervous system; I10 Essential (primary) hypertension; E78.00 Pure hypercholesterolemia, unspecified; I25.2 Old myocardial infarction; E66.9 Obesity, unspecified; F32.A Depression, unspecified; K21.9 Gastro-esophageal reflux disease without esophagitis; M19.90 Unspecified osteoarthritis, unspecified site; Z79.899 Other long term (current) drug therapy; Z86.16 Personal history of COVID-19; Z95.5 Presence of coronary angioplasty implant and graft; Z98.890 Other specified postprocedural states; Z20.822 Contact with and (suspected) exposure to COVID-19
CPT/HCPCS: 0241U; 36415; 70450; 70496; 70498; 70553; 70553-26; 80048; 81001; 82947; 84484; 85025; 85610; 85730; 93005; 93010; 93306; 96360; 96361; 96372; 96374; 96375; 96376; 97110-GP; 97161-GP; 97530-GP; 99291; 99291-25; A9270-GY; A9579; C9113; G0378; J1650; J2270; J7030; J7040

== ENCOUNTER 2023-02-08 23:17 | Emergency (ER) | payer MEDICARE, BC ==
[2023-02-08] MEDS ORDERED: Sodium Chloride 0.9% 10 ML Syringe FLUSH PRN (23:34)
[2023-02-09 00:09] LABS: ESTIMATED GFR 85 mL/min (>60); TROPONIN I HIGH SENSITIVITY 17.8 pg/mL (<=60.3)
[2023-02-09] MEDS ORDERED: HYDROmorphone 0.5 MG/0.5 ML Syringe IVPUSH ONE (00:42)
[2023-02-09 01:24] VITALS: BP 146/55; PULSE 72
[2023-02-09] MEDS ORDERED: Potassium Chloride 20 MEQ Tab.ER PO ONE (01:42)
== END 2023-02-09 02:20 | disposition home or self-care (01) ==
LOC: JP.ED 23:17
DX: E87.6 Hypokalemia (principal); I65.23 Occlusion and stenosis of bilateral carotid arteries; M25.551 Pain in right hip; I10 Essential (primary) hypertension; E78.00 Pure hypercholesterolemia, unspecified; I25.2 Old myocardial infarction; M19.90 Unspecified osteoarthritis, unspecified site; E66.9 Obesity, unspecified; Z68.35 Body mass index [BMI] 35.0-35.9, adult; Z87.891 Personal history of nicotine dependence; Z79.82 Long term (current) use of aspirin; Z79.899 Other long term (current) drug therapy; Z79.02 Long term (current) use of antithrombotics/antiplatelets
CPT/HCPCS: 36415; 71046; 80053; 84484; 85025; 93005; 96374; 99285; A9270; J1170; J3490; 93010; 99283

== ENCOUNTER 2023-02-27 19:56 | Emergency (ER) | payer MEDICARE, BC ==
[2023-02-27 20:11] VITALS: BP 176/60; PULSE 72
[2023-02-27] MEDS ORDERED: Sodium Chloride 0.9% 10 ML Syringe FLUSH PRN (20:28)
[2023-02-27] MEDS ORDERED: Sodium Chloride 0.9% 50 ML IV SCH (20:45)
[2023-02-27] MEDS ORDERED: Iopamidol 612 MG/ML 100 ML Bottle IV SCH (20:45)
[2023-02-27 21:08] LABS: ESTIMATED GFR 85 mL/min (>60)
[2023-02-27] MEDS ORDERED: Potassium Chloride 20 MEQ Tab.ER PO ONE (21:25)
[2023-02-27] MEDS ORDERED: traMADol 50 MG Tab PO ONE (21:26)
[2023-02-27] MEDS ORDERED: Pantoprazole 40 MG Tab.CR PO ONE (21:27)
[2023-02-27] MEDS ORDERED: Nitrofurantoin Monohydrate/Macrocrystalline 100 MG Cap PO ONE (22:10)
== END 2023-02-27 22:35 | disposition home or self-care (01) ==
LOC: JP.ED 19:56
DX: T83.511A Infection and inflammatory reaction due to indwelling urethral catheter, initial encounter (principal); N30.90 Cystitis, unspecified without hematuria; I65.23 Occlusion and stenosis of bilateral carotid arteries; I10 Essential (primary) hypertension; M25.551 Pain in right hip; G89.29 Other chronic pain; E87.6 Hypokalemia; E78.00 Pure hypercholesterolemia, unspecified; I25.2 Old myocardial infarction; E66.9 Obesity, unspecified; Z79.82 Long term (current) use of aspirin; Z79.02 Long term (current) use of antithrombotics/antiplatelets; Z79.899 Other long term (current) drug therapy; Z86.16 Personal history of COVID-19; Z68.35 Body mass index [BMI] 35.0-35.9, adult
CPT/HCPCS: 36415; 74177; 80053; 81001; 83605; 83690; 85025; 86140; 87086; 87088; 87186; 99284; A9270; J3490; Q9967

== ENCOUNTER 2023-04-25 16:49 | Emergency (ER) | payer MEDICARE, BC ==
[2023-04-25] MEDS ORDERED: Morphine 2 MG/ML SYRINGE IVPUSH ONE (17:43)
[2023-04-25] MEDS ORDERED: Ondansetron 4 MG/2 ML SDV IVPUSH ONE (17:43)
[2023-04-25 18:58] VITALS: BP 127/42; PULSE 69
== END 2023-04-25 20:12 | disposition home or self-care (01) ==
LOC: JP.ED 16:49
DX: M16.0 Bilateral primary osteoarthritis of hip (principal); I10 Essential (primary) hypertension; I25.2 Old myocardial infarction; E78.00 Pure hypercholesterolemia, unspecified; K21.9 Gastro-esophageal reflux disease without esophagitis; E66.9 Obesity, unspecified; Z68.34 Body mass index [BMI] 34.0-34.9, adult; Z86.16 Personal history of COVID-19; Z79.82 Long term (current) use of aspirin; Z79.02 Long term (current) use of antithrombotics/antiplatelets; Z79.899 Other long term (current) drug therapy
CPT/HCPCS: 73502; 96374; 96375; 99284; J2270; J2405

== ENCOUNTER 2023-06-20 11:04 | Emergency (ER) | payer MEDICARE, BC ==
[2023-06-20] MEDS ORDERED: HYDROmorphone 0.5 MG/0.5 ML Syringe IM ONE ×2 (11:53→12:41)
[2023-06-20] MEDS ORDERED: Acetaminophen/oxyCODONE 325-5 MG Tab PO PRN (13:18)
[2023-06-20 14:16] VITALS: BP 163/47; PULSE 57
== END 2023-06-20 15:00 | disposition home or self-care (01) ==
LOC: JP.ED 11:04
DX: M25.551 Pain in right hip (principal); E78.00 Pure hypercholesterolemia, unspecified; I10 Essential (primary) hypertension; I25.2 Old myocardial infarction; E66.9 Obesity, unspecified; K21.9 Gastro-esophageal reflux disease without esophagitis; M19.90 Unspecified osteoarthritis, unspecified site; N40.0 Benign prostatic hyperplasia without lower urinary tract symptoms; Z79.02 Long term (current) use of antithrombotics/antiplatelets; Z79.82 Long term (current) use of aspirin; Z86.73 Personal history of transient ischemic attack (TIA), and cerebral infarction without residual deficits; Z86.16 Personal history of COVID-19; Z79.899 Other long term (current) drug therapy; Z68.37 Body mass index [BMI] 37.0-37.9, adult
CPT/HCPCS: 73700; 76377; 96372; 99283; A9270; J1170

== ENCOUNTER 2023-06-29 10:27 | Emergency (ER) | payer MEDICARE, BC ==
[2023-06-29 10:57] VITALS: BP 159/55; PULSE 72
[2023-06-29 11:48] LABS: BASOPHILS ABSOLUTE AUTO 0.06 K/uL (0.00-0.10); BASOPHILS PERCENT AUTO 0.7 % (0.1-1.3); EOSINOPHILS ABSOLUTE AUTO 0.33 K/uL (0.00-0.40); EOSINOPHILS PERCENT AUTO 3.8 % (0.0-5.4); HEMATOCRIT 41.3 % (38.4-49.7); HEMOGLOBIN 13.6 g/dL (12.9-16.9); IMMATURE GRAN ABSOLUTE AUTO 0.06 K/uL (0.00-0.23); IMMATURE GRAN PERCENT AUTO 0.7 % (0.0-0.7); LYMPHOCYTES ABSOLUTE AUTO 2.11 K/uL (0.8-3.3); LYMPHOCYTES PERCENT AUTO 24.1 % (11.4-47.7); MEAN CORPUSCULAR HEMOGLOBIN 29.1 pg (31.6-35.5); MEAN CORPUSCULAR HGB CONC 32.9 g/dL (31.6-35.5); MEAN CORPUSCULAR VOLUME 88.4 fL (81.4-99.0); MONOCYTES ABSOLUTE AUTO 0.81 K/uL (0.20-0.90); MONOCYTES PERCENT AUTO 9.2 % (3.3-12.6); NEUTROPHILS PERCENT AUTO 61.5 % (40.0-78.1); PLATELET COUNT,PLT 215 K/uL (130-375); RED BLOOD CELL COUNT 4.67 M/uL (4.14-5.76); WHITE BLOOD CELL COUNT,WBC 8.8 K/uL (3.2-11.0)
[2023-06-29] MEDS: Acetaminophen/oxyCODONE 325-5 MG Tab PO ONE (11:50)
[2023-06-29] MEDS: Ketorolac 30 MG/ML SDV IM ONE (11:52)
[2023-06-29 12:11] LABS: ANION GAP 9.7 mmol/L (5.0-14.0); CALCIUM 9.1 mg/dL (8.5-10.1); CREATININE 0.9 mg/dL (0.8-1.3); EST CRCL DRUG DOSING (CG) 68.26 mL/min; POTASSIUM,K 4.1 mmol/L (3.6-5.2)
== END 2023-06-29 13:29 | disposition home or self-care (01) ==
LOC: JP.ED 10:27
DX: M16.0 Bilateral primary osteoarthritis of hip (principal); R60.0 Localized edema; E78.00 Pure hypercholesterolemia, unspecified; I10 Essential (primary) hypertension; I25.2 Old myocardial infarction; K21.9 Gastro-esophageal reflux disease without esophagitis; E66.9 Obesity, unspecified; Z68.37 Body mass index [BMI] 37.0-37.9, adult; Z86.16 Personal history of COVID-19; Z79.82 Long term (current) use of aspirin; Z79.899 Other long term (current) drug therapy; Z87.891 Personal history of nicotine dependence
CPT/HCPCS: 36415; 80048; 85025; 96372; 99283; A9270-GY; J1885

== ENCOUNTER 2023-07-14 12:17 | Emergency (ER) | payer MEDICARE, BC ==
[2023-07-14 13:47] LABS: BASOPHILS ABSOLUTE AUTO 0.05 K/uL (0.00-0.10); BASOPHILS PERCENT AUTO 0.6 % (0.1-1.3); EOSINOPHILS ABSOLUTE AUTO 0.35 K/uL (0.00-0.40); HEMATOCRIT 39.5 % (38.4-49.7); HEMOGLOBIN 13.2 g/dL (12.9-16.9); IMMATURE GRAN ABSOLUTE AUTO 0.06 K/uL (0.00-0.23); IMMATURE GRAN PERCENT AUTO 0.7 % (0.0-0.7); LYMPHOCYTES ABSOLUTE AUTO 2.06 K/uL (0.8-3.3); LYMPHOCYTES PERCENT AUTO 23.8 % (11.4-47.7); MEAN CORPUSCULAR HEMOGLOBIN 29.5 pg (31.6-35.5); MEAN CORPUSCULAR HGB CONC 33.4 g/dL (31.6-35.5); MEAN CORPUSCULAR VOLUME 88.2 fL (81.4-99.0); MONOCYTES PERCENT AUTO 8.1 % (3.3-12.6); NEUTROPHILS ABSOLUTE AUTO 5.44 K/uL (1.0-7.6); NEUTROPHILS PERCENT AUTO 62.8 % (40.0-78.1); PLATELET COUNT,PLT 190 K/uL (130-375); RED BLOOD CELL COUNT 4.48 M/uL (4.14-5.76); WHITE BLOOD CELL COUNT,WBC 8.7 K/uL (3.2-11.0)
[2023-07-14] MEDS ORDERED: HYDROmorphone 1 MG/ML Syringe IM ONE ×2 (14:04→15:26)
[2023-07-14 14:08] LABS: A/G RATIO 1.1 (1.2-2.2); ALANINE AMINOTRANSFERASE,ALT 33 U/L (12-78); ALBUMIN 3.5 g/dL (3.4-5.0); ALKALINE PHOSPHATASE 69 U/L (46-116); ANION GAP 5.4 mmol/L (5.0-14.0); ASPARTATE AMNIOTRANSFERASE,AST 20 U/L (15-37); BILIRUBIN TOTAL 0.5 mg/dL (0.2-1.0); BLOOD UREA NITROGEN,BUN 17 mg/dL (7-18); CALCIUM 8.9 mg/dL (8.5-10.1); CARBON DIOXIDE,CO2 30 mmol/L (21-32); CHLORIDE,CL 106 mmol/L (100-108); CREATININE 0.8 mg/dL (0.8-1.3); EST CRCL DRUG DOSING (CG) 76.79 mL/min; ESTIMATED GFR 88 mL/min (>60); GLUCOSE RANDOM 103 mg/dL (74-106); POTASSIUM,K 4.3 mmol/L (3.6-5.2); PROTEIN TOTAL,TP 6.6 g/dL (6.4-8.2); SODIUM,NA 141 mmol/L (140-148)
[2023-07-14 14:09] LABS: C-REACTIVE PROTEIN < 0.05 mg/dL (0.0-0.3)
[2023-07-14 15:11] VITALS: BP 174/62; PULSE 66
== END 2023-07-14 15:45 | disposition home or self-care (01) ==
LOC: JP.ED 12:17
DX: G89.29 Other chronic pain (principal); M25.551 Pain in right hip; L97.521 Non-pressure chronic ulcer of other part of left foot limited to breakdown of skin; I10 Essential (primary) hypertension; I25.2 Old myocardial infarction; E78.00 Pure hypercholesterolemia, unspecified; K21.9 Gastro-esophageal reflux disease without esophagitis; M19.90 Unspecified osteoarthritis, unspecified site; E66.9 Obesity, unspecified; Z68.35 Body mass index [BMI] 35.0-35.9, adult; Z86.16 Personal history of COVID-19; Z87.891 Personal history of nicotine dependence; Z79.82 Long term (current) use of aspirin; Z79.02 Long term (current) use of antithrombotics/antiplatelets; Z79.899 Other long term (current) drug therapy
CPT/HCPCS: 36415; 80053; 84145; 85025; 86140; 96372; 99283; J1170

== ENCOUNTER 2023-07-25 06:07 | Emergency (ER) | payer MEDICARE, BC ==
[2023-07-25 06:16] VITALS: BP 141/47; PULSE 76
[2023-07-25 07:00] LABS: BASOPHILS ABSOLUTE AUTO 0.06 K/uL (0.00-0.10); BASOPHILS PERCENT AUTO 0.8 % (0.1-1.3); EOSINOPHILS ABSOLUTE AUTO 0.37 K/uL (0.00-0.40); EOSINOPHILS PERCENT AUTO 4.7 % (0.0-5.4); HEMATOCRIT 39.3 % (38.4-49.7); HEMOGLOBIN 13.1 g/dL (12.9-16.9); IMMATURE GRAN ABSOLUTE AUTO 0.07 K/uL (0.00-0.23); IMMATURE GRAN PERCENT AUTO 0.9 % (0.0-0.7); LYMPHOCYTES PERCENT AUTO 17.7 % (11.4-47.7); MEAN CORPUSCULAR HEMOGLOBIN 29.6 pg (31.6-35.5); MEAN CORPUSCULAR HGB CONC 33.3 g/dL (31.6-35.5); MEAN CORPUSCULAR VOLUME 88.7 fL (81.4-99.0); MONOCYTES ABSOLUTE AUTO 0.65 K/uL (0.20-0.90); MONOCYTES PERCENT AUTO 8.2 % (3.3-12.6); NEUTROPHILS ABSOLUTE AUTO 5.34 K/uL (1.0-7.6); NEUTROPHILS PERCENT AUTO 67.7 % (40.0-78.1); PLATELET COUNT,PLT 185 K/uL (130-375); RED BLOOD CELL COUNT 4.43 M/uL (4.14-5.76); WHITE BLOOD CELL COUNT,WBC 7.9 K/uL (3.2-11.0)
[2023-07-25 07:19] LABS: ANION GAP 6.9 mmol/L (5.0-14.0); CALCIUM 9.2 mg/dL (8.5-10.1); EST CRCL DRUG DOSING (CG) 61.43 mL/min; POTASSIUM,K 4.1 mmol/L (3.6-5.2)
== END 2023-07-25 09:30 | disposition home or self-care (01) ==
LOC: JP.ED 06:07
DX: R55 Syncope and collapse (principal); I10 Essential (primary) hypertension; E78.00 Pure hypercholesterolemia, unspecified; I25.2 Old myocardial infarction; E66.9 Obesity, unspecified; Z79.82 Long term (current) use of aspirin; Z79.899 Other long term (current) drug therapy; Z86.16 Personal history of COVID-19; Z87.891 Personal history of nicotine dependence; Z68.37 Body mass index [BMI] 37.0-37.9, adult
CPT/HCPCS: 36415; 74019; 74019-26; 80048; 82800; 83605; 83735; 85025; 86140; 93005; 99284

== ENCOUNTER 2023-08-26 07:13 | Inpatient (IN) | payer MEDICARE, BC ==
[2023-08-26 08:00] LABS: HEMATOCRIT 38.4 % (38.4-49.7); HEMOGLOBIN 12.9 g/dL (12.9-16.9); MEAN CORPUSCULAR HEMOGLOBIN 30.1 pg (31.6-35.5); MEAN CORPUSCULAR HGB CONC 33.6 g/dL (31.6-35.5); MEAN CORPUSCULAR VOLUME 89.7 fL (81.4-99.0); RED BLOOD CELL COUNT 4.28 M/uL (4.14-5.76); WHITE BLOOD CELL COUNT,WBC 9.7 K/uL (3.2-11.0)
[2023-08-26] MEDS ORDERED: amLODIPine 5 MG Tab PO ONE (08:00)
[2023-08-26 08:22] LABS: A/G RATIO 0.9 (1.2-2.2); ALANINE AMINOTRANSFERASE,ALT 41 U/L (12-78); ALBUMIN 3.4 g/dL (3.4-5.0); ALKALINE PHOSPHATASE 90 U/L (46-116); ANION GAP 9.5 mmol/L (5.0-14.0); ASPARTATE AMNIOTRANSFERASE,AST 29 U/L (15-37); BILIRUBIN TOTAL 0.8 mg/dL (0.2-1.0); BLOOD UREA NITROGEN,BUN 19 mg/dL (7-18); CALCIUM 8.8 mg/dL (8.5-10.1); CARBON DIOXIDE,CO2 29 mmol/L (21-32); CHLORIDE,CL 104 mmol/L (100-108); CREATININE 0.8 mg/dL (0.8-1.3); ESTIMATED GFR 87 mL/min (>60); GLUCOSE RANDOM 103 mg/dL (74-106); POTASSIUM,K 4.3 mmol/L (3.6-5.2); SODIUM,NA 142 mmol/L (140-148)
[2023-08-26] MEDS ORDERED: Lactated Ringers 1,000 ML IV SCH (08:30)
[2023-08-26] MEDS ORDERED: Bupivacaine 0.5% 50 ML MDV ONE (08:54)
[2023-08-26] MEDS ORDERED: Nozin Nasal Sanitizer NASBOTH SCH (09:00)
[2023-08-26] MEDS ORDERED: ceFAZolin 2 GM in Premix Bag 1 BAG IV ONE (09:00)
[2023-08-26] MEDS ORDERED: Propofol 200 MG/20 ML SDV ONE ×2 (09:29→11:27)
[2023-08-26] MEDS ORDERED: oxyCODONE 5 MG Tab PO PRN (10:00)
[2023-08-26] MEDS ORDERED: Morphine 2 MG/ML SYRINGE SUBCUT PRN (10:01)
[2023-08-26] MEDS ORDERED: Magnesium Hydroxide 400 MG/5 ML Susp 30 ML Cup PO PRN (10:01)
[2023-08-26] MEDS ORDERED: Ondansetron 4 MG/2 ML SDV IVPUSH PRN (10:01)
[2023-08-26] MEDS ORDERED: Midazolam 1 MG/ML 2 ML SDV ONE (10:02)
[2023-08-26] MEDS ORDERED: fentaNYL 100 MCG/2 ML SDV ONE (10:02)
[2023-08-26] MEDS ORDERED: Magnesium Citrate Solution 296 ML Bottle PO PRN (10:07)
[2023-08-26] MEDS ORDERED: Sodium Chloride 0.9% 1,000 ML IV SCH (10:15)
[2023-08-26] MEDS ORDERED: ceFAZolin 2 GM in Sodium Chloride 0.9% 50 ML IV SCH (10:15)
[2023-08-26] MEDS: Ketorolac 15 MG/ML SDV IVPUSH PRN ×2 (14:19→22:54)
[2023-08-26] MEDS ORDERED: Morphine 2 MG/ML SYRINGE IVPUSH PRN (16:49)
[2023-08-26] MEDS: Acetaminophen 325 MG Tab PO SCH ×2 (17:19→22:55)
[2023-08-26] MEDS: oxyCODONE 5 MG Tab PO PRN (17:20)
[2023-08-26] MEDS: Potassium Chloride 10 MEQ Cap.ER PO SCH (17:21)
[2023-08-26] MEDS: ceFAZolin 2 GM in Premix Bag 1 BAG IV SCH (17:28)
[2023-08-26] MEDS: Furosemide 40 MG Tab PO SCH (20:08)
[2023-08-26] MEDS: Nozin Nasal Sanitizer NASBOTH SCH (20:09)
[2023-08-26] MEDS ORDERED: Non-Formulary Medication 1 Each (Atorvastatin [Lipitor] 40 MG Tablet) PO SCH (21:00)
[2023-08-27] MEDS: oxyCODONE 5 MG Tab PO PRN ×4 (00:27→20:59)
[2023-08-27] MEDS: ceFAZolin 2 GM in Premix Bag 1 BAG IV SCH ×2 (02:27→09:37)
[2023-08-27] MEDS: Acetaminophen 325 MG Tab PO SCH ×5 (04:57→21:01)
[2023-08-27 05:14] LABS: HEMATOCRIT 29.6 % (38.4-49.7); HEMOGLOBIN 9.9 g/dL (12.9-16.9); MEAN CORPUSCULAR HEMOGLOBIN 30.2 pg (31.6-35.5); MEAN CORPUSCULAR HGB CONC 33.4 g/dL (31.6-35.5); MEAN CORPUSCULAR VOLUME 90.2 fL (81.4-99.0); RED BLOOD CELL COUNT 3.28 M/uL (4.14-5.76); WHITE BLOOD CELL COUNT,WBC 8.4 K/uL (3.2-11.0)
[2023-08-27] MEDS: Potassium Chloride 10 MEQ Cap.ER PO SCH ×3 (08:06→17:12)
[2023-08-27] MEDS: Aspirin 81 MG Tab.Chew PO SCH (08:06)
[2023-08-27] MEDS: Nozin Nasal Sanitizer NASBOTH SCH ×2 (08:06→20:55)
[2023-08-27] MEDS: Furosemide 40 MG Tab PO SCH ×2 (08:07→13:18)
[2023-08-27] MEDS: Clopidogrel 75 MG Tab PO SCH (08:07)
[2023-08-27] MEDS: Finasteride 5 MG Tab PO SCH (08:07)
[2023-08-27] MEDS: Tamsulosin 0.4 MG Cap.ER PO SCH (08:07)
[2023-08-27] MEDS: amLODIPine 5 MG Tab PO SCH (08:08)
[2023-08-27] MEDS ORDERED: Non-Formulary Medication 1 Each (Amlodipine Besylate [Amlodipine Besylate] 5 MG Tablet) PO SCH (09:00)
[2023-08-27] MEDS: atorvaSTATin 20 MG Tab PO SCH (20:55)
[2023-08-28] MEDS: Acetaminophen 325 MG Tab PO SCH ×4 (03:31→21:24)
[2023-08-28 04:57] LABS: HEMATOCRIT 28.1 % (38.4-49.7); HEMOGLOBIN 9.4 g/dL (12.9-16.9); MEAN CORPUSCULAR HGB CONC 33.5 g/dL (31.6-35.5); MEAN CORPUSCULAR VOLUME 89.8 fL (81.4-99.0); RED BLOOD CELL COUNT 3.13 M/uL (4.14-5.76); WHITE BLOOD CELL COUNT,WBC 9.9 K/uL (3.2-11.0)
[2023-08-28] MEDS: oxyCODONE 5 MG Tab PO PRN ×3 (05:50→18:13)
[2023-08-28] MEDS: Potassium Chloride 10 MEQ Cap.ER PO SCH ×4 (08:11→16:36)
[2023-08-28] MEDS: Docusate Sodium 100 MG Cap PO PRN (08:13)
[2023-08-28] MEDS: Furosemide 40 MG Tab PO SCH ×2 (08:14→14:22)
[2023-08-28] MEDS: Nozin Nasal Sanitizer NASBOTH SCH ×2 (08:14→21:24)
[2023-08-28] MEDS: amLODIPine 5 MG Tab PO SCH (08:15)
[2023-08-28] MEDS: Tamsulosin 0.4 MG Cap.ER PO SCH (08:15)
[2023-08-28] MEDS: Aspirin 81 MG Tab.Chew PO SCH (08:15)
[2023-08-28] MEDS: Clopidogrel 75 MG Tab PO SCH (08:16)
[2023-08-28] MEDS: Finasteride 5 MG Tab PO SCH (08:16)
[2023-08-28] MEDS: atorvaSTATin 20 MG Tab PO SCH (21:24)
[2023-08-29] MEDS: Acetaminophen 325 MG Tab PO SCH ×4 (03:20→22:46)
[2023-08-29] MEDS: oxyCODONE 5 MG Tab PO PRN ×3 (03:23→19:00)
[2023-08-29] MEDS: Aspirin 81 MG Tab.Chew PO SCH (08:05)
[2023-08-29] MEDS: Finasteride 5 MG Tab PO SCH (08:05)
[2023-08-29] MEDS: amLODIPine 5 MG Tab PO SCH (08:05)
[2023-08-29] MEDS: Potassium Chloride 10 MEQ Cap.ER PO SCH ×3 (08:05→16:12)
[2023-08-29] MEDS: Furosemide 40 MG Tab PO SCH ×2 (08:05→14:20)
[2023-08-29] MEDS: Docusate Sodium 100 MG Cap PO PRN (08:05)
[2023-08-29] MEDS: Nozin Nasal Sanitizer NASBOTH SCH ×2 (08:05→20:13)
[2023-08-29] MEDS: Clopidogrel 75 MG Tab PO SCH (08:05)
[2023-08-29] MEDS: Tamsulosin 0.4 MG Cap.ER PO SCH (08:05)
[2023-08-29] MEDS: atorvaSTATin 20 MG Tab PO SCH (20:14)
[2023-08-29] MEDS ORDERED: Hypromellose 0.3% Ophth Soln 15 ML Bottle EYEBOTH PRN (21:05)
[2023-08-29] MEDS ORDERED: traMADol 50 MG Tab PO ONE (21:27)
[2023-08-30] MEDS: Acetaminophen 325 MG Tab PO SCH ×4 (05:20→21:15)
[2023-08-30] MEDS: oxyCODONE 5 MG Tab PO PRN ×2 (05:47→20:26)
[2023-08-30 06:00] LABS: HEMATOCRIT 28.2 % (38.4-49.7); HEMOGLOBIN 9.3 g/dL (12.9-16.9); MEAN CORPUSCULAR HEMOGLOBIN 29.6 pg (31.6-35.5); MEAN CORPUSCULAR VOLUME 89.8 fL (81.4-99.0); RED BLOOD CELL COUNT 3.14 M/uL (4.14-5.76); WHITE BLOOD CELL COUNT,WBC 11.3 K/uL (3.2-11.0)
[2023-08-30 06:19] LABS: CALCIUM 8.5 mg/dL (8.5-10.1); CREATININE 0.8 mg/dL (0.8-1.3); EST CRCL DRUG DOSING (CG) 75.44 mL/min; POTASSIUM,K 4.3 mmol/L (3.6-5.2)
[2023-08-30 06:23] LABS: ANION GAP 9.3 mmol/L (5.0-14.0)
[2023-08-30] MEDS: Furosemide 40 MG Tab PO SCH ×2 (08:42→13:24)
[2023-08-30] MEDS: Potassium Chloride 10 MEQ Cap.ER PO SCH ×3 (08:42→16:48)
[2023-08-30] MEDS: Aspirin 81 MG Tab.Chew PO SCH (08:42)
[2023-08-30] MEDS: Nozin Nasal Sanitizer NASBOTH SCH ×2 (08:42→20:27)
[2023-08-30] MEDS: Finasteride 5 MG Tab PO SCH (08:42)
[2023-08-30] MEDS: Tamsulosin 0.4 MG Cap.ER PO SCH (08:43)
[2023-08-30] MEDS: amLODIPine 5 MG Tab PO SCH (08:43)
[2023-08-30] MEDS: Clopidogrel 75 MG Tab PO SCH (08:43)
[2023-08-30] MEDS ORDERED: Ondansetron 4 MG Tab.DIS PO PRN (18:13)
[2023-08-30] MEDS: atorvaSTATin 20 MG Tab PO SCH (20:27)
[2023-08-31] MEDS: oxyCODONE 5 MG Tab PO PRN ×2 (02:16→09:29)
[2023-08-31] MEDS: Acetaminophen 325 MG Tab PO SCH ×2 (04:56→09:29)
[2023-08-31 06:23] VITALS: BP 157/49; PULSE 74
[2023-08-31] MEDS: Nozin Nasal Sanitizer NASBOTH SCH (08:00)
[2023-08-31] MEDS: Furosemide 40 MG Tab PO SCH (08:00)
[2023-08-31] MEDS: Tamsulosin 0.4 MG Cap.ER PO SCH (08:00)
[2023-08-31] MEDS: amLODIPine 5 MG Tab PO SCH (08:00)
[2023-08-31] MEDS: Potassium Chloride 10 MEQ Cap.ER PO SCH (08:00)
[2023-08-31] MEDS: Aspirin 81 MG Tab.Chew PO SCH (08:00)
[2023-08-31] MEDS: Finasteride 5 MG Tab PO SCH (08:01)
[2023-08-31] MEDS: Clopidogrel 75 MG Tab PO SCH (08:01)
== END 2023-08-31 11:40 | DRG 470 ==
LOC: JP.SDS 07:13 → JP.MS 10:01 → JP.SDS 08-27 12:04
PROVIDERS: ADMIT Specialist; ATTEND Specialist
PROC: 0SR90JA Replacement of Right Hip Joint with Synthetic Substitute, Uncemented, Open Approach (ICD-10-PCS; principal; 2023-08-26)
DX: M16.11 Unilateral primary osteoarthritis, right hip (principal); I50.30 Unspecified diastolic (congestive) heart failure; I11.0 Hypertensive heart disease with heart failure; I25.10 Atherosclerotic heart disease of native coronary artery without angina pectoris; N40.0 Benign prostatic hyperplasia without lower urinary tract symptoms; L97.529 Non-pressure chronic ulcer of other part of left foot with unspecified severity; S30.0XXA Contusion of lower back and pelvis, initial encounter; Z79.02 Long term (current) use of antithrombotics/antiplatelets; Z97.8 Presence of other specified devices; Z95.828 Presence of other vascular implants and grafts; X58.XXXA Exposure to other specified factors, initial encounter; Z79.82 Long term (current) use of aspirin; Z79.899 Other long term (current) drug therapy; Z95.2 Presence of prosthetic heart valve
CPT/HCPCS: 27130; 36415 ×2; 72170 ×2; 80053; 85027 ×2; 93005; 93010; 97110; 97161; 99232; A9270 ×20; C1713 ×2; C1776; J0690 ×4; J1885 ×2; J2250; J2704 ×2; J3010; J7030; J7120; 80048; 97116-GP; 97165-GO; 97530-GP; J3490; Q0162

== ENCOUNTER 2023-10-14 19:22 | Emergency (ER) | payer MEDICARE, BC ==
[2023-10-14 19:42] VITALS: BP 175/71; PULSE 89
== END 2023-10-14 21:23 | disposition home or self-care (01) ==
LOC: JP.ED 19:22
DX: K59.03 Drug induced constipation (principal); T40.2X5A Adverse effect of other opioids, initial encounter; K60.2 Anal fissure, unspecified; I11.0 Hypertensive heart disease with heart failure; I50.9 Heart failure, unspecified; E78.00 Pure hypercholesterolemia, unspecified; K21.9 Gastro-esophageal reflux disease without esophagitis; I25.2 Old myocardial infarction; E66.9 Obesity, unspecified; Z86.16 Personal history of COVID-19; Z95.5 Presence of coronary angioplasty implant and graft; Z90.49 Acquired absence of other specified parts of digestive tract; Z79.82 Long term (current) use of aspirin; Z79.899 Other long term (current) drug therapy; Z68.34 Body mass index [BMI] 34.0-34.9, adult
CPT/HCPCS: 74018; 74018-26; 99283

== ENCOUNTER 2024-08-23 09:38 | Emergency (ER) | payer MEDICARE, BC ==
[2024-08-23 10:03] VITALS: BP 173/60; PULSE 61
[2024-08-23] MEDS: Prochlorperazine 10 MG/2 ML SDV IVPUSH ONE (10:40)
[2024-08-23] MEDS: Sodium Chloride 0.9% 1,000 ML IV ONE (10:40)
[2024-08-23 10:43] LABS: BASOPHILS ABSOLUTE AUTO 0.05 K/uL (0.00-0.10); BASOPHILS PERCENT AUTO 0.5 % (0.1-1.3); EOSINOPHILS ABSOLUTE AUTO 0.23 K/uL (0.00-0.40); EOSINOPHILS PERCENT AUTO 2.1 % (0.0-5.4); HEMATOCRIT 43.1 % (38.4-49.7); HEMOGLOBIN 14.8 g/dL (12.9-16.9); IMMATURE GRAN ABSOLUTE AUTO 0.04 K/uL (0.00-0.23); IMMATURE GRAN PERCENT AUTO 0.4 % (0.0-0.7); LYMPHOCYTES ABSOLUTE AUTO 2.02 K/uL (0.8-3.3); LYMPHOCYTES PERCENT AUTO 18.8 % (11.4-47.7); MEAN CORPUSCULAR HEMOGLOBIN 30.6 pg (31.6-35.5); MEAN CORPUSCULAR HGB CONC 34.3 g/dL (31.6-35.5); MEAN CORPUSCULAR VOLUME 89.2 fL (81.4-99.0); MONOCYTES ABSOLUTE AUTO 0.76 K/uL (0.20-0.90); MONOCYTES PERCENT AUTO 7.1 % (3.3-12.6); NEUTROPHILS ABSOLUTE AUTO 7.63 K/uL (1.0-7.6); NEUTROPHILS PERCENT AUTO 71.1 % (40.0-78.1); PLATELET COUNT,PLT 218 K/uL (130-375); RED BLOOD CELL COUNT 4.83 M/uL (4.14-5.76); WHITE BLOOD CELL COUNT,WBC 10.7 K/uL (3.2-11.0)
[2024-08-23 10:50] LABS: CORONAVIRUS COVID-19 NAA NEGATIVE (NEGATIVE); INFLUENZA A NAA NEGATIVE (NEGATIVE); INFLUENZA B NAA NEGATIVE (NEGATIVE); RESPIRATORY SYNCYTIAL VIR NAA NEGATIVE (NEGATIVE)
[2024-08-23 11:10] LABS: A/G RATIO 0.9 (1.2-2.2); ALANINE AMINOTRANSFERASE,ALT 22 U/L (12-78); ALBUMIN 3.6 g/dL (3.4-5.0); ALKALINE PHOSPHATASE 73 U/L (46-116); ANION GAP 10.7 mmol/L (5.0-14.0); ASPARTATE AMNIOTRANSFERASE,AST 16 U/L (15-37); BILIRUBIN TOTAL 1.5 mg/dL (0.2-1.0); BLOOD UREA NITROGEN,BUN 20 mg/dL (7-18); CALCIUM 9.7 mg/dL (8.5-10.1); CARBON DIOXIDE,CO2 28 mmol/L (21-32); CHLORIDE,CL 106 mmol/L (100-108); CREATININE 0.9 mg/dL (0.8-1.3); EST CRCL DRUG DOSING (CG) 65.86 mL/min; ESTIMATED GFR 84 mL/min (>60); GLUCOSE RANDOM 123 mg/dL (74-106); PRO B-TYPE NATRIUR PEPT,BNPPRO 221 pg/mL (5-450); PROTEIN TOTAL,TP 7.5 g/dL (6.4-8.2); SODIUM,NA 145 mmol/L (140-148)
[2024-08-23] MEDS: Glucagon,Human Recombinant 1 MG Vial IM ONE (12:06)
== END 2024-08-23 13:43 | disposition home or self-care (01) ==
LOC: JP.ED 09:38
DX: T18.108A Unspecified foreign body in esophagus causing other injury, initial encounter (principal); I10 Essential (primary) hypertension; R06.89 Other abnormalities of breathing; Z79.899 Other long term (current) drug therapy; Z79.82 Long term (current) use of aspirin; Z90.49 Acquired absence of other specified parts of digestive tract; Z87.891 Personal history of nicotine dependence
CPT/HCPCS: 0241U; 36415; 71045; 80053; 83880; 84145; 84484; 85025; 93005; 96361; 96372; 96374; 99284; J0780; J1610; J7030; 93010

== ENCOUNTER 2024-09-14 07:26 | Day surgery (SDC) | payer MEDICARE, BC ==
[~2024-09-14 07:26] MED LIST changes: -Bupivacaine 0.5% 30 ML SDV ONE; -Lidocaine 2% 20 ML MDV ONE; +Propofol 200 MG/20 ML SDV ONE; +fentaNYL 50 MCG/ML SDV ONE
[2024-09-14] MEDS ORDERED: Sodium Chloride 0.9% 1,000 ML IV SCH (08:15)
[2024-09-14] MEDS: Lactated Ringers 1,000 ML IV SCH (08:25)
[2024-09-14 11:09] VITALS: BP 183/60; PULSE 58
== END 2024-09-14 11:27 | disposition home or self-care (01) ==
LOC: JP.SDS 07:26
PROVIDERS: ATTEND Surgery
DX: R13.10 Dysphagia, unspecified (principal); I11.0 Hypertensive heart disease with heart failure; I50.9 Heart failure, unspecified; E66.9 Obesity, unspecified; K21.9 Gastro-esophageal reflux disease without esophagitis
CPT/HCPCS: 00731; 43239; J2704; J3010; J7120; 88305

== ENCOUNTER 2025-01-09 15:49 | Emergency (ER) | payer MEDICARE, BC ==
[2025-01-09 16:09] LABS: BASOPHILS ABSOLUTE AUTO 0.05 K/uL (0.00-0.10); BASOPHILS PERCENT AUTO 0.6 % (0.1-1.3); EOSINOPHILS ABSOLUTE AUTO 0.36 K/uL (0.00-0.40); HEMATOCRIT 41.5 % (38.4-49.7); HEMOGLOBIN 14.2 g/dL (12.9-16.9); IMMATURE GRAN ABSOLUTE AUTO 0.08 K/uL (0.00-0.23); IMMATURE GRAN PERCENT AUTO 0.9 % (0.0-0.7); LYMPHOCYTES ABSOLUTE AUTO 2.23 K/uL (0.8-3.3); LYMPHOCYTES PERCENT AUTO 24.8 % (11.4-47.7); MEAN CORPUSCULAR HEMOGLOBIN 31.1 pg (31.6-35.5); MEAN CORPUSCULAR HGB CONC 34.2 g/dL (31.6-35.5); MONOCYTES ABSOLUTE AUTO 0.76 K/uL (0.20-0.90); MONOCYTES PERCENT AUTO 8.5 % (3.3-12.6); NEUTROPHILS PERCENT AUTO 61.2 % (40.0-78.1); PLATELET COUNT,PLT 214 K/uL (130-375); RED BLOOD CELL COUNT 4.56 M/uL (4.14-5.76)
[2025-01-09 16:16] VITALS: BP 132/53; PULSE 86
[2025-01-09 16:37] LABS: A/G RATIO 1.2 (1.2-2.2); ALANINE AMINOTRANSFERASE,ALT 29 U/L (12-78); ALBUMIN 3.8 g/dL (3.4-5.0); ALKALINE PHOSPHATASE 53 U/L (46-116); ASPARTATE AMNIOTRANSFERASE,AST 19 U/L (15-37); BILIRUBIN TOTAL 0.6 mg/dL (0.2-1.0); BLOOD UREA NITROGEN,BUN 31 mg/dL (7-18); CALCIUM 9.6 mg/dL (8.5-10.1); CARBON DIOXIDE,CO2 28 mmol/L (21-32); CHLORIDE,CL 102 mmol/L (100-108); CREATININE 1.2 mg/dL (0.8-1.3); ESTIMATED GFR 59 mL/min (>60); GLUCOSE RANDOM 110 mg/dL (74-106); POTASSIUM,K 3.9 mmol/L (3.6-5.2); PROTEIN TOTAL,TP 6.9 g/dL (6.4-8.2); SODIUM,NA 141 mmol/L (140-148)
[2025-01-09] MEDS: Sodium Chloride 0.9% 1,000 ML IV ONE (17:31)
== END 2025-01-09 19:40 | disposition home or self-care (01) ==
LOC: JP.ED 15:49
DX: J01.90 Acute sinusitis, unspecified (principal); E86.0 Dehydration; R42 Dizziness and giddiness; I10 Essential (primary) hypertension; E66.9 Obesity, unspecified; Z90.49 Acquired absence of other specified parts of digestive tract; Z95.5 Presence of coronary angioplasty implant and graft; Z79.899 Other long term (current) drug therapy
CPT/HCPCS: 36415; 70486; 71045; 71045-26; 80053; 80307; 83605; 84145; 84484; 85025; 86140; 87040; 87428-QW; 93005; 96360; 99285-25

== ENCOUNTER 2025-09-08 13:16 | Emergency (ER) | payer MEDICARE, BC ==
[2025-09-08 13:27] VITALS: PULSE 79
[2025-09-08 15:17] LABS: BASOPHILS ABSOLUTE AUTO 0.07 K/uL (0.00-0.10); BASOPHILS PERCENT AUTO 0.7 % (0.1-1.3); EOSINOPHILS ABSOLUTE AUTO 0.46 K/uL (0.00-0.40); EOSINOPHILS PERCENT AUTO 4.6 % (0.0-5.4); IMMATURE GRAN ABSOLUTE AUTO 0.06 K/uL (0.00-0.23); IMMATURE GRAN PERCENT AUTO 0.6 % (0.0-0.7); LYMPHOCYTES ABSOLUTE AUTO 2.41 K/uL (0.8-3.3); LYMPHOCYTES PERCENT AUTO 24.0 % (11.4-47.7); MONOCYTES ABSOLUTE AUTO 0.70 K/uL (0.20-0.90); MONOCYTES PERCENT AUTO 7.0 % (3.3-12.6); NEUTROPHILS ABSOLUTE AUTO 6.33 K/uL (1.0-7.6); NEUTROPHILS PERCENT AUTO 63.1 % (40.0-78.1); PLATELET COUNT,PLT 217 K/uL (130-375); RED BLOOD CELL COUNT 4.56 M/uL (4.14-5.76); WHITE BLOOD CELL COUNT,WBC 10.0 K/uL (3.2-11.0)
[2025-09-08 15:22] VITALS: BP 181/59
[2025-09-08 15:43] LABS: A/G RATIO 1.0 (1.2-2.2); ALANINE AMINOTRANSFERASE,ALT 31 U/L (12-78); ASPARTATE AMNIOTRANSFERASE,AST 20 U/L (15-37); BILIRUBIN TOTAL 0.6 mg/dL (0.2-1.0); BLOOD UREA NITROGEN,BUN 18 mg/dL (7-18); CARBON DIOXIDE,CO2 29 mmol/L (21-32); CHLORIDE,CL 103 mmol/L (100-108); CREATININE 0.9 mg/dL (0.8-1.3); EST CRCL DRUG DOSING (CG) 64.67 mL/min; ESTIMATED GFR 83 mL/min (>60); GLUCOSE RANDOM 103 mg/dL (74-106); POTASSIUM,K 4.6 mmol/L (3.6-5.2); PROTEIN TOTAL,TP 7.0 g/dL (6.4-8.2); SODIUM,NA 139 mmol/L (140-148)
[2025-09-08] MEDS ORDERED: Sodium Chloride 0.9% 10 ML Syringe FLUSH ONE (16:15)
[2025-09-08] MEDS ORDERED: Iopamidol 612 MG/ML 100 ML Bottle IV PRN (16:15)
== END 2025-09-08 15:42 | disposition home or self-care (01) ==
LOC: JP.ED 13:16
DX: S91.002A Unspecified open wound, left ankle, initial encounter (principal); R13.11 Dysphagia, oral phase; I10 Essential (primary) hypertension; M19.90 Unspecified osteoarthritis, unspecified site; E66.9 Obesity, unspecified; Z68.39 Body mass index [BMI] 39.0-39.9, adult; Z90.49 Acquired absence of other specified parts of digestive tract; Z79.82 Long term (current) use of aspirin; Z79.899 Other long term (current) drug therapy; X58.XXXA Exposure to other specified factors, initial encounter
CPT/HCPCS: 36415; 70491; 80053; 85025; 96360; 96361; 99284; J7030

== ENCOUNTER 2025-09-13 07:03 | Day surgery (SDC) | payer MEDICARE, BC ==
[2025-09-13] MEDS: Lactated Ringers 1,000 ML IV SCH (07:43)
[2025-09-13] MEDS ORDERED: Propofol 200 MG/20 ML SDV ONE (07:51)
[2025-09-13 11:27] VITALS: BP 159/60; PULSE 73
== END 2025-09-13 12:12 ==
LOC: JP.SDS 07:03
PROVIDERS: ATTEND Surgery
DX: K21.00 Gastro-esophageal reflux disease with esophagitis, without bleeding (principal); I10 Essential (primary) hypertension; E66.9 Obesity, unspecified; Z79.82 Long term (current) use of aspirin; Z79.899 Other long term (current) drug therapy
CPT/HCPCS: 00731; 43239; 43249; C1726; J2704; J7120